=== PATIENT | male | born 1985 | race Caucasian/White ===

== ENCOUNTER 2020-05-06 10:00 | Outpatient (REF) | payer OTHER, SELFPAY ==
[2020-05-06 10:42] LABS: MANUAL DIFF FLAG NO
[2020-05-06 10:55] LABS: Basophils Percent Auto 0.4 % (0-2); Eosinophils Percent Auto 0.4 % (0-4); Hematocrit 38.5 % (42-52); Hemoglobin 12.9 g/dl (14.0-18.0); Imm Gran Abs Auto 0.02 X10*3/uL (0.00-0.03); Imm Gran Pct Auto 0.3 % (0.0-0.4); Lymphocytes Absolute Auto 1.9 X10*3/uL (1.2-4.9); Lymphocytes Percent Auto 28.8 % (20-40); Mean Corpuscular HGB Conc 33.5 g/dl (31.0-36.0); Mean Corpuscular Hemoglobin 29.7 pg (27.0-33.0); Mean Corpuscular Volume 88.5 fL (80-98); Mean Platelet Volume 10.4 fL (9.4-12.4); Monocytes Absolute Auto 0.6 X10*3/uL (0.1-1.2); Monocytes Percent Auto 8.7 % (2-11); Neutrophils Absolute Auto 4.1 X10*3/uL (2.0-8.3); Neutrophils Percent Auto 61.4 % (45-73); Platelet Count 221 X10*3/uL (160-400); Red Blood Count 4.35 X10*6/uL (4.60-5.80); Red Cell Distribution Width 12.4 % (11.0-16.0); White Blood Count 6.7 X10*3/uL (4.8-10.8)
== END 2020-05-06 10:01 | disposition home or self-care (01) ==
LOC: HO.LABR 10:00
PROVIDERS: PCP Student in an Organized Health Care Education/Training Program; Visit Provider Psychiatry & Neurology Psychiatry
DX: Z79.899 Other long term (current) drug therapy (principal)
CPT/HCPCS: 36415; 85025

== ENCOUNTER 2020-06-05 14:35 | Outpatient (REF) | payer OTHER, SELFPAY ==
[2020-06-05 15:23] LABS: MANUAL DIFF FLAG NO
[2020-06-05 15:25] LABS: Basophils Percent Auto 0.3 % (0-2); Eosinophils Percent Auto 0.3 % (0-4); Hematocrit 38.3 % (42-52); Imm Gran Abs Auto 0.02 X10*3/uL (0.00-0.03); Imm Gran Pct Auto 0.3 % (0.0-0.4); Lymphocytes Absolute Auto 2.3 X10*3/uL (1.2-4.9); Lymphocytes Percent Auto 36.7 % (20-40); Mean Corpuscular HGB Conc 33.9 g/dl (31.0-36.0); Mean Corpuscular Hemoglobin 29.5 pg (27.0-33.0); Mean Corpuscular Volume 86.8 fL (80-98); Mean Platelet Volume 10.2 fL (9.4-12.4); Monocytes Absolute Auto 0.5 X10*3/uL (0.1-1.2); Monocytes Percent Auto 7.9 % (2-11); Neutrophils Absolute Auto 3.4 X10*3/uL (2.0-8.3); Neutrophils Percent Auto 54.5 % (45-73); Platelet Count 250 X10*3/uL (160-400); Red Blood Count 4.41 X10*6/uL (4.60-5.80); Red Cell Distribution Width 12.2 % (11.0-16.0); White Blood Count 6.2 X10*3/uL (4.8-10.8)
== END 2020-06-05 14:36 | disposition home or self-care (01) ==
LOC: HO.LABR 14:35
PROVIDERS: PCP Student in an Organized Health Care Education/Training Program; Visit Provider Psychiatry & Neurology Psychiatry
DX: Z79.899 Other long term (current) drug therapy (principal)
CPT/HCPCS: 36415; 85025

== ENCOUNTER 2020-07-02 09:51 | Outpatient (REF) | payer OTHER, SELFPAY ==
[2020-07-02 11:08] LABS: MANUAL DIFF FLAG NO
[2020-07-02 11:26] LABS: Basophils Percent Auto 0.4 % (0-2); Eosinophils Percent Auto 0.2 % (0-4); Hemoglobin 13.9 g/dl (14.0-18.0); Imm Gran Abs Auto 0.02 X10*3/uL (0.00-0.03); Imm Gran Pct Auto 0.4 % (0.0-0.4); Lymphocytes Absolute Auto 1.6 X10*3/uL (1.2-4.9); Lymphocytes Percent Auto 28.4 % (20-40); Mean Corpuscular HGB Conc 33.1 g/dl (31.0-36.0); Mean Corpuscular Hemoglobin 29.3 pg (27.0-33.0); Mean Corpuscular Volume 88.4 fL (80-98); Mean Platelet Volume 10.2 fL (9.4-12.4); Monocytes Absolute Auto 0.3 X10*3/uL (0.1-1.2); Monocytes Percent Auto 5.9 % (2-11); Neut%MD 64.7 %; Neutrophils Absolute Auto 3.7 X10*3/uL (2.0-8.3); Neutrophils Percent Auto 64.7 % (45-73); Platelet Count 257 X10*3/uL (160-400); Red Blood Count 4.75 X10*6/uL (4.60-5.80); Red Cell Distribution Width 12.3 % (11.0-16.0); WBCANC 5.6 X10*3/uL; White Blood Count 5.6 X10*3/uL (4.8-10.8)
== END 2020-07-02 09:52 | disposition home or self-care (01) ==
LOC: HO.LABR 09:51
PROVIDERS: PCP Student in an Organized Health Care Education/Training Program; Visit Provider Psychiatry & Neurology Psychiatry
DX: Z79.899 Other long term (current) drug therapy (principal)
CPT/HCPCS: 36415; 85025

== ENCOUNTER 2020-08-05 11:03 | Outpatient (REF) | payer OTHER, SELFPAY ==
[2020-08-05 12:06] LABS: MANUAL DIFF FLAG NO
[2020-08-05 12:18] LABS: Basophils Percent Auto 0.2 % (0-2); Eosinophils Percent Auto 0.2 % (0-4); Hematocrit 38.9 % (42-52); Hemoglobin 12.9 g/dl (14.0-18.0); Imm Gran Abs Auto 0.01 X10*3/uL (0.00-0.03); Imm Gran Pct Auto 0.2 % (0.0-0.4); Lymphocytes Absolute Auto 1.7 X10*3/uL (1.2-4.9); Lymphocytes Percent Auto 31.7 % (20-40); Mean Corpuscular HGB Conc 33.2 g/dl (31.0-36.0); Mean Corpuscular Hemoglobin 28.9 pg (27.0-33.0); Mean Platelet Volume 10.3 fL (9.4-12.4); Monocytes Absolute Auto 0.4 X10*3/uL (0.1-1.2); Neut%MD 59.7 %; Neutrophils Absolute Auto 3.2 X10*3/uL (2.0-8.3); Neutrophils Percent Auto 59.7 % (45-73); Platelet Count 272 X10*3/uL (160-400); Red Blood Count 4.47 X10*6/uL (4.60-5.80); Red Cell Distribution Width 12.2 % (11.0-16.0); WBCANC 5.4 X10*3/uL; White Blood Count 5.4 X10*3/uL (4.8-10.8)
== END 2020-08-05 11:04 | disposition home or self-care (01) ==
LOC: HO.LABR 11:03
PROVIDERS: PCP Student in an Organized Health Care Education/Training Program; Visit Provider Psychiatry & Neurology Psychiatry
DX: Z79.899 Other long term (current) drug therapy (principal)
CPT/HCPCS: 36415; 85025; 85048

== ENCOUNTER 2020-08-27 13:34 | Outpatient (REF) | payer OTHER, SELFPAY ==
[2020-08-27 14:00] LABS: MANUAL DIFF FLAG NO
[2020-08-27 14:14] LABS: Basophils Percent Auto 0.4 % (0-2); Eosinophils Percent Auto 0.4 % (0-4); Hematocrit 42.5 % (42-52); Hemoglobin 14.1 g/dl (14.0-18.0); Imm Gran Abs Auto 0.02 X10*3/uL (0.00-0.03); Imm Gran Pct Auto 0.3 % (0.0-0.4); Lymphocytes Absolute Auto 2.1 X10*3/uL (1.2-4.9); Lymphocytes Percent Auto 30.2 % (20-40); Mean Corpuscular HGB Conc 33.2 g/dl (31.0-36.0); Mean Corpuscular Hemoglobin 29.1 pg (27.0-33.0); Mean Corpuscular Volume 87.8 fL (80-98); Mean Platelet Volume 10.1 fL (9.4-12.4); Monocytes Absolute Auto 0.5 X10*3/uL (0.1-1.2); Monocytes Percent Auto 7.6 % (2-11); Neut%MD 61.1 %; Neutrophils Absolute Auto 4.3 X10*3/uL (2.0-8.3); Neutrophils Percent Auto 61.1 % (45-73); Platelet Count 253 X10*3/uL (160-400); Red Blood Count 4.84 X10*6/uL (4.60-5.80); Red Cell Distribution Width 12.4 % (11.0-16.0); WBCANC 7.1 X10*3/uL; White Blood Count 7.1 X10*3/uL (4.8-10.8)
== END 2020-08-27 13:35 | disposition home or self-care (01) ==
LOC: HO.LABR 13:34
PROVIDERS: PCP Student in an Organized Health Care Education/Training Program; Visit Provider Psychiatry & Neurology Psychiatry
DX: Z79.899 Other long term (current) drug therapy (principal)
CPT/HCPCS: 36415; 85025; 85048

== ENCOUNTER 2020-09-29 09:34 | Outpatient (REF) | payer OTHER, SELFPAY ==
[2020-09-29 10:03] LABS: MANUAL DIFF FLAG NO
[2020-09-29 10:10] LABS: Basophils Percent Auto 0.4 % (0-2); Eosinophils Percent Auto 0.7 % (0-4); Hematocrit 40.2 % (42-52); Hemoglobin 13.5 g/dl (14.0-18.0); Imm Gran Abs Auto 0.01 X10*3/uL (0.00-0.03); Imm Gran Pct Auto 0.2 % (0.0-0.4); Lymphocytes Absolute Auto 2.2 X10*3/uL (1.2-4.9); Lymphocytes Percent Auto 40.4 % (20-40); Mean Corpuscular HGB Conc 33.6 g/dl (31.0-36.0); Mean Corpuscular Hemoglobin 29.3 pg (27.0-33.0); Mean Corpuscular Volume 87.2 fL (80-98); Mean Platelet Volume 9.7 fL (9.4-12.4); Monocytes Absolute Auto 0.4 X10*3/uL (0.1-1.2); Monocytes Percent Auto 8.2 % (2-11); Neut%MD 50.1 %; Neutrophils Absolute Auto 2.7 X10*3/uL (2.0-8.3); Neutrophils Percent Auto 50.1 % (45-73); Platelet Count 255 X10*3/uL (160-400); Red Blood Count 4.61 X10*6/uL (4.60-5.80); Red Cell Distribution Width 12.7 % (11.0-16.0); WBCANC 5.4 X10*3/uL; White Blood Count 5.4 X10*3/uL (4.8-10.8)
== END 2020-09-29 09:35 | disposition home or self-care (01) ==
LOC: HO.LABR 09:34
PROVIDERS: PCP Student in an Organized Health Care Education/Training Program; Visit Provider Psychiatry & Neurology Psychiatry
DX: Z79.899 Other long term (current) drug therapy (principal)
CPT/HCPCS: 36415; 85025; 85048

== ENCOUNTER 2020-11-03 09:34 | Outpatient (REF) | payer OTHER, SELFPAY ==
[2020-11-03 10:27] LABS: MANUAL DIFF FLAG NO
[2020-11-03 10:34] LABS: Basophils Percent Auto 0.2 % (0-2); Eosinophils Percent Auto 0.8 % (0-4); Hematocrit 41.2 % (42-52); Hemoglobin 13.8 g/dl (14.0-18.0); Imm Gran Abs Auto 0.01 X10*3/uL (0.00-0.03); Imm Gran Pct Auto 0.2 % (0.0-0.4); Lymphocytes Absolute Auto 2.1 X10*3/uL (1.2-4.9); Lymphocytes Percent Auto 41.5 % (20-40); Mean Corpuscular HGB Conc 33.5 g/dl (31.0-36.0); Mean Corpuscular Hemoglobin 29.4 pg (27.0-33.0); Mean Corpuscular Volume 87.7 fL (80-98); Mean Platelet Volume 9.9 fL (9.4-12.4); Monocytes Absolute Auto 0.5 X10*3/uL (0.1-1.2); Monocytes Percent Auto 9.1 % (2-11); Neut%MD 48.2 %; Neutrophils Absolute Auto 2.5 X10*3/uL (2.0-8.3); Neutrophils Percent Auto 48.2 % (45-73); Platelet Count 241 X10*3/uL (160-400); Red Cell Distribution Width 12.5 % (11.0-16.0); WBCANC 5.2 X10*3/uL; White Blood Count 5.2 X10*3/uL (4.8-10.8)
== END 2020-11-03 09:35 | disposition home or self-care (01) ==
LOC: HO.LABR 09:34
PROVIDERS: PCP Student in an Organized Health Care Education/Training Program; Visit Provider Psychiatry & Neurology Psychiatry
DX: Z79.899 Other long term (current) drug therapy (principal)
CPT/HCPCS: 36415; 85025; 85048

== ENCOUNTER 2020-12-01 11:39 | Outpatient (REF) | payer OTHER, SELFPAY ==
[2020-12-01 12:06] LABS: MANUAL DIFF FLAG NO
[2020-12-01 12:11] LABS: Basophils Percent Auto 0.2 % (0-2); Eosinophils Percent Auto 0.2 % (0-4); Hematocrit 37.2 % (42-52); Hemoglobin 12.9 g/dl (14.0-18.0); Imm Gran Abs Auto 0.01 X10*3/uL (0.00-0.03); Imm Gran Pct Auto 0.2 % (0.0-0.4); Lymphocytes Absolute Auto 1.8 X10*3/uL (1.2-4.9); Lymphocytes Percent Auto 33.6 % (20-40); Mean Corpuscular HGB Conc 34.7 g/dl (31.0-36.0); Mean Corpuscular Hemoglobin 30.1 pg (27.0-33.0); Mean Corpuscular Volume 86.7 fL (80-98); Mean Platelet Volume 9.8 fL (9.4-12.4); Monocytes Absolute Auto 0.4 X10*3/uL (0.1-1.2); Monocytes Percent Auto 8.1 % (2-11); Neut%MD 57.7 %; Neutrophils Absolute Auto 3.1 X10*3/uL (2.0-8.3); Neutrophils Percent Auto 57.7 % (45-73); Platelet Count 213 X10*3/uL (160-400); Red Blood Count 4.29 X10*6/uL (4.60-5.80); Red Cell Distribution Width 12.3 % (11.0-16.0); WBCANC 5.3 X10*3/uL; White Blood Count 5.3 X10*3/uL (4.8-10.8)
== END 2020-12-01 11:40 | disposition home or self-care (01) ==
LOC: HO.LABR 11:39
PROVIDERS: PCP Student in an Organized Health Care Education/Training Program; Visit Provider Psychiatry & Neurology Psychiatry
DX: Z79.899 Other long term (current) drug therapy (principal)
CPT/HCPCS: 36415; 85025; 85048

== ENCOUNTER 2020-12-29 08:48 | Outpatient (REF) | payer OTHER, SELFPAY ==
[2020-12-29 09:19] LABS: MANUAL DIFF FLAG NO
[2020-12-29 09:22] LABS: Basophils Percent Auto 0.5 % (0-2); Eosinophils Percent Auto 0.6 % (0-4); Hematocrit 40.4 % (42-52); Hemoglobin 13.7 g/dl (14.0-18.0); Imm Gran Abs Auto 0.02 X10*3/uL (0.00-0.03); Imm Gran Pct Auto 0.3 % (0.0-0.4); Lymphocytes Absolute Auto 2.4 X10*3/uL (1.2-4.9); Lymphocytes Percent Auto 38.2 % (20-40); Mean Corpuscular HGB Conc 33.9 g/dl (31.0-36.0); Mean Corpuscular Hemoglobin 29.7 pg (27.0-33.0); Mean Corpuscular Volume 87.4 fL (80-98); Monocytes Absolute Auto 0.4 X10*3/uL (0.1-1.2); Monocytes Percent Auto 6.7 % (2-11); Neut%MD 53.7 %; Neutrophils Absolute Auto 3.4 X10*3/uL (2.0-8.3); Neutrophils Percent Auto 53.7 % (45-73); Platelet Count 220 X10*3/uL (160-400); Red Blood Count 4.62 X10*6/uL (4.60-5.80); Red Cell Distribution Width 12.2 % (11.0-16.0); WBCANC 6.4 X10*3/uL; White Blood Count 6.4 X10*3/uL (4.8-10.8)
== END 2020-12-29 08:49 | disposition home or self-care (01) ==
LOC: HO.LABR 08:48
PROVIDERS: PCP Student in an Organized Health Care Education/Training Program; Visit Provider Psychiatry & Neurology Psychiatry
DX: Z79.899 Other long term (current) drug therapy (principal)
CPT/HCPCS: 36415; 85025; 85048

== ENCOUNTER 2021-01-27 14:12 | Outpatient (REF) | payer OTHER, SELFPAY ==
[2021-01-27 14:52] LABS: Hematocrit 40.2 % (42-52); Hemoglobin 13.6 g/dl (14.0-18.0); Mean Corpuscular HGB Conc 33.8 g/dl (31.0-36.0); Mean Corpuscular Hemoglobin 29.3 pg (27.0-33.0); Mean Corpuscular Volume 86.6 fL (80-98); Mean Platelet Volume 10.1 fL (9.4-12.4); Platelet Count 243 X10*3/uL (160-400); Red Blood Count 4.64 X10*6/uL (4.60-5.80); Red Cell Distribution Width 12.4 % (11.0-16.0); White Blood Count 7.3 X10*3/uL (4.8-10.8)
[2021-01-27 15:09] LABS: Alanine Aminotransferase 13 U/L (0-40); Albumin Level 4.7 g/dL (3.5-5.0); Alkaline Phosphatase 86 U/L (39-117); Anion Gap 14 (12-20); Aspartate Amino Transferase 16 U/L (5-37); Bilirubin Direct 0.2 mg/dL (0.0-0.5); Bilirubin Total 0.7 mg/dL (0.0-1.0); Blood Urea Nitrogen 15 mg/dL (9-16); Carbon Dioxide 23 mmol/L (22-29); Chloride 108 mmol/L (96-108); Cholesterol 194 mg/dL; Estimated Glomerular Filt Rate > 60; Glucose Random 101 mg/dL (60-115); HDL Cholesterol 49 mg/dL; LDL Cholesterol Calculated 119 mg/dl; Potassium 4.5 mmol/L (3.3-5.1); Sodium 140 mmol/L (135-145); Total Protein 7.1 g/dL (6.5-8.0); Triglycerides 131 mg/dL
[2021-01-27 15:30] LABS: Thyroid Stimulating Hormone 0.46 uIU/mL (0.32-4.0); Vitamin D 25-OH Total 25.3 ng/mL (>30)
[2021-01-27 15:52] LABS: Vitamin B12 344 pg/mL (200-900)
== END 2021-01-27 14:13 | disposition home or self-care (01) ==
LOC: HO.LAB 14:12
PROVIDERS: Absent Provider Psychiatry & Neurology Psychiatry; PCP Student in an Organized Health Care Education/Training Program; Visit Provider Student in an Organized Health Care Education/Training Program
DX: Z79.899 Other long term (current) drug therapy (principal)
CPT/HCPCS: 36415; 80048; 80061; 80076; 82306; 82607; 84443; 85027

== ENCOUNTER 2021-03-05 08:57 | Outpatient (REF) | payer OTHER, SELFPAY ==
[2021-03-05 09:52] LABS: MANUAL DIFF FLAG NO
[2021-03-05 10:01] LABS: Basophils Percent Auto 0.4 % (0-2); Eosinophils Percent Auto 0.2 % (0-4); Hematocrit 39.6 % (42-52); Hemoglobin 13.7 g/dl (14.0-18.0); Imm Gran Abs Auto 0.02 X10*3/uL (0.00-0.03); Imm Gran Pct Auto 0.4 % (0.0-0.4); Lymphocytes Percent Auto 36.2 % (20-40); Mean Corpuscular HGB Conc 34.6 g/dl (31.0-36.0); Mean Corpuscular Hemoglobin 30.1 pg (27.0-33.0); Mean Platelet Volume 10.2 fL (9.4-12.4); Monocytes Absolute Auto 0.5 X10*3/uL (0.1-1.2); Monocytes Percent Auto 8.9 % (2-11); Neutrophils Percent Auto 53.9 % (45-73); Platelet Count 240 X10*3/uL (160-400); Red Blood Count 4.55 X10*6/uL (4.60-5.80); Red Cell Distribution Width 12.2 % (11.0-16.0); White Blood Count 5.5 X10*3/uL (4.8-10.8)
== END 2021-03-05 08:58 | disposition home or self-care (01) ==
LOC: HO.LABR 08:57
PROVIDERS: PCP Student in an Organized Health Care Education/Training Program; Visit Provider Psychiatry & Neurology Psychiatry
DX: Z79.899 Other long term (current) drug therapy (principal)
CPT/HCPCS: 36415; 85025

== ENCOUNTER 2021-03-27 11:14 | Outpatient (REF) | payer OTHER, SELFPAY ==
[2021-03-27 11:25] LABS: MANUAL DIFF FLAG NO
[2021-03-27 11:38] LABS: Basophils Percent Auto 0.3 % (0-2); Eosinophils Percent Auto 0.2 % (0-4); Hematocrit 39.1 % (42-52); Hemoglobin 13.6 g/dl (14.0-18.0); Imm Gran Abs Auto 0.01 X10*3/uL (0.00-0.03); Imm Gran Pct Auto 0.2 % (0.0-0.4); Lymphocytes Percent Auto 34.8 % (20-40); Mean Corpuscular HGB Conc 34.8 g/dl (31.0-36.0); Mean Corpuscular Hemoglobin 29.8 pg (27.0-33.0); Mean Corpuscular Volume 85.7 fL (80-98); Mean Platelet Volume 9.7 fL (9.4-12.4); Monocytes Absolute Auto 0.5 X10*3/uL (0.1-1.2); Monocytes Percent Auto 9.3 % (2-11); Neutrophils Absolute Auto 3.2 X10*3/uL (2.0-8.3); Neutrophils Percent Auto 55.2 % (45-73); Platelet Count 250 X10*3/uL (160-400); Red Blood Count 4.56 X10*6/uL (4.60-5.80); Red Cell Distribution Width 12.1 % (11.0-16.0); White Blood Count 5.7 X10*3/uL (4.8-10.8)
== END 2021-03-27 11:15 | disposition home or self-care (01) ==
LOC: HO.LABR 11:14
PROVIDERS: PCP Student in an Organized Health Care Education/Training Program; Visit Provider Psychiatry & Neurology Psychiatry
DX: Z79.899 Other long term (current) drug therapy (principal)
CPT/HCPCS: 36415; 85025

== ENCOUNTER 2021-04-30 14:08 | Outpatient (REF) | payer OTHER, SELFPAY ==
[2021-04-30 14:24] LABS: MANUAL DIFF FLAG NO
[2021-04-30 14:36] LABS: Basophils Percent Auto 0.6 % (0-2); Eosinophils Percent Auto 0.6 % (0-4); Hematocrit 37.3 % (42-52); Hemoglobin 13.1 g/dl (14.0-18.0); Imm Gran Abs Auto 0.01 X10*3/uL (0.00-0.03); Imm Gran Pct Auto 0.2 % (0.0-0.4); Lymphocytes Absolute Auto 2.3 X10*3/uL (1.2-4.9); Lymphocytes Percent Auto 34.7 % (20-40); Mean Corpuscular HGB Conc 35.1 g/dl (31.0-36.0); Mean Corpuscular Hemoglobin 30.3 pg (27.0-33.0); Mean Corpuscular Volume 86.1 fL (80-98); Mean Platelet Volume 9.8 fL (9.4-12.4); Monocytes Absolute Auto 0.5 X10*3/uL (0.1-1.2); Monocytes Percent Auto 7.2 % (2-11); Neutrophils Absolute Auto 3.7 X10*3/uL (2.0-8.3); Neutrophils Percent Auto 56.7 % (45-73); Platelet Count 217 X10*3/uL (160-400); Red Blood Count 4.33 X10*6/uL (4.60-5.80); White Blood Count 6.5 X10*3/uL (4.8-10.8)
== END 2021-04-30 14:09 | disposition home or self-care (01) ==
LOC: HO.LABR 14:08
PROVIDERS: PCP Student in an Organized Health Care Education/Training Program; Visit Provider Psychiatry & Neurology Psychiatry
DX: Z79.899 Other long term (current) drug therapy (principal)
CPT/HCPCS: 36415; 85025

== ENCOUNTER 2021-05-28 10:44 | Outpatient (REF) | payer OTHER, SELFPAY ==
[2021-05-28 10:57] LABS: MANUAL DIFF FLAG NO
[2021-05-28 11:12] LABS: Basophils Percent Auto 0.5 % (0-2); Eosinophils Percent Auto 0.3 % (0-4); Hematocrit 41.4 % (42.0-52.0); Imm Gran Abs Auto 0.01 X10*3/uL (0.00-0.03); Imm Gran Pct Auto 0.2 % (0.0-0.4); Lymphocytes Absolute Auto 2.3 X10*3/uL (1.2-4.9); Lymphocytes Percent Auto 37.8 % (20-40); Mean Corpuscular HGB Conc 33.8 g/dl (31.0-36.0); Mean Corpuscular Hemoglobin 29.4 pg (27.0-33.0); Mean Platelet Volume 9.8 fL (9.4-12.4); Monocytes Absolute Auto 0.6 X10*3/uL (0.1-1.2); Monocytes Percent Auto 9.2 % (2-11); Neutrophils Absolute Auto 3.21 x10*3/uL (2.0-8.3); Platelet Count 232 X10*3/uL (160-400); Red Blood Count 4.76 X10*6/uL (4.60-5.80); Red Cell Distribution Width 12.3 % (11.0-16.0); White Blood Count 6.2 X10*3/uL (4.8-10.8)
== END 2021-05-28 10:45 | disposition home or self-care (01) ==
LOC: HO.LABR 10:44
PROVIDERS: PCP Student in an Organized Health Care Education/Training Program; Visit Provider Psychiatry & Neurology Psychiatry
DX: Z79.899 Other long term (current) drug therapy (principal)
CPT/HCPCS: 36415; 85025

== ENCOUNTER 2021-06-22 12:15 | Outpatient (REF) | payer OTHER, SELFPAY ==
[2021-06-22 12:58] LABS: MANUAL DIFF FLAG NO
[2021-06-22 13:24] LABS: Basophils Percent Auto 0.6 % (0-2); Eosinophils Percent Auto 0.1 % (0-4); Hematocrit 40.5 % (42.0-52.0); Hemoglobin 13.8 g/dl (14.0-18.0); Imm Gran Abs Auto 0.02 X10*3/uL (0.00-0.03); Imm Gran Pct Auto 0.3 % (0.0-0.4); Lymphocytes Absolute Auto 1.8 X10*3/uL (1.2-4.9); Mean Corpuscular HGB Conc 34.1 g/dl (31.0-36.0); Mean Corpuscular Hemoglobin 29.6 pg (27.0-33.0); Mean Corpuscular Volume 86.7 fL (80.0-98.0); Mean Platelet Volume 9.9 fL (9.4-12.4); Monocytes Absolute Auto 0.7 X10*3/uL (0.1-1.2); Neutrophils Absolute Auto 4.7 x10*3/uL (2.0-8.3); Platelet Count 241 X10*3/uL (160-400); Red Blood Count 4.67 X10*6/uL (4.60-5.80); Red Cell Distribution Width 12.3 % (11.0-16.0); WBCANC 7.3 X10*3/uL; White Blood Count 7.3 X10*3/uL (4.8-10.8)
== END 2021-06-22 12:16 | disposition home or self-care (01) ==
LOC: HO.LABR 12:15
PROVIDERS: PCP Student in an Organized Health Care Education/Training Program; Visit Provider Psychiatry & Neurology Psychiatry
DX: Z79.899 Other long term (current) drug therapy (principal)
CPT/HCPCS: 36415; 85025

== ENCOUNTER 2021-07-21 14:15 | Outpatient (REF) | payer OTHER, SELFPAY ==
[2021-07-21 14:30] LABS: MANUAL DIFF FLAG NO
[2021-07-21 14:41] LABS: Basophils Percent Auto 0.3 % (0-2); Hematocrit 40.2 % (42.0-52.0); Hemoglobin 13.8 g/dl (14.0-18.0); Imm Gran Abs Auto 0.03 X10*3/uL (0.00-0.03); Imm Gran Pct Auto 0.3 % (0.0-0.4); Lymphocytes Absolute Auto 2.4 X10*3/uL (1.2-4.9); Lymphocytes Percent Auto 22.8 % (20-40); Mean Corpuscular HGB Conc 34.3 g/dl (31.0-36.0); Mean Corpuscular Hemoglobin 29.4 pg (27.0-33.0); Mean Corpuscular Volume 85.5 fL (80.0-98.0); Mean Platelet Volume 9.8 fL (9.4-12.4); Monocytes Absolute Auto 0.6 X10*3/uL (0.1-1.2); Monocytes Percent Auto 5.7 % (2-11); Neut%MD 70.9 %; Neutrophils Absolute Auto 7.6 x10*3/uL (2.0-8.3); Neutrophils Percent Auto 70.9 % (45-73); Platelet Count 269 X10*3/uL (160-400); Red Cell Distribution Width 12.3 % (11.0-16.0); WBCANC 10.7 X10*3/uL; White Blood Count 10.7 X10*3/uL (4.8-10.8)
== END 2021-07-21 14:16 | disposition home or self-care (01) ==
LOC: HO.LABR 14:15
PROVIDERS: PCP Student in an Organized Health Care Education/Training Program; Visit Provider Psychiatry & Neurology Psychiatry
DX: Z79.899 Other long term (current) drug therapy (principal)
CPT/HCPCS: 36415; 85025

== ENCOUNTER 2021-08-25 14:02 | Outpatient (REF) | payer OTHER, SELFPAY ==
[2021-08-25 15:12] LABS: Neutrophils Absolute Auto 4.6 x10*3/uL (2.0-8.3); White Blood Count 7.4 X10*3/uL (4.8-10.8)
== END 2021-08-25 14:03 | disposition home or self-care (01) ==
LOC: HO.LABR 14:02
PROVIDERS: PCP Student in an Organized Health Care Education/Training Program; Visit Provider Psychiatry & Neurology Psychiatry
DX: Z79.899 Other long term (current) drug therapy (principal)
CPT/HCPCS: 36415; 85048

== ENCOUNTER 2021-09-24 08:58 | Outpatient (REF) | payer OTHER, SELFPAY ==
[2021-09-24 09:28] LABS: MANUAL DIFF FLAG NO
[2021-09-24 10:02] LABS: Basophils Percent Auto 0.4 % (0-2); Hematocrit 40.8 % (42.0-52.0); Hemoglobin 13.8 g/dl (14.0-18.0); Imm Gran Abs Auto 0.02 X10*3/uL (0.00-0.03); Imm Gran Pct Auto 0.4 % (0.0-0.4); Lymphocytes Absolute Auto 2.1 X10*3/uL (1.2-4.9); Lymphocytes Percent Auto 37.7 % (20-40); Mean Corpuscular HGB Conc 33.8 g/dl (31.0-36.0); Mean Corpuscular Hemoglobin 29.4 pg (27.0-33.0); Mean Corpuscular Volume 86.8 fL (80.0-98.0); Mean Platelet Volume 9.9 fL (9.4-12.4); Monocytes Absolute Auto 0.5 X10*3/uL (0.1-1.2); Monocytes Percent Auto 8.6 % (2-11); Neutrophils Absolute Auto 2.9 x10*3/uL (2.0-8.3); Neutrophils Percent Auto 52.9 % (45-73); Platelet Count 232 X10*3/uL (160-400); Red Cell Distribution Width 12.5 % (11.0-16.0); White Blood Count 5.5 X10*3/uL (4.8-10.8)
== END 2021-09-24 08:59 | disposition home or self-care (01) ==
LOC: HO.LABR 08:58
PROVIDERS: PCP Student in an Organized Health Care Education/Training Program; Visit Provider Psychiatry & Neurology Psychiatry
DX: Z79.899 Other long term (current) drug therapy (principal)
CPT/HCPCS: 36415; 85025

== ENCOUNTER 2021-10-16 13:57 | Outpatient (REF) | payer OTHER, SELFPAY ==
[2021-10-16 14:09] LABS: MANUAL DIFF FLAG NO
[2021-10-16 14:14] LABS: Basophils Percent Auto 0.5 % (0-2); Eosinophils Percent Auto 0.2 % (0-4); Hematocrit 40.2 % (42.0-52.0); Hemoglobin 13.4 g/dl (14.0-18.0); Imm Gran Abs Auto 0.01 X10*3/uL (0.00-0.03); Imm Gran Pct Auto 0.2 % (0.0-0.4); Lymphocytes Absolute Auto 2.4 X10*3/uL (1.2-4.9); Lymphocytes Percent Auto 37.3 % (20-40); Mean Corpuscular HGB Conc 33.3 g/dl (31.0-36.0); Mean Corpuscular Hemoglobin 29.2 pg (27.0-33.0); Mean Corpuscular Volume 87.6 fL (80.0-98.0); Mean Platelet Volume 9.7 fL (9.4-12.4); Monocytes Absolute Auto 0.6 X10*3/uL (0.1-1.2); Monocytes Percent Auto 9.3 % (2-11); Neutrophils Absolute Auto 3.4 x10*3/uL (2.0-8.3); Neutrophils Percent Auto 52.5 % (45-73); Platelet Count 248 X10*3/uL (160-400); Red Blood Count 4.59 X10*6/uL (4.60-5.80); Red Cell Distribution Width 12.6 % (11.0-16.0); White Blood Count 6.4 X10*3/uL (4.8-10.8)
== END 2021-10-16 13:58 | disposition home or self-care (01) ==
LOC: HO.LABR 13:57
PROVIDERS: PCP Student in an Organized Health Care Education/Training Program; Visit Provider Psychiatry & Neurology Psychiatry
DX: Z79.899 Other long term (current) drug therapy (principal)
CPT/HCPCS: 36415; 85025

== ENCOUNTER 2021-11-23 16:15 | Outpatient (REF) | payer OTHER, SELFPAY ==
[2021-11-23 16:29] LABS: MANUAL DIFF FLAG NO
[2021-11-23 17:51] LABS: Basophils Percent Auto 0.3 % (0-2); Eosinophils Percent Auto 0.1 % (0-4); Hematocrit 40.6 % (42.0-52.0); Hemoglobin 13.7 g/dl (14.0-18.0); Imm Gran Abs Auto 0.02 X10*3/uL (0.00-0.03); Imm Gran Pct Auto 0.3 % (0.0-0.4); Lymphocytes Absolute Auto 2.5 X10*3/uL (1.2-4.9); Lymphocytes Percent Auto 33.4 % (20-40); Mean Corpuscular HGB Conc 33.7 g/dl (31.0-36.0); Mean Platelet Volume 10.2 fL (9.4-12.4); Monocytes Absolute Auto 0.7 X10*3/uL (0.1-1.2); Monocytes Percent Auto 9.2 % (2-11); Neutrophils Absolute Auto 4.2 x10*3/uL (2.0-8.3); Neutrophils Percent Auto 56.7 % (45-73); Platelet Count 253 X10*3/uL (160-400); Red Blood Count 4.72 X10*6/uL (4.60-5.80); Red Cell Distribution Width 12.5 % (11.0-16.0); White Blood Count 7.5 X10*3/uL (4.8-10.8)
== END 2021-11-23 16:16 | disposition home or self-care (01) ==
LOC: HO.LABR 16:15
PROVIDERS: PCP Student in an Organized Health Care Education/Training Program; Visit Provider Psychiatry & Neurology Psychiatry
DX: Z79.899 Other long term (current) drug therapy (principal)
CPT/HCPCS: 36415; 85025

== ENCOUNTER 2021-12-23 14:15 | Outpatient (REF) | payer OTHER, SELFPAY ==
[2021-12-23 14:25] LABS: MANUAL DIFF FLAG NO
[2021-12-23 14:43] LABS: Basophils Percent Auto 0.3 % (0-2); Hematocrit 40.1 % (42.0-52.0); Hemoglobin 13.9 g/dl (14.0-18.0); Imm Gran Abs Auto 0.02 X10*3/uL (0.00-0.03); Imm Gran Pct Auto 0.3 % (0.0-0.4); Lymphocytes Absolute Auto 2.4 X10*3/uL (1.2-4.9); Lymphocytes Percent Auto 37.2 % (20-40); Mean Corpuscular HGB Conc 34.7 g/dl (31.0-36.0); Mean Corpuscular Hemoglobin 29.6 pg (27.0-33.0); Mean Corpuscular Volume 85.5 fL (80.0-98.0); Mean Platelet Volume 9.6 fL (9.4-12.4); Monocytes Absolute Auto 0.5 X10*3/uL (0.1-1.2); Monocytes Percent Auto 8.5 % (2-11); Neutrophils Absolute Auto 3.4 x10*3/uL (2.0-8.3); Neutrophils Percent Auto 53.7 % (45-73); Platelet Count 252 X10*3/uL (160-400); Red Blood Count 4.69 X10*6/uL (4.60-5.80); Red Cell Distribution Width 12.5 % (11.0-16.0); White Blood Count 6.3 X10*3/uL (4.8-10.8)
== END 2021-12-23 14:16 | disposition home or self-care (01) ==
LOC: HO.LABR 14:15
PROVIDERS: Psychiatry & Neurology Psychiatry; PCP Student in an Organized Health Care Education/Training Program; Visit Provider Student in an Organized Health Care Education/Training Program
DX: Z79.899 Other long term (current) drug therapy (principal)
CPT/HCPCS: 36415; 85025

== ENCOUNTER 2022-01-26 12:57 | Outpatient (REF) | payer OTHER, SELFPAY ==
[2022-01-26 13:06] LABS: MANUAL DIFF FLAG NO
[2022-01-26 14:44] LABS: Basophils Percent Auto 0.4 % (0-2); Eosinophils Absolute Auto 0.1 X10*3/uL (0.0-0.4); Eosinophils Percent Auto 1.8 % (0-4); Hematocrit 38.8 % (42.0-52.0); Hemoglobin 12.9 g/dl (14.0-18.0); Imm Gran Abs Auto 0.02 X10*3/uL (0.00-0.03); Imm Gran Pct Auto 0.4 % (0.0-0.4); Mean Corpuscular HGB Conc 33.2 g/dl (31.0-36.0); Mean Corpuscular Hemoglobin 28.9 pg (27.0-33.0); Mean Corpuscular Volume 86.8 fL (80.0-98.0); Monocytes Absolute Auto 0.6 X10*3/uL (0.1-1.2); Monocytes Percent Auto 10.5 % (2-11); Neut%MD 50.9 %; Neutrophils Absolute Auto 2.9 x10*3/uL (2.0-8.3); Neutrophils Percent Auto 50.9 % (45-73); Platelet Count 288 X10*3/uL (160-400); Red Blood Count 4.47 X10*6/uL (4.60-5.80); Red Cell Distribution Width 12.9 % (11.0-16.0); WBCANC 5.6 X10*3/uL; White Blood Count 5.6 X10*3/uL (4.8-10.8)
== END 2022-01-26 12:58 | disposition home or self-care (01) ==
LOC: HO.LABR 12:57
PROVIDERS: PCP Student in an Organized Health Care Education/Training Program; Visit Provider Psychiatry & Neurology Psychiatry
DX: Z79.899 Other long term (current) drug therapy (principal)
CPT/HCPCS: 36415; 85025

== ENCOUNTER 2022-02-23 13:09 | Outpatient (REF) | payer OTHER, SELFPAY ==
[2022-02-23 13:26] LABS: MANUAL DIFF FLAG NO
[2022-02-23 13:48] LABS: Basophils Percent Auto 0.5 % (0-2); Hemoglobin 13.4 g/dl (14.0-18.0); Imm Gran Abs Auto 0.03 X10*3/uL (0.00-0.03); Imm Gran Pct Auto 0.5 % (0.0-0.4); Lymphocytes Absolute Auto 2.2 X10*3/uL (1.2-4.9); Lymphocytes Percent Auto 34.5 % (20-40); Mean Corpuscular HGB Conc 34.4 g/dl (31.0-36.0); Mean Corpuscular Hemoglobin 29.3 pg (27.0-33.0); Mean Corpuscular Volume 85.3 fL (80.0-98.0); Mean Platelet Volume 9.8 fL (9.4-12.4); Monocytes Absolute Auto 0.4 X10*3/uL (0.1-1.2); Monocytes Percent Auto 6.8 % (2-11); Neutrophils Absolute Auto 3.7 x10*3/uL (2.0-8.3); Neutrophils Percent Auto 57.7 % (45-73); Platelet Count 239 X10*3/uL (160-400); Red Blood Count 4.57 X10*6/uL (4.60-5.80); Red Cell Distribution Width 12.3 % (11.0-16.0); White Blood Count 6.4 X10*3/uL (4.8-10.8)
== END 2022-02-23 13:10 | disposition home or self-care (01) ==
LOC: HO.LABR 13:09
PROVIDERS: PCP Student in an Organized Health Care Education/Training Program; Visit Provider Psychiatry & Neurology Psychiatry
DX: Z79.899 Other long term (current) drug therapy (principal)
CPT/HCPCS: 36415; 85025

== ENCOUNTER 2022-03-25 14:56 | Outpatient (REF) | payer OTHER, SELFPAY ==
[2022-03-25 15:21] LABS: MANUAL DIFF FLAG NO
[2022-03-25 15:29] LABS: Basophils Percent Auto 0.5 % (0-2); Eosinophils Absolute Auto 0.1 X10*3/uL (0.0-0.4); Eosinophils Percent Auto 1.9 % (0-4); Hematocrit 38.5 % (42.0-52.0); Hemoglobin 13.5 g/dl (14.0-18.0); Imm Gran Abs Auto 0.02 X10*3/uL (0.00-0.03); Imm Gran Pct Auto 0.3 % (0.0-0.4); Lymphocytes Absolute Auto 2.5 X10*3/uL (1.2-4.9); Mean Corpuscular HGB Conc 35.1 g/dl (31.0-36.0); Mean Corpuscular Hemoglobin 29.6 pg (27.0-33.0); Mean Corpuscular Volume 84.4 fL (80.0-98.0); Mean Platelet Volume 9.5 fL (9.4-12.4); Monocytes Absolute Auto 0.6 X10*3/uL (0.1-1.2); Monocytes Percent Auto 8.5 % (2-11); Neut%MD 50.8 %; Neutrophils Absolute Auto 3.3 x10*3/uL (2.0-8.3); Neutrophils Percent Auto 50.8 % (45-73); Platelet Count 237 X10*3/uL (160-400); Red Blood Count 4.56 X10*6/uL (4.60-5.80); Red Cell Distribution Width 12.2 % (11.0-16.0); WBCANC 6.4 X10*3/uL; White Blood Count 6.4 X10*3/uL (4.8-10.8)
== END 2022-03-25 14:57 | disposition home or self-care (01) ==
LOC: HO.LABR 14:56
PROVIDERS: Visit Provider Psychiatry & Neurology Psychiatry
DX: Z79.899 Other long term (current) drug therapy (principal)
CPT/HCPCS: 36415; 85025

== ENCOUNTER 2022-04-27 11:47 | Outpatient (REF) | payer OTHER, SELFPAY ==
[2022-04-27 12:07] LABS: MANUAL DIFF FLAG NO
[2022-04-27 12:44] LABS: Basophils Percent Auto 0.3 % (0-2); Hematocrit 39.7 % (42.0-52.0); Hemoglobin 13.7 g/dl (14.0-18.0); Imm Gran Abs Auto 0.05 X10*3/uL (0.00-0.03); Imm Gran Pct Auto 0.8 % (0.0-0.4); Lymphocytes Absolute Auto 1.9 X10*3/uL (1.2-4.9); Lymphocytes Percent Auto 30.1 % (20-40); Mean Corpuscular HGB Conc 34.5 g/dl (31.0-36.0); Mean Corpuscular Hemoglobin 29.3 pg (27.0-33.0); Mean Corpuscular Volume 84.8 fL (80.0-98.0); Monocytes Absolute Auto 0.6 X10*3/uL (0.1-1.2); Monocytes Percent Auto 9.6 % (2-11); Neut%MD 59.2 %; Neutrophils Absolute Auto 3.8 x10*3/uL (2.0-8.3); Neutrophils Percent Auto 59.2 % (45-73); Platelet Count 247 X10*3/uL (160-400); Red Blood Count 4.68 X10*6/uL (4.60-5.80); Red Cell Distribution Width 12.5 % (11.0-16.0); WBCANC 6.3 X10*3/uL; White Blood Count 6.3 X10*3/uL (4.8-10.8)
== END 2022-04-27 11:48 | disposition home or self-care (01) ==
LOC: HO.LABR 11:47
PROVIDERS: PCP Student in an Organized Health Care Education/Training Program; Visit Provider Psychiatry & Neurology Psychiatry
DX: Z79.899 Other long term (current) drug therapy (principal)
CPT/HCPCS: 36415; 85025

== ENCOUNTER 2022-05-28 14:26 | Outpatient (REF) | payer OTHER, SELFPAY ==
[2022-05-28 14:35] LABS: MANUAL DIFF FLAG NO
[2022-05-28 15:09] LABS: Basophils Percent Auto 0.4 % (0-2); Hematocrit 38.6 % (42.0-52.0); Hemoglobin 13.6 g/dl (14.0-18.0); Imm Gran Abs Auto 0.02 X10*3/uL (0.00-0.03); Imm Gran Pct Auto 0.3 % (0.0-0.4); Lymphocytes Absolute Auto 2.4 X10*3/uL (1.2-4.9); Lymphocytes Percent Auto 32.4 % (20-40); Mean Corpuscular HGB Conc 35.2 g/dl (31.0-36.0); Mean Corpuscular Volume 85.2 fL (80.0-98.0); Mean Platelet Volume 10.3 fL (9.4-12.4); Monocytes Absolute Auto 0.7 X10*3/uL (0.1-1.2); Monocytes Percent Auto 8.9 % (2-11); Neutrophils Absolute Auto 4.4 x10*3/uL (2.0-8.3); Platelet Count 249 X10*3/uL (160-400); Red Blood Count 4.53 X10*6/uL (4.60-5.80); Red Cell Distribution Width 12.3 % (11.0-16.0); White Blood Count 7.5 X10*3/uL (4.8-10.8)
== END 2022-05-28 14:27 | disposition home or self-care (01) ==
LOC: HO.LABR 14:26
PROVIDERS: PCP Student in an Organized Health Care Education/Training Program; Visit Provider Psychiatry & Neurology Psychiatry
DX: Z79.899 Other long term (current) drug therapy (principal)
CPT/HCPCS: 36415; 85025

== ENCOUNTER 2022-06-30 16:31 | Outpatient (REF) | payer OTHER, SELFPAY ==
[2022-06-30 16:44] LABS: MANUAL DIFF FLAG NO
[2022-06-30 17:25] LABS: Basophils Percent Auto 0.4 % (0-2); Hematocrit 40.3 % (42.0-52.0); Hemoglobin 13.7 g/dl (14.0-18.0); Imm Gran Abs Auto 0.02 X10*3/uL (0.00-0.03); Imm Gran Pct Auto 0.2 % (0.0-0.4); Lymphocytes Absolute Auto 2.8 X10*3/uL (1.2-4.9); Lymphocytes Percent Auto 32.8 % (20-40); Mean Corpuscular Hemoglobin 28.8 pg (27.0-33.0); Mean Corpuscular Volume 84.8 fL (80.0-98.0); Mean Platelet Volume 10.2 fL (9.4-12.4); Monocytes Absolute Auto 0.7 X10*3/uL (0.1-1.2); Monocytes Percent Auto 8.5 % (2-11); Neutrophils Percent Auto 58.1 % (45-73); Platelet Count 264 X10*3/uL (160-400); Red Blood Count 4.75 X10*6/uL (4.60-5.80); Red Cell Distribution Width 12.2 % (11.0-16.0); White Blood Count 8.5 X10*3/uL (4.8-10.8)
== END 2022-06-30 16:32 | disposition home or self-care (01) ==
LOC: HO.LABR 16:31
PROVIDERS: Visit Provider Psychiatry & Neurology Psychiatry
DX: Z79.899 Other long term (current) drug therapy (principal)
CPT/HCPCS: 36415; 85025

== ENCOUNTER 2022-07-29 13:19 | Outpatient (REF) | payer OTHER, SELFPAY ==
[2022-07-29 13:35] LABS: MANUAL DIFF FLAG NO
[2022-07-29 14:30] LABS: Basophils Percent Auto 0.4 % (0-2); Eosinophils Percent Auto 0.2 % (0-4); Hematocrit 42.1 % (42.0-52.0); Hemoglobin 14.4 g/dl (14.0-18.0); Imm Gran Abs Auto 0.01 X10*3/uL (0.00-0.03); Imm Gran Pct Auto 0.2 % (0.0-0.4); Lymphocytes Absolute Auto 2.2 X10*3/uL (1.2-4.9); Lymphocytes Percent Auto 38.7 % (20-40); Mean Corpuscular HGB Conc 34.2 g/dl (31.0-36.0); Mean Corpuscular Volume 84.9 fL (80.0-98.0); Monocytes Absolute Auto 0.6 X10*3/uL (0.1-1.2); Monocytes Percent Auto 9.8 % (2-11); Neutrophils Absolute Auto 2.9 x10*3/uL (2.0-8.3); Neutrophils Percent Auto 50.7 % (45-73); Platelet Count 246 X10*3/uL (160-400); Red Blood Count 4.96 X10*6/uL (4.60-5.80); Red Cell Distribution Width 12.4 % (11.0-16.0); White Blood Count 5.6 X10*3/uL (4.8-10.8)
== END 2022-07-29 13:20 | disposition home or self-care (01) ==
LOC: HO.LABR 13:19
PROVIDERS: Visit Provider Psychiatry & Neurology Psychiatry
DX: Z79.899 Other long term (current) drug therapy (principal)
CPT/HCPCS: 36415; 85025

== ENCOUNTER 2022-08-25 10:02 | Outpatient (REF) | payer OTHER, SELFPAY ==
[2022-08-25 10:13] LABS: MANUAL DIFF FLAG NO
[2022-08-25 10:44] LABS: Basophils Percent Auto 0.3 % (0-2); Hematocrit 38.9 % (42.0-52.0); Hemoglobin 13.2 g/dl (14.0-18.0); Imm Gran Abs Auto 0.01 X10*3/uL (0.00-0.03); Imm Gran Pct Auto 0.2 % (0.0-0.4); Lymphocytes Absolute Auto 2.1 X10*3/uL (1.2-4.9); Lymphocytes Percent Auto 35.4 % (20-40); Mean Corpuscular HGB Conc 33.9 g/dl (31.0-36.0); Mean Corpuscular Hemoglobin 28.8 pg (27.0-33.0); Mean Corpuscular Volume 84.7 fL (80.0-98.0); Mean Platelet Volume 9.8 fL (9.4-12.4); Monocytes Absolute Auto 0.5 X10*3/uL (0.1-1.2); Monocytes Percent Auto 8.3 % (2-11); Neutrophils Absolute Auto 3.2 x10*3/uL (2.0-8.3); Neutrophils Percent Auto 55.8 % (45-73); Platelet Count 243 X10*3/uL (160-400); Red Blood Count 4.59 X10*6/uL (4.60-5.80); Red Cell Distribution Width 12.4 % (11.0-16.0); White Blood Count 5.8 X10*3/uL (4.8-10.8)
[2022-08-30 02:49] LABS: Clozapine (Clozaril) 174 mcg/L; Norclozapine 66 mcg/L (25-400)
== END 2022-08-25 10:03 | disposition home or self-care (01) ==
LOC: HO.LABR 10:02
PROVIDERS: PCP Student in an Organized Health Care Education/Training Program; Visit Provider Psychiatry & Neurology Psychiatry
DX: Z79.899 Other long term (current) drug therapy (principal)
CPT/HCPCS: 36415; 80159; 85025

== ENCOUNTER 2022-10-06 15:05 | Outpatient (REF) | payer OTHER, SELFPAY ==
[2022-10-06 15:20] LABS: MANUAL DIFF FLAG NO
[2022-10-06 15:58] LABS: Basophils Percent Auto 0.4 % (0-2); Hematocrit 40.1 % (42.0-52.0); Hemoglobin 13.5 g/dl (14.0-18.0); Imm Gran Abs Auto 0.02 X10*3/uL (0.00-0.03); Imm Gran Pct Auto 0.3 % (0.0-0.4); Lymphocytes Percent Auto 29.8 % (20-40); Mean Corpuscular HGB Conc 33.7 g/dl (31.0-36.0); Mean Corpuscular Hemoglobin 28.7 pg (27.0-33.0); Mean Corpuscular Volume 85.3 fL (80.0-98.0); Monocytes Absolute Auto 0.7 X10*3/uL (0.1-1.2); Monocytes Percent Auto 9.9 % (2-11); Neutrophils Absolute Auto 4.1 x10*3/uL (2.0-8.3); Neutrophils Percent Auto 59.6 % (45-73); Platelet Count 272 X10*3/uL (160-400); Red Cell Distribution Width 12.2 % (11.0-16.0); White Blood Count 6.9 X10*3/uL (4.8-10.8)
== END 2022-10-06 15:06 | disposition home or self-care (01) ==
LOC: HO.LABR 15:05
PROVIDERS: PCP Student in an Organized Health Care Education/Training Program; Visit Provider Psychiatry & Neurology Psychiatry
DX: Z79.899 Other long term (current) drug therapy (principal)
CPT/HCPCS: 36415; 85025

== ENCOUNTER 2022-10-29 10:22 | Outpatient (REF) | payer OTHER, SELFPAY ==
[2022-10-29 10:50] LABS: MANUAL DIFF FLAG NO
[2022-10-29 11:09] LABS: Basophils Percent Auto 0.3 % (0-2); Hematocrit 40.8 % (42.0-52.0); Imm Gran Abs Auto 0.03 X10*3/uL (0.00-0.03); Imm Gran Pct Auto 0.5 % (0.0-0.4); Lymphocytes Absolute Auto 2.5 X10*3/uL (1.2-4.9); Lymphocytes Percent Auto 36.9 % (20-40); Mean Corpuscular HGB Conc 34.3 g/dl (31.0-36.0); Mean Corpuscular Volume 84.6 fL (80.0-98.0); Mean Platelet Volume 9.8 fL (9.4-12.4); Monocytes Absolute Auto 0.5 X10*3/uL (0.1-1.2); Monocytes Percent Auto 8.1 % (2-11); Neutrophils Absolute Auto 3.6 x10*3/uL (2.0-8.3); Neutrophils Percent Auto 54.2 % (45-73); Platelet Count 268 X10*3/uL (160-400); Red Blood Count 4.82 X10*6/uL (4.60-5.80); Red Cell Distribution Width 12.3 % (11.0-16.0); White Blood Count 6.7 X10*3/uL (4.8-10.8)
[2022-11-03 10:08] LABS: Clozapine (Clozaril) 330 mcg/L; Norclozapine 115 mcg/L (25-400)
== END 2022-10-29 10:23 | disposition home or self-care (01) ==
LOC: HO.LABR 10:22
PROVIDERS: PCP Student in an Organized Health Care Education/Training Program; Visit Provider Psychiatry & Neurology Psychiatry
DX: Z79.899 Other long term (current) drug therapy (principal)
CPT/HCPCS: 36415; 80159; 85025

== ENCOUNTER 2022-11-23 12:35 | Outpatient (REF) | payer OTHER, SELFPAY ==
[2022-11-23 12:45] LABS: MANUAL DIFF FLAG NO
[2022-11-23 13:21] LABS: Basophils Percent Auto 0.2 % (0-2); Hematocrit 41.3 % (42.0-52.0); Imm Gran Abs Auto 0.03 X10*3/uL (0.00-0.03); Imm Gran Pct Auto 0.3 % (0.0-0.4); Lymphocytes Absolute Auto 2.1 X10*3/uL (1.2-4.9); Lymphocytes Percent Auto 23.5 % (20-40); Mean Corpuscular HGB Conc 33.9 g/dl (31.0-36.0); Mean Corpuscular Hemoglobin 29.5 pg (27.0-33.0); Mean Corpuscular Volume 86.9 fL (80.0-98.0); Mean Platelet Volume 10.1 fL (9.4-12.4); Monocytes Absolute Auto 0.5 X10*3/uL (0.1-1.2); Monocytes Percent Auto 5.7 % (2-11); Neutrophils Absolute Auto 6.3 x10*3/uL (2.0-8.3); Neutrophils Percent Auto 70.3 % (45-73); Platelet Count 323 X10*3/uL (160-400); Red Blood Count 4.75 X10*6/uL (4.60-5.80); Red Cell Distribution Width 12.4 % (11.0-16.0)
== END 2022-11-23 12:36 | disposition home or self-care (01) ==
LOC: HO.LABR 12:35
PROVIDERS: Visit Provider Psychiatry & Neurology Psychiatry
DX: Z79.899 Other long term (current) drug therapy (principal)
CPT/HCPCS: 36415; 85025

== ENCOUNTER 2022-12-29 12:06 | Outpatient (REF) | payer OTHER, SELFPAY ==
[2022-12-29 12:15] LABS: MANUAL DIFF FLAG NO
[2022-12-29 13:27] LABS: Basophils Percent Auto 0.3 % (0-2); Hematocrit 41.9 % (42.0-52.0); Hemoglobin 14.1 g/dl (14.0-18.0); Imm Gran Abs Auto 0.02 X10*3/uL (0.00-0.03); Imm Gran Pct Auto 0.3 % (0.0-0.4); Lymphocytes Absolute Auto 2.3 X10*3/uL (1.2-4.9); Lymphocytes Percent Auto 35.2 % (20-40); Mean Corpuscular HGB Conc 33.7 g/dl (31.0-36.0); Mean Corpuscular Hemoglobin 29.4 pg (27.0-33.0); Mean Corpuscular Volume 87.3 fL (80.0-98.0); Mean Platelet Volume 10.3 fL (9.4-12.4); Monocytes Absolute Auto 0.5 X10*3/uL (0.1-1.2); Monocytes Percent Auto 8.3 % (2-11); Neutrophils Absolute Auto 3.7 x10*3/uL (2.0-8.3); Neutrophils Percent Auto 55.9 % (45-73); Platelet Count 285 X10*3/uL (160-400); Red Cell Distribution Width 12.4 % (11.0-16.0); White Blood Count 6.5 X10*3/uL (4.8-10.8)
== END 2022-12-29 12:07 | disposition home or self-care (01) ==
LOC: HO.LABR 12:06
PROVIDERS: PCP Student in an Organized Health Care Education/Training Program; Visit Provider Psychiatry & Neurology Psychiatry
DX: Z79.899 Other long term (current) drug therapy (principal)
CPT/HCPCS: 36415; 85025

== ENCOUNTER 2023-01-26 16:21 | Outpatient (REF) | payer OTHER, SELFPAY | END 2023-01-26 16:22 | disposition home or self-care (01) | LOC: HO.LAB 16:21 | PROVIDERS: Visit Provider Psychiatry & Neurology Psychiatry | DX: Z79.899 Other long term (current) drug therapy (principal) | CPT/HCPCS: 36415; 85025 ==

== ENCOUNTER 2023-02-25 09:58 | Outpatient (REF) | payer OTHER, SELFPAY ==
[2023-02-25 10:26] LABS: MANUAL DIFF FLAG NO
[2023-02-25 10:40] LABS: Basophils Percent Auto 0.3 % (0-2); Eosinophils Absolute Auto 0.1 X10*3/uL (0.0-0.4); Eosinophils Percent Auto 2.1 % (0-4); Hematocrit 43.1 % (42.0-52.0); Hemoglobin 14.7 g/dl (14.0-18.0); Imm Gran Abs Auto 0.03 X10*3/uL (0.00-0.03); Imm Gran Pct Auto 0.5 % (0.0-0.4); Lymphocytes Absolute Auto 2.3 X10*3/uL (1.2-4.9); Lymphocytes Percent Auto 35.7 % (20-40); Mean Corpuscular HGB Conc 34.1 g/dl (31.0-36.0); Mean Corpuscular Hemoglobin 29.3 pg (27.0-33.0); Mean Platelet Volume 9.9 fL (9.4-12.4); Monocytes Absolute Auto 0.5 X10*3/uL (0.1-1.2); Monocytes Percent Auto 7.6 % (2-11); Neutrophils Absolute Auto 3.4 x10*3/uL (2.0-8.3); Neutrophils Percent Auto 53.8 % (45-73); Platelet Count 250 X10*3/uL (160-400); Red Blood Count 5.01 X10*6/uL (4.60-5.80); Red Cell Distribution Width 12.5 % (11.0-16.0); White Blood Count 6.3 X10*3/uL (4.8-10.8)
[2023-03-02 06:18] LABS: Clozapine (Clozaril) 272 mcg/L; Norclozapine 123 mcg/L (25-400)
== END 2023-02-25 09:59 | disposition home or self-care (01) ==
LOC: HO.LAB 09:58
PROVIDERS: PCP Student in an Organized Health Care Education/Training Program; Visit Provider Psychiatry & Neurology Psychiatry
DX: Z79.899 Other long term (current) drug therapy (principal)
CPT/HCPCS: 36415; 80159; 85025

== ENCOUNTER 2023-03-22 10:04 | Outpatient (REF) | payer OTHER, SELFPAY ==
[2023-03-22 10:13] LABS: MANUAL DIFF FLAG NO
[2023-03-22 10:35] LABS: Basophils Percent Auto 0.3 % (0-2); Hematocrit 41.7 % (42.0-52.0); Hemoglobin 14.3 g/dl (14.0-18.0); Imm Gran Abs Auto 0.02 X10*3/uL (0.00-0.03); Imm Gran Pct Auto 0.3 % (0.0-0.4); Lymphocytes Percent Auto 30.8 % (20-40); Mean Corpuscular HGB Conc 34.3 g/dl (31.0-36.0); Mean Corpuscular Hemoglobin 29.1 pg (27.0-33.0); Mean Corpuscular Volume 84.8 fL (80.0-98.0); Mean Platelet Volume 10.3 fL (9.4-12.4); Monocytes Absolute Auto 0.6 X10*3/uL (0.1-1.2); Monocytes Percent Auto 9.9 % (2-11); Neutrophils Absolute Auto 3.7 x10*3/uL (2.0-8.3); Neutrophils Percent Auto 58.7 % (45-73); Platelet Count 270 X10*3/uL (160-400); Red Blood Count 4.92 X10*6/uL (4.60-5.80); Red Cell Distribution Width 12.2 % (11.0-16.0); White Blood Count 6.4 X10*3/uL (4.8-10.8)
== END 2023-03-22 10:05 | disposition home or self-care (01) ==
LOC: HO.LABR 10:04
PROVIDERS: PCP Student in an Organized Health Care Education/Training Program; Visit Provider Psychiatry & Neurology Psychiatry
DX: Z79.899 Other long term (current) drug therapy (principal)
CPT/HCPCS: 36415; 85025

== ENCOUNTER 2023-04-06 10:16 | Outpatient (REF) | payer OTHER, SELFPAY ==
[2023-04-06 14:24] LABS: Alanine Aminotransferase 14 U/L (0-40); Albumin Level 4.7 g/dL (3.5-5.0); Alkaline Phosphatase 80 U/L (39-117); Anion Gap 11 (12-20); Aspartate Amino Transferase 19 U/L (5-37); Bilirubin Direct 0.2 mg/dL (0.0-0.5); Bilirubin Total 0.7 mg/dL (0.0-1.0); Blood Urea Nitrogen 10 mg/dL (9-16); Calcium 9.7 mg/dL (8.4-10.2); Carbon Dioxide 25 mmol/L (22-29); Chloride 106 mmol/L (96-108); Cholesterol 171 mg/dL (<200); Estimated Glomerular Filt Rate > 60; Glucose Fasting 89 mg/dL (60-99); HDL Cholesterol 45 mg/dL (>40); LDL Cholesterol Calculated 107 mg/dL (<100); Sodium 138 mmol/L (135-145); Total Protein 7.2 g/dL (6.5-8.0); Triglycerides 99 mg/dL (<150)
[2023-04-07 05:36] LABS: ~HepC Num1 0.22 S/CO (0.00-0.79); ~Hepatitis C Antibody Nonreactive (Nonreactive)
[2023-04-09 16:32] LABS: HIV RNA PCR Qn Copies Not Detected Copies/mL; HIV RNA PCR Qn Log Copies Not Detected Log cps/mL
== END 2023-04-06 10:17 | disposition home or self-care (01) ==
LOC: HO.CHCLDS 10:16
PROVIDERS: Visit Provider Student in an Organized Health Care Education/Training Program
DX: Z00.00 Encounter for general adult medical examination without abnormal findings (principal); F31.9 Bipolar disorder, unspecified; F20.9 Schizophrenia, unspecified; E78.5 Hyperlipidemia, unspecified
CPT/HCPCS: 36415; 80048; 80061; 80076; 86803; 87536; 87900

== ENCOUNTER 2023-04-27 14:13 | Outpatient (REF) | payer OTHER, SELFPAY ==
[2023-04-27 14:23] LABS: MANUAL DIFF FLAG NO
[2023-04-27 15:16] LABS: Basophils Percent Auto 0.6 % (0-2); Eosinophils Absolute Auto 0.1 X10*3/uL (0.0-0.4); Eosinophils Percent Auto 2.1 % (0-4); Hematocrit 39.4 % (42.0-52.0); Hemoglobin 13.4 g/dl (14.0-18.0); Imm Gran Abs Auto 0.01 X10*3/uL (0.00-0.03); Imm Gran Pct Auto 0.2 % (0.0-0.4); Lymphocytes Absolute Auto 1.6 X10*3/uL (1.2-4.9); Lymphocytes Percent Auto 30.2 % (20-40); Mean Corpuscular Hemoglobin 29.3 pg (27.0-33.0); Mean Corpuscular Volume 86.2 fL (80.0-98.0); Mean Platelet Volume 10.1 fL (9.4-12.4); Monocytes Absolute Auto 0.7 X10*3/uL (0.1-1.2); Monocytes Percent Auto 13.4 % (2-11); Neutrophils Absolute Auto 2.8 x10*3/uL (2.0-8.3); Neutrophils Percent Auto 53.5 % (45-73); Platelet Count 229 X10*3/uL (160-400); Red Blood Count 4.57 X10*6/uL (4.60-5.80); Red Cell Distribution Width 12.8 % (11.0-16.0); White Blood Count 5.2 X10*3/uL (4.8-10.8)
== END 2023-04-27 14:14 | disposition home or self-care (01) ==
LOC: HO.LABR 14:13
PROVIDERS: PCP Student in an Organized Health Care Education/Training Program; Visit Provider Psychiatry & Neurology Psychiatry
DX: Z51.81 Encounter for therapeutic drug level monitoring (principal); Z79.899 Other long term (current) drug therapy
CPT/HCPCS: 36415; 85025

== ENCOUNTER 2023-05-24 12:19 | Outpatient (REF) | payer OTHER, SELFPAY ==
[2023-05-24 12:39] LABS: MANUAL DIFF FLAG NO
[2023-05-24 13:01] LABS: Basophils Percent Auto 0.4 % (0-2); Hematocrit 42.2 % (42.0-52.0); Hemoglobin 14.4 g/dl (14.0-18.0); Imm Gran Abs Auto 0.02 X10*3/uL (0.00-0.03); Imm Gran Pct Auto 0.3 % (0.0-0.4); Lymphocytes Absolute Auto 2.4 X10*3/uL (1.2-4.9); Lymphocytes Percent Auto 33.1 % (20-40); Mean Corpuscular HGB Conc 34.1 g/dl (31.0-36.0); Mean Corpuscular Hemoglobin 29.2 pg (27.0-33.0); Mean Corpuscular Volume 85.6 fL (80.0-98.0); Mean Platelet Volume 10.2 fL (9.4-12.4); Monocytes Absolute Auto 0.5 X10*3/uL (0.1-1.2); Monocytes Percent Auto 7.4 % (2-11); Neutrophils Absolute Auto 4.2 x10*3/uL (2.0-8.3); Neutrophils Percent Auto 58.8 % (45-73); Platelet Count 287 X10*3/uL (160-400); Red Blood Count 4.93 X10*6/uL (4.60-5.80); Red Cell Distribution Width 12.7 % (11.0-16.0); White Blood Count 7.1 X10*3/uL (4.8-10.8)
== END 2023-05-24 12:20 | disposition home or self-care (01) ==
LOC: HO.LABR 12:19
PROVIDERS: Psychiatry & Neurology Psychiatry; Visit Provider Psychiatry & Neurology Psychiatry
DX: Z79.899 Other long term (current) drug therapy (principal)
CPT/HCPCS: 36415; 85025

== ENCOUNTER 2023-07-06 15:46 | Outpatient (REF) | payer OTHER, SELFPAY ==
[2023-07-06 15:58] LABS: MANUAL DIFF FLAG NO
[2023-07-06 16:05] LABS: Basophils Percent Auto 0.3 % (0-2); Eosinophils Percent Auto 0.1 % (0-4); Hematocrit 38.7 % (42.0-52.0); Hemoglobin 13.1 g/dl (14.0-18.0); Imm Gran Abs Auto 0.03 X10*3/uL (0.00-0.03); Imm Gran Pct Auto 0.3 % (0.0-0.4); Lymphocytes Absolute Auto 2.8 X10*3/uL (1.2-4.9); Lymphocytes Percent Auto 31.5 % (20-40); Mean Corpuscular HGB Conc 33.9 g/dl (31.0-36.0); Mean Corpuscular Hemoglobin 29.8 pg (27.0-33.0); Mean Platelet Volume 9.4 fL (9.4-12.4); Monocytes Absolute Auto 0.6 X10*3/uL (0.1-1.2); Neutrophils Absolute Auto 5.4 x10*3/uL (2.0-8.3); Neutrophils Percent Auto 60.8 % (45-73); Platelet Count 245 X10*3/uL (160-400); Red Cell Distribution Width 12.4 % (11.0-16.0)
== END 2023-07-06 15:47 | disposition home or self-care (01) ==
LOC: HO.LAB 15:46
PROVIDERS: PCP Student in an Organized Health Care Education/Training Program; Visit Provider Psychiatry & Neurology Psychiatry
DX: Z79.899 Other long term (current) drug therapy (principal)
CPT/HCPCS: 36415; 85025

== ENCOUNTER 2023-07-12 09:17 | Inpatient (IN) | payer OTHER, SELFPAY ==
[2023-07-12] VITALS (20 sets, daily range): BP systolic 108–192; BP diastolic 67–134; PULSE 66–144; RESP 7–31; TEMP 36.9; O2SAT 93–100; BMI 26.9
--- NOTE | ~2023-07-12 | CT_ITS ---
EXAMINATION: CT HEAD WITHOUT CONTRAST CLINICAL INFORMATION: Altered mental status follow-up. COMPARISON: Head CT July 12, 2023.. TECHNIQUE: Contiguous axial imaging was performed from the skull base to vertex without intravenous administration of contrast. This CT examination was performed using dose optimization techniques as appropriate, variously including the following: *Automated exposure control *Adjustment of mA and/or kV according to patient size (this includes techniques or standardized protocols for targeted exams where dose is matched to indication/reason for exam; i.e. extremities or head) *Use of iterative reconstruction technique DLP: 887 mGy-cm. FINDINGS: There is no intracranial hemorrhage, large infarction, or mass lesion. There is no extra-axial collection. The ventricles are normal in size and configuration without evidence of hydrocephalus. The visualized paranasal sinuses and mastoid air cells are clear. CT/CT head/brain wo IV con IMPRESSION: No acute intracranial abnormality.
--- NOTE | ~2023-07-12 | XR_ITS ---
EXAMINATION: XR CHEST CLINICAL INFORMATION: Fever COMPARISON: None available. TECHNIQUE: Frontal view of the chest was obtained. FINDINGS: Normal symmetric lung volumes. No parenchymal consolidation. No pleural effusion. No pneumothorax. Cardiomediastinal silhouette and pulmonary vascularity are within normal limits. No acute osseous abnormalities. Gas-filled loops of bowel in the abdomen may reflect an ileus. XR/XR chest 1V IMPRESSION: No acute pneumonic process.
--- NOTE | ~2023-07-12 | CT_ITS ---
EXAMINATION: CT HEAD WITHOUT CONTRAST CLINICAL INFORMATION: Altered mental status. COMPARISON: None. TECHNIQUE: Contiguous axial imaging was performed from the skullbase to vertex without intravenous administration of contrast. This CT examination was performed using dose optimization techniques as appropriate, variously including the following: *Automated exposure control *Adjustment of mA and/or kV according to patient size (this includes techniques or standardized protocols for targeted exams where dose is matched to indication/reason for exam; i.e. extremities or head) *Use of iterative reconstruction technique DLP: 793 mGy-cm. FINDINGS: There is no evidence of acute intracranial hemorrhage or territorial infarction. No abnormal mass effect or midline shift is seen. Pool to white matter differentiation is well preserved. No extra-axial fluid collections are identified. The ventricles are normal in size. There is no abnormal attenuation within the brain parenchyma. The osseous structures and soft tissues are normal. The mastoid air cells are well aerated. Small retention cysts and mild mucosal thickening noted in the dependent maxillary sinuses. CT/CT head/brain wo IV con IMPRESSION: No acute intracranial pathology.
--- NOTE | ~2023-07-12 | US_ITS ---
EXAMINATION: US ABDOMEN LIMITED CLINICAL INFORMATION: Right upper quadrant pain. COMPARISON: None available. TECHNIQUE: Real-time imaging of the right upper quadrant abdominal viscera. FINDINGS: GALLBLADDER: Normal. The gallbladder is physiologically distended without evidence of stones, sludge, polyps, wall thickening or pericholecystic fluid. COMMON BILE DUCT: Normal in caliber measuring 0.3 cm in diameter. US/US abdomen limited IMPRESSION: Normal gallbladder ultrasound.
--- NOTE | ~2023-07-12 | XR_ITS ---
EXAMINATION: XR ABDOMEN KUB CLINICAL INDICATION: Ileus COMPARISON: Prior x-ray of the abdomen 07/15/2023 TECHNIQUE: AP view of the abdomen. FINDINGS: The bowel gas pattern is normal with no evidence of ileus or obstruction. No unusual soft tissue calcifications are noted. The bones are unremarkable. XR/XR KUB IMPRESSION: Unremarkable examination.
--- NOTE | ~2023-07-12 | XR_ITS ---
EXAMINATION: XR ABDOMEN KUB CLINICAL INDICATION: Constipation. COMPARISON: None available. TECHNIQUE: AP view of the abdomen. FINDINGS: The bowel gas pattern is normal with no evidence of ileus or obstruction. There is retained stool predominantly within the right and descending colon. No unusual soft tissue calcifications are noted. The bones are unremarkable. XR/XR KUB IMPRESSION: Nonspecific bowel gas pattern. Retained stool.
[2023-07-12] MEDS: diphenhydrAMINE HCL 50 MG/ML VIAL IM (09:25)
[2023-07-12] MEDS: Haloperidol Lactate 5 MG/ML VIAL IM ×2 (09:30→10:07)
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
[2023-07-12] MEDS: Midazolam HCl/PF 2 MG/2 ML VIAL IM (09:54)
--- NOTE | 2023-07-12 10:10 | PC.NURSE ---
patient presented to ED with PD and EMS under sect 12. patient combative, sexually abusive, unable to follow simple commands. patient placed into velcro restraints under provider order at 924. patient medicated per SEP. at 954 patient began spitting at staff along with attempting to grab, spit mask placed on patient. patient is on tele monitor, with sitter 1:1
[2023-07-12] MEDS: Ketamine HCl/NS 50 MG/5 ML SYRINGE 180 MG IVPUSH (11:07)
[2023-07-12 11:10] LABS: MANUAL DIFF FLAG NO
[2023-07-12 11:11] LABS: Basophils Percent Auto 0.1 % (0-2); Hematocrit 29.5 % (42.0-52.0); Imm Gran Abs Auto 0.05 X10*3/uL (0.00-0.03); Imm Gran Pct Auto 0.4 % (0.0-0.4); Lymphocytes Absolute Auto 1.1 X10*3/uL (1.2-4.9); Lymphocytes Percent Auto 8.4 % (20-40); Mean Corpuscular HGB Conc 33.9 g/dl (31.0-36.0); Mean Corpuscular Hemoglobin 29.9 pg (27.0-33.0); Mean Corpuscular Volume 88.1 fL (80.0-98.0); Mean Platelet Volume 9.6 fL (9.4-12.4); Monocytes Absolute Auto 0.9 X10*3/uL (0.1-1.2); Monocytes Percent Auto 7.2 % (2-11); Neutrophils Absolute Auto 10.5 x10*3/uL (2.0-8.3); Neutrophils Percent Auto 83.9 % (45-73); Platelet Count 187 X10*3/uL (160-400); Red Blood Count 3.35 X10*6/uL (4.60-5.80); Red Cell Distribution Width 12.5 % (11.0-16.0); White Blood Count 12.5 X10*3/uL (4.8-10.8)
[2023-07-12 11:25] LABS: Acetaminophen LAB < 3 mcg/mL (<30); Alanine Aminotransferase 19 U/L (0-40); Albumin Level 4.4 g/dL (3.5-5.0); Alkaline Phosphatase 91 U/L (39-117); Anion Gap 14 (12-20); Aspartate Amino Transferase 35 U/L (5-37); Bilirubin Total 0.6 mg/dL (0.0-1.0); Blood Urea Nitrogen 13 mg/dL (9-16); Calcium 9.3 mg/dL (8.4-10.2); Carbon Dioxide 23 mmol/L (22-29); Chloride 109 mmol/L (96-108); Creatinine Clr Calc Pharmacy 124.5; Estimated Glomerular Filt Rate > 60; Ethanol < 10 mg/dL; Glucose Random 100 mg/dL (60-115); Magnesium 1.8 mg/dL (1.6-2.6); Potassium 3.8 mmol/L (3.3-5.1); Salicylate < 5.0 mg/dL (15-30); Sodium 142 mmol/L (135-145); Total Protein 7.1 g/dL (6.5-8.0)
[2023-07-12] MEDS: LORazepam 2 MG/ML VIAL IM (14:25)
[2023-07-12] MEDS: Ziprasidone Mesylate 20 MG VIAL IM (14:25)
--- NOTE | 2023-07-12 14:51 | PC.NURSE ---
Addendum entered by Yaneli Mesa RN 07/12/23 14:54: patient respirations equal and unlabored, skin intact, cms intact. Original Note: patient has remained in 4 point restraints, medicated per MAR for agitation and agressive behavior. patient is on tele monitor. continues to grab and kick at staff. patient removed his IV. patient remains n tele monitor, has 1:1 patient is hyper verbal, fixates on his gender and staffs gender.
--- NOTE | 2023-07-12 15:22 | PM.PSYCN ---
History of Present Illness Date of Service: 07/12/2023 Chief Complaint: COMBATIVE W/FAMILY,REST BY PD PER EMS Reason for Consult: agitation Requesting physician: Jt Crow Discussed with referring provider: Yes Sources of Information: patient interviewed, chart reviewed and crisis/core team assessment reviewed Additional Sources of Information: Psychiatrist Dr. Jeremias Post- [facility] Narrative: Mr. Sweeney is a 37 year-old male with hx of schizophrenia who was fairly stable on clozaril and last admission back in 2018 on M5. Pt was brought via EMS due to increase combative agitation in setting of increase sexualized behaviors and paranoid delusions in context of not taking clozaril for the past 3 years. Collateral information was gathered from his outpatient psychiatrist, Dr. Post who reports he has been stable for 5 years but that there's been some resistance from pt and family in terms of continuing psychotropic medications. Dr. Post reports clozaril has been decreased but used to be around 300mg po daily. He also is on low dose of haldol. In the ED, pt presents as very agitated, trying to elope. He talks about Trump and that Trump wants to have sexual intercourse with him. He is also asking staff to touch his testicles. He received total of haldol 10mg IM, versed 2mg IM, Ketamine 180mg IV, geodone 20mg IM and ativan 2mg IM. He continues to present agitated trying to elope. When seen, pt presents as restless, he is in 4 point restraint. He reports I like Trump. When asked if he is hearing voice of Trump, he denies. He also denies hearing other voices but appears internally preoccupied. He has delayed response rate, thought blocking. He then asks this financial writer: Am I still alive? He then appear increasingly more agitated, trying to get out of restraints and asking to leave. Diagnostics Vital Signs (24Hr): Vital Signs - 24 hr 07/12/23 09:32 07/12/23 10:15 07/12/23 11:23 Temperature 98.4 F Pulse Rate 131 H 113 H 122 H Respiratory Rate 31 H 18 12 Blood Pressure 148/86 H 192/108 H Pulse Oximetry 99 100 Oxygen Delivery Method Room Air Nasal Cannula Oxygen Flow Rate 2 07/12/23 11:28 07/12/23 11:47 07/12/23 12:02 Temperature Pulse Rate 109 H 106 H 105 H Respiratory Rate 22 H 7 L 19 Blood Pressure 169/101 H 152/94 H 154/94 H Pulse Oximetry 100 99 97 Oxygen Delivery Method Nasal Cannula Room Air Room Air Oxygen Flow Rate 2 07/12/23 12:17 Temperature Pulse Rate 105 H Respiratory Rate Blood Pressure 164/101 H Pulse Oximetry 93 Oxygen Delivery Method Room Air Oxygen Flow Rate BMI result Body Mass Index 26.9 Labs 07/12/23 11:05 07/12/23 11:05 Labs: Laboratory Results - last 48 hr 07/12/23 11:05 WBC 12.5 H RBC 3.35 L D Hgb 10.0 L D Hct 29.5 L D MCV 88.1 MCH 29.9 MCHC 33.9 RDW 12.5 Plt Count 187 MPV 9.6 Immature Gran % (Auto) 0.4 Neut % (Auto) 83.9 H Lymph % (Auto) 8.4 L [place] % (Auto) 7.2 Eos % (Auto) 0.0 Baso % (Auto) 0.1 Lymph # (Auto) 1.1 L [place] # (Auto) 0.9 Eos # (Auto) 0.0 Baso # (Auto) 0.0 Abs Immat Gran (auto) 0.05 H Absolute Neuts (auto) 10.5 H Absolute Nucleated RBC 0.000 Nucleated RBC % (auto) 0.0 Sodium 142 Potassium 3.8 Chloride 109 H Carbon Dioxide 23 Anion Gap 14 BUN 13 Creatinine 0.90 Estim Creat Clear Calc 124.5 Estimated GFR > 60 Random Glucose 100 Calcium 9.3 Magnesium 1.8 Total Bilirubin 0.6 AST 35 ALT 19 Alkaline Phosphatase 91 Total Protein 7.1 Albumin 4.4 Salicylates < 5.0 L Acetaminophen < 3 Ethyl Alcohol < 10 Mental Status Exam Mental Status Exam Narrative: Appearance: wearing hospital gown, fair hygiene, agitated, trying to move out of his bed. Behavior: guarded, at times looking pass through this financial writer, internally preoccupied, thought blocking. He reports delusions related to Trump, sexual preoccupations, and asking staff to touch genitals. At times he is staring and visible more agitated but would not disclose extent of delusional content. Medications Medications Current Medications Dexmedetomidine HCl (Precedex) 400 mcg in 100 mls @ 0 mls/hr IVCONT .Q0M OPAL; Protocol Allergies Allergies Allergy/AdvReac Type Severity Reaction Status Date / Time No Known Allergies Allergy Mild NOT Unverified 04/10/20 16:57 APPLICABLE Assessment & Plan Assessment & Plan (1) Schizophrenia: Status: Acute Code(s): F20.9 - Schizophrenia, unspecified Plan Mr. Sweeney is a 37 year-year old male with hx of schizophrenia. He came via EMS after family called due to pt presenting as more agitated, paranoid and combative. In the ED, pt continued to present as combative, trying to elope. Minimal effect on agitation after haldol 10mg IM, versed 2mg IM, Ketamine 180mg IV, Geodone 20mg IM and ativan 2mg IV. He is currently on 4 point restraint, still trying to get off bed. Concern for prolonged restraint, rhabdomyolosis and HAILEY. Discussed with ED attending to transfer to ICU for agitation management, and gradually restarting psychiatric treatment. PLAN 1. Transfer to ICU for agitation management secondary to acute psychosis and delusions. Recommend scheduling haldol 5mg IV BID starting tomorrow 07/13- as pt has already received several antipsychotics today. Can add cogentin 1mg BID to prevent dystonia or EPS or low dose benadryl 25mg BID. 2. If pt is able to transition to oral and in much behavioral control- restart clozaril 25mg po qhs, increase by 25mg daily. 3. Psychiatry to follow up-and eventually to transfer to psychiatric unit. Total time managing care of this patient today ____ minutes.
--- NOTE | 2023-07-12 15:44 | PC.NURSE ---
IV line placed in the right bicep #20
[2023-07-12] MEDS: dexmedeTOMIDidine HCL/NS 400 MCG/100 ML INFUS..BTL 22.5 MCG IVCONT (15:59)
[2023-07-12] MEDS: 0.9 % Sodium Chloride 1,000 ML 999 ML IV ×2 (17:01→18:38)
--- NOTE | 2023-07-12 17:08 | PC.NURSE ---
patient medicated per MAR, RASS +1. patient remains in 4 point restraints for safety, sitetr at bedside 1:1. patient consistently reaches for wires and tubing to pull them off / out. patient responds to verbal stimuli and when approached.
[2023-07-12 18:16] LABS: Appearance Urine Clear; Color Urine Yellow; Glucose Urine UA Negative (Negative); Leukocyte Esterase Urine Negative (Negative); Nitrite Urine Negative (Negative); PH 6.5 (5.0-9.0); Specific Gravity - Urine 1.015 (1.005-1.025); Urine Blood Negative (Negative); Urine Ketones 15 mg/dL (Negative); Urine Protein Negative (Neg-Trace)
[2023-07-12 18:22] LABS: Amphetamine Screen Urine Not Detected (Not Detect); Barbiturates, Urine Not Detected (Not Detect); Benzodiazepines Screen Urine POSITIVE (Not Detect); Cannabinoid Screen Urine Not Detected (Not Detect); Cocaine Screen Urine Not Detected (Not Detect); Fentanyl, urine Not Detected (Not Detect); Opiate Screen Urine Not Detected (Not Detect); Phencyclidine Screen Urine Not Detected (Not Detect)
--- NOTE | 2023-07-12 18:28 | PHA.MEDREC ---
Pharmacy Consult ? Medication Reconciliation Pharmacy has completed the medication reconciliation. Spoke to mother Mariah at patient's bedside. She said she found out on Tuesday that patient missed a few doses of his medications and she gave him medications to take on tuesday and tuesday. Clozapine was prescribed as 75 mg in the evening but he was doing well on 50 mg so he has been taking only 50 mg.
--- NOTE | 2023-07-12 18:51 | PC.NURSE ---
patient restraints removed on bottom legs 1816. patient has remained calm and cooperative, medicated per MAR
--- NOTE | 2023-07-12 19:35 | PC.NURSE ---
Addendum entered by Meche Cooper 07/12/23 19:37: physical restraints d/c by Dr. Yoo. +csm Original Note: assumed care of pt at this time. Dr. Yoo called to bedside by this RN to reevaluate pt and discuss plan of care. pt arrousable responding appropriately to questions/commands. calm/cooperative at this time. precedex drip infused vss. resp even and unlabored. pt able to tolerate po intake. mom and sitter at bedside. awaiting care team consult.
--- NOTE | 2023-07-12 22:08 | PC.NURSE ---
pt sleeping in stretcher resp even and unlabored. able to reposition self as needed. 1:1 sitter at bedside.
--- NOTE | 2023-07-12 23:30 | PC.NURSE ---
pt medically cleared per dr. willingham. changed into gown. belongings secured in locker 6. iv removed. security to bedside to escort pt to pod awaiting care team tessa. pt axox3 ambulatory with steady gait. pt transported to pod via wheelchair with security, Vishnu SHANNON and this RN. report to Lorena MEMBRENO.
[2023-07-13] VITALS (29 sets, daily range): BP systolic 92–153; BP diastolic 45–89; PULSE 58–120; RESP 13–22; TEMP 36.1–37.1; O2SAT 96–100
[2023-07-13] MEDS: diphenhydrAMINE HCL 25 MG CAPSULE PO (00:43)
--- NOTE | 2023-07-13 00:43 | PC.NURSE ---
pt medicated per Mar.
--- NOTE | 2023-07-13 01:04 | PC.NURSE ---
Pt so resting at this time and clam, cooperative.
--- NOTE | 2023-07-13 02:16 | PC.NURSE ---
pt restless, but cooperative and redirectable.
[2023-07-13] MEDS: OLANZapine 10 MG VIAL IM (03:32)
[2023-07-13] MEDS: diphenhydrAMINE HCL 50 MG/ML VIAL IM ×2 (03:32→07:10)
[2023-07-13] MEDS: LORazepam 2 MG/ML VIAL IM ×2 (03:33→07:10)
--- NOTE | 2023-07-13 03:46 | PC.NURSE ---
pt requesting to get , attempting to enter nurses station and open door, security called, pt re-directed to room multiples, refusing to go into room, taking pants off, inappropriate sexual behavior, Dr. Soriano aware medicated per order and physical restrained. Pt on 1:1 at this time.
--- NOTE | 2023-07-13 05:01 | PC.NURSE ---
pt still attempting to get out of restrains and restless. Will medicated per mar, Dr. Lundy aware.
[2023-07-13] MEDS: cloZAPine 25 MG TABLET PO (05:11)
--- NOTE | 2023-07-13 05:13 | PC.NURSE ---
Restraint checks on all limbs, cms and skin intacted
[2023-07-13] MEDS: chlorproMAZINE HCl 25 MG/ML AMPUL 50 MG IM (07:10)
--- NOTE | 2023-07-13 07:25 | PC.NURSE ---
Kain FELIZ, removed all clothes and began to push his 1:[address] staff [address] of the way to get to the rest of the unit. Unable to follow redirection. IM Medication given. 50mg Thorazine, 2mg Lorazepam, 50mg Benadryl. Kain agreeable to the medication administration. Labs drawn after IM medication given. Kain compliant with lab draw.
[2023-07-13 07:34] LABS: MANUAL DIFF FLAG NO
[2023-07-13 07:38] LABS: Basophils Percent Auto 0.2 % (0-2); Hematocrit 43.3 % (42.0-52.0); Hemoglobin 14.7 g/dl (14.0-18.0); Imm Gran Abs Auto 0.02 X10*3/uL (0.00-0.03); Imm Gran Pct Auto 0.2 % (0.0-0.4); Mean Corpuscular HGB Conc 33.9 g/dl (31.0-36.0); Mean Corpuscular Hemoglobin 29.6 pg (27.0-33.0); Mean Corpuscular Volume 87.1 fL (80.0-98.0); Mean Platelet Volume 9.5 fL (9.4-12.4); Monocytes Absolute Auto 0.7 X10*3/uL (0.1-1.2); Monocytes Percent Auto 6.2 % (2-11); Neutrophils Absolute Auto 8.3 x10*3/uL (2.0-8.3); Neutrophils Percent Auto 75.4 % (45-73); Platelet Count 270 X10*3/uL (160-400); Red Blood Count 4.97 X10*6/uL (4.60-5.80); Red Cell Distribution Width 12.3 % (11.0-16.0)
[2023-07-13 07:45] LABS: Lactic Acid 1.2 mmol/L (0.5-2.0)
[2023-07-13 07:47] LABS: Partial Thromboplastin Time 32.7 SEC (26.0-36.4)
[2023-07-13 07:54] LABS: Alanine Aminotransferase 46 U/L (0-40); Alkaline Phosphatase 106 U/L (39-117); Anion Gap 19 (12-20); Aspartate Amino Transferase 127 U/L (5-37); Bilirubin Total 1.1 mg/dL (0.0-1.0); Blood Urea Nitrogen 7 mg/dL (9-16); Calcium 9.9 mg/dL (8.4-10.2); Carbon Dioxide 22 mmol/L (22-29); Chloride 106 mmol/L (96-108); Creatinine Clr Calc Pharmacy 121.8; Estimated Glomerular Filt Rate > 60; Glucose Random 118 mg/dL (60-115); Lipase 21 U/L (8-78); Potassium 3.5 mmol/L (3.3-5.1); Sodium 143 mmol/L (135-145); Total Protein 7.9 g/dL (6.5-8.0)
--- NOTE | 2023-07-13 08:41 | P.HPCC_ITS ---
History of Present Illness Date of Service: 07/13/23 Attending physician on admission: Matilda Muller Chief Complaint: Acute Psychosis, Rhabdomyolysis Patient is a 37 Y M, with schizophrenia, bipolar disease, p/w few-day history of psychosis, combative; in ED received midazolam, haloperidol, diphenhydramine, ketamine, and ziprasidone, without improvement of agitation, started on dexmedetomidine gtt; work-up revealing of rhabdomyolysis w/o evidence of renal insufficiency Review of Systems 2 Review of Systems: Yes Unobtainable due to mental condition [facility] Social History Social History Unable to assess alcohol history related to: Unknown Smoked in Last 30 Days: No Use of substances other than those prescribed or required for medical reasons: Unknown Advance Directives: No Healthcare Proxy: No Guardian: No Meds Allergies Allergy/AdvReac Type Severity Reaction Status Date / Time No Known Allergies Allergy Mild NOT Unverified 04/10/20 16:57 APPLICABLE Active Medications: Current Medications Benztropine Mesylate (Benztropine Mesylate 2 Mg/2 Ml Vial) 1 mg IVPUSH BID OPAL Clozapine (Clozapine 25 Mg Tablet) 25 mg PO BEDTIME OPAL Clozapine (Clozapine 25 Mg Tablet) 25 mg PO BEDTIME OPAL Diphenhydramine HCl (Diphenhydramine Hcl 25 Mg Capsule) 25 mg PO RQ6H WHILE AWAKE PRN PRN Reason: anxiety/restlessness Last Admin: 07/13/23 00:43 Dose: 25 mg Haloperidol Lactate (Haloperidol Lactate 5 Mg/Ml Vial) 5 mg IVPUSH BID OPAL Dexmedetomidine HCl (Precedex) 400 mcg in 100 mls @ 0 mls/hr IVCONT .Q0M OPAL; Protocol Last Titration: 07/12/23 19:34 Dose: Infused Lactated Ringer's (Lr) 1,000 mls @ 999 mls/hr IV .Q1H1M OPAL Stop: 07/13/23 09:45 Lactated Ringer's (Lr) 1,000 mls @ 999 mls/hr IV .Q1H1M OPAL Stop: 07/13/23 09:45 Lactated Ringer's (Lr) 1,000 mls @ 150 mls/hr IVCONT .Q6H40M OPAL Dexmedetomidine HCl (Precedex) 400 mcg in 100 mls @ 0 mls/hr IVCONT .Q0M OPAL; Protocol Home Medications Medication Instructions Recorded Confirmed Last Taken Type clozapine 25 mg tablet 50 mg PO QPM 07/12/23 07/12/23 07/11/23 History haloperidol 5 mg tablet 5 mg PO BEDTIME 07/12/23 07/12/23 07/11/23 History Physical Exam 2 Vital Signs: Vital Signs: Last Vital Signs Temp 98.7 F 07/13/23 03:30 Pulse 90 07/13/23 04:45 Resp 18 07/13/23 05:35 BP 142/88 H 07/13/23 04:45 Pulse Ox 98 07/13/23 04:45 O2 Del Method Room Air 07/13/23 05:20 O2 Flow Rate 2 07/12/23 11:28 BMI result Body Mass Index 26.9 Const: Other: intermittently agitated, though re-directable General: healthy appearing, comfortable, no acute distress and well developed Orientation/consciousness: oriented to person and oriented to place HEENT: Head: Yes normal to inspection, Yes normocephalic and Yes atraumatic Eyes: General: appearance normal, both eyes and all related structures Neck: Neck: Yes normal visual inspection, Yes full ROM, Yes no meningeal signs and Yes supple Chest: Chest palpation & inspection: normal inspection of the chest Resp: Other: no appreciable rales, rhonchi, wheezing Effort & Inspection: normal respiratory effort Cardio: Rate: regular rate Rhythm: regular rhythm GI: Inspection: Yes normal to inspection, No Abdominal wall edema and No distended Palpation (GI): Soft to palpation, not firm, nontender, no guarding and not rigid : Male General Exam: Yes normal external exam Skin: General skin exam: no rashes or lesions noted Neuro: General: oriented to person, oriented to place, tone normal, moves all extremities, no meningeal signs and no focal motor deficits Extrem: General: Yes normal to inspection, Yes capillary refill normal and Yes no clubbing, cyanosis or edema Psych: Other: intermittently agitated, though re-directable Results Labs 07/13/23 07:30 07/13/23 07:30 Labs: Laboratory Results - last 24 hr 07/12/23 07/12/23 07/12/23 11:05 15:30 18:03 MCV 88.1 MCH 29.9 MCHC 33.9 RDW 12.5 Plt Count 187 MPV 9.6 Immature Gran % (Auto) 0.4 Neut % (Auto) 83.9 H Lymph % (Auto) 8.4 L [place] % (Auto) 7.2 Eos % (Auto) 0.0 Baso % (Auto) 0.1 Lymph # (Auto) 1.1 L [place] # (Auto) 0.9 Eos # (Auto) 0.0 Baso # (Auto) 0.0 Abs Immat Gran (auto) 0.05 H Absolute Neuts (auto) 10.5 H Absolute Nucleated RBC 0.000 Nucleated RBC % (auto) 0.0 PT INR APTT Anion Gap 14 Estim Creat Clear Calc 124.5 Estimated GFR > 60 Random Glucose 100 Lactic Acid Calcium 9.3 Magnesium 1.8 Total Bilirubin 0.6 AST 35 ALT 19 Alkaline Phosphatase 91 Total Creatine Kinase 5551 H Total Protein 7.1 Albumin 4.4 Lipase Urine Color Yellow Urine Appearance Clear Urine pH 6.[address] [place] 1.015 Urine Protein Negative Urine Glucose (UA) Negative Urine Ketones 15 Urine Blood Negative Urine Nitrite Negative Ur Leukocyte Esterase Negative Salicylates < 5.0 L Urine Opiates Screen Not Detected Urine Fentanyl Screen Not Detected Acetaminophen < 3 Ur Barbiturates Screen Not Detected Ur Phencyclidine Scrn Not Detected Ur Amphetamines Screen Not Detected U Benzodiazepines Scrn POSITIVE H Urine Cocaine Screen Not Detected U Marijuana (THC) Screen Not Detected Ethyl Alcohol < 10 07/13/23 07:30 MCV 87.1 MCH 29.6 MCHC 33.9 RDW 12.3 Plt Count 270 D MPV 9.5 Immature Gran % (Auto) 0.2 Neut % (Auto) 75.4 H Lymph % (Auto) 18.0 L [place] % (Auto) 6.2 Eos % (Auto) 0.0 Baso % (Auto) 0.2 Lymph # (Auto) 2.0 [place] # (Auto) 0.7 Eos # (Auto) 0.0 Baso # (Auto) 0.0 Abs Immat Gran (auto) 0.02 Absolute Neuts (auto) 8.3 Absolute Nucleated RBC 0.000 Nucleated RBC % (auto) 0.0 PT 12.0 INR 1.0 APTT 32.7 Anion Gap 19 Estim Creat Clear Calc 121.8 Estimated GFR > 60 Random Glucose 118 H Lactic Acid 1.2 Calcium 9.9 D Magnesium Total Bilirubin 1.1 H AST 127 H ALT 46 H Alkaline Phosphatase 106 Total Creatine Kinase 8890 H Total Protein 7.9 Albumin 5.0 Lipase 21 Urine Color Urine Appearance Urine pH Ur Specific [place] Urine Protein Urine Glucose (UA) Urine Ketones Urine Blood Urine Nitrite Ur Leukocyte Esterase Salicylates Urine Opiates Screen Urine Fentanyl Screen Acetaminophen Ur Barbiturates Screen Ur Phencyclidine Scrn Ur Amphetamines Screen U Benzodiazepines Scrn Urine Cocaine Screen U Marijuana (THC) Screen Ethyl Alcohol Imaging Radiologist's Impressions: Impressions Head CT 07/12/23 18:25 IMPRESSION: No acute intracranial pathology. Assessment and Plan (1) Rhabdomyolysis: Qualifiers: Rhabdomyolysis type: non-traumatic Qualified Code(s): M62.82 - Rhabdomyolysis Status: Acute (2) Schizophrenia: Qualifiers: Schizophrenia type: disorganized schizophrenia Qualified Code(s): F20.1 - Disorganized schizophrenia Status: Acute (3) Acute psychosis: Status: Acute Plan Patient is a 37 Y M with schizophrenia, non-compliant w/ medications, p/w few- day history of psychosis, agitation, found to have rhabdomyolysis, admitted ICU for dexmedetomidine gtt and IVF N/P: acute psychosis, agitation, on haloperidol, clozapine, dexmedetomidine gtt; to wean as tolerated; appreciate psychiatry recommendations CV: no acute issues R: no acute issues GI: no acute issues : rhabdomyolysis w/o evidence of acute renal insufficiency; IVF resuscitation; to continue to monitor H: no acute issues; to monitor for neutropenia in the setting of clozapine re- initiation ID: no acute issues
[2023-07-13] MEDS: Lactated Ringers 1,000 ML 999 ML IV (09:05)
--- NOTE | 2023-07-13 09:20 | ECG_ITS ---
Test Reason : EVALUATE QTC INTERVAL Blood Pressure : / mmHG Vent. Rate : 112 BPM Atrial Rate : 112 BPM P-R Int : 140 ms QRS Dur : 076 ms QT Int : 346 ms P-R-T Axes : 054 048 024 degrees QTc Int : 472 ms Sinus tachycardia Otherwise normal ECG When compared with ECG of 04-DEC-2017 23:25, Nonspecific T wave abnormality now evident in Inferior leads Referred By: Jeremy Callahan Electronically Signed By:LAUREN MARKHAM MD
[2023-07-13] MEDS: dexmedeTOMIDidine HCL/NS 400 MCG/100 ML INFUS..BTL 22.5 MCG IVCONT (09:21)
[2023-07-13] MEDS: Lactated Ringers 1,000 ML 150 ML IVCONT ×3 (09:22→20:47)
--- NOTE | 2023-07-13 10:10 | MHC.CARE ---
Pt was initially seen by the CARE Team and found IPLOC. Please re-consult CARE Team if clinically indicated when medically cleared.
[2023-07-13] MEDS: Pantoprazole Sodium 40 MG/10 ML VIAL IVPUSH (11:34)
--- NOTE | 2023-07-13 12:40 | MHC.CM.PN ---
PT ADMITTED WITH ACUTE PSYCHOSIS CM CALLED PTS PRIMARY CONTACT/MOTHER, ANANTH [phone] ANANTH REPORTS THE PT LIVES AT HOME WITH FAMILY AND AT BASELINE IS INDEPENDENT WITH SELF CARE SHE SAYS HE HAS NO IN HOME SERVICES AND USES NO DME PT DOES HAVE OP MH PROVIDERS HE DOES NOT HAVE A HCP OR GUARDIAN PER HIS MOTHERS REPORT, HE WOULD BE UNABLE TO COMPLETE HCP IN HIS CURRENT STATE PCP: ARA ANDRE AT [facility] IMM DELIVERED VIA T/C, COPY WILL BE MAILED TO ANANTH AND ANOTHER COPY WAS SENT TO [facility] DCP TBD PENDING CRISIS EVAL ONCE PT IS MEDICALLY CLEARED HOME VS IPLOC FAMILY WILL TRANSPORT WHEN PT IS CLEARED TO RETURN HOME
[2023-07-13] MEDS: dexmedeTOMIDidine HCL/NS 400 MCG/100 ML INFUS..BTL 18 MCG IVCONT (13:01)
[2023-07-13] MEDS: cloZAPine 25 MG TABLET 50 MG PO (18:40)
--- NOTE | 2023-07-13 18:42 | PC.NURSE ---
Precedex gtt titrated off. Per DULCE MARIA Thomas, administer clozaril 50 PO bedtime NOW 18:40. Pt able to swallow pills whole with cranberry juice.
[2023-07-13] MEDS: Haloperidol Lactate 5 MG/ML VIAL IVPUSH (20:47)
[2023-07-13] MEDS: Benztropine Mesylate 2 MG/2 ML VIAL 1 MG IVPUSH (20:47)
[2023-07-14] VITALS (23 sets, daily range): BP systolic 111–163; BP diastolic 69–97; PULSE 60–171; RESP 11–38; TEMP 36.2–36.9; O2SAT 94–100; BMI 26.9
[2023-07-14] MEDS: Lactated Ringers 1,000 ML 150 ML IVCONT (02:32)
[2023-07-14] MEDS: dexmedeTOMIDidine HCL/NS 400 MCG/100 ML INFUS..BTL 22.5 MCG IVCONT ×2 (02:33→05:33)
[2023-07-14] MEDS: Haloperidol Lactate 5 MG/ML VIAL 10 MG IM (02:51)
[2023-07-14] MEDS: diphenhydrAMINE HCL 50 MG/ML VIAL IVPUSH (03:01)
[2023-07-14 05:23] LABS: MANUAL DIFF FLAG NO
[2023-07-14 05:26] LABS: Basophils Percent Auto 0.2 % (0-2); Hematocrit 34.5 % (42.0-52.0); Hemoglobin 11.8 g/dl (14.0-18.0); Imm Gran Abs Auto 0.03 X10*3/uL (0.00-0.03); Imm Gran Pct Auto 0.3 % (0.0-0.4); Lymphocytes Absolute Auto 1.4 X10*3/uL (1.2-4.9); Lymphocytes Percent Auto 13.4 % (20-40); Mean Corpuscular HGB Conc 34.2 g/dl (31.0-36.0); Mean Corpuscular Hemoglobin 29.4 pg (27.0-33.0); Mean Corpuscular Volume 85.8 fL (80.0-98.0); Mean Platelet Volume 9.9 fL (9.4-12.4); Monocytes Absolute Auto 0.8 X10*3/uL (0.1-1.2); Monocytes Percent Auto 7.4 % (2-11); Neutrophils Absolute Auto 8.1 x10*3/uL (2.0-8.3); Neutrophils Percent Auto 78.7 % (45-73); Platelet Count 222 X10*3/uL (160-400); Red Blood Count 4.02 X10*6/uL (4.60-5.80); White Blood Count 10.3 X10*3/uL (4.8-10.8)
[2023-07-14] MEDS: Pantoprazole Sodium 40 MG/10 ML VIAL IVPUSH (05:33)
[2023-07-14 05:46] LABS: Anion Gap 15 (12-20); Blood Urea Nitrogen 6 mg/dL (9-16); Calcium 8.8 mg/dL (8.4-10.2); Carbon Dioxide 22 mmol/L (22-29); Chloride 109 mmol/L (96-108); Creatinine Clr Calc Pharmacy 143.7; Estimated Glomerular Filt Rate > 60; Glucose Random 95 mg/dL (60-115); Potassium 3.9 mmol/L (3.3-5.1); Sodium 142 mmol/L (135-145)
--- NOTE | 2023-07-14 07:44 | PM.CCPN ---
Subjective Subjective Date of Service: 07/14/23 Interval History: some agitation, re-started on dexmedetomidine gtt Critical Care Time (minutes): 60 Physical Exam Vital Signs: Vital Signs: Last Vital Signs Temp 97.8 F 07/14/23 00:00 Pulse 60 07/14/23 06:00 Resp 18 07/14/23 06:00 BP 111/69 07/14/23 06:00 Pulse Ox 97 07/14/23 06:00 O2 Del Method Room Air 07/14/23 06:00 O2 Flow Rate 2 07/12/23 11:28 BMI result Body Mass Index 26.9 Const: General: cooperative, healthy appearing, comfortable, no acute distress, well developed, alert, awake and Physically active Orientation/consciousness: patient oriented x3 HEENT: Head: Yes normal to inspection, Yes normocephalic and Yes atraumatic Eyes: General: appearance normal, both eyes and all related structures Neck: Neck: Yes normal visual inspection, Yes full ROM, Yes no meningeal signs and Yes supple Chest: Chest palpation & inspection: normal inspection of the chest Resp: Other: no appreciable rales, rhonchi, wheezing Effort & Inspection: normal respiratory effort Cardio: Rate: regular rate Rhythm: regular rhythm GI: Inspection: Yes normal to inspection, No Abdominal wall edema and No distended Palpation (GI): Soft to palpation, not firm, nontender, no guarding and not rigid Skin: General skin exam: no rashes or lesions noted Neuro: General: patient oriented x3, tone normal, moves all extremities, no meningeal signs and no focal motor deficits Extrem: General: Yes normal to inspection, Yes capillary refill normal and Yes no clubbing, cyanosis or edema Psych: Other: calm, cooperative on low-dose dexmedetomidine gtt Objective Data Labs 07/14/23 04:54 07/14/23 04:54 Labs: Laboratory Results - last 24 hr 07/13/23 07/13/23 07/14/23 07:30 18:00 04:54 WBC 11.0 H 10.3 RBC 4.97 D 4.02 L Hgb 14.7 D 11.8 L Hct 43.3 D 34.5 L D MCV 87.1 85.8 MCH 29.6 29.4 MCHC 33.9 34.2 RDW 12.3 12.0 Plt Count 270 D 222 MPV 9.5 9.9 Immature Gran % (Auto) 0.2 0.3 Neut % (Auto) 75.4 H 78.7 H Lymph % (Auto) 18.0 L 13.4 L [place] % (Auto) 6.2 7.4 Eos % (Auto) 0.0 0.0 Baso % (Auto) 0.2 0.2 Lymph # (Auto) 2.0 1.4 [place] # (Auto) 0.7 0.8 Eos # (Auto) 0.0 0.0 Baso # (Auto) 0.0 0.0 Abs Immat Gran (auto) 0.02 0.03 Absolute Neuts (auto) 8.3 8.1 Absolute Nucleated RBC 0.000 0.000 Nucleated RBC % (auto) 0.0 0.0 PT 12.0 INR 1.0 APTT 32.7 Sodium 143 142 Potassium 3.5 3.9 Chloride 106 109 H Carbon Dioxide 22 22 Anion Gap 19 15 BUN 7 L 6 L Creatinine 0.92 0.78 Estim Creat Clear Calc 121.8 143.7 Estimated GFR > 60 > 60 Random Glucose 118 H 95 Lactic Acid 1.2 Calcium 9.9 D 8.8 D Total Bilirubin 1.1 H AST 127 H ALT 46 H Alkaline Phosphatase 106 Total Creatine Kinase 8890 H 5854 H Total Protein 7.9 Albumin 5.0 Lipase 21 Progress Note: A&P Assessment and plan (1) Schizophrenia: Status: Acute (2) Acute psychosis: Status: Acute (3) Rhabdomyolysis: Status: Acute Plan Patient is a 37 Y M with schizophrenia, non-compliant w/ medications, p/w few-day history of psychosis, agitation, found to have rhabdomyolysis, admitted ICU for dexmedetomidine gtt and IVF N/P: acute psychosis, agitation, on haloperidol, clozapine, dexmedetomidine gtt; to wean as tolerated; appreciate psychiatry recommendations CV: no acute issues R: no acute issues GI: no acute issues : rhabdomyolysis w/o evidence of acute renal insufficiency, improving H: no acute issues; to monitor for neutropenia in the setting of clozapine re-initiation ID: no acute issues Quality Stroke Does the patient have a stroke diagnosis?: No VTE Prior VTE?: No VTE Risk Level:: Medical - moderate - high VTE Device Contraindication: N/A - Device Ordered VTE Drug Contraindication: N/A - Med Ordered
--- NOTE | 2023-07-14 08:00 | ECG_ITS ---
Test Reason : QTc Monitoring Blood Pressure : / mmHG Vent. Rate : 086 BPM Atrial Rate : 086 BPM P-R Int : 130 ms QRS Dur : 074 ms QT Int : 392 ms P-R-T Axes : 007 034 017 degrees QTc Int : 469 ms Sinus rhythm with Premature atrial complexes Otherwise normal ECG When compared with ECG of 13-JUL-2023 09:26, Premature atrial complexes are now Present Referred By: Matilda Muller Electronically Signed By:LAUREN MARKHAM MD
[2023-07-14] MEDS: Haloperidol Lactate 5 MG/ML VIAL IVPUSH ×2 (08:03→21:54)
[2023-07-14] MEDS: Benztropine Mesylate 2 MG/2 ML VIAL 1 MG IVPUSH ×2 (08:03→20:33)
--- NOTE | 2023-07-14 08:36 | PC.NURSE ---
0705: Initial pt contact. pt is awake laying semi fowlers, moving arms and legs against restraints.He is unclear about situation or place. denies discomfort or pain. sitter at bedside. vss. a febrile.
[2023-07-14] MEDS: Valproic Acid (as Sodium Salt) 250 MG in Dextrose 5 % 50 ML 52.5 MG IV ×2 (11:43→20:14)
[2023-07-14] MEDS: cloZAPine 25 MG TABLET 50 MG PO ×2 (11:44→20:30)
--- NOTE | 2023-07-14 12:13 | PC.NURSE ---
Addendum entered by Iona Talley RN 07/14/23 12:32: Increased agitation providers orders ativan. mother at bedside. Original Note: increased agitation and yelling. unable to speak with pt, he is disorganized and yells over speaker. pt remains in restraints.
[2023-07-14] MEDS: LORazepam 2 MG/ML VIAL 1 MG IVPUSH ×3 (12:31→18:16)
[2023-07-14] MEDS: polyethylene glycoL 3350 17 GM POWD.PACK PO (12:49)
[2023-07-14] MEDS: Acetaminophen 325 MG TABLET 650 MG PO (12:50)
[2023-07-14 15:16] LABS: Appearance Urine Clear; Color Urine Yellow; Glucose Urine UA Negative (Negative); Leukocyte Esterase Urine Negative (Negative); Nitrite Urine Negative (Negative); Specific Gravity - Urine <= 1.005 (1.005-1.025); Urine Blood Negative (Negative); Urine Ketones 40 mg/dL (Negative); Urine Protein Negative (Neg-Trace)
--- NOTE | 2023-07-14 15:56 | PC.NURSE ---
bilat foot release from restraint trial.
--- NOTE | 2023-07-14 16:44 | P.CNPS_ITS ---
History of Present Illness Date of Service: 07/14/2023 Chief Complaint: Rhabdomyolysis Reason for Consult: F/U Requesting physician: Matilda Muller Discussed with referring provider: Yes Sources of Information: patient interviewed, chart reviewed and crisis/core team assessment reviewed HPI Narrative: Interim Hx: pt awake, trial to come off precedex drip this morning not successful as pt again somewhat combative. Pt reports he is fine. Not fully forthcoming about extend of delusional content, guarded and thought blocking. Past Psychiatric History: OP: Dr. Jeremias Post Medical Evaluation Reviewed: Yes Diagnostics Vital Signs (24Hr): Vital Signs - 24 hr 07/13/23 17:00 07/13/23 17:29 07/13/23 18:00 Temperature Pulse Rate 60 60 64 Respiratory Rate 18 13 Blood Pressure 100/67 112/83 Pulse Oximetry 99 98 Oxygen Delivery Method Room Air Room Air 07/13/23 18:08 07/13/23 19:00 07/13/23 20:00 Temperature 97.7 F Pulse Rate 58 72 74 Respiratory Rate 18 18 Blood Pressure 121/82 94/45 L Pulse Oximetry 98 97 Oxygen Delivery Method Room Air Room Air 07/13/23 21:00 07/13/23 22:00 07/13/23 23:00 Temperature Pulse Rate 70 78 97 Respiratory Rate 19 20 15 Blood Pressure 107/64 92/58 L 115/68 Pulse Oximetry 98 96 98 Oxygen Delivery Method Room Air Room Air Room Air 07/14/23 00:00 07/14/23 01:00 07/14/23 02:00 Temperature 97.8 F Pulse Rate 98 104 H 171 H Respiratory Rate 16 22 H 30 H Blood Pressure 119/75 119/77 163/83 H Pulse Oximetry 98 99 97 Oxygen Delivery Method Room Air Room Air Room Air 07/14/23 03:00 07/14/23 03:05 07/14/23 05:00 Temperature Pulse Rate 161 H 162 H 71 Respiratory Rate 33 H 21 H 21 H Blood Pressure 134/72 134/72 112/69 Pulse Oximetry 98 98 97 Oxygen Delivery Method Room Air Room Air Room Air 07/14/23 06:00 07/14/23 07:57 07/14/23 09:00 Temperature 97.1 F Pulse Rate 60 78 93 Respiratory Rate 18 11 L 17 Blood Pressure 111/69 134/84 132/82 Pulse Oximetry 97 98 100 Oxygen Delivery Method Room Air Room Air Room Air 07/14/23 10:00 07/14/23 11:00 07/14/23 12:00 Temperature Pulse Rate 91 109 H 123 H Respiratory Rate 16 25 H 29 H Blood Pressure 130/93 H 139/86 146/92 H Pulse Oximetry 100 99 97 Oxygen Delivery Method Room Air Room Air Room Air 07/14/23 13:00 07/14/23 14:00 07/14/23 15:00 Temperature Pulse Rate 108 H 139 H 140 H Respiratory Rate 27 H 38 H 34 H Blood Pressure 130/86 147/87 H 150/93 H Pulse Oximetry 97 95 95 Oxygen Delivery Method Room Air Room Air Room Air 07/14/23 16:00 Temperature Pulse Rate 132 H Respiratory Rate 29 H Blood Pressure 146/89 H Pulse Oximetry 97 Oxygen Delivery Method Room Air BMI result Body Mass Index 26.9 Labs 07/14/23 04:54 07/14/23 04:54 Labs: Laboratory Results - last 48 hr 07/12/23 07/13/23 07/13/23 18:03 07:30 18:00 WBC 11.0 H RBC 4.97 D Hgb 14.7 D Hct 43.3 D MCV 87.1 MCH 29.6 MCHC 33.9 RDW 12.3 Plt Count 270 D MPV 9.5 Immature Gran % (Auto) 0.2 Neut % (Auto) 75.4 H Lymph % (Auto) 18.0 L [place] % (Auto) 6.2 Eos % (Auto) 0.0 Baso % (Auto) 0.2 Lymph # (Auto) 2.0 [place] # (Auto) 0.7 Eos # (Auto) 0.0 Baso # (Auto) 0.0 Abs Immat Gran (auto) 0.02 Absolute Neuts (auto) 8.3 Absolute Nucleated RBC 0.000 Nucleated RBC % (auto) 0.0 PT 12.0 INR 1.0 APTT 32.7 Sodium 143 Potassium 3.5 Chloride 106 Carbon Dioxide 22 Anion Gap 19 BUN 7 L Creatinine 0.92 Estim Creat Clear Calc 121.8 Estimated GFR > 60 Random Glucose 118 H Lactic Acid 1.2 Calcium 9.9 D Total Bilirubin 1.1 H AST 127 H ALT 46 H Alkaline Phosphatase 106 Total Creatine Kinase 8890 H 5854 H Total Protein 7.9 Albumin 5.0 Lipase 21 Urine Color Yellow Urine Appearance Clear Urine pH 6.5 Ur Specific [place] 1.015 Urine Protein Negative Urine Glucose (UA) Negative Urine Ketones 15 Urine Blood Negative Urine Nitrite Negative Ur Leukocyte Esterase Negative Urine Opiates Screen Not Detected Urine Fentanyl Screen Not Detected Ur Barbiturates Screen Not Detected Ur Phencyclidine Scrn Not Detected Ur Amphetamines Screen Not Detected U Benzodiazepines Scrn POSITIVE H Urine Cocaine Screen Not Detected U Marijuana (THC) Screen Not Detected 07/14/23 07/14/23 04:54 13:24 WBC 10.3 RBC 4.02 L Hgb 11.8 L Hct 34.5 L D MCV 85.8 MCH 29.4 MCHC 34.2 RDW 12.0 Plt Count 222 MPV 9.9 Immature Gran % (Auto) 0.3 Neut % (Auto) 78.7 H Lymph % (Auto) 13.4 L [place] % (Auto) 7.4 Eos % (Auto) 0.0 Baso % (Auto) 0.2 Lymph # (Auto) 1.4 [place] # (Auto) 0.8 Eos # (Auto) 0.0 Baso # (Auto) 0.0 Abs Immat Gran (auto) 0.03 Absolute Neuts (auto) 8.1 Absolute Nucleated RBC 0.000 Nucleated RBC % (auto) 0.0 PT INR APTT Sodium 142 Potassium 3.9 Chloride 109 H Carbon Dioxide 22 Anion Gap 15 BUN 6 L Creatinine 0.78 Estim Creat Clear Calc 143.7 Estimated GFR > 60 Random Glucose 95 Lactic Acid Calcium 8.8 D Total Bilirubin AST ALT Alkaline Phosphatase Total Creatine Kinase Total Protein Albumin Lipase Urine Color Yellow Urine Appearance Clear Urine pH 6.0 Ur Specific [place] <= 1.005 Urine Protein Negative Urine Glucose (UA) Negative Urine Ketones 40 Urine Blood Negative Urine Nitrite Negative Ur Leukocyte Esterase Negative Urine Opiates Screen Urine Fentanyl Screen Ur Barbiturates Screen Ur Phencyclidine Scrn Ur Amphetamines Screen U Benzodiazepines Scrn Urine Cocaine Screen U Marijuana (THC) Screen Imaging Radiology Impressions: ITS Impressions Head CT 07/12/23 18:25 IMPRESSION: No acute intracranial pathology. Abdomen Ultrasound 07/13/23 11:58 IMPRESSION: Normal gallbladder ultrasound. Mental Status Exam Mental Status Exam Narrative: Appearance: wearing hospital gown, fair hygiene, agitated, trying to move out of his bed. Behavior: guarded, at times looking pass through this singer songwriter, internally preoccupied, thought blocking. Speech: single words, minimally spontaneous TP:thought blocking. TC: wanting to go home VH/AH: internally preoccupied Delusions: paranoid delusions, not fully forthcoming with extend of delusional content. Insight/judgment: impaired x 2. Medications Medications Current Medications Acetaminophen (Acetaminophen 325 Mg Tablet) 650 mg PO Q4H PRN PRN Reason: Pain, Moderate(Pain Scale 4-6) Last Admin: 07/14/23 12:50 Dose: 650 mg Benztropine Mesylate (Benztropine Mesylate 2 Mg/2 Ml Vial) 1 mg IVPUSH BID [facility] Last Admin: 07/14/23 08:03 Dose: 1 mg Clozapine (Clozapine 25 Mg Tablet) 50 mg PO BEDTIME OPAL Last Admin: 07/13/23 18:40 Dose: 50 mg Clozapine (Clozapine 25 Mg Tablet) 50 mg PO DAILY [facility] Last Admin: 07/14/23 11:44 Dose: 50 mg Enoxaparin Sodium (Enoxaparin Sodium 40 Mg/0.4 Ml Syringe) 40 mg SUBCUT Q24H [facility] Haloperidol Lactate (Haloperidol Lactate 5 Mg/Ml Vial) 5 mg IVPUSH BID [facility] Last Admin: 07/14/23 08:03 Dose: 5 mg Dexmedetomidine HCl (Precedex) 400 mcg in 100 mls @ 0 mls/hr IVCONT .Q0M OPAL; Protocol Last Titration: 07/14/23 13:10 Dose: 0 mcg/kg/hr, 0 mls/hr Valproic Acid 250 mg/ Dextrose 52.5 mls @ 52.5 mls/hr IV Q8H [facility] Last Infusion: 07/14/23 12:48 Dose: Infused Lorazepam (Lorazepam 2 Mg/Ml Vial) 1 mg IVPUSH Q4H PRN PRN Reason: Agitation Last Admin: 07/14/23 14:25 Dose: 1 mg Pantoprazole Sodium (Pantoprazole Sodium 40 Mg/10 Ml Vial) 40 mg IVPUSH DAILY@0630 OPAL Last Admin: 07/14/23 05:33 Dose: 40 mg Polyethylene Glycol (Polyethylene Glycol 3350 17 Gm Powd.Pack) 17 gm PO DAILY [facility] Last Admin: 07/14/23 12:49 Dose: 17 gm Allergies Allergies Allergy/AdvReac Type Severity Reaction Status Date / Time No Known Allergies Allergy Mild NOT Unverified 04/10/20 16:57 APPLICABLE Assessment & Plan Assessment & Plan (1) Schizophrenia: Qualifiers: Schizophrenia type: disorganized schizophrenia Qualified Code(s): F20.1 - Disorganized schizophrenia Status: Acute Code(s): F20.9 - Schizophrenia, unspecified Plan Mr. Sweeney is a 37 year-year old male with hx of schizophrenia. He came via EMS after family called due to pt presenting as more agitated, paranoid and combative. In the ED, pt continued to present as combative, trying to elope. In the ED, pt received haldol 10mg IM, versed 2mg IM, Ketamine 180mg IV, Geodone 20mg IM and ativan 2mg IV with minimal effect. This morning, pt PLAN 07/14- continue haldol 5mg IV BID with cogentin 1mg po BID. Increase clozaril by 50mg- given that pt has been on this medication for long time without agranulocytosis. Monitor ANC weekly while in the hospital. 07/14- clozaril 50mg po BID, 07/15 clozaril 50mg po daily and 100mg po qhs, 07/16 100mg po BID-> hold titration unless indicated by psychiatry. Continue haldol 5mg IV BID. can start depakote 250mg IV TID--> monitor ammonia, LFTs. Plan to transfer to psychiatric unit once combative behaviors and rhabdomyolosis under control. Total time managing care of this patient today ____ minutes.
[2023-07-14] MEDS: Melatonin 3 MG TABLET 6 MG PO (20:28)
[2023-07-14] MEDS: dexmedeTOMIDidine HCL/NS 400 MCG/100 ML INFUS..BTL 31.5 MCG IVCONT (22:58)
[2023-07-15] VITALS (19 sets, daily range): BP systolic 110–159; BP diastolic 65–108; PULSE 60–138; RESP 18–30; TEMP 36.3–37.3; O2SAT 93–99; BMI 26.6
[2023-07-15] MEDS: LORazepam 2 MG/ML VIAL 1 MG IVPUSH ×4 (03:40→19:34)
[2023-07-15] MEDS: dexmedeTOMIDidine HCL/NS 400 MCG/100 ML INFUS..BTL IVCONT (03:45)
[2023-07-15] MEDS: Valproic Acid (as Sodium Salt) 250 MG in Dextrose 5 % 50 ML 52.5 MG IV ×3 (03:46→19:39)
--- NOTE | 2023-07-15 05:30 | PC.NURSE ---
PT IS AWAKE AND ALERT. ANSWERS SIMPLE QUESTIONS WITH YES OR NO. MAKES EYE CONTACT. KNOWS HIS NAME. STATES HE'S FROM [place] BUT KEEPS REPEATING [place]. DOES NOT ANSWER ALL QUESTIONS ASKED. TRIES TO GET OOB AT TIMES. KICKS SIDERAILS OCCASSIONALLY. YELLS OUT AT TIMES.. RESTLESSNESS ON AND OFF. PRECEDEX DRIP INFUSING. ATIVAN GIVEN X1 FOR PERSISTENT YELLING AND RESTLESSNESS. PT SLEPT IN SHORT NAPS ONLY. SOFT LIMB RESTRAINTS ON TO PREVENT PT FROM PULLING OUT IV OR CLIMBING OOB. [place] CATH IN PLACE. PT WAS ABLE TO USE HIS FOOT TO PULL IT OFF AND WAS INCONTINENT OF LARGE AMOUNT OF URINE. PT CHANGED AND BATHED. SECURITY ON STANDBY RESTRAINTS WERE RELEASED. RESTRAINTS REAPPLIED. PT RESISTIVE TO CARE. [place] CATH APPLIED. BP STABLE. MONITOR SHOWS SR-ST. HEART RATE 60'S - 80 AT REST AND CAN GO HIGH 140'S WITH RESTLESSNESS. PT TAKING PO FLUIDS WELL. MOUTH IS DRY AND WAS SWABBED AND MOUTH MOISTURIZER APPLIED TO TONGUE AND DRY LIPS.
[2023-07-15 05:56] LABS: MANUAL DIFF FLAG NO
[2023-07-15 05:58] LABS: Basophils Percent Auto 0.3 % (0-2); Hematocrit 35.6 % (42.0-52.0); Hemoglobin 12.1 g/dl (14.0-18.0); Imm Gran Abs Auto 0.01 X10*3/uL (0.00-0.03); Imm Gran Pct Auto 0.1 % (0.0-0.4); Lymphocytes Absolute Auto 1.6 X10*3/uL (1.2-4.9); Lymphocytes Percent Auto 20.6 % (20-40); Mean Corpuscular Hemoglobin 29.2 pg (27.0-33.0); Mean Platelet Volume 9.6 fL (9.4-12.4); Monocytes Absolute Auto 0.6 X10*3/uL (0.1-1.2); Monocytes Percent Auto 8.1 % (2-11); Neutrophils Absolute Auto 5.5 x10*3/uL (2.0-8.3); Neutrophils Percent Auto 70.9 % (45-73); Platelet Count 242 X10*3/uL (160-400); Red Blood Count 4.14 X10*6/uL (4.60-5.80); Red Cell Distribution Width 12.2 % (11.0-16.0); White Blood Count 7.8 X10*3/uL (4.8-10.8)
[2023-07-15 06:12] LABS: Anion Gap 12 (12-20); Blood Urea Nitrogen 4 mg/dL (9-16); Calcium 9.2 mg/dL (8.4-10.2); Carbon Dioxide 24 mmol/L (22-29); Chloride 109 mmol/L (96-108); Creatinine Clr Calc Pharmacy 160.1; Estimated Glomerular Filt Rate > 60; Glucose Random 131 mg/dL (60-115); Potassium 3.5 mmol/L (3.3-5.1); Sodium 141 mmol/L (135-145)
[2023-07-15] MEDS: Pantoprazole Sodium 40 MG/10 ML VIAL IVPUSH (06:28)
--- NOTE | 2023-07-15 07:15 | PM.CCPN ---
Subjective Subjective Date of Service: 07/15/23 Interval History: patient intermittently sleeping, agitated overnight Critical Care Time (minutes): 60 Physical Exam Vital Signs: Vital Signs: Last Vital Signs Temp 97.9 F 07/15/23 04:00 Pulse 67 07/15/23 06:00 Resp 18 07/15/23 06:00 BP 110/65 07/15/23 06:00 Pulse Ox 98 07/15/23 06:00 O2 Del Method Room Air 07/15/23 06:00 O2 Flow Rate 2 07/12/23 11:28 BMI result Body Mass Index 26.6 Const: Other: currently cooperative, though intermittently agitated General: healthy appearing, comfortable, no acute distress, well developed, alert and awake HEENT: Head: Yes normal to inspection, Yes normocephalic and Yes atraumatic Eyes: General: appearance normal, both eyes and all related structures Neck: Neck: Yes normal visual inspection, Yes full ROM, Yes no meningeal signs and Yes supple Chest: Chest palpation & inspection: normal inspection of the chest Resp: Other: no appreciable rales, rhonchi, wheezing Effort & Inspection: normal respiratory effort Cardio: Rate: regular rate Rhythm: regular rhythm GI: Inspection: Yes normal to inspection, No Abdominal wall edema and No distended Palpation (GI): Soft to palpation, not firm, nontender, no guarding and not rigid : Male General Exam: Yes normal external exam Skin: General skin exam: no rashes or lesions noted Neuro: General: tone normal, moves all extremities, no meningeal signs and no focal motor deficits Extrem: General: Yes normal to inspection, Yes capillary refill normal and Yes no clubbing, cyanosis or edema Psych: Other: as described above, intermittently agitated, perseveration on phrases at times, answers most questions appropriately Objective Data Labs 07/15/23 05:52 07/15/23 05:52 Labs: Laboratory Results - last 24 hr 07/14/23 07/15/23 13:24 05:52 WBC 7.8 RBC 4.14 L Hgb 12.1 L Hct 35.6 L MCV 86.0 MCH 29.2 MCHC 34.0 RDW 12.2 Plt Count 242 MPV 9.6 Immature Gran % (Auto) 0.1 Neut % (Auto) 70.9 Lymph % (Auto) 20.6 [place] % (Auto) 8.1 Eos % (Auto) 0.0 Baso % (Auto) 0.3 Lymph # (Auto) 1.6 [place] # (Auto) 0.6 Eos # (Auto) 0.0 Baso # (Auto) 0.0 Abs Immat Gran (auto) 0.01 Absolute Neuts (auto) 5.5 Absolute Nucleated RBC 0.000 Nucleated RBC % (auto) 0.0 Sodium 141 Potassium 3.5 Chloride 109 H Carbon Dioxide 24 Anion Gap 12 BUN 4 L Creatinine 0.70 Estim Creat Clear Calc 160.1 Estimated GFR > 60 Random Glucose 131 H Calcium 9.2 Urine Color Yellow Urine Appearance Clear Urine pH 6.0 Ur Specific [place] <= 1.005 Urine Protein Negative Urine Glucose (UA) Negative Urine Ketones 40 Urine Blood Negative Urine Nitrite Negative Ur Leukocyte Esterase Negative Progress Note: A&P Assessment and plan (1) Schizophrenia: Status: Acute (2) Acute psychosis: Status: Acute (3) Rhabdomyolysis: Status: Acute Plan Patient is a 37 Y M with schizophrenia, non-compliant w/ medications, p/w few-day history of psychosis, agitation, found to have rhabdomyolysis, admitted ICU for dexmedetomidine gtt and IVF N/P: acute psychosis, intermittent agitation, insomnia, on haloperidol, clozapine, valproic acid, dexmedetomidine gtt; to wean as tolerated; appreciate psychiatry recommendations CV: intermittent bradycardia on dexmedetomidine gtt; to monitor QTc very closely R: no acute issues GI: no acute issues : rhabdomyolysis w/o evidence of acute renal insufficiency, resolved H: no acute issues; to monitor for neutropenia in the setting of clozapine re-initiation ID: no acute issues Quality Stroke Does the patient have a stroke diagnosis?: No VTE Prior VTE?: No VTE Risk Level:: Medical - moderate - high VTE Device Contraindication: N/A - Device Ordered VTE Drug Contraindication: N/A - Med Ordered
--- NOTE | 2023-07-15 08:00 | ECG_ITS ---
Test Reason : qtc check Blood Pressure : / mmHG Vent. Rate : 109 BPM Atrial Rate : 000 BPM P-R Int : 000 ms QRS Dur : 068 ms QT Int : 340 ms P-R-T Axes : 000 012 -07 degrees QTc Int : 457 ms Poor data quality, interpretation may be adversely affected Accelerated Junctional rhythm with occasional Premature ventricular complexes Nonspecific T wave abnormality Abnormal ECG When compared with ECG of 14-JUL-2023 07:59, Junctional rhythm has replaced Sinus rhythm Nonspecific T wave abnormality now evident in Anterior leads Referred By: Matilda Muller Electronically Signed By:
[2023-07-15] MEDS: cloZAPine 25 MG TABLET 50 MG PO ×2 (08:04→20:06)
[2023-07-15] MEDS: Benztropine Mesylate 2 MG/2 ML VIAL 1 MG IVPUSH (08:04)
[2023-07-15] MEDS: Haloperidol Lactate 5 MG/ML VIAL IVPUSH ×2 (08:05→20:05)
[2023-07-15] MEDS: polyethylene glycoL 3350 17 GM POWD.PACK PO (08:05)
--- NOTE | 2023-07-15 10:35 | PM.PSYCN ---
History of Present Illness Date of Service: 07/15/2023 Chief Complaint: Rhabdomyolysis Reason for Consult: F/U Discussed with referring provider: Yes Sources of Information: patient interviewed, chart reviewed and crisis/core team assessment reviewed HPI Narrative: Interim Hx: pt awake, mother by himself. Pt minimally verbal, responds with few words. He reports he does not feel well. When asked to elaborate he states I don't know, I don't know! He reports some physical discomfort, but again unable to elaborate. He did not sleep very well last night. He has had some episodes of yelling but mostly calm. Continues to appear internally preoccupied and thought blocking. This health technical writer spoke with mother and gave update on medication management for agitation at this point and goal to eventually just keep him on clozaril. Mother reports he has been constipated for about 5 days--> monitor constipation, which can be severe specially with clozaril. Past Psychiatric History: OP: Dr. Jeremias Post Diagnostics Vital Signs (24Hr): Vital Signs - 24 hr 07/14/23 11:00 07/14/23 12:00 07/14/23 13:00 Temperature Pulse Rate 109 H 123 H 108 H Respiratory Rate 25 H 29 H 27 H Blood Pressure 139/86 146/92 H 130/86 Pulse Oximetry 99 97 97 Oxygen Delivery Method Room Air Room Air Room Air 07/14/23 14:00 07/14/23 15:00 07/14/23 16:00 Temperature Pulse Rate 139 H 140 H 132 H Respiratory Rate 38 H 34 H 29 H Blood Pressure 147/87 H 150/93 H 146/89 H Pulse Oximetry 95 95 97 Oxygen Delivery Method Room Air Room Air Room Air 07/14/23 16:58 07/14/23 18:00 07/14/23 19:00 Temperature 98.4 F Pulse Rate 138 H 144 H 128 H Respiratory Rate 35 H 26 H 31 H Blood Pressure 132/96 H 139/82 146/83 H Pulse Oximetry 95 Oxygen Delivery Method Room Air Room Air Room Air 07/14/23 20:00 07/14/23 21:00 07/14/23 22:00 Temperature 98.4 F Pulse Rate 130 H 121 H 107 H Respiratory Rate 28 H 31 H 33 H Blood Pressure 134/83 157/97 H 160/84 H Pulse Oximetry 94 Oxygen Delivery Method Room Air Room Air Room Air 07/14/23 23:00 07/15/23 00:00 07/15/23 01:00 Temperature 98.1 F Pulse Rate 108 H 86 80 Respiratory Rate 24 H 24 H 20 Blood Pressure 144/89 H 125/81 110/69 Pulse Oximetry 96 98 Oxygen Delivery Method Room Air Room Air Room Air 07/15/23 02:00 07/15/23 02:01 07/15/23 03:00 Temperature Pulse Rate 65 60 89 Respiratory Rate 18 20 24 H Blood Pressure 125/84 125/84 144/99 H Pulse Oximetry 98 98 98 Oxygen Delivery Method Room Air Room Air 07/15/23 04:00 07/15/23 05:00 07/15/23 06:00 Temperature 97.9 F Pulse Rate 74 104 H 67 Respiratory Rate 21 H 20 18 Blood Pressure 139/93 H 143/100 H 110/65 Pulse Oximetry 95 98 98 Oxygen Delivery Method Room Air Room Air Room Air 07/15/23 07:00 07/15/23 08:00 07/15/23 09:00 Temperature 97.3 F Pulse Rate 83 93 105 H Respiratory Rate 21 H 22 H 22 H Blood Pressure 136/97 H 150/96 H 135/89 Pulse Oximetry 98 99 96 Oxygen Delivery Method Room Air Room Air Room Air 07/15/23 10:00 Temperature 98.3 F Pulse Rate 128 H Respiratory Rate 28 H Blood Pressure 132/91 H Pulse Oximetry 96 Oxygen Delivery Method Room Air BMI result Body Mass Index 26.6 Labs 07/15/23 05:52 07/15/23 05:52 Labs: Laboratory Results - last 48 hr 07/13/23 07/14/23 07/14/23 18:00 04:54 13:24 WBC 10.3 RBC 4.02 L Hgb 11.8 L Hct 34.5 L D MCV 85.8 MCH 29.4 MCHC 34.2 RDW 12.0 Plt Count 222 MPV 9.9 Immature Gran % (Auto) 0.3 Neut % (Auto) 78.7 H Lymph % (Auto) 13.4 L [place] % (Auto) 7.4 Eos % (Auto) 0.0 Baso % (Auto) 0.2 Lymph # (Auto) 1.4 [place] # (Auto) 0.8 Eos # (Auto) 0.0 Baso # (Auto) 0.0 Abs Immat Gran (auto) 0.03 Absolute Neuts (auto) 8.1 Absolute Nucleated RBC 0.000 Nucleated RBC % (auto) 0.0 Sodium 142 Potassium 3.9 Chloride 109 H Carbon Dioxide 22 Anion Gap 15 BUN 6 L Creatinine 0.78 Estim Creat Clear Calc 143.7 Estimated GFR > 60 Random Glucose 95 Calcium 8.8 D Total Creatine Kinase 5854 H Urine Color Yellow Urine Appearance Clear Urine pH 6.0 Ur Specific [place] <= 1.005 Urine Protein Negative Urine Glucose (UA) Negative Urine Ketones 40 Urine Blood Negative Urine Nitrite Negative Ur Leukocyte Esterase Negative 07/15/23 05:52 WBC 7.8 RBC 4.14 L Hgb 12.1 L Hct 35.6 L MCV 86.0 MCH 29.2 MCHC 34.0 RDW 12.2 Plt Count 242 MPV 9.6 Immature Gran % (Auto) 0.1 Neut % (Auto) 70.9 Lymph % (Auto) 20.6 [place] % (Auto) 8.1 Eos % (Auto) 0.0 Baso % (Auto) 0.3 Lymph # (Auto) 1.6 [place] # (Auto) 0.6 Eos # (Auto) 0.0 Baso # (Auto) 0.0 Abs Immat Gran (auto) 0.01 Absolute Neuts (auto) 5.5 Absolute Nucleated RBC 0.000 Nucleated RBC % (auto) 0.0 Sodium 141 Potassium 3.5 Chloride 109 H Carbon Dioxide 24 Anion Gap 12 BUN 4 L Creatinine 0.70 Estim Creat Clear Calc 160.1 Estimated GFR > 60 Random Glucose 131 H Calcium 9.2 Total Creatine Kinase Urine Color Urine Appearance Urine pH Ur Specific [place] Urine Protein Urine Glucose (UA) Urine Ketones Urine Blood Urine Nitrite Ur Leukocyte Esterase Imaging Radiology Impressions: ITS Impressions Head CT 07/12/23 18:25 IMPRESSION: No acute intracranial pathology. Abdomen Ultrasound 07/13/23 11:58 IMPRESSION: Normal gallbladder ultrasound. Mental Status Exam Mental Status Exam Narrative: Appearance: wearing hospital gown, fair hygiene, agitated, trying to move out of his bed. Behavior: guarded, at times looking pass through this health technical writer, internally preoccupied, thought blocking. Speech: single words, minimally spontaneous TP:thought blocking. TC: wanting to go home VH/AH: internally preoccupied Delusions: paranoid delusions, not fully forthcoming with extend of delusion Insight/judgment: impaired x 2. Medications Medications Current Medications Acetaminophen (Acetaminophen 325 Mg Tablet) 650 mg PO Q4H PRN PRN Reason: Pain, Moderate(Pain Scale 4-6) Last Admin: 07/14/23 12:50 Dose: 650 mg Benztropine Mesylate (Benztropine Mesylate 2 Mg/2 Ml Vial) 1 mg IVPUSH BID [facility] Last Admin: 07/15/23 08:04 Dose: 1 mg Bisacodyl (Bisacodyl 5 Mg Tablet.) 5 mg PO DAILY [facility] Clozapine (Clozapine 25 Mg Tablet) 50 mg PO BEDTIME [facility] Last Admin: 07/14/23 20:30 Dose: 50 mg Clozapine (Clozapine 25 Mg Tablet) 50 mg PO DAILY [facility] Last Admin: 07/15/23 08:04 Dose: 50 mg Enoxaparin Sodium (Enoxaparin Sodium 40 Mg/0.4 Ml Syringe) 40 mg SUBCUT Q24H [facility] Last Admin: 07/14/23 18:49 Dose: Not Given Haloperidol Lactate (Haloperidol Lactate 5 Mg/Ml Vial) 5 mg IVPUSH BID [facility] Last Admin: 07/15/23 08:05 Dose: 5 mg Hydroxyzine HCl (Hydroxyzine Hcl 25 Mg Tablet) 25 mg PO Q6H PRN PRN Reason: Anxiety Dexmedetomidine HCl (Precedex) 400 mcg in 100 mls @ 0 mls/hr IVCONT .Q0M [facility]; Protocol Last Titration: 07/15/23 10:05 Dose: 0 mcg/kg/hr, 0 mls/hr Valproic Acid 250 mg/ Dextrose 52.5 mls @ 52.5 mls/hr IV Q8H [facility] Last Infusion: 07/15/23 05:22 Dose: Infused Lidocaine (Lidocaine 4 % Patch Adh..Patch) 1 patch TRANSDERMA DAILY [facility]; Protocol Last Admin: 07/15/23 08:06 Dose: Not Given Lorazepam (Lorazepam 2 Mg/Ml Vial) 1 mg IVPUSH Q4H PRN PRN Reason: Agitation Last Admin: 07/15/23 03:40 Dose: 1 mg Pantoprazole Sodium (Pantoprazole Sodium 40 Mg/10 Ml Vial) 40 mg IVPUSH DAILY@0630 [facility] Last Admin: 07/15/23 06:28 Dose: 40 mg Polyethylene Glycol (Polyethylene Glycol 3350 17 Gm Powd.Pack) 17 gm PO DAILY [facility] Last Admin: 07/15/23 08:05 Dose: 17 gm Allergies Allergies Allergy/AdvReac Type Severity Reaction Status Date / Time No Known Allergies Allergy Mild NOT Unverified 04/10/20 16:57 APPLICABLE Assessment & Plan Assessment & Plan (1) Schizophrenia: Qualifiers: Schizophrenia type: disorganized schizophrenia Qualified Code(s): F20.1 - Disorganized schizophrenia Status: Acute Code(s): F20.9 - Schizophrenia, unspecified Plan Mr. Sweeney is a 37 year-year old male with hx of schizophrenia. He came via EMS after family called due to pt presenting as more agitated, paranoid and combative. In the ED, pt continued to present as combative, trying to elope. In the ED, pt received haldol 10mg IM, versed 2mg IM, Ketamine 180mg IV, Geodone 20mg IM and ativan 2mg IV with minimal effect. PLAN 07/14- continue haldol 5mg IV BID with cogentin 1mg po BID. Increase clozaril by 50mg- given that pt has been on this medication for long time without agranulocytosis. Monitor ANC weekly while in the hospital. 07/14- clozaril 50mg po BID, 07/15 clozaril 50mg po daily and 100mg po qhs, 07/16 100mg po BID-> hold titration unless indicated by psychiatry. Continue haldol 5mg IV BID. can start depakote 250mg IV TID--> monitor ammonia, LFTs. Plan to transfer to psychiatric unit once combative behaviors and rhabdomyolosis under control. 07/15--> will dc cogentin, avoid excessive meds with anticholinergic effects and given that no s/s dystonia or EPS. 1. Monitor constipation-->may want to consider KUB. Continue haldol 5mg IV or PO BID. 2. I notice tachycardia which after discussing with ICU attending, Dr. Sanchez seems combination of alpha 2-adrenergic meds including precedex, but also suspect alpha 2-adrenergic effects of clozaril. If pt medically stable, no uncontrollable agitation, he may be able to transfer in next few days to inpatient psych unit. 3. This health technical writer also spoke with his mother and provided update as well as she provided collateral information regarding his level of functioning when at baseline. Mother reports he had not needed inpatient admission for almost 10 years. He is not working but would go to [employer]arsani and to the Gym. He lives with both parents. This health technical writer had also talked with his OP psychiatrist, when pt arrive to ED--> Dr. Post reports that pt stable for several eyars and dose of clozaril has been gradually decrease at request of pt and family. He was on clozaril 25-50mg po qhs and haldol 5mg po qhs, but used to be on 300mg po qhs. Total time managing care of this patient today ____ minutes.
[2023-07-15 10:39] LABS: Magnesium 1.7 mg/dL (1.6-2.6)
[2023-07-15] MEDS: hydrOXYzine HCL 25 MG TABLET PO ×2 (11:12→19:33)
[2023-07-15] MEDS: bisacodyL 5 MG TABLET.DR PO (11:12)
[2023-07-15] MEDS: Ondansetron ODT 4 MG TAB.RAPDIS TRANSLINGU (11:15)
--- NOTE | 2023-07-15 14:07 | MHC.CM.PN ---
EMR REVIEWED. PT REMAINS IN ICU. INTERMITTENT AGITATION CONTINUES. CM WILL CONTINUE TO FOLLOW FOR DC PLAN/NEEDS.
[2023-07-15] MEDS: Enoxaparin Sodium 40 MG/0.4 ML SYRINGE SUBCUT (18:21)
[2023-07-15] MEDS: OLANZapine 10 MG VIAL IM (21:39)
--- NOTE | 2023-07-15 21:53 | PC.NURSE ---
PT CONFUSED, RESTLESS AND INTERMITTENTLY TRYING TO CLIMB OOB. HE IS REDIRECTABLE BUT CONTINUES RESTLESNESS. SOFT LIMB RESTRAINTS ON TO PREVENT PT FROM PULLING OUT IV NEEDED FOR VAPROIC ACID, HALDOL AND ATIVAN. ALSO PREVENTS PT FROM TAKING OFF TXAS CATHETER AND BAG VALVER LEADS. HE IS INCONTINENT OF URINE BUT EXTERNAL CATH IS WORKING WELL. TAKING PO MEDS WELL AND DRINKING FLUIDS WITHOUT COMPLICATION. NO RESP DIFFICULTIES. O2 SAT 96-98% ON ROOM AIR. MONITOR SHOWS SR-ST, 80'S-120'S, NO ECTOPY. BP STABLE. AFEBRILE. DR BARTHOLOMEW INFORMED OF CONTINUED RESTLESSNESS AND TRYING TO CLIMB OOB. ZYPREXA 10 MG IM ORDERED AND GIVEN. PT TO TRANSFER TO [facility]. REPORT GIVEN TO ELISE MEMBRENO.
[2023-07-16] VITALS (7 sets, daily range): BP systolic 130–186; BP diastolic 90–111; PULSE 110–144; RESP 16–28; TEMP 36.5–38.4; O2SAT 95–100
[2023-07-16] MEDS: LORazepam 2 MG/ML VIAL 1 MG IVPUSH ×2 (00:52→06:38)
[2023-07-16] MEDS: Valproic Acid (as Sodium Salt) 250 MG in Dextrose 5 % 50 ML 52.5 MG IV ×3 (03:40→18:53)
--- NOTE | 2023-07-16 04:23 | PC.NURSE ---
0000 pt transferred to unit from ICU via bed accompanied by security and staff. pt restless, agitated at times. order for restraints renewed for safety measures to prevent harm to self and others. [place] catheter in place draining clear yellow urine, frequent hydration offered throughout shift.
[2023-07-16 06:05] LABS: Glucose, Whole Blood 95 mg/dL (60-115)
[2023-07-16 06:08] LABS: MANUAL DIFF FLAG NO
[2023-07-16 06:16] LABS: Basophils Percent Auto 0.4 % (0-2); Eosinophils Percent Auto 0.1 % (0-4); Hematocrit 40.3 % (42.0-52.0); Hemoglobin 13.7 g/dl (14.0-18.0); Imm Gran Abs Auto 0.02 X10*3/uL (0.00-0.03); Imm Gran Pct Auto 0.2 % (0.0-0.4); Lymphocytes Absolute Auto 1.9 X10*3/uL (1.2-4.9); Lymphocytes Percent Auto 22.1 % (20-40); Mean Corpuscular Hemoglobin 29.4 pg (27.0-33.0); Mean Corpuscular Volume 86.5 fL (80.0-98.0); Mean Platelet Volume 9.7 fL (9.4-12.4); Monocytes Absolute Auto 0.7 X10*3/uL (0.1-1.2); Monocytes Percent Auto 8.6 % (2-11); Neutrophils Absolute Auto 5.8 x10*3/uL (2.0-8.3); Neutrophils Percent Auto 68.6 % (45-73); Platelet Count 297 X10*3/uL (160-400); Red Blood Count 4.66 X10*6/uL (4.60-5.80); Red Cell Distribution Width 12.4 % (11.0-16.0); White Blood Count 8.5 X10*3/uL (4.8-10.8)
[2023-07-16 06:27] LABS: Anion Gap 16 (12-20); Blood Urea Nitrogen 3 mg/dL (9-16); Calcium 9.8 mg/dL (8.4-10.2); Carbon Dioxide 24 mmol/L (22-29); Chloride 106 mmol/L (96-108); Creatinine Clr Calc Pharmacy 145.5; Estimated Glomerular Filt Rate > 60; Glucose Random 105 mg/dL (60-115); Potassium 3.8 mmol/L (3.3-5.1); Sodium 142 mmol/L (135-145)
[2023-07-16] MEDS: Pantoprazole Sodium 40 MG/10 ML VIAL IVPUSH (06:38)
--- NOTE | 2023-07-16 07:15 | PC.NURSE ---
Assumed care of patient at this time. Patient in bilateral soft wrist restraints at this time- continues agitated, restless, and pulling at restraints. However, overall cooperative and took morning meds at this time.
[2023-07-16 07:43] LABS: Alanine Aminotransferase 44 U/L (0-40); Albumin Level 4.4 g/dL (3.5-5.0); Alkaline Phosphatase 99 U/L (39-117); Aspartate Amino Transferase 59 U/L (5-37); Bilirubin Direct 0.3 mg/dL (0.0-0.5); Bilirubin Total 0.7 mg/dL (0.0-1.0); Total Protein 7.3 g/dL (6.5-8.0)
[2023-07-16] MEDS: Haloperidol Lactate 5 MG/ML VIAL IVPUSH ×2 (07:43→20:38)
[2023-07-16] MEDS: Acetaminophen 325 MG TABLET 650 MG PO ×2 (07:43→20:37)
[2023-07-16] MEDS: Lidocaine 4 % Patch ADH..PATCH 1 PATCH TRANSDERMA (07:44)
[2023-07-16] MEDS: cloZAPine 25 MG TABLET 50 MG PO ×2 (07:44→20:38)
[2023-07-16] MEDS: bisacodyL 5 MG TABLET.DR PO (07:44)
[2023-07-16] MEDS: polyethylene glycoL 3350 17 GM POWD.PACK PO (07:44)
[2023-07-16] MEDS: hydrOXYzine HCL 25 MG TABLET PO (07:44)
--- NOTE | 2023-07-16 08:00 | ECG_ITS ---
Test Reason : QTc Monitoring Blood Pressure : / mmHG Vent. Rate : 146 BPM Atrial Rate : 147 BPM P-R Int : 126 ms QRS Dur : 062 ms QT Int : 270 ms P-R-T Axes : 042 048 031 degrees QTc Int : 420 ms Sinus tachycardia Otherwise normal ECG When compared with ECG of 15-JUL-2023 09:14, No significant change was found Referred By: Rory Patterson Electronically Signed By:LAUREN MARKHAM MD
--- NOTE | 2023-07-16 09:09 | HO.PM.IMPN ---
Subjective Subjective Date of Service: 07/16/23 Interval History: paranoid, agitated Physical Exam Vital Signs: Vital Signs: Last Vital Signs Temp 97.7 F 07/16/23 07:34 Pulse 144 H 07/16/23 07:34 Resp 20 07/16/23 07:34 BP 186/109 H 07/16/23 07:34 Pulse Ox 98 07/16/23 07:34 O2 Del Method Room Air 07/16/23 07:34 O2 Flow Rate 2 07/12/23 11:28 BMI result Body Mass Index 26.6 paranoid, agitated, alert, confused Objective Data Active Medications Acetaminophen (Acetaminophen 325 Mg Tablet) 650 mg PO Q4H PRN PRN Reason: Pain, Moderate(Pain Scale 4-6) Last Admin: 07/16/23 07:43 Dose: 650 mg Documented By: ZAKIA Bisacodyl (Bisacodyl 5 Mg Tablet.) 5 mg PO DAILY [facility] Last Admin: 07/16/23 07:44 Dose: 5 mg Documented By: ZAKIA Clozapine (Clozapine 25 Mg Tablet) 50 mg PO BEDTIME [facility] Last Admin: 07/15/23 20:06 Dose: 50 mg Documented By: ELLA Clozapine (Clozapine 25 Mg Tablet) 50 mg PO DAILY [facility] Last Admin: 07/16/23 07:44 Dose: 50 mg Documented By: ZAKIA Enoxaparin Sodium (Enoxaparin Sodium 40 Mg/0.4 Ml Syringe) 40 mg SUBCUT Q24H [facility] Last Admin: 07/15/23 18:21 Dose: 40 mg Documented By: ANGY Haloperidol Lactate (Haloperidol Lactate 5 Mg/Ml Vial) 5 mg IVPUSH BID [facility] Last Admin: 07/16/23 07:43 Dose: 5 mg Documented By: ZAKIA Hydroxyzine HCl (Hydroxyzine Hcl 25 Mg Tablet) 25 mg PO Q6H PRN PRN Reason: Anxiety Last Admin: 07/16/23 07:44 Dose: 25 mg Documented By: ZAKIA Valproic Acid 250 mg/ Dextrose 52.5 mls @ 52.5 mls/hr IV Q8H [facility] Last Infusion: 07/16/23 04:40 Dose: Infused Documented By: HAIDER Lidocaine (Lidocaine 4 % Patch Adh..Patch) 1 patch TRANSDERMA DAILY [facility]; Protocol Last Admin: 07/16/23 07:44 Dose: 1 patch Documented By: ZAKIA Lorazepam (Lorazepam 2 Mg/Ml Vial) 1 mg IVPUSH Q4H PRN PRN Reason: Agitation Last Admin: 07/16/23 06:38 Dose: 1 mg Documented By: HAIDER Pantoprazole Sodium (Pantoprazole Sodium 40 Mg/10 Ml Vial) 40 mg IVPUSH DAILY@0630 [facility] Last Admin: 07/16/23 06:38 Dose: 40 mg Documented By: HAIDER Polyethylene Glycol (Polyethylene Glycol 3350 17 Gm Powd.Pack) 17 gm PO DAILY [facility] Last Admin: 07/16/23 07:44 Dose: 17 gm Documented By: ZAKIA Labs 07/16/23 05:54 07/16/23 05:54 Labs: Laboratory Results - last 24 hr 07/15/23 07/16/23 07/16/23 09:58 05:54 06:01 MCV 86.5 MCH 29.4 MCHC 34.0 RDW 12.4 Plt Count 297 MPV 9.7 Immature Gran % (Auto) 0.2 Neut % (Auto) 68.6 Lymph % (Auto) 22.1 [place] % (Auto) 8.6 Eos % (Auto) 0.1 Baso % (Auto) 0.4 Lymph # (Auto) 1.9 [place] # (Auto) 0.7 Eos # (Auto) 0.0 Baso # (Auto) 0.0 Abs Immat Gran (auto) 0.02 Absolute Neuts (auto) 5.8 Absolute Nucleated RBC 0.000 Nucleated RBC % (auto) 0.0 Anion Gap 16 Estim Creat Clear Calc 145.5 Estimated GFR > 60 POC Glucose 95 Random Glucose 105 Calcium 9.8 D Magnesium 1.7 Total Bilirubin 0.7 Direct Bilirubin 0.3 AST 59 H ALT 44 H Alkaline Phosphatase 99 Total Creatine Kinase 2329 H Total Protein 7.3 Albumin 4.4 Assessment and Plan (1) Rhabdomyolysis: Status: Acute Plan 37M PMH schizoaffective presented with acute psychosis and combative behaviour, admitted to ICU for precedex, complicated by ofe and rhabdo schizoaffective with acute psychosis complicated by ofe due to rhabdomyolosis ofe/rhabdo resolved psychosis still present, but improved off precedex, still needing restraints psych following on clozapine, haldol, depakote consitpation dulcolax dvt prophylaxis - lovenox full code reason for continued hospitalization:agitatoion Quality Stroke Does the patient have a stroke diagnosis?: No VTE Prior VTE?: No VTE Risk Level:: Medical - moderate - high VTE Device Contraindication: N/A - Device Ordered VTE Drug Contraindication: N/A - Med Ordered
[2023-07-16] MEDS: bisacodyL 10 MG SUPP.RECT PR (11:45)
[2023-07-16] MEDS: Enoxaparin Sodium 40 MG/0.4 ML SYRINGE SUBCUT (15:54)
--- NOTE | 2023-07-16 16:00 | PC.NURSE ---
Able to release from all restraints at this time.
[2023-07-16] MEDS: Acetaminophen 1,000 MG/100 ML PIGGYBACK 400 MG IV (23:08)
[2023-07-17] VITALS (16 sets, daily range): BP systolic 128–200; BP diastolic 92–103; PULSE 95–147; RESP 20–32; TEMP 36.9–38.4; O2SAT 95–98
[2023-07-17] MEDS: LORazepam 2 MG/ML VIAL 1 MG IVPUSH ×2 (00:25→04:25)
--- NOTE | 2023-07-17 00:33 | PC.NURSE ---
Addendum entered by Jean Byers RN 07/17/23 05:40: as of around 0300, patient afebrile. Cooling blanket turned off. Mouth care performed. Patient able to tolerate small sips of water. Plan of care ongoing. Addendum entered by Jean Byers RN 07/17/23 05:32: around 0200, patient not responding to sternal rub. Unlabored, normal breathing. Vital signs with no acute change. Most recent temp 100.1 axillary. Charge nurse and sorting and folding supervisor notified. MD called to bedside. Labs, ABG, CXR completed. ICU provider called to bedside. Not concerned. While being suctioned and repositioned, patient spontaneously comes to with eyes open and saying a few words. Fluids running. Scheduled valproic acid running. Pt alert to self. Sitter in room. Plan of care ongoing Original Note: pt febrile 101.1 oral. tylenol given prn. temp retaken 100.9. ice packs placed and replaced. MD notified. around 2300, iv tylenol ordered. febrile to 100.8. patient rigid. 96% RA shallow respirations. diaphoretic. alert to self. eyes closed with furrowed brow. 0030 MD at bedside. 1 mg ativan given per MD order. cooling blanket ordered. Plan per MD - fluids, q4h lorazepam. Placed on continous O2 monitoring. Linens and gown changed prn. Plan of care ongoing.
--- NOTE | 2023-07-17 00:36 | PM.EVENT ---
Event Note Date of Service: 07/17/23 Event Note: Nurse reported that patient is febrile. Upon examination, rigidity noted in bilateral upper and lower extremities. Noted patient is on Clozapine and Haldol. Previously also received olanzapine. Obtained blood cultures. Along with hyperthermia, rigidity, also noted that patient is hypertensive and tachycardic. Concern for NMS. Rule out sepsis with cxr and UA. Initiating supportive care with IV crystalloid resuscitation to maintain euvolemic state. Also scheduled IV lorazepam. Close monitoring of hemodynamics and maintain cardio respiratory stability. May need to discontinue offending agents. Consulting Neurology and psych. Low threshold to escalate care. Time Spent With Patient Time: Total time managing care of this patient today ____ minutes.
[2023-07-17] MEDS: 0.9 % Sodium Chloride 1,000 ML 200 ML IVCONT (01:24)
[2023-07-17 02:03] LABS: Appearance Urine Clear; Color Urine Yellow; Glucose Urine UA Negative (Negative); Leukocyte Esterase Urine Negative (Negative); Nitrite Urine Negative (Negative); PH 6.5 (5.0-9.0); Urine Blood Negative (Negative); Urine Ketones 15 mg/dL (Negative); Urine Protein Negative (Neg-Trace)
[2023-07-17 02:06] LABS: Bacteria Urine None Seen (None Seen); Hyaline Casts Urine 0-2 /LPF (0-2); RBC Urine 0-2 /HPF (0-2); Squamous Epithelial Cell Urine 0-2 /HPF (0-2); WBC Urine 0-5 /HPF (0-5)
[2023-07-17] MEDS: Valproic Acid (as Sodium Salt) 250 MG in Dextrose 5 % 50 ML 52.5 MG IV ×3 (02:35→19:54)
[2023-07-17 02:38] LABS: MANUAL DIFF FLAG NO
[2023-07-17 02:39] LABS: Basophils Percent Auto 0.2 % (0-2); Hematocrit 43.3 % (42.0-52.0); Hemoglobin 14.8 g/dl (14.0-18.0); Imm Gran Abs Auto 0.03 X10*3/uL (0.00-0.03); Imm Gran Pct Auto 0.2 % (0.0-0.4); Lymphocytes Percent Auto 14.6 % (20-40); Mean Corpuscular HGB Conc 34.2 g/dl (31.0-36.0); Mean Corpuscular Hemoglobin 29.6 pg (27.0-33.0); Mean Corpuscular Volume 86.6 fL (80.0-98.0); Mean Platelet Volume 9.4 fL (9.4-12.4); Monocytes Absolute Auto 1.1 X10*3/uL (0.1-1.2); Monocytes Percent Auto 7.8 % (2-11); Neutrophils Absolute Auto 10.4 x10*3/uL (2.0-8.3); Neutrophils Percent Auto 77.2 % (45-73); Platelet Count 338 X10*3/uL (160-400); Red Cell Distribution Width 12.5 % (11.0-16.0); White Blood Count 13.4 X10*3/uL (4.8-10.8)
[2023-07-17 02:39] LABS: ABG Refer to POC result
[2023-07-17 02:40] LABS: ABG Base Excess 1.5 mmol/L; ABG HCO3 24 mmol/L (22-26); ABG pCO2 32 mmHg (32-45); ABG pH 7.48 (7.35-7.45); ABG pO2 91 mmHg (83-108)
--- NOTE | 2023-07-17 02:45 | PM.EVENT ---
Event Note Date of Service: 07/17/23 Event Note: Nurse called that patient was not responding to painful stimulus. Upon arrival, pupils reactive and equal. Patient was subsequently repositioned and suctioned with sudden improvement in mentation. Will obtain ABG, BMP, CBC and lactic acid. He is awake and oriented to self at the time of my evaluation. Spoke to ICU provider, who assessed the patient at bedside and said that this was his baseline. Although fever is not v high grade (for NMS), may benefit from cutting back on dopamine antagonists. Appreciate psych help. Cultures pending Time Spent With Patient Time: Total time managing care of this patient today ____ minutes.
[2023-07-17 02:48] LABS: Lactic Acid 0.9 mmol/L (0.5-2.0)
[2023-07-17 02:51] LABS: Anion Gap 16 (12-20); Blood Urea Nitrogen 6 mg/dL (9-16); Calcium 9.7 mg/dL (8.4-10.2); Carbon Dioxide 22 mmol/L (22-29); Chloride 109 mmol/L (96-108); Creatinine Clr Calc Pharmacy 130.3; Estimated Glomerular Filt Rate > 60; Glucose Random 139 mg/dL (60-115); Sodium 143 mmol/L (135-145)
[2023-07-17 06:17] LABS: MANUAL DIFF FLAG NO
[2023-07-17 06:23] LABS: Basophils Percent Auto 0.3 % (0-2); Hematocrit 41.3 % (42.0-52.0); Imm Gran Abs Auto 0.04 X10*3/uL (0.00-0.03); Imm Gran Pct Auto 0.4 % (0.0-0.4); Lymphocytes Absolute Auto 2.1 X10*3/uL (1.2-4.9); Lymphocytes Percent Auto 18.4 % (20-40); Mean Corpuscular HGB Conc 33.9 g/dl (31.0-36.0); Mean Corpuscular Hemoglobin 30.3 pg (27.0-33.0); Mean Corpuscular Volume 89.4 fL (80.0-98.0); Mean Platelet Volume 9.7 fL (9.4-12.4); Monocytes Absolute Auto 0.9 X10*3/uL (0.1-1.2); Monocytes Percent Auto 7.7 % (2-11); Neutrophils Absolute Auto 8.3 x10*3/uL (2.0-8.3); Neutrophils Percent Auto 73.2 % (45-73); Platelet Count 309 X10*3/uL (160-400); Red Blood Count 4.62 X10*6/uL (4.60-5.80); Red Cell Distribution Width 12.7 % (11.0-16.0); White Blood Count 11.4 X10*3/uL (4.8-10.8)
[2023-07-17] MEDS: Pantoprazole Sodium 40 MG/10 ML VIAL IVPUSH (06:33)
[2023-07-17 06:41] LABS: Anion Gap 13 (12-20); Blood Urea Nitrogen 7 mg/dL (9-16); Calcium 9.2 mg/dL (8.4-10.2); Carbon Dioxide 21 mmol/L (22-29); Chloride 111 mmol/L (96-108); Creatinine Clr Calc Pharmacy 147.4; Estimated Glomerular Filt Rate > 60; Glucose Fasting 122 mg/dL (60-99); Potassium 4.1 mmol/L (3.3-5.1); Sodium 141 mmol/L (135-145)
[2023-07-17 08:54] LABS: Glucose, Whole Blood 139 mg/dL (60-115)
[2023-07-17] MEDS: Lidocaine 4 % Patch ADH..PATCH 1 PATCH TRANSDERMA (08:56)
--- NOTE | 2023-07-17 10:13 | P.PNIM_ITS ---
Subjective Subjective Date of Service: 07/17/23 Interval History: fluctuating mentation, now lethargic calm, not tlaking Physical Exam 2 Vital Signs: Vital Signs: Last Vital Signs Temp 100.4 F 07/17/23 08:00 Pulse 95 07/17/23 08:00 Resp 20 07/17/23 08:00 BP 144/92 H 07/17/23 08:00 Pulse Ox 95 07/17/23 08:00 O2 Del Method Room Air 07/17/23 08:00 O2 Flow Rate 2 07/12/23 11:28 BMI result Body Mass Index 26.6 lethargic to obtunded, not talking, diaphoretic, shaky, lungs clear Objective Data Active Medications Acetaminophen (Acetaminophen 325 Mg Tablet) 650 mg PO Q4H PRN PRN Reason: Pain, Moderate(Pain Scale 4-6) Last Admin: 07/16/23 20:37 Dose: 650 mg Documented By: EMERALD Bisacodyl (Bisacodyl 5 Mg Tablet.) 5 mg PO DAILY [facility] Last Admin: 07/16/23 07:44 Dose: 5 mg Documented By: ZAKIA Clozapine (Clozapine 25 Mg Tablet) 50 mg PO BEDTIME [facility] Last Admin: 07/16/23 20:38 Dose: 50 mg Documented By: EMERALD Clozapine (Clozapine 25 Mg Tablet) 50 mg PO DAILY [facility] Last Admin: 07/17/23 08:38 Dose: Not Given Documented By: SULEMA Non-Admin Reason: Physician Held Med Enoxaparin Sodium (Enoxaparin Sodium 40 Mg/0.4 Ml Syringe) 40 mg SUBCUT Q24H [facility] Last Admin: 07/16/23 15:54 Dose: 40 mg Documented By: ZAKIA Hydroxyzine HCl (Hydroxyzine Hcl 25 Mg Tablet) 25 mg PO Q6H PRN PRN Reason: Anxiety Last Admin: 07/16/23 07:44 Dose: 25 mg Documented By: ZAKIA Valproic Acid 250 mg/ Dextrose 52.5 mls @ 52.5 mls/hr IV Q8H [facility] Last Infusion: 07/17/23 04:11 Dose: Infused Documented By: EMERALD Lidocaine (Lidocaine 4 % Patch Adh..Patch) 1 patch TRANSDERMA DAILY [facility]; Protocol Last Admin: 07/17/23 08:56 Dose: 1 patch Documented By: SULEMA Lorazepam (Lorazepam 2 Mg/Ml Vial) 1 mg IVPUSH Q4H PRN PRN Reason: Agitation Last Admin: 07/17/23 00:25 Dose: 1 mg Documented By: EMERALD Lorazepam (Lorazepam 2 Mg/Ml Vial) 1 mg IVPUSH Q4H [facility] Last Admin: 07/17/23 04:25 Dose: 1 mg Pantoprazole Sodium (Pantoprazole Sodium 40 Mg/10 Ml Vial) 40 mg IVPUSH DAILY@0630 [facility] Last Admin: 07/17/23 06:33 Dose: 40 mg Documented By: EMERALD Polyethylene Glycol (Polyethylene Glycol 3350 17 Gm Powd.Pack) 17 gm PO DAILY [facility] Last Admin: 07/16/23 07:44 Dose: 17 gm Documented By: CE-RIVLA Labs 07/17/23 06:13 07/17/23 06:13 Labs: Laboratory Results - last 24 hr 07/17/23 07/17/23 07/17/23 01:52 02:31 02:33 MCV 86.6 MCH 29.6 MCHC 34.2 RDW 12.5 Plt Count 338 MPV 9.4 Immature Gran % (Auto) 0.2 Neut % (Auto) 77.2 H Lymph % (Auto) 14.6 L [place] % (Auto) 7.8 Eos % (Auto) 0.0 Baso % (Auto) 0.2 Lymph # (Auto) 2.0 [place] # (Auto) 1.1 Eos # (Auto) 0.0 Baso # (Auto) 0.0 Abs Immat Gran (auto) 0.03 Absolute Neuts (auto) 10.4 H Absolute Nucleated RBC 0.000 Nucleated RBC % (auto) 0.0 O2 Saturation 99.0 ABG pH at Pt Temp 7.48 H ABG pCO2 at Pt Temp 32 ABG pO2 at Pt Temp 91 ABG HCO3 24 ABG Base Excess (Actual) 1.5 Anion Gap 16 Estim Creat Clear Calc 130.3 Estimated GFR > 60 POC Glucose Random Glucose 139 H Fasting Glucose Lactic Acid 0.9 Calcium 9.7 Total Creatine Kinase Urine Color Yellow Urine Appearance Clear Urine pH 6.5 Ur Specific [place] 1.010 Urine Protein Negative Urine Glucose (UA) Negative Urine Ketones 15 Urine Blood Negative Urine Nitrite Negative Ur Leukocyte Esterase Negative Urine RBC 0-2 Urine WBC 0-5 Ur Squamous Epith Cells 0-2 Urine Bacteria None Seen Hyaline Casts 0-2 07/17/23 07/17/23 07/17/23 06:13 06:13 06:13 MCV 89.4 Cancelled MCH 30.3 Cancelled MCHC 33.9 RDW Plt Count MPV Immature Gran % (Auto) Neut % (Auto) Lymph % (Auto) [place] % (Auto) Eos % (Auto) Baso % (Auto) Lymph # (Auto) [place] # (Auto) Eos # (Auto) Baso # (Auto) Abs Immat Gran (auto) Absolute Neuts (auto) Absolute Nucleated RBC Nucleated RBC % (auto) O2 Saturation ABG pH at Pt Temp ABG pCO2 at Pt Temp ABG pO2 at Pt Temp ABG HCO3 ABG Base Excess (Actual) Anion Gap Estim Creat Clear Calc Estimated GFR POC Glucose Random Glucose Fasting Glucose Lactic Acid Calcium Total Creatine Kinase Urine Color Urine Appearance Urine pH Ur Specific [place] Urine Protein Urine Glucose (UA) Urine Ketones Urine Blood Urine Nitrite Ur Leukocyte Esterase Urine RBC Urine WBC Ur Squamous Epith Cells Urine Bacteria Hyaline Casts 07/17/23 07/17/23 07/17/23 06:13 06:13 06:13 MCV MCH MCHC Cancelled RDW 12.7 Cancelled Plt Count 309 Cancelled MPV 9.7 Immature Gran % (Auto) Neut % (Auto) Lymph % (Auto) [place] % (Auto) Eos % (Auto) Baso % (Auto) Lymph # (Auto) [place] # (Auto) Eos # (Auto) Baso # (Auto) Abs Immat Gran (auto) Absolute Neuts (auto) Absolute Nucleated RBC Nucleated RBC % (auto) O2 Saturation ABG pH at Pt Temp ABG pCO2 at Pt Temp ABG pO2 at Pt Temp ABG HCO3 ABG Base Excess (Actual) Anion Gap Estim Creat Clear Calc Estimated GFR POC Glucose Random Glucose Fasting Glucose Lactic Acid Calcium Total Creatine Kinase Urine Color Urine Appearance Urine pH Ur Specific [place] Urine Protein Urine Glucose (UA) Urine Ketones Urine Blood Urine Nitrite Ur Leukocyte Esterase Urine RBC Urine WBC Ur Squamous Epith Cells Urine Bacteria Hyaline Casts 07/17/23 07/17/23 07/17/23 06:13 06:13 06:13 MCV MCH MCHC RDW Plt Count MPV Cancelled Immature Gran % (Auto) 0.4 Neut % (Auto) 73.2 H Lymph % (Auto) 18.4 L [place] % (Auto) 7.7 Eos % (Auto) 0.0 Baso % (Auto) 0.3 Lymph # (Auto) 2.1 [place] # (Auto) 0.9 Eos # (Auto) 0.0 Baso # (Auto) 0.0 Abs Immat Gran (auto) 0.04 H Absolute Neuts (auto) 8.3 Absolute Nucleated RBC 0.000 Cancelled Nucleated RBC % (auto) 0.0 Cancelled O2 Saturation ABG pH at Pt Temp ABG pCO2 at Pt Temp ABG pO2 at Pt Temp ABG HCO3 ABG Base Excess (Actual) Anion Gap 13 Estim Creat Clear Calc 147.4 Estimated GFR > 60 POC Glucose Random Glucose Fasting Glucose 122 H Lactic Acid Calcium 9.2 Total Creatine Kinase 971 H Urine Color Urine Appearance Urine pH Ur Specific [place] Urine Protein Urine Glucose (UA) Urine Ketones Urine Blood Urine Nitrite Ur Leukocyte Esterase Urine RBC Urine WBC Ur Squamous Epith Cells Urine Bacteria Hyaline Casts 07/17/23 08:49 MCV MCH MCHC RDW Plt Count MPV Immature Gran % (Auto) Neut % (Auto) Lymph % (Auto) [place] % (Auto) Eos % (Auto) Baso % (Auto) Lymph # (Auto) [place] # (Auto) Eos # (Auto) Baso # (Auto) Abs Immat Gran (auto) Absolute Neuts (auto) Absolute Nucleated RBC Nucleated RBC % (auto) O2 Saturation ABG pH at Pt Temp ABG pCO2 at Pt Temp ABG pO2 at Pt Temp ABG HCO3 ABG Base Excess (Actual) Anion Gap Estim Creat Clear Calc Estimated GFR POC Glucose 139 H Random Glucose Fasting Glucose Lactic Acid Calcium Total Creatine Kinase Urine Color Urine Appearance Urine pH Ur Specific [place] Urine Protein Urine Glucose (UA) Urine Ketones Urine Blood Urine Nitrite Ur Leukocyte Esterase Urine RBC Urine WBC Ur Squamous Epith Cells Urine Bacteria Hyaline Casts Assessment and Plan (1) Rhabdomyolysis: Status: Acute Plan 37M PMH schizoaffective presented with acute psychosis and combative behaviour, admitted to ICU for precedex, complicated by ofe and rhabdo schizoaffective with acute psychosis complicated by ofe due to rhabdomyolosis ofe/rhabdo resolved now with fevers, tachycardia (not due to sepsis), acute toxic metabolic encephalopathy ?drug effect icu appreciated: will hold haldol, psych to see continue ativan prn consitpation had successful bm dvt prophylaxis - lovenox full code reason for continued hospitalization:ams, fevers Quality Stroke Does the patient have a stroke diagnosis?: No VTE Prior VTE?: No VTE Risk Level:: Medical - moderate - high VTE Device Contraindication: N/A - Device Ordered VTE Drug Contraindication: N/A - Med Ordered
--- NOTE | 2023-07-17 12:29 | HE.PHANOTE ---
re: clozapine. 0900 dose on 07/17/23 was held, stating MD held. This is the information provided by the rn. Night Dr (Dr Patterson) was thinking he is on many psy meds and told the night nurse to pass the message on to the next shift to hold. i did check with day time provider. he said to hold . I infomed rn that ths med cannot be held for more then 48 hrs without having to re-titrate his dose.
--- NOTE | 2023-07-17 13:29 | P.CNPS_ITS ---
History of Present Illness Date of Service: 07/17/23 Chief Complaint: Rhabdomyolysis Reason for Consult: confusion psychosis Requesting physician: Ralf Figueroa Discussed with referring provider: Yes Sources of Information: patient interviewed and chart reviewed HPI Narrative: With a history of schizophrenia who came to the emergency room with severe paranoia bizarre behavior and agitation. The patient is a 37-year-old male Does an outpatient reportedly has been on clozapine and Haldol in the past. He was unable to be stabilized in the emergency room despite multiple medications including Versed ketamine Geodon and Haldol and was transferred to the ICU. He was treated with Haldol intravenous b.i.d. and restarting on low-dose clozapine. Patient was then transferred back to the medical floor. When seen the patient was unresponsive he was lying in bed staring he was noted to have a low-grade fever he was not rigid on exam he was not tremulous he did not follow commands and although he was awake did not respond there was no waxy flexibility Past Psychiatric History: OP: Dr. Jeremias Post Medical Evaluation Reviewed: Yes Personal & Social History: Patient lives with his parents Diagnostics Vital Signs (24Hr): Vital Signs - 24 hr 07/16/23 15:38 07/16/23 16:03 07/16/23 19:45 Temperature 100.4 F 100.1 F Pulse Rate 142 H 144 H Respiratory Rate 28 H 20 24 H Blood Pressure 168/104 H 130/98 H 168/90 H Pulse Oximetry 96 96 95 Oxygen Delivery Method Room Air Room Air Room Air 07/16/23 21:36 07/16/23 22:30 07/17/23 00:00 Temperature 100.9 F H 101.1 F H 100.8 F H Pulse Rate 147 H Respiratory Rate 20 Blood Pressure 173/103 H Pulse Oximetry 96 Oxygen Delivery Method Room Air 07/17/23 02:00 07/17/23 03:24 07/17/23 04:13 Temperature 100.1 F 98.5 F 99.3 F Pulse Rate 135 H Respiratory Rate 24 H Blood Pressure 139/103 H Pulse Oximetry 97 Oxygen Delivery Method Room Air 07/17/23 04:51 07/17/23 06:43 07/17/23 08:00 Temperature 99.1 F 99.8 F 100.4 F Pulse Rate 95 Respiratory Rate 20 Blood Pressure 144/92 H Pulse Oximetry 95 Oxygen Delivery Method Room Air 07/17/23 12:01 Temperature 99.0 F Pulse Rate Respiratory Rate Blood Pressure Pulse Oximetry Oxygen Delivery Method BMI result Body Mass Index 26.6 Labs 07/18/23 05:58 07/18/23 05:58 Labs: Laboratory Results - last 48 hr 07/16/23 07/16/23 07/17/23 05:54 06:01 01:52 WBC 8.5 RBC 4.66 Hgb 13.7 L Hct 40.3 L MCV 86.5 MCH 29.4 MCHC 34.0 RDW 12.4 Plt Count 297 MPV 9.7 Immature Gran % (Auto) 0.2 Neut % (Auto) 68.6 Lymph % (Auto) 22.1 [place] % (Auto) 8.6 Eos % (Auto) 0.1 Baso % (Auto) 0.4 Lymph # (Auto) 1.9 [place] # (Auto) 0.7 Eos # (Auto) 0.0 Baso # (Auto) 0.0 Abs Immat Gran (auto) 0.02 Absolute Neuts (auto) 5.8 Absolute Nucleated RBC 0.000 Nucleated RBC % (auto) 0.0 O2 Saturation ABG pH at Pt Temp ABG pCO2 at Pt Temp ABG pO2 at Pt Temp ABG HCO3 ABG Base Excess (Actual) Sodium 142 Potassium 3.8 Chloride 106 Carbon Dioxide 24 Anion Gap 16 BUN 3 L Creatinine 0.77 Estim Creat Clear Calc 145.5 Estimated GFR > 60 POC Glucose 95 Random Glucose 105 Fasting Glucose Lactic Acid Calcium 9.8 D Total Bilirubin 0.7 Direct Bilirubin 0.3 AST 59 H ALT 44 H Alkaline Phosphatase 99 Total Creatine Kinase 2329 H Total Protein 7.3 Albumin 4.4 Urine Color Yellow Urine Appearance Clear Urine pH 6.5 Ur Specific [place] 1.010 Urine Protein Negative Urine Glucose (UA) Negative Urine Ketones 15 Urine Blood Negative Urine Nitrite Negative Ur Leukocyte Esterase Negative Urine RBC 0-2 Urine WBC 0-5 Ur Squamous Epith Cells 0-2 Urine Bacteria None Seen Hyaline Casts 0-2 07/17/23 07/17/23 07/17/23 02:31 02:33 06:13 WBC 13.4 H 11.4 H RBC 5.00 Hgb 14.8 Hct 43.3 MCV 86.6 MCH 29.6 MCHC 34.2 RDW 12.5 Plt Count 338 MPV 9.4 Immature Gran % (Auto) 0.2 Neut % (Auto) 77.2 H Lymph % (Auto) 14.6 L [place] % (Auto) 7.8 Eos % (Auto) 0.0 Baso % (Auto) 0.2 Lymph # (Auto) 2.0 [place] # (Auto) 1.1 Eos # (Auto) 0.0 Baso # (Auto) 0.0 Abs Immat Gran (auto) 0.03 Absolute Neuts (auto) 10.4 H Absolute Nucleated RBC 0.000 Nucleated RBC % (auto) 0.0 O2 Saturation 99.0 ABG pH at Pt Temp 7.48 H ABG pCO2 at Pt Temp 32 ABG pO2 at Pt Temp 91 ABG HCO3 24 ABG Base Excess (Actual) 1.5 Sodium 143 Potassium 4.0 Chloride 109 H Carbon Dioxide 22 Anion Gap 16 BUN 6 L Creatinine 0.86 Estim Creat Clear Calc 130.3 Estimated GFR > 60 POC Glucose Random Glucose 139 H Fasting Glucose Lactic Acid 0.9 Calcium 9.7 Total Bilirubin Direct Bilirubin AST ALT Alkaline Phosphatase Total Creatine Kinase Total Protein Albumin Urine Color Urine Appearance Urine pH Ur Specific [place] Urine Protein Urine Glucose (UA) Urine Ketones Urine Blood Urine Nitrite Ur Leukocyte Esterase Urine RBC Urine WBC Ur Squamous Epith Cells Urine Bacteria Hyaline Casts 07/17/23 07/17/23 07/17/23 06:13 06:13 06:13 WBC Cancelled RBC 4.62 Cancelled Hgb 14.0 Cancelled Hct 41.3 L MCV MCH MCHC RDW Plt Count MPV Immature Gran % (Auto) Neut % (Auto) Lymph % (Auto) [place] % (Auto) Eos % (Auto) Baso % (Auto) Lymph # (Auto) [place] # (Auto) Eos # (Auto) Baso # (Auto) Abs Immat Gran (auto) Absolute Neuts (auto) Absolute Nucleated RBC Nucleated RBC % (auto) O2 Saturation ABG pH at Pt Temp ABG pCO2 at Pt Temp ABG pO2 at Pt Temp ABG HCO3 ABG Base Excess (Actual) Sodium Potassium Chloride Carbon Dioxide Anion Gap BUN Creatinine Estim Creat Clear Calc Estimated GFR POC Glucose Random Glucose Fasting Glucose Lactic Acid Calcium Total Bilirubin Direct Bilirubin AST ALT Alkaline Phosphatase Total Creatine Kinase Total Protein Albumin Urine Color Urine Appearance Urine pH Ur Specific [place] Urine Protein Urine Glucose (UA) Urine Ketones Urine Blood Urine Nitrite Ur Leukocyte Esterase Urine RBC Urine WBC Ur Squamous Epith Cells Urine Bacteria Hyaline Casts 07/17/23 07/17/23 07/17/23 06:13 06:13 06:13 WBC RBC Hgb Hct Cancelled MCV 89.4 Cancelled MCH 30.3 Cancelled MCHC 33.9 RDW Plt Count MPV Immature Gran % (Auto) Neut % (Auto) Lymph % (Auto) [place] % (Auto) Eos % (Auto) Baso % (Auto) Lymph # (Auto) [place] # (Auto) Eos # (Auto) Baso # (Auto) Abs Immat Gran (auto) Absolute Neuts (auto) Absolute Nucleated RBC Nucleated RBC % (auto) O2 Saturation ABG pH at Pt Temp ABG pCO2 at Pt Temp ABG pO2 at Pt Temp ABG HCO3 ABG Base Excess (Actual) Sodium Potassium Chloride Carbon Dioxide Anion Gap BUN Creatinine Estim Creat Clear Calc Estimated GFR POC Glucose Random Glucose Fasting Glucose Lactic Acid Calcium Total Bilirubin Direct Bilirubin AST ALT Alkaline Phosphatase Total Creatine Kinase Total Protein Albumin Urine Color Urine Appearance Urine pH Ur Specific [place] Urine Protein Urine Glucose (UA) Urine Ketones Urine Blood Urine Nitrite Ur Leukocyte Esterase Urine RBC Urine WBC Ur Squamous Epith Cells Urine Bacteria Hyaline Casts 07/17/23 07/17/23 07/17/23 06:13 06:13 06:13 WBC RBC Hgb Hct MCV MCH MCHC Cancelled RDW 12.7 Cancelled Plt Count 309 Cancelled MPV 9.7 Immature Gran % (Auto) Neut % (Auto) Lymph % (Auto) [place] % (Auto) Eos % (Auto) Baso % (Auto) Lymph # (Auto) [place] # (Auto) Eos # (Auto) Baso # (Auto) Abs Immat Gran (auto) Absolute Neuts (auto) Absolute Nucleated RBC Nucleated RBC % (auto) O2 Saturation ABG pH at Pt Temp ABG pCO2 at Pt Temp ABG pO2 at Pt Temp ABG HCO3 ABG Base Excess (Actual) Sodium Potassium Chloride Carbon Dioxide Anion Gap BUN Creatinine Estim Creat Clear Calc Estimated GFR POC Glucose Random Glucose Fasting Glucose Lactic Acid Calcium Total Bilirubin Direct Bilirubin AST ALT Alkaline Phosphatase Total Creatine Kinase Total Protein Albumin Urine Color Urine Appearance Urine pH Ur Specific [place] Urine Protein Urine Glucose (UA) Urine Ketones Urine Blood Urine Nitrite Ur Leukocyte Esterase Urine RBC Urine WBC Ur Squamous Epith Cells Urine Bacteria Hyaline Casts 07/17/23 07/17/23 07/17/23 06:13 06:13 06:13 WBC RBC Hgb Hct MCV MCH MCHC RDW Plt Count MPV Cancelled Immature Gran % (Auto) 0.4 Neut % (Auto) 73.2 H Lymph % (Auto) 18.4 L [place] % (Auto) 7.7 Eos % (Auto) 0.0 Baso % (Auto) 0.3 Lymph # (Auto) 2.1 [place] # (Auto) 0.9 Eos # (Auto) 0.0 Baso # (Auto) 0.0 Abs Immat Gran (auto) 0.04 H Absolute Neuts (auto) 8.3 Absolute Nucleated RBC 0.000 Cancelled Nucleated RBC % (auto) 0.0 Cancelled O2 Saturation ABG pH at Pt Temp ABG pCO2 at Pt Temp ABG pO2 at Pt Temp ABG HCO3 ABG Base Excess (Actual) Sodium 141 Potassium 4.1 Chloride 111 H Carbon Dioxide 21 L Anion Gap 13 BUN 7 L Creatinine 0.76 Estim Creat Clear Calc 147.4 Estimated GFR > 60 POC Glucose Random Glucose Fasting Glucose 122 H Lactic Acid Calcium 9.2 Total Bilirubin Direct Bilirubin AST ALT Alkaline Phosphatase Total Creatine Kinase 971 H Total Protein Albumin Urine Color Urine Appearance Urine pH Ur Specific [place] Urine Protein Urine Glucose (UA) Urine Ketones Urine Blood Urine Nitrite Ur Leukocyte Esterase Urine RBC Urine WBC Ur Squamous Epith Cells Urine Bacteria Hyaline Casts 07/17/23 08:49 WBC RBC Hgb Hct MCV MCH MCHC RDW Plt Count MPV Immature Gran % (Auto) Neut % (Auto) Lymph % (Auto) [place] % (Auto) Eos % (Auto) Baso % (Auto) Lymph # (Auto) [place] # (Auto) Eos # (Auto) Baso # (Auto) Abs Immat Gran (auto) Absolute Neuts (auto) Absolute Nucleated RBC Nucleated RBC % (auto) O2 Saturation ABG pH at Pt Temp ABG pCO2 at Pt Temp ABG pO2 at Pt Temp ABG HCO3 ABG Base Excess (Actual) Sodium Potassium Chloride Carbon Dioxide Anion Gap BUN Creatinine Estim Creat Clear Calc Estimated GFR POC Glucose 139 H Random Glucose Fasting Glucose Lactic Acid Calcium Total Bilirubin Direct Bilirubin AST ALT Alkaline Phosphatase Total Creatine Kinase Total Protein Albumin Urine Color Urine Appearance Urine pH Ur Specific [place] Urine Protein Urine Glucose (UA) Urine Ketones Urine Blood Urine Nitrite Ur Leukocyte Esterase Urine RBC Urine WBC Ur Squamous Epith Cells Urine Bacteria Hyaline Casts Imaging Radiology Impressions: ITS Impressions Head CT 07/12/23 18:25 IMPRESSION: No acute intracranial pathology. Abdomen Ultrasound 07/13/23 11:58 IMPRESSION: Normal gallbladder ultrasound. KUB X-Ray 07/15/23 11:25 IMPRESSION: Nonspecific bowel gas pattern. Retained stool. Chest X-Ray 07/17/23 02:10 IMPRESSION: No acute pneumonic process. KUB X-Ray 07/17/23 09:50 IMPRESSION: Unremarkable examination. Mental Status Exam Mental Status Exam Narrative: Patient is casually dressed has somewhat diaphoretic he is generally not moving not responding to verbal engagement when seen no rigidity or tremor noted he was not combative or agitated Medications Medications Current Medications Acetaminophen (Acetaminophen 325 Mg Tablet) 650 mg PO Q4H PRN PRN Reason: Pain, Moderate(Pain Scale 4-6) Last Admin: 07/16/23 20:37 Dose: 650 mg Bisacodyl (Bisacodyl 5 Mg Tablet.) 5 mg PO DAILY [facility] Last Admin: 07/17/23 10:22 Dose: Not Given Clozapine (Clozapine 25 Mg Tablet) 50 mg PO BEDTIME [facility] Last Admin: 07/16/23 20:38 Dose: 50 mg Clozapine (Clozapine 25 Mg Tablet) 50 mg PO DAILY [facility] Last Admin: 07/17/23 08:38 Dose: Not Given Enoxaparin Sodium (Enoxaparin Sodium 40 Mg/0.4 Ml Syringe) 40 mg SUBCUT Q24H [facility] Last Admin: 07/16/23 15:54 Dose: 40 mg Hydroxyzine HCl (Hydroxyzine Hcl 25 Mg Tablet) 25 mg PO Q6H PRN PRN Reason: Anxiety Last Admin: 07/16/23 07:44 Dose: 25 mg Valproic Acid 250 mg/ Dextrose 52.5 mls @ 52.5 mls/hr IV Q8H [facility] Last Infusion: 07/17/23 12:15 Dose: Infused Lidocaine (Lidocaine 4 % Patch Adh..Patch) 1 patch TRANSDERMA DAILY [facility]; Protocol Last Admin: 07/17/23 08:56 Dose: 1 patch Lorazepam (Lorazepam 2 Mg/Ml Vial) 1 mg IVPUSH Q4H PRN PRN Reason: Agitation Last Admin: 07/17/23 00:25 Dose: 1 mg Lorazepam (Lorazepam 2 Mg/Ml Vial) 1 mg IVPUSH Q4H [facility] Last Admin: 07/17/23 10:21 Dose: Not Given Pantoprazole Sodium (Pantoprazole Sodium 40 Mg/10 Ml Vial) 40 mg IVPUSH DAILY@0630 [facility] Last Admin: 07/17/23 06:33 Dose: 40 mg Polyethylene Glycol (Polyethylene Glycol 3350 17 Gm Powd.Pack) 17 gm PO DAILY [facility] Last Admin: 07/17/23 10:22 Dose: Not Given Allergies Allergies Allergy/AdvReac Type Severity Reaction Status Date / Time No Known Allergies Allergy Mild NOT Unverified 04/10/20 16:57 APPLICABLE Assessment & Plan Assessment & Plan (1) Chronic schizophrenia with acute exacerbation: Status: Acute Code(s): F20.9 - Schizophrenia, unspecified (2) Rhabdomyolysis: Qualifiers: Rhabdomyolysis type: non-traumatic Qualified Code(s): M62.82 - Rhabdomyolysis Status: Acute Code(s): M62.82 - Rhabdomyolysis (3) Encephalopathy: Status: Acute Code(s): G93.40 - Encephalopathy, unspecified Plan Case reviewed with dr figueroa but he did not feel patient had NMS unclear reason for ongoing low-grade fever he would be unusual to get any masses or fever with clozapine but not impossible hold Haldol continue lorazepam unclear etiology to question encephalopathy question need for LP Case discussed with Dr. Figueroa question form of catatonia patient had been treated with Precedex in the ICU also had been on valproic acid Total time managing care of this patient today _60___ minutes. Informed Consent: does not understand
[2023-07-17] MEDS: Enoxaparin Sodium 40 MG/0.4 ML SYRINGE SUBCUT (15:22)
[2023-07-17] MEDS: Acetaminophen Supp 325 MG SUPP.RECT PR (15:46)
[2023-07-17] MEDS: cefEPime HCl 1 GM in 0.9 % Sodium Chloride 50 ML IV (15:58)
[2023-07-17] MEDS: 0.9 % Sodium Chloride 1,000 ML 80 ML IVCONT (16:00)
[2023-07-17] MEDS: vancomycin/NS 2,000 MG/500 ML PLAST..BAG 250 MG IV (16:31)
--- NOTE | 2023-07-17 16:57 | PHA.PROG ---
Admission Date/Time: July 13, 2023 08:32 Indication: OTHER Weight in k.1 kg Adjusted body weight in K.2 [place] body weight in K.6 Obesity Dosing Indication % IBW: 26.6 Serum Creatinine - Last 168 Hours 07/12/23 07/13/23 07/14/23 11:05 07:30 04:54 Creatinine 0.90 0.92 0.78 07/15/23 07/16/23 07/17/23 05:52 05:54 02:33 Creatinine 0.70 0.77 0.86 07/17/23 06:13 Creatinine 0.76 Estimated CrCl and GFR - Last 168 Hours 07/12/23 07/13/23 07/14/23 11:05 07:30 04:54 Estim Creat Clear Calc 124.5 121.8 143.7 Estimated GFR > 60 > 60 > 60 07/15/23 07/16/23 07/17/23 05:52 05:54 02:33 Estim Creat Clear Calc 160.1 145.5 130.3 Estimated GFR > 60 > 60 > 60 07/17/23 06:13 Estim Creat Clear Calc 147.4 Estimated GFR > 60 Vancomycin Loading Dose: 2000 MG Current Vancomycin Dosing Regimen: 1500 MG Q12 Vancomycin Monitoring using AUC goal of 400 - 600 range with trough as surrogate marker: 554 Date and Time for next Vancomycin Level to be drawn: 07/18 @1400 Pharmacist Comments on Vancomycin Plan: DUE TO TIMING OF DOSING TROUGH TO BE DRAWN BEFORE 3RD DOSE. LEVEL EXPECTED TO BE ABOUT 12 AT THIS TIME. Vancomycin dosing will take advantage of [employer] as a clinical decision support tool that uses Bayesian modeling to calculate individual patient's pharmacokinetic parameters and forecast the patient's drug concentration time course with the target goal AUC 24 range of 400 - 600 mg/L/hr.
--- NOTE | 2023-07-17 23:37 | PC.NURSE ---
Pt continues to be febrile, rigid, diaphoretic, with copious oral secretions, and unresponsive to painful stimuli at this time. MD aware. This nurse told to monitor temperature and maintain airway per MD.
[2023-07-18] VITALS (8 sets, daily range): BP systolic 129–140; BP diastolic 86–92; PULSE 110–120; RESP 15–32; TEMP 36.1–38.5; O2SAT 96–98
[2023-07-18] MEDS: cefEPime HCl 1 GM in 0.9 % Sodium Chloride 50 ML IV ×3 (00:32→15:58)
[2023-07-18] MEDS: Valproic Acid (as Sodium Salt) 250 MG in Dextrose 5 % 50 ML 52.5 MG IV (03:39)
[2023-07-18] MEDS: LORazepam 2 MG/ML VIAL 1 MG IVPUSH ×3 (03:39→13:34)
[2023-07-18] MEDS: vancomycin HCL 1,500 MG in 0.9 % Sodium Chloride 500 ML 333.33 MG IV ×2 (04:08→16:56)
[2023-07-18] MEDS: 0.9 % Sodium Chloride 1,000 ML 80 ML IVCONT ×2 (04:23→16:58)
[2023-07-18 06:28] LABS: MANUAL DIFF FLAG NO
[2023-07-18] MEDS: Pantoprazole Sodium 40 MG/10 ML VIAL IVPUSH (06:33)
[2023-07-18 06:34] LABS: Basophils Percent Auto 0.3 % (0-2); Hematocrit 42.4 % (42.0-52.0); Hemoglobin 14.2 g/dl (14.0-18.0); Imm Gran Abs Auto 0.05 X10*3/uL (0.00-0.03); Imm Gran Pct Auto 0.4 % (0.0-0.4); Lymphocytes Absolute Auto 1.5 X10*3/uL (1.2-4.9); Lymphocytes Percent Auto 13.1 % (20-40); Mean Corpuscular HGB Conc 33.5 g/dl (31.0-36.0); Mean Corpuscular Hemoglobin 30.1 pg (27.0-33.0); Mean Corpuscular Volume 89.8 fL (80.0-98.0); Mean Platelet Volume 9.9 fL (9.4-12.4); Monocytes Absolute Auto 0.6 X10*3/uL (0.1-1.2); Monocytes Percent Auto 5.4 % (2-11); Neutrophils Absolute Auto 9.4 x10*3/uL (2.0-8.3); Neutrophils Percent Auto 80.8 % (45-73); Platelet Count 346 X10*3/uL (160-400); Red Blood Count 4.72 X10*6/uL (4.60-5.80); Red Cell Distribution Width 12.4 % (11.0-16.0); White Blood Count 11.6 X10*3/uL (4.8-10.8)
[2023-07-18 07:04] LABS: Alanine Aminotransferase 28 U/L (0-40); Albumin Level 4.2 g/dL (3.5-5.0); Alkaline Phosphatase 87 U/L (39-117); Anion Gap 16 (12-20); Aspartate Amino Transferase 22 U/L (5-37); Bilirubin Direct 0.3 mg/dL (0.0-0.5); Bilirubin Total 0.7 mg/dL (0.0-1.0); Blood Urea Nitrogen 12 mg/dL (9-16); Calcium 9.6 mg/dL (8.4-10.2); Carbon Dioxide 22 mmol/L (22-29); Chloride 109 mmol/L (96-108); Creatinine Clr Calc Pharmacy 138.3; Estimated Glomerular Filt Rate > 60; Glucose Fasting 108 mg/dL (60-99); Glucose Random 108 mg/dL (60-115); Potassium 4.2 mmol/L (3.3-5.1); Sodium 143 mmol/L (135-145); Total Protein 7.1 g/dL (6.5-8.0)
--- NOTE | 2023-07-18 08:14 | P.PNIM_ITS ---
Subjective Subjective Date of Service: 07/18/23 Review of Systems Review of Systems: Yes Unobtainable due to mental condition Physical Exam 2 Vital Signs: Vital Signs: Last Vital Signs Temp 99.5 F 07/18/23 07:53 Pulse 120 H 07/18/23 07:53 Resp 15 07/18/23 07:53 BP 140/92 H 07/18/23 07:53 Pulse Ox 97 07/18/23 07:53 O2 Del Method Room Air 07/18/23 07:53 O2 Flow Rate 2 07/12/23 11:28 BMI result Body Mass Index 26.6 obtunded, tahcypneic, tachycardia, less diaphoretic Objective Data Active Medications Acetaminophen (Acetaminophen 325 Mg Tablet) 650 mg PO Q4H PRN PRN Reason: Pain, Moderate(Pain Scale 4-6) Last Admin: 07/16/23 20:37 Dose: 650 mg Documented By: EMERALD Acetaminophen (Acetaminophen Supp 325 Mg Supp.Rect) 325 mg [place] Q4H PRN PRN Reason: Fever Last Admin: 07/17/23 15:46 Dose: 325 mg Documented By: SULEMA Bisacodyl (Bisacodyl 5 Mg Tablet.Dr) 5 mg PO DAILY [facility] Last Admin: 07/18/23 07:38 Dose: Not Given Documented By: RONALD Non-Admin Reason: NPO Enoxaparin Sodium (Enoxaparin Sodium 40 Mg/0.4 Ml Syringe) 40 mg SUBCUT Q24H [facility] Last Admin: 07/17/23 15:22 Dose: 40 mg Documented By: SULEMA Hydroxyzine HCl (Hydroxyzine Hcl 25 Mg Tablet) 25 mg PO Q6H PRN PRN Reason: Anxiety Last Admin: 07/16/23 07:44 Dose: 25 mg Documented By: ZAKIA Valproic Acid 250 mg/ Dextrose 52.5 mls @ 52.5 mls/hr IV Q8H [facility] Last Infusion: 07/18/23 06:11 Dose: Infused Documented By: EMERALD Cefepime HCl 1 gm/ Sodium (Chloride) 50 mls @ 100 mls/hr IV Q8H [facility] Last Infusion: 07/18/23 01:12 Dose: Infused Documented By: EMERALD Sodium Chloride (Ns) 1,000 mls @ 80 mls/hr IVCONT .[id number] [facility] Last Admin: 07/18/23 04:23 Dose: 80 mls/hr Documented By: DORIS Vancomycin HCl 1,500 mg/ (Sodium Chloride) 500 mls @ 333.333 mls/hr IV Q12H [facility] Last Infusion: 07/18/23 06:11 Dose: Infused Documented By: EMERALD Lidocaine (Lidocaine 4 % Patch Adh..Patch) 1 patch TRANSDERMA DAILY [facility]; Protocol Last Admin: 07/17/23 08:56 Dose: 1 patch Documented By: SULEMA Lorazepam (Lorazepam 2 Mg/Ml Vial) 1 mg IVPUSH Q4H PRN PRN Reason: Agitation Last Admin: 07/17/23 00:25 Dose: 1 mg Documented By: EMERALD Lorazepam (Lorazepam 2 Mg/Ml Vial) 1 mg IVPUSH Q4H [facility] Last Admin: 07/18/23 03:39 Dose: 1 mg Documented By: EMERALD Pantoprazole Sodium (Pantoprazole Sodium 40 Mg/10 Ml Vial) 40 mg IVPUSH DAILY@0630 [facility] Last Admin: 07/18/23 06:33 Dose: 40 mg Documented By: EMERALD Pharmacy Consult (Consult Rx Vancomycin Dosing) 1 each MISCELLANE DAILY PRN PRN Reason: Consult order Polyethylene Glycol (Polyethylene Glycol 3350 17 Gm Powd.Pack) 17 gm PO DAILY [facility] Last Admin: 07/18/23 07:38 Dose: Not Given Documented By: RONALD Non-Admin Reason: NPO Labs 07/18/23 05:58 07/18/23 05:58 Labs: Laboratory Results - last 24 hr 07/17/23 07/18/23 07/18/23 08:49 05:57 05:58 MCV Cancelled 89.8 MCH Cancelled 30.1 MCHC Cancelled 33.5 RDW Cancelled 12.4 Plt Count Cancelled 346 MPV Cancelled 9.9 Immature Gran % (Auto) 0.4 Neut % (Auto) 80.8 H Lymph % (Auto) 13.1 L [place] % (Auto) 5.4 Eos % (Auto) 0.0 Baso % (Auto) 0.3 Lymph # (Auto) 1.5 [place] # (Auto) 0.6 Eos # (Auto) 0.0 Baso # (Auto) 0.0 Abs Immat Gran (auto) 0.05 H Absolute Neuts (auto) 9.4 H Absolute Nucleated RBC Cancelled 0.000 Nucleated RBC % (auto) Cancelled 0.0 Anion Gap 16 Estim Creat Clear Calc 138.3 Estimated GFR > 60 POC Glucose 139 H Random Glucose 108 Fasting Glucose 108 H Calcium 9.6 Total Bilirubin 0.7 Direct Bilirubin 0.3 AST 22 ALT 28 Alkaline Phosphatase 87 Total Creatine Kinase 335 H Total Protein 7.1 Albumin 4.2 Microbiology Microbiology Results: Microbiology 07/16/23 23:03 Blood Culture - Preliminary Blood - Venous No growth after 24 hours. 07/16/23 23:03 Blood Culture - Preliminary Blood - Venous No growth after 24 hours. Assessment and Plan (1) Rhabdomyolysis: Status: Acute Plan 37M PMH schizoaffective presented with acute psychosis and combative behaviour, admitted to ICU for precedex, complicated by ofe and rhabdo schizoaffective with acute psychosis complicated by ofe due to rhabdomyolosis ofe/rhabdo resolved now with fevers, tachycardia (not due to sepsis), acute toxic metabolic encephalopathy doubt infection, but empirically covering with vanc and cefepime, follow up cultures follow up psych dc antipsychotics for now continue ativan prn consitpation had successful bm dvt prophylaxis - lovenox full code reason for continued hospitalization:ams, fevers Quality Stroke Does the patient have a stroke diagnosis?: No VTE Prior VTE?: No VTE Risk Level:: Medical - moderate - high VTE Device Contraindication: N/A - Device Ordered VTE Drug Contraindication: N/A - Med Ordered
--- NOTE | 2023-07-18 13:05 | P.CNNE_ITS ---
History of Present Illness Data of Consult Service Date: 07/18/23 Primary Care Provider: Monse Maxwell MD HPI Reason for consult: Agitation and psychosis This is a 37 year-old male with hx of schizophrenia who was fairly stable on clozaril which he apparently stopped a few years ago, was brought via EMS due to increase combative agitation, sexualized behaviors and paranoid delusions. Last M5 admission 2018. There's been some resistance from pt and family in terms of continuing psychotropic medications. Dr. Post reports clozaril has been decreased but used to be around 300mg po daily. He also is on low dose of haldol. He was very agitated, trying to elope. He talks about Trump and that Trump wants to have sexual intercourse with him. He is also asking staff to touch his testicles. He received total of haldol 10mg IM, versed 2mg IM, Ketamine 180mg IV, geodone 20mg IM and ativan 2mg IM. He continues to present agitated trying to elope. He has delayed response rate, thought blocking. He then asks this conventional underwriter: Am I still alive? He then appear increasingly more agitated, trying to get out of restraints and asking to leave. Ct head normal. He was talking and better on 07/16 and since 07/17 he does not speak or open his eyes and resists exam Review of Systems 2 Review of Systems: Yes Unobtainable due to mental condition and Unobtainable due to mental status PMFSH Social History Social History Household Members: Family Housing: House Do you presently have visiting nurse or other home services: No Unable to assess alcohol history related to: Unknown Comment: 1:1 Patient Tobacco Use Status: Never used Tobacco service: No Meds Allergies Allergy/AdvReac Type Severity Reaction Status Date / Time No Known Allergies Allergy Mild NOT Unverified 04/10/20 16:57 APPLICABLE Active Medications: Current Medications Acetaminophen (Acetaminophen 325 Mg Tablet) 650 mg PO Q4H PRN PRN Reason: Pain, Moderate(Pain Scale 4-6) Last Admin: 07/16/23 20:37 Dose: 650 mg Acetaminophen (Acetaminophen Supp 325 Mg Supp.Rect) 325 mg [place] Q4H PRN PRN Reason: Fever Last Admin: 07/17/23 15:46 Dose: 325 mg Bisacodyl (Bisacodyl 5 Mg Tablet.Dr) 5 mg PO DAILY [facility] Last Admin: 07/18/23 07:38 Dose: Not Given Enoxaparin Sodium (Enoxaparin Sodium 40 Mg/0.4 Ml Syringe) 40 mg SUBCUT Q24H [facility] Last Admin: 07/17/23 15:22 Dose: 40 mg Hydroxyzine HCl (Hydroxyzine Hcl 25 Mg Tablet) 25 mg PO Q6H PRN PRN Reason: Anxiety Last Admin: 07/16/23 07:44 Dose: 25 mg Cefepime HCl 1 gm/ Sodium (Chloride) 50 mls @ 100 mls/hr IV Q8H [facility] Last Infusion: 07/18/23 09:45 Dose: Infused Sodium Chloride (Ns) 1,000 mls @ 80 mls/hr IVCONT .[id number] [facility] Last Admin: 07/18/23 04:23 Dose: 80 mls/hr Vancomycin HCl 1,500 mg/ (Sodium Chloride) 500 mls @ 333.333 mls/hr IV Q12H [facility] Last Infusion: 07/18/23 06:11 Dose: Infused Lidocaine (Lidocaine 4 % Patch Adh..Patch) 1 patch TRANSDERMA DAILY [facility]; Protocol Last Admin: 07/18/23 09:06 Dose: Not Given Lorazepam (Lorazepam 2 Mg/Ml Vial) 1 mg IVPUSH Q4H PRN PRN Reason: Agitation Last Admin: 07/17/23 00:25 Dose: 1 mg Lorazepam (Lorazepam 2 Mg/Ml Vial) 1 mg IVPUSH Q4H [facility] Last Admin: 07/18/23 09:01 Dose: 1 mg Pharmacy Consult (Consult Rx Vancomycin Dosing) 1 each MISCELLANE DAILY PRN PRN Reason: Consult order Polyethylene Glycol (Polyethylene Glycol 3350 17 Gm Powd.Pack) 17 gm PO DAILY [facility] Last Admin: 07/18/23 07:38 Dose: Not Given Home Medications Medication Instructions Recorded Confirmed Last Taken Type clozapine 25 mg tablet 50 mg PO QPM 07/12/23 07/12/23 07/11/23 History haloperidol 5 mg tablet 5 mg PO BEDTIME 07/12/23 07/12/23 07/11/23 History Physical Exam 2 Vital Signs: Vital Signs: Last Vital Signs Temp 98.7 F 07/18/23 11:53 Pulse 115 H 07/18/23 11:53 Resp 17 07/18/23 11:53 BP 135/88 07/18/23 11:53 Pulse Ox 97 07/18/23 11:53 O2 Del Method Room Air 07/18/23 11:53 O2 Flow Rate 2 07/12/23 11:28 BMI result Body Mass Index 26.6 Const: Other: currently cooperative, though intermittently agitated General: cooperative, healthy appearing, comfortable, no acute distress, well developed, alert, awake and Physically active HEENT: Head: Yes normal to inspection, Yes normocephalic and Yes atraumatic Eyes: General: appearance normal, both eyes and all related structures Neck: Neck: Yes normal visual inspection, Yes full ROM and Yes supple Chest: Chest palpation & inspection: normal inspection of the chest Resp: Other: no appreciable rales, rhonchi, wheezing Effort & Inspection: normal respiratory effort Cardio: Rate: regular rate Rhythm: regular rhythm GI: Inspection: Yes normal to inspection, No Abdominal wall edema and No distended Palpation (GI): Soft to palpation, not firm, nontender, no guarding and not rigid : Male General Exam: Yes normal external exam Skin: General skin exam: no rashes or lesions noted Neuro: Other: He keeps his eyes closed and dooes not obey commands except we'll open the mouth does not protrude his tongue does not move his limbs when attempting to open his eyes. He resists it. He also resists movement of the limbs to some degree. Reflexes are 2+. Plantar response are flexor. Neck is supple. He appears somewhat catatonic. He is nonverbal Extrem: General: Yes normal to inspection, Yes capillary refill normal and Yes no clubbing, cyanosis or edema Psych: Other: as described above, intermittently agitated, perseveration on phrases at times, answers most questions appropriately Results Labs 07/18/23 05:58 07/18/23 05:58 Labs: Short CBC 07/18/23 07/18/23 Range/Units 05:57 05:58 WBC Cancelled 11.6 H Hgb Cancelled 14.2 Hct Cancelled 42.4 Plt Count Cancelled 346 BMP 07/18/23 05:58 Sodium 143 Potassium 4.2 Chloride 109 H Carbon Dioxide 22 BUN 12 Creatinine 0.81 Calcium 9.6 Cardiac Enzymes 07/18/23 Range/Units 05:58 Total Creatine Kinase 335 H (38-174) U/L Liver Function 07/18/23 Range/Units 05:58 Total Bilirubin 0.7 (0.0-1.0) mg/dL Direct Bilirubin 0.3 (0.0-0.5) mg/dL AST 22 (5-37) U/L ALT 28 (0-40) U/L Alkaline Phosphatase 87 (39-117) U/L Albumin 4.2 (3.5-5.0) g/dL Microbiology Microbiology Results: Microbiology 07/16/23 23:03 Blood - Venous Blood Culture - Preliminary No growth after 24 hours. 07/16/23 23:03 Blood - Venous Blood Culture - Preliminary No growth after 24 hours. Assessment and Plan (1) Schizophrenia: Qualifiers: Schizophrenia type: disorganized schizophrenia Qualified Code(s): F20.1 - Disorganized schizophrenia Status: Acute His altered mental status appears to be related to psychiatric causes with some catatonic features. He does not appear to have an encephalopathy or infectious process. Recommend: Followup CT scan of the head on Tuesday and an EEG (2) Rhabdomyolysis: Qualifiers: Rhabdomyolysis type: non-traumatic Qualified Code(s): M62.82 - Rhabdomyolysis Status: Acute He had a transientt mild elevation of his CPK which has come down significantly. He did not even gget 2 of thousand. I don't believe that he had rhabdomyolysis. Plan 37M PMH schizoaffective presented with acute psychosis and combative behaviour, admitted to ICU for precedex, complicated by ofe and rhabdo schizoaffective with acute psychosis complicated by ofe due to rhabdomyolosis ofe/rhabdo resolved now with fevers, tachycardia (not due to sepsis), acute toxic metabolic encephalopathy doubt infection, but empirically covering with vanc and cefepime, follow up cultures follow up psych dc antipsychotics for now continue ativan prn consitpation had successful bm dvt prophylaxis - lovenox full code reason for continued hospitalization:ams, fevers Procedures Date of Service Date of Service: 07/18/23
[2023-07-18] MEDS: Acetaminophen Supp 325 MG SUPP.RECT PR (13:35)
--- NOTE | 2023-07-18 15:24 | HE.PHANOTE ---
re: vanco patients trough came back this afternoon at 10. will continue with current dose as patient has only gotten a 2 gram load and 1 dose of the maintenance dose of 1500 mg. will get a level at 07/20 @1400. predicted auc 473. patient is being treated with vanco as precaution to continued fevers per hospitalist note. microbiology has come back negative.
[2023-07-18] MEDS: Enoxaparin Sodium 40 MG/0.4 ML SYRINGE SUBCUT (15:59)
--- NOTE | 2023-07-18 18:12 | PC.NURSE ---
Pt remains non-verbal and minimally responsive during shift. Assessment difficult due to patient status. Attempts to assess pupils unsuccessful d/t pt squeezing eyes shut. LEWIS spontaneously not command although when attempting to move extremities initially rigid but then relaxed with verbal commands by RN. LSCTA tachypneic 30-40's this am although sats remains stable in mid to high 90's on room air. Dr Camacho notified IV ativan given with some effect. BS+X4 abdomen soft non-tender. [place] cath in place with clear yellow urine. Remains NPO while in this state. IV fluids infusing per order as well as antibiotics. Repos as tolerated by patient. Mom at bedside during shift. Seen by Neurology in afternoon with mom at bedside. Bed in lowest locked position alarm for safety. Camera in place. Will continue to monitor and report changes
[2023-07-19] VITALS: BP 132/86; PULSE 106; RESP 18; TEMP 36.8; O2SAT 97
[2023-07-19] MEDS: cefEPime HCl 1 GM in 0.9 % Sodium Chloride 50 ML IV (00:08)
[2023-07-19] MEDS: LORazepam 2 MG/ML VIAL 1 MG IVPUSH ×6 (00:11→21:51)
[2023-07-19 04:00] VITALS: BP 162/85; PULSE 108; RESP 18; TEMP 36.8; O2SAT 98
[2023-07-19] MEDS: vancomycin HCL 1,500 MG in 0.9 % Sodium Chloride 500 ML 333.33 MG IV (04:28)
[2023-07-19] MEDS: 0.9 % Sodium Chloride 1,000 ML 80 ML IVCONT ×2 (04:29→21:52)
[2023-07-19 06:18] LABS: Clozapine (Clozaril) 49 mcg/L; Norclozapine 22 mcg/L (25-400)
[2023-07-19 07:47] VITALS: BP 136/84; PULSE 86; RESP 20; TEMP 36.6; O2SAT 96
[2023-07-19] MEDS: bisacodyL 5 MG TABLET.DR PO (08:39)
[2023-07-19] MEDS: polyethylene glycoL 3350 17 GM POWD.PACK PO (08:47)
--- NOTE | 2023-07-19 08:53 | HO.PM.IMPN ---
Subjective Subjective Date of Service: 07/19/23 Interval History: much improved today, starting to talk, has no complaints, poor insight Physical Exam Vital Signs: Vital Signs: Last Vital Signs Temp 97.8 F 07/19/23 07:47 Pulse 86 07/19/23 07:47 Resp 20 07/19/23 07:47 BP 136/84 07/19/23 07:47 Pulse Ox 96 07/19/23 07:47 O2 Del Method Room Air 07/19/23 07:47 O2 Flow Rate 2 07/12/23 11:28 BMI result Body Mass Index 26.6 overall lethargic but much more alert than previous, more calm, answering simple questions, poor insight Objective Data Active Medications Acetaminophen (Acetaminophen 325 Mg Tablet) 650 mg PO Q4H PRN PRN Reason: Pain, Moderate(Pain Scale 4-6) Last Admin: 07/16/23 20:37 Dose: 650 mg Documented By: EMERALD Acetaminophen (Acetaminophen Supp 325 Mg Supp.Rect) 325 mg [place] Q4H PRN PRN Reason: Fever Last Admin: 07/18/23 13:35 Dose: 325 mg Documented By: RONALD Bisacodyl (Bisacodyl 5 Mg Tablet.Dr) 5 mg PO DAILY [facility] Last Admin: 07/19/23 08:39 Dose: 5 mg Documented By: RALF Enoxaparin Sodium (Enoxaparin Sodium 40 Mg/0.4 Ml Syringe) 40 mg SUBCUT Q24H [facility] Last Admin: 07/18/23 15:59 Dose: 40 mg Documented By: RONALD Hydroxyzine HCl (Hydroxyzine Hcl 25 Mg Tablet) 25 mg PO Q6H PRN PRN Reason: Anxiety Last Admin: 07/16/23 07:44 Dose: 25 mg Documented By: CE-RIVLA Sodium Chloride (Ns) 1,000 mls @ 80 mls/hr IVCONT .[id number] [facility] Last Admin: 07/19/23 04:29 Dose: 80 mls/hr Documented By: MARY Lidocaine (Lidocaine 4 % Patch Adh..Patch) 1 patch TRANSDERMA DAILY [facility]; Protocol Last Admin: 07/19/23 08:48 Dose: Not Given Documented By: RALF Non-Admin Reason: Patient Refused Lorazepam (Lorazepam 2 Mg/Ml Vial) 1 mg IVPUSH Q4H PRN PRN Reason: Agitation Last Admin: 07/17/23 00:25 Dose: 1 mg Documented By: EMERALD Lorazepam (Lorazepam 2 Mg/Ml Vial) 1 mg IVPUSH Q4H [facility] Last Admin: 07/19/23 08:38 Dose: 1 mg Documented By: RALF Polyethylene Glycol (Polyethylene Glycol 3350 17 Gm Powd.Pack) 17 gm PO DAILY [facility] Last Admin: 07/19/23 08:47 Dose: 17 gm Documented By: RALF Labs 07/18/23 05:58 07/18/23 05:58 Labs: Laboratory Results - last 24 hr 07/13/23 07/18/23 18:00 14:37 Random Vancomycin 10.0 L Clozapine 49 Norclozapine 22 L Microbiology Microbiology Results: Microbiology 07/16/23 23:03 Blood Culture - Preliminary Blood - Venous No growth after 48 hours. 07/16/23 23:03 Blood Culture - Preliminary Blood - Venous No growth after 48 hours. Assessment and Plan (1) Rhabdomyolysis: Status: Acute Plan 37M PMH schizoaffective presented with acute psychosis and combative behaviour, admitted to ICU for precedex, complicated by ofe and rhabdo schizoaffective with acute psychosis complicated by ofe due to rhabdomyolosis ofe/rhabdo resolved complicated by SIRS - fevers, tachycardia (not due to sepsis), acute toxic metabolic encephalopathy cultures negative - will dc antibiotics fevers starting to subside, mental status improving follow up psych holding antipsychotics for now continue ativan prn consitpation had successful bm dvt prophylaxis - lovenox full code reason for continued hospitalization:monitoring closely for AMS, fevers, agitation Quality Stroke Does the patient have a stroke diagnosis?: No VTE Prior VTE?: No VTE Risk Level:: Medical - moderate - high VTE Device Contraindication: N/A - Device Ordered VTE Drug Contraindication: N/A - Med Ordered
--- NOTE | 2023-07-19 09:27 | P.CDIM_ITS ---
PROVIDER RESPONSE TEXT: To clarify, the appropriate diagnosis supported by the clinical indicators: Other (explain): correction: no evidence of HAILEY QUERY TEXT: PHYSICIAN'S DOCUMENTATION REQUEST Date of Query: 07/19/2023 09:18 AM EST Patient Name: Kain Sweeney Admit Date: 07/13/2023 Dear Sam Camacho, A review of the medical record indicates additional documentation may be needed. Please review below and update the documentation accordingly. Clinical Indicators: ICU progress note dated 07/13 - Work up revealing of rhabdomyolysis w/o evidence of renal insufficien cy, improving ICU progress note dated 07/15 - Rhabdomyolysis w/o evidence of renal insufficiency, resolved. Progress note: Schizoaffective with acute psychosis complicated by hailey and rhabdomyolysis. CR: 0.90 GFR: >60 Consistency and clarity of a diagnosis documented within the medical record: Acute renal failure present on arrival, treating, not treating, possible, suspected, probable etc. Acute kidney insufficiency Other Other (explain) Clinically unable to determine (explain) Thank you, Noy Pringle, CCS, CDIS Use of terms such as suspected, likely, concern for, or probable (associated with a specific diagnosi s that is being evaluated, monitored, or treated as if it exists) are acceptable and can be coded in the inpatient se tting, when documented at the time of discharge. Please use your independent medical judgment in providing your response. THIS QUERY IS PART OF THE PERMANENT MEDICAL RECORD
[2023-07-19 12:00] VITALS: BP 131/90; PULSE 97; RESP 20; TEMP 36.9; O2SAT 97
--- NOTE | 2023-07-19 13:00 | MHC.CM.PN ---
EMR reviewed and per MD rounds, pt is not medically cleared for D/C due to requiring monitoring for AMS, agitation, and fevers. CM will continue to follow.
[2023-07-19 15:28] VITALS: BP 137/90; PULSE 97; RESP 20; TEMP 37.2; O2SAT 97
[2023-07-19] MEDS: Enoxaparin Sodium 40 MG/0.4 ML SYRINGE SUBCUT (15:48)
[2023-07-19 19:51] VITALS: BP 123/78; PULSE 94; RESP 20; TEMP 37.1; O2SAT 97
[2023-07-20] VITALS: BP 124/73; PULSE 88; RESP 17; TEMP 37.2; O2SAT 97
--- NOTE | 2023-07-20 | EEG_ITS ---
FINDINGS: Waking background activity consists of 9 hertz [id number] voltage posterior alpha frequencies and intermixed anteriorly with low-voltage fast frequencies. Drowsiness was characterized by diffuse theta slowing. Light sleep stages with diffuse theta and delta noted. Photic stimulation is without activation. Hyperventilation is omitted. No focal lateralizing or paroxysmal discharges were seen. IMPRESSION: This predominantly drowsy and briefly awake EEG is considered within normal limits. MD JOAQUIN Ge/NATI / [phone]
[2023-07-20] MEDS: LORazepam 2 MG/ML VIAL 1 MG IVPUSH ×3 (02:38→18:24)
[2023-07-20 02:56] VITALS: BP 121/78; PULSE 80; RESP 20; TEMP 36.3; O2SAT 96
[2023-07-20 07:29] VITALS: BP 130/83; PULSE 84; RESP 16; TEMP 36.9; O2SAT 97
[2023-07-20] MEDS: Lidocaine 4 % Patch ADH..PATCH 1 PATCH TRANSDERMA (09:42)
[2023-07-20] MEDS: polyethylene glycoL 3350 17 GM POWD.PACK PO (09:42)
[2023-07-20] MEDS: 0.9 % Sodium Chloride 1,000 ML 80 ML IVCONT ×2 (09:43→18:25)
--- NOTE | 2023-07-20 10:22 | P.PNIM_ITS ---
Subjective Subjective Date of Service: 07/20/23 Interval History: Seen and evaluated Mother at bedside, improving daily started to talk, has no complaints, poor insight Review of Systems Review of Systems: Yes Unobtainable due to mental condition Physical Exam 2 Vital Signs: Vital Signs: Last Vital Signs Temp 98.4 F 07/20/23 07:29 Pulse 84 07/20/23 07:29 Resp 16 07/20/23 07:29 BP 130/83 07/20/23 07:29 Pulse Ox 97 07/20/23 07:29 O2 Del Method Room Air 07/20/23 07:29 O2 Flow Rate 2 07/12/23 11:28 BMI result Body Mass Index 26.6 Const: Other: Constitutional : Awake, interactive, not in distress Neck : Normal inspection, Supple Cardiovascular : RRR, no JVP, no lower extremity edema Respiratory : good bilateral air entry, no crackles, wheezes or rhonchi Gastrointestinal: soft, lax, Normal bowel sounds, Non tender Skin : Warm, Dry Neurological : Alert & oriented to self, No focal deficit Psych: Poor insight, barely answering questions with 1-2 words and falls in silence afterwards Objective Data Active Medications Acetaminophen (Acetaminophen 325 Mg Tablet) 650 mg PO Q4H PRN PRN Reason: Pain, Moderate(Pain Scale 4-6) Last Admin: 07/16/23 20:37 Dose: 650 mg Documented By: EMERALD Acetaminophen (Acetaminophen Supp 325 Mg Supp.Rect) 325 mg [place] Q4H PRN PRN Reason: Fever Last Admin: 07/18/23 13:35 Dose: 325 mg Documented By: RONALD Bisacodyl (Bisacodyl 5 Mg Tablet.) 5 mg PO DAILY [facility] Last Admin: 07/20/23 09:42 Dose: Not Given Documented By: RALF Non-Admin Reason: Patient Refused Enoxaparin Sodium (Enoxaparin Sodium 40 Mg/0.4 Ml Syringe) 40 mg SUBCUT Q24H [facility] Last Admin: 07/19/23 15:48 Dose: 40 mg Documented By: MARY Hydroxyzine HCl (Hydroxyzine Hcl 25 Mg Tablet) 25 mg PO Q6H PRN PRN Reason: Anxiety Last Admin: 07/16/23 07:44 Dose: 25 mg Documented By: CE-BREE Sodium Chloride (Ns) 1,000 mls @ 80 mls/hr IVCONT .[id number] [facility] Last Admin: 07/20/23 09:43 Dose: 80 mls/hr Documented By: RALF Lidocaine (Lidocaine 4 % Patch Adh..Patch) 1 patch TRANSDERMA DAILY [facility]; Protocol Last Admin: 07/20/23 09:42 Dose: 1 patch Documented By: RALF Lorazepam (Lorazepam 2 Mg/Ml Vial) 1 mg IVPUSH Q4H [facility] Last Admin: 07/20/23 10:13 Dose: Not Given Documented By: RALF Non-Admin Reason: Physician Held Med Polyethylene Glycol (Polyethylene Glycol 3350 17 Gm Powd.Pack) 17 gm PO DAILY [facility] Last Admin: 07/20/23 09:42 Dose: 17 gm Documented By: RALF Labs 07/18/23 05:58 07/18/23 05:58 Assessment and Plan (1) Rhabdomyolysis: Status: Acute (2) Schizophrenia: Status: Acute (3) SIRS (systemic inflammatory response syndrome): Status: Acute (4) Acute kidney injury: Status: Acute Plan 37M PMH schizoaffective presented with acute psychosis and combative behaviour, admitted to ICU for precedex, complicated by ofe and rhabdo schizoaffective with acute psychosis complicated by SIRS & ofe due to rhabdomyolosis ofe/rhabdo resolved SIRS resolved cultures negative - dc antibiotics mental status improving follow up psych holding antipsychotics for now continue ativan prn recurrent reorientation Neurology input appreciated, pending EEG consitpation had successful bm Laxatives dvt prophylaxis - lovenox full code reason for continued hospitalization:monitoring closely for AMS, agitation pending psychiatry team follow up Quality Stroke Does the patient have a stroke diagnosis?: No VTE Prior VTE?: No VTE Risk Level:: Medical - moderate - high VTE Device Contraindication: N/A - Device Ordered VTE Drug Contraindication: N/A - Med Ordered
[2023-07-20 10:49] LABS: Hematocrit 36.1 % (42.0-52.0); Hemoglobin 12.3 g/dl (14.0-18.0); Mean Corpuscular HGB Conc 34.1 g/dl (31.0-36.0); Mean Corpuscular Hemoglobin 29.5 pg (27.0-33.0); Mean Corpuscular Volume 86.6 fL (80.0-98.0); Mean Platelet Volume 9.4 fL (9.4-12.4); Platelet Count 308 X10*3/uL (160-400); Red Blood Count 4.17 X10*6/uL (4.60-5.80); Red Cell Distribution Width 11.9 % (11.0-16.0); White Blood Count 6.3 X10*3/uL (4.8-10.8)
[2023-07-20 11:02] LABS: Anion Gap 11 (12-20); Blood Urea Nitrogen 8 mg/dL (9-16); Calcium 9.3 mg/dL (8.4-10.2); Carbon Dioxide 27 mmol/L (22-29); Chloride 106 mmol/L (96-108); Creatinine Clr Calc Pharmacy 177.9; Estimated Glomerular Filt Rate > 60; Glucose Fasting 116 mg/dL (60-99); Potassium 3.8 mmol/L (3.3-5.1); Sodium 140 mmol/L (135-145)
[2023-07-20 11:29] VITALS: BP 117/79; PULSE 79; RESP 20; TEMP 36.3; O2SAT 96
--- NOTE | 2023-07-20 13:32 | P.PNPSI_ITS ---
Subjective Subjective Reason For Visit: Rhabdomyolysis Diagnostics Vital Signs (24Hr): Vital Signs - 24 hr 07/19/23 15:28 07/19/23 19:51 07/20/23 00:00 Temperature 98.9 F 98.7 F 98.9 F Pulse Rate 97 94 88 Respiratory Rate 20 20 17 Blood Pressure 137/90 H 123/78 124/73 Pulse Oximetry 97 97 97 Oxygen Delivery Method Room Air Room Air Room Air 07/20/23 02:56 07/20/23 07:29 07/20/23 11:29 Temperature 97.4 F 98.4 F 97.4 F Pulse Rate 80 84 79 Respiratory Rate 20 16 20 Blood Pressure 121/78 130/83 117/79 Pulse Oximetry 96 97 96 Oxygen Delivery Method Room Air Room Air Room Air BMI result Body Mass Index 26.6 Labs 07/20/23 10:41 07/20/23 10:41 Labs: Laboratory Results - last 48 hr 07/13/23 07/18/23 07/20/23 18:00 14:37 10:41 WBC 6.3 RBC 4.17 L Hgb 12.3 L Hct 36.1 L MCV 86.6 MCH 29.5 MCHC 34.1 RDW 11.9 Plt Count 308 MPV 9.4 Absolute Nucleated RBC 0.000 Nucleated RBC % (auto) 0.0 Sodium 140 Potassium 3.8 Chloride 106 Carbon Dioxide 27 Anion Gap 11 L BUN 8 L Creatinine 0.63 Estim Creat Clear Calc 177.9 Estimated GFR > 60 Fasting Glucose 116 H Calcium 9.3 Random Vancomycin 10.0 L Clozapine 49 Norclozapine 22 L Imaging Radiology Impressions: ITS Impressions Head CT 07/12/23 18:25 IMPRESSION: No acute intracranial pathology. Abdomen Ultrasound 07/13/23 11:58 IMPRESSION: Normal gallbladder ultrasound. KUB X-Ray 07/15/23 11:25 IMPRESSION: Nonspecific bowel gas pattern. Retained stool. Chest X-Ray 07/17/23 02:10 IMPRESSION: No acute pneumonic process. KUB X-Ray 07/17/23 09:50 IMPRESSION: Unremarkable examination. Head CT 07/19/23 11:16 IMPRESSION: No acute intracranial abnormality. Medications Medications Current Medications Acetaminophen (Acetaminophen 325 Mg Tablet) 650 mg PO Q4H PRN PRN Reason: Pain, Moderate(Pain Scale 4-6) Last Admin: 07/16/23 20:37 Dose: 650 mg Acetaminophen (Acetaminophen Supp 325 Mg Supp.Rect) 325 mg [place] Q4H PRN PRN Reason: Fever Last Admin: 07/18/23 13:35 Dose: 325 mg Bisacodyl (Bisacodyl 5 Mg Tablet.Dr) 5 mg PO DAILY [facility] Last Admin: 07/20/23 09:42 Dose: Not Given Clozapine (Clozapine 25 Mg Tablet) 25 mg PO BEDTIME [facility] Enoxaparin Sodium (Enoxaparin Sodium 40 Mg/0.4 Ml Syringe) 40 mg SUBCUT Q24H [facility] Last Admin: 07/19/23 15:48 Dose: 40 mg Hydroxyzine HCl (Hydroxyzine Hcl 25 Mg Tablet) 25 mg PO Q6H PRN PRN Reason: Anxiety Last Admin: 07/16/23 07:44 Dose: 25 mg Sodium Chloride (Ns) 1,000 mls @ 80 mls/hr IVCONT .[id number] [facility] Last Admin: 07/20/23 09:43 Dose: 80 mls/hr Lidocaine (Lidocaine 4 % Patch Adh..Patch) 1 patch TRANSDERMA DAILY [facility]; Protocol Last Admin: 07/20/23 09:42 Dose: 1 patch Lorazepam (Lorazepam 2 Mg/Ml Vial) 1 mg IVPUSH Q8H [facility] Last Admin: 07/20/23 11:05 Dose: 1 mg Lorazepam (Lorazepam 2 Mg/Ml Vial) 1 mg IVPUSH Q4H PRN PRN Reason: anxiety/restlessness Polyethylene Glycol (Polyethylene Glycol 3350 17 Gm Powd.Pack) 17 gm PO DAILY [facility] Last Admin: 07/20/23 09:42 Dose: 17 gm Allergies Allergies Allergy/AdvReac Type Severity Reaction Status Date / Time No Known Allergies Allergy Mild NOT Unverified 04/10/20 16:57 APPLICABLE Assessment & Plan Assessment & Plan (1) Chronic schizophrenia with acute exacerbation: Status: Acute Code(s): F20.9 - Schizophrenia, unspecified (2) Rhabdomyolysis: Qualifiers: Rhabdomyolysis type: non-traumatic Qualified Code(s): M62.82 - Rhabdomyolysis Status: Acute Code(s): M62.82 - Rhabdomyolysis (3) Encephalopathy: Status: Acute Code(s): G93.40 - Encephalopathy, unspecified (4) Schizophrenia: Qualifiers: Schizophrenia type: disorganized schizophrenia Qualified Code(s): F20.1 - Disorganized schizophrenia Status: Acute Code(s): F20.9 - Schizophrenia, unspecified (5) SIRS (systemic inflammatory response syndrome): Status: Acute Code(s): R65.10 - Systemic inflammatory response syndrome (SIRS) of non-infectious origin without acute organ dysfunction (6) Acute kidney injury: Status: Acute Code(s): N17.9 - Acute kidney failure, unspecified Plan Case reviewed with dr figueroa but he did not feel patient had NMS unclear reason for ongoing low-grade fever he would be unusual to get any masses or fever with clozapine but not impossible hold Haldol continue lorazepam unclear etiology to question encephalopathy question need for LP Case discussed with Dr. Figueroa question form of catatonia patient had been treated with Precedex in the ICU also had been on valproic acid Time Spent With Patient Time: Total time managing care of this patient today ____ minutes.
--- NOTE | 2023-07-20 13:36 | P.CNPS_ITS ---
History of Present Illness Date of Service: 07/20/23 Chief Complaint: Rhabdomyolysis /psychosis Requesting physician: Jose Richards Discussed with referring provider: Yes HPI Narrative: The patient was seen by Neurology and taken off of antipsychotics and he has been on benzodiazepines for question of catatonia. He had had sirs his CPKs decrease in the 300s presumably there was some question whether the patient had elevated blood pressure without rigidity and mute and staring related to antipsychotic use. He had been given ketamine large dose of antipsychotic Son the emergency room and then was treated with Precedex. This time the patient is somewhat more verbal minimally engaged with one-word answers but is poorly informational. He is not combative or agitated at this time when seen and chronic staff Past Psychiatric History: OP: Dr. Jeremias Post Diagnostics Vital Signs (24Hr): Vital Signs - 24 hr 07/19/23 15:28 07/19/23 19:51 07/20/23 00:00 Temperature 98.9 F 98.7 F 98.9 F Pulse Rate 97 94 88 Respiratory Rate 20 20 17 Blood Pressure 137/90 H 123/78 124/73 Pulse Oximetry 97 97 97 Oxygen Delivery Method Room Air Room Air Room Air 07/20/23 02:56 07/20/23 07:29 07/20/23 11:29 Temperature 97.4 F 98.4 F 97.4 F Pulse Rate 80 84 79 Respiratory Rate 20 16 20 Blood Pressure 121/78 130/83 117/79 Pulse Oximetry 96 97 96 Oxygen Delivery Method Room Air Room Air Room Air BMI result Body Mass Index 26.6 Labs 07/20/23 10:41 07/20/23 10:41 Labs: Laboratory Results - last 48 hr 07/13/23 07/18/23 07/20/23 18:00 14:37 10:41 WBC 6.3 RBC 4.17 L Hgb 12.3 L Hct 36.1 L MCV 86.6 MCH 29.5 MCHC 34.1 RDW 11.9 Plt Count 308 MPV 9.4 Absolute Nucleated RBC 0.000 Nucleated RBC % (auto) 0.0 Sodium 140 Potassium 3.8 Chloride 106 Carbon Dioxide 27 Anion Gap 11 L BUN 8 L Creatinine 0.63 Estim Creat Clear Calc 177.9 Estimated GFR > 60 Fasting Glucose 116 H Calcium 9.3 Random Vancomycin 10.0 L Clozapine 49 Norclozapine 22 L Imaging Radiology Impressions: ITS Impressions Head CT 07/12/23 18:25 IMPRESSION: No acute intracranial pathology. Abdomen Ultrasound 07/13/23 11:58 IMPRESSION: Normal gallbladder ultrasound. KUB X-Ray 07/15/23 11:25 IMPRESSION: Nonspecific bowel gas pattern. Retained stool. Chest X-Ray 07/17/23 02:10 IMPRESSION: No acute pneumonic process. KUB X-Ray 07/17/23 09:50 IMPRESSION: Unremarkable examination. Head CT 07/19/23 11:16 IMPRESSION: No acute intracranial abnormality. Mental Status Exam Mental Status Exam Narrative: Patient is seen in his room he is not combative her agitated he is sitting quietly his eyes to track when I come in the room. He would not answer questions related to hallucinations delusional material do not express thoughts of harm to himself for others. His mood was somewhat flat he did intermittently have an odd smile. He did respond to his name did know he was in the hospital refused to answer further questions Medications Medications Current Medications Acetaminophen (Acetaminophen 325 Mg Tablet) 650 mg PO Q4H PRN PRN Reason: Pain, Moderate(Pain Scale 4-6) Last Admin: 07/16/23 20:37 Dose: 650 mg Acetaminophen (Acetaminophen Supp 325 Mg Supp.Rect) 325 mg [place] Q4H PRN PRN Reason: Fever Last Admin: 07/18/23 13:35 Dose: 325 mg Bisacodyl (Bisacodyl 5 Mg Tablet.Dr) 5 mg PO DAILY [facility] Last Admin: 07/20/23 09:42 Dose: Not Given Clozapine (Clozapine 25 Mg Tablet) 25 mg PO BEDTIME [facility] Enoxaparin Sodium (Enoxaparin Sodium 40 Mg/0.4 Ml Syringe) 40 mg SUBCUT Q24H [facility] Last Admin: 07/19/23 15:48 Dose: 40 mg Hydroxyzine HCl (Hydroxyzine Hcl 25 Mg Tablet) 25 mg PO Q6H PRN PRN Reason: Anxiety Last Admin: 07/16/23 07:44 Dose: 25 mg Sodium Chloride (Ns) 1,000 mls @ 80 mls/hr IVCONT .[id number] [facility] Last Admin: 07/20/23 09:43 Dose: 80 mls/hr Lidocaine (Lidocaine 4 % Patch Adh..Patch) 1 patch TRANSDERMA DAILY [facility]; Protocol Last Admin: 07/20/23 09:42 Dose: 1 patch Lorazepam (Lorazepam 2 Mg/Ml Vial) 1 mg IVPUSH Q8H [facility] Last Admin: 07/20/23 11:05 Dose: 1 mg Lorazepam (Lorazepam 2 Mg/Ml Vial) 1 mg IVPUSH Q4H PRN PRN Reason: anxiety/restlessness Polyethylene Glycol (Polyethylene Glycol 3350 17 Gm Powd.Pack) 17 gm PO DAILY [facility] Last Admin: 07/20/23 09:42 Dose: 17 gm Allergies Allergies Allergy/AdvReac Type Severity Reaction Status Date / Time No Known Allergies Allergy Mild NOT Unverified 04/10/20 16:57 APPLICABLE Assessment & Plan Assessment & Plan (1) Encephalopathy: Status: Acute Code(s): G93.40 - Encephalopathy, unspecified (2) Chronic schizophrenia with acute exacerbation: Status: Acute Code(s): F20.9 - Schizophrenia, unspecified (3) SIRS (systemic inflammatory response syndrome): Status: Acute Code(s): R65.10 - Systemic inflammatory response syndrome (SIRS) of non-infectious origin without acute organ dysfunction Plan Patient had been febrile and mute not responding for period of time unclear etiology. Question catatonia question metabolic condition no obvious infectious condition question medication reaction Patient has history of psychosis and aggression would continue lorazepam at present time intravenous he seems to be having good response clozapine restarted at 25 mg would go up by 25 mg daily in the bedtime as tolerated would recommend psychiatric follow-up while inpatient Total time managing care of this patient today 35____ minutes. Informed Consent: does not understand
[2023-07-20] MEDS: Enoxaparin Sodium 40 MG/0.4 ML SYRINGE SUBCUT (15:25)
[2023-07-20 15:39] VITALS: BP 122/77; PULSE 72; RESP 18; TEMP 36.6; O2SAT 95
[2023-07-20 20:00] VITALS: BP 124/81; PULSE 84; RESP 18; TEMP 36.8; O2SAT 96
[2023-07-20] MEDS: cloZAPine 25 MG TABLET PO (20:15)
[2023-07-21] MEDS: LORazepam 2 MG/ML VIAL 1 MG IVPUSH ×3 (02:48→19:30)
--- NOTE | 2023-07-21 06:14 | PC.NURSE ---
assumed care of pt at 0245. Mother at bedside, refusing care at this time for pt. Will not allow staff to wake patient for vitals or assessment. pt respirations even and unlabored, safety precautions in place, call dozier within reach.
[2023-07-21 08:30] VITALS: BP 122/73; PULSE 79; RESP 18; TEMP 36.7; O2SAT 95
[2023-07-21] MEDS: 0.9 % Sodium Chloride 1,000 ML 80 ML IVCONT ×2 (08:35→20:55)
[2023-07-21] MEDS: polyethylene glycoL 3350 17 GM POWD.PACK PO (08:35)
--- NOTE | 2023-07-21 11:17 | HO.PM.IMPN ---
Subjective Subjective Date of Service: 07/21/23 Interval History: Seen and evaluated Mother at bedside, improving daily More alert and interactive, no aggression or agitation asking when can he go home has no complaints Review of Systems Review of Systems: Yes all other systems are reviewed and are negative Physical Exam Vital Signs: Vital Signs: Last Vital Signs Temp 98.0 F 07/21/23 08:30 Pulse 79 07/21/23 08:30 Resp 18 07/21/23 08:30 BP 122/73 07/21/23 08:30 Pulse Ox 95 07/21/23 08:30 O2 Del Method Room Air 07/21/23 08:30 O2 Flow Rate 2 07/12/23 11:28 BMI result Body Mass Index 26.6 Const: Other: Constitutional : Awake, interactive, not in distress Neck : Normal inspection, Supple Cardiovascular : RRR, no JVP, no lower extremity edema Respiratory : good bilateral air entry, no crackles, wheezes or rhonchi Gastrointestinal: soft, lax, Normal bowel sounds, Non tender Skin : Warm, Dry Neurological : Alert & oriented to self, No focal deficit Psych: Poor insight, answering questions with full sentences today Objective Data Active Medications Acetaminophen (Acetaminophen 325 Mg Tablet) 650 mg PO Q4H PRN PRN Reason: Pain, Moderate(Pain Scale 4-6) Last Admin: 07/16/23 20:37 Dose: 650 mg Documented By: EMERALD Acetaminophen (Acetaminophen Supp 325 Mg Supp.Rect) 325 mg [place] Q4H PRN PRN Reason: Fever Last Admin: 07/18/23 13:35 Dose: 325 mg Documented By: RONALD Bisacodyl (Bisacodyl 5 Mg Tablet.) 5 mg PO DAILY [facility] Last Admin: 07/21/23 08:35 Dose: Not Given Documented By: BARB Non-Admin Reason: Patient Refused Clozapine (Clozapine 25 Mg Tablet) 25 mg PO BEDTIME [facility] Last Admin: 07/20/23 20:15 Dose: 25 mg Documented By: JITENDRA Enoxaparin Sodium (Enoxaparin Sodium 40 Mg/0.4 Ml Syringe) 40 mg SUBCUT Q24H [facility] Last Admin: 07/20/23 15:25 Dose: 40 mg Documented By: RALF Hydroxyzine HCl (Hydroxyzine Hcl 25 Mg Tablet) 25 mg PO Q6H PRN PRN Reason: Anxiety Last Admin: 07/16/23 07:44 Dose: 25 mg Documented By: ZAKIA Sodium Chloride (Ns) 1,000 mls @ 80 mls/hr IVCONT .[id number] [facility] Last Admin: 07/21/23 08:35 Dose: 80 mls/hr Documented By: BARB Lidocaine (Lidocaine 4 % Patch Adh..Patch) 1 patch TRANSDERMA DAILY [facility]; Protocol Last Admin: 07/21/23 08:43 Dose: Not Given Documented By: BARB Non-Admin Reason: Patient Refused Lorazepam (Lorazepam 2 Mg/Ml Vial) 1 mg IVPUSH Q8H [facility] Last Admin: 07/21/23 10:26 Dose: 1 mg Documented By: BARB Lorazepam (Lorazepam 2 Mg/Ml Vial) 1 mg IVPUSH Q4H PRN PRN Reason: anxiety/restlessness Polyethylene Glycol (Polyethylene Glycol 3350 17 Gm Powd.Pack) 17 gm PO DAILY [facility] Last Admin: 07/21/23 08:35 Dose: 17 gm Documented By: BARB Labs 07/20/23 10:41 07/20/23 10:41 Assessment and Plan (1) Encephalopathy: Status: Acute (2) Chronic schizophrenia with acute exacerbation: Status: Acute (3) Acute kidney injury: Status: Acute (4) Rhabdomyolysis: Status: Acute Plan 37M PMH schizoaffective presented with acute psychosis and combative behaviour, admitted to ICU for precedex, complicated by ofe and rhabdo schizoaffective with acute psychosis complicated by SIRS & agitation, ofe due to rhabdomyolosis ofe/rhabdo resolved SIRS resolved cultures negative - dc antibiotics mental status improving continue ativan prn recurrent reorientation Neurology input appreciated, normal EEG Psych restarted Clozapine 25 mg , to follow for home plan consitpation had successful bm Laxatives dvt prophylaxis - lovenox full code reason for continued hospitalization:monitoring closely for agitation pending psychiatry team follow up and safe discharge plan Quality Stroke Does the patient have a stroke diagnosis?: No VTE Prior VTE?: No VTE Risk Level:: Medical - moderate - high VTE Device Contraindication: N/A - Device Ordered VTE Drug Contraindication: N/A - Med Ordered
[2023-07-21 11:43] VITALS: BP 116/72; PULSE 85; RESP 18; TEMP 37.1; O2SAT 98
[2023-07-21 15:38] VITALS: BP 129/77; PULSE 82; RESP 14; TEMP 36.8; O2SAT 96
--- NOTE | 2023-07-21 16:54 | P.CNPS_ITS ---
History of Present Illness Date of Service: 07/21/2023 Chief Complaint: Rhabdomyolysis /psychosis Reason for Consult: psychosis Requesting physician: Jose Richards Discussed with referring provider: Yes Sources of Information: patient interviewed, chart reviewed and crisis/core team assessment reviewed HPI Narrative: Interim Hx: pt presents as calm, more talkative. He reports he remembers a male shaking hands at [employer] prior to coming here. He states after that everything happened. Pt reports seeing airplane in his room. He also seem preoccupied with idea that [employer] in [place] was burnt down and he was asking this customs entry writer if I knew about it. Pt continues to have paranoid delusions, not fully forthcoming, although much calmer. Past Psychiatric History: OP: Dr. Jeremias Post Inpt: M5 2010 Medical Evaluation Reviewed: Yes Diagnostics Vital Signs (24Hr): Vital Signs - 24 hr 07/20/23 20:00 07/21/23 08:30 07/21/23 11:43 Temperature 98.3 F 98.0 F 98.7 F Pulse Rate 84 79 85 Respiratory Rate 18 18 18 Blood Pressure 124/81 122/73 116/72 Pulse Oximetry 96 95 98 Oxygen Delivery Method Room Air Room Air Room Air 07/21/23 15:38 Temperature 98.3 F Pulse Rate 82 Respiratory Rate 14 Blood Pressure 129/77 Pulse Oximetry 96 Oxygen Delivery Method Room Air BMI result Body Mass Index 26.6 Labs 07/20/23 10:41 07/20/23 10:41 Labs: Laboratory Results - last 48 hr 07/20/23 10:41 WBC 6.3 RBC 4.17 L Hgb 12.3 L Hct 36.1 L MCV 86.6 MCH 29.5 MCHC 34.1 RDW 11.9 Plt Count 308 MPV 9.4 Absolute Nucleated RBC 0.000 Nucleated RBC % (auto) 0.0 Sodium 140 Potassium 3.8 Chloride 106 Carbon Dioxide 27 Anion Gap 11 L BUN 8 L Creatinine 0.63 Estim Creat Clear Calc 177.9 Estimated GFR > 60 Fasting Glucose 116 H Calcium 9.3 Imaging Radiology Impressions: ITS Impressions Head CT 07/12/23 18:25 IMPRESSION: No acute intracranial pathology. Abdomen Ultrasound 07/13/23 11:58 IMPRESSION: Normal gallbladder ultrasound. KUB X-Ray 07/15/23 11:25 IMPRESSION: Nonspecific bowel gas pattern. Retained stool. Chest X-Ray 07/17/23 02:10 IMPRESSION: No acute pneumonic process. KUB X-Ray 07/17/23 09:50 IMPRESSION: Unremarkable examination. Head CT 07/19/23 11:16 IMPRESSION: No acute intracranial abnormality. Mental Status Exam Mental Status Exam Narrative: Appearance: wearing hospital gown, fair hygiene, in NAD. Behavior: calmer Speech: clear, less delayed in response,more spontaneous TP: some thought blocking TC: wanting to go home, feeling better VH/AH: internally preoccupied- reports seeing airplane as we were talking Delusions: paranoid delusions, not fully forthcoming with extend of delusion Insight/judgment: improving x 2. Memory/cog: alert, oriented to place, somewhat confused about situation Medications Medications Current Medications Acetaminophen (Acetaminophen 325 Mg Tablet) 650 mg PO Q4H PRN PRN Reason: Pain, Moderate(Pain Scale 4-6) Last Admin: 07/16/23 20:37 Dose: 650 mg Acetaminophen (Acetaminophen Supp 325 Mg Supp.Rect) 325 mg [place] Q4H PRN PRN Reason: Fever Last Admin: 07/18/23 13:35 Dose: 325 mg Bisacodyl (Bisacodyl 5 Mg Tablet.Dr) 5 mg PO DAILY [facility] Last Admin: 07/21/23 08:35 Dose: Not Given Clozapine (Clozapine 25 Mg Tablet) 25 mg PO BEDTIME [facility] Last Admin: 07/20/23 20:15 Dose: 25 mg Enoxaparin Sodium (Enoxaparin Sodium 40 Mg/0.4 Ml Syringe) 40 mg SUBCUT Q24H [facility] Last Admin: 07/20/23 15:25 Dose: 40 mg Hydroxyzine HCl (Hydroxyzine Hcl 25 Mg Tablet) 25 mg PO Q6H PRN PRN Reason: Anxiety Last Admin: 07/16/23 07:44 Dose: 25 mg Sodium Chloride (Ns) 1,000 mls @ 80 mls/hr IVCONT .[id number] [facility] Last Admin: 07/21/23 08:35 Dose: 80 mls/hr Lidocaine (Lidocaine 4 % Patch Adh..Patch) 1 patch TRANSDERMA DAILY [facility]; Protocol Last Admin: 07/21/23 08:43 Dose: Not Given Lorazepam (Lorazepam 2 Mg/Ml Vial) 1 mg IVPUSH Q8H [facility] Last Admin: 07/21/23 10:26 Dose: 1 mg Lorazepam (Lorazepam 2 Mg/Ml Vial) 1 mg IVPUSH Q4H PRN PRN Reason: anxiety/restlessness Polyethylene Glycol (Polyethylene Glycol 3350 17 Gm Powd.Pack) 17 gm PO DAILY [facility] Last Admin: 07/21/23 08:35 Dose: 17 gm Allergies Allergies Allergy/AdvReac Type Severity Reaction Status Date / Time No Known Allergies Allergy Mild NOT Unverified 04/10/20 16:57 APPLICABLE Assessment & Plan Assessment & Plan (1) Chronic schizophrenia with acute exacerbation: Status: Acute Code(s): F20.9 - Schizophrenia, unspecified Plan Mr. Sweeney is a 37 year-old male with hx of schizophrenia stable for several years, brought to [facility] [place] ED due to increase agitation due to exacerbation of paranoid delusions. Had been presenting as mute, more talkative today, still underlying paranoid and psychosis, but he is much calmer and in behavioral control. Ativan has been decreased to 1mg IV Q8h. He was started on clozaril 25mg po qhs. PLAN 1. Inpatient psychiatric admission further stabilization, medication management and safety. 2. Increase clozaril to 50mg po qhs Total time managing care of this patient today ____ minutes.
[2023-07-21] MEDS: Enoxaparin Sodium 40 MG/0.4 ML SYRINGE SUBCUT (17:22)
[2023-07-21 20:00] VITALS: BP 116/65; PULSE 78; RESP 18; TEMP 37.1; O2SAT 98
[2023-07-21] MEDS: cloZAPine 25 MG TABLET PO (20:55)
[2023-07-22] VITALS (7 sets, daily range): BP systolic 102–124; BP diastolic 60–77; PULSE 70–97; RESP 16–20; TEMP 36.1–36.8; O2SAT 95–97
[2023-07-22] MEDS: LORazepam 2 MG/ML VIAL 1 MG IVPUSH ×3 (02:33→18:34)
[2023-07-22] MEDS: polyethylene glycoL 3350 17 GM POWD.PACK PO (09:47)
--- NOTE | 2023-07-22 11:41 | PM.DS ---
DS: Providers Provider Date of Service: 07/26/23 Date of admission: 07/13/23 08:32 Primary care physician: Monse Maxwell MD Consults: 07/12/23 19:32 Consult to Care Team Stat Comment: Reason for consultation: psychotic 07/13/23 08:42 Consult to Psychiatry Routine Consulting Provider: Psych [facility]ing Reason for consultation: Acute Psychosis Has provider been notified: No 07/17/23 00:46 Consult to Psychiatry Stat Consulting Provider: Psych Covering Reason for consultation: ?NMS 07/18/23 11:07 Consult to Neurology Routine Consulting Provider: [facility] Reason for consultation: ams 07/21/23 17:10 Consult to Care Team Routine Comment: Reason for consultation: medically cleared DS: Diagnosis Discharge Diagnosis (1) Chronic schizophrenia with acute exacerbation: Status: Acute (2) Encephalopathy: Status: Acute (3) Acute kidney injury: Status: Acute (4) SIRS (systemic inflammatory response syndrome): Status: Acute (5) Rhabdomyolysis: Status: Acute DS: Summary Hospital Course Hospital Course: The patient had prolonged hospital stay. for full details please return to EMR. Admission note HPI by ICU provider dr Muller Patient is a 37 Y M, with schizophrenia, bipolar disease, p/w few-day history of psychosis, combative; in ED received midazolam, haloperidol, diphenhydramine, ketamine, and ziprasidone, without improvement of agitation, started on dexmedetomidine gtt; work-up revealing of rhabdomyolysis w/o evidence of renal insufficiency. Hospital course The patient was admitted for presumed schizoaffective with acute psychosis complicated by SIRS & agitation, ofe due to rhabdomyolosis. Kidney function resolved with IV fluids as rhabdomyolysis resolved. Evaluated for SIRS on presentation. blood and urine cultures remaned negative as he was kept on empirical antibiotics which were later discontinued with no recurrence of fever. In ICU he was agitated and placed on Precedix drip with fair response. his psychiatric medications were held and he was started on IV Ativan for possible catatonia per neurologist. His mental status improved back close to baseline but the patient continued to report some visual hallucinations\delerium. seen by psychiatry team who restarted Clozapine 25 mg and increased it to 50mg bedtime with good tolerance. Ativan changed to PO and weaned down to 1mg BID. Treatment will be continued at the psych [facility]. Time Attestation Discharge coordination time: Greater than 30 minutes Quality: Safe Use of Opioids Does Pt have an Active Cancer Diagnosis on the Problem List?: No Quality: Stroke Does the patient have a stroke diagnosis?: No Physical Exam Vital Signs: Vital Signs: Last Vital Signs Temp 98.3 F 07/22/23 08:00 Pulse 78 07/22/23 08:00 Resp 18 07/22/23 08:00 BP 122/77 07/22/23 08:00 Pulse Ox 96 07/22/23 08:00 O2 Del Method Room Air 07/22/23 08:00 O2 Flow Rate 2 07/12/23 11:28 BMI result Body Mass Index 26.6 Const: Other: Constitutional : Awake, interactive, not in distress Neck : Normal inspection, Supple Cardiovascular : RRR, no JVP, no lower extremity edema Respiratory : good bilateral air entry, no crackles, wheezes or rhonchi Gastrointestinal: soft, lax, Normal bowel sounds, Non tender Skin : Warm, Dry Neurological : Alert & oriented to self, No focal deficit Psych: Poor insight, answering questions with full sentences DS: Data Imaging Chest x-ray: Radiologist's impression: ITS Impressions Head CT 07/12/23 18:25 IMPRESSION: No acute intracranial pathology. Abdomen Ultrasound 07/13/23 11:58 IMPRESSION: Normal gallbladder ultrasound. KUB X-Ray 07/15/23 11:25 IMPRESSION: Nonspecific bowel gas pattern. Retained stool. Chest X-Ray 07/17/23 02:10 IMPRESSION: No acute pneumonic process. KUB X-Ray 07/17/23 09:50 IMPRESSION: Unremarkable examination. Head CT 07/19/23 11:16 IMPRESSION: No acute intracranial abnormality. Discharge Plan Discharge Patient Disposition: er Psychiatric Hosp Referrals: Monse Maxwell MD [Primary Care Provider] - 1 Week Discharge Medications: Continued clozapine 25 mg Tablet 50 mg PO QPM Discontinued haloperidol 5 mg tablet 5 mg PO BEDTIME Discharge Orders: Discharge Order (Routine); Ordered 07/26/23 Ordered By: Jose Richards Activity on Discharge: As tolerated Stand Alone Forms: Patient Portal Discharge page
--- NOTE | 2023-07-22 15:00 | MHC.CM.PN ---
EMR reviewed and per MD rounds, pt will be transferring to inpatient psych unit today.
--- NOTE | 2023-07-22 15:40 | PM.PSYCN ---
History of Present Illness Date of Service: 07/22/2023 Chief Complaint: Rhabdomyolysis /psychosis Requesting physician: Jose Richards Discussed with referring provider: Yes Sources of Information: patient interviewed, chart reviewed and crisis/core team assessment reviewed HPI Narrative: Interim Hx: pt is more talkative, still some degree of though blocking, still reporting concern about [place] churches being burnt, although declines to elaborate and then states, is probably just a dream. No SI/HI. No agitation nor combative behaviors. His mother by his side and would like pt to go home but explained that underlying psychosis still present and he is on very low dose of antipsychotic and risk of rapid decompensation is high. Past Psychiatric History: OP: Dr. Jeremias Post Inpt: M5 2010 Diagnostics Vital Signs (24Hr): Vital Signs - 24 hr 07/21/23 20:00 07/22/23 00:00 07/22/23 02:59 Temperature 98.7 F 97.3 F 96.9 F Pulse Rate 78 97 70 Respiratory Rate 18 20 20 Blood Pressure 116/65 124/71 102/60 Pulse Oximetry 98 97 96 Oxygen Delivery Method Room Air Room Air Room Air 07/22/23 08:00 07/22/23 11:53 Temperature 98.3 F 98.1 F Pulse Rate 78 76 Respiratory Rate 18 18 Blood Pressure 122/77 118/72 Pulse Oximetry 96 95 Oxygen Delivery Method Room Air Room Air BMI result Body Mass Index 26.6 Labs 07/20/23 10:41 07/20/23 10:41 Imaging Radiology Impressions: ITS Impressions Head CT 07/12/23 18:25 IMPRESSION: No acute intracranial pathology. Abdomen Ultrasound 07/13/23 11:58 IMPRESSION: Normal gallbladder ultrasound. KUB X-Ray 07/15/23 11:25 IMPRESSION: Nonspecific bowel gas pattern. Retained stool. Chest X-Ray 07/17/23 02:10 IMPRESSION: No acute pneumonic process. KUB X-Ray 07/17/23 09:50 IMPRESSION: Unremarkable examination. Head CT 07/19/23 11:16 IMPRESSION: No acute intracranial abnormality. Mental Status Exam Mental Status Exam Narrative: Appearance: wearing hospital gown, fair hygiene, in NAD. Behavior: calmer Speech: clear, less delayed in response,more spontaneous TP: some thought blocking TC: wanting to go home, feeling better VH/AH: internally preoccupied- reports seeing airplane as we were talking Delusions: paranoid delusions, not fully forthcoming with extend of delusion Insight/judgment: improving x 2. Memory/cog: alert, oriented to place, somewhat confused about situation Medications Medications Current Medications Acetaminophen (Acetaminophen 325 Mg Tablet) 650 mg PO Q4H PRN PRN Reason: Pain, Moderate(Pain Scale 4-6) Last Admin: 07/16/23 20:37 Dose: 650 mg Acetaminophen (Acetaminophen Supp 325 Mg Supp.Rect) 325 mg [place] Q4H PRN PRN Reason: Fever Last Admin: 07/18/23 13:35 Dose: 325 mg Bisacodyl (Bisacodyl 5 Mg Tablet.Dr) 5 mg PO DAILY [facility] Last Admin: 07/22/23 09:43 Dose: Not Given Clozapine (Clozapine 25 Mg Tablet) 50 mg PO BEDTIME [facility] Enoxaparin Sodium (Enoxaparin Sodium 40 Mg/0.4 Ml Syringe) 40 mg SUBCUT Q24H [facility] Last Admin: 07/21/23 17:22 Dose: 40 mg Hydroxyzine HCl (Hydroxyzine Hcl 25 Mg Tablet) 25 mg PO Q6H PRN PRN Reason: Anxiety Last Admin: 07/16/23 07:44 Dose: 25 mg Lidocaine (Lidocaine 4 % Patch Adh..Patch) 1 patch TRANSDERMA DAILY [facility]; Protocol Last Admin: 07/22/23 09:43 Dose: Not Given Lorazepam (Lorazepam 2 Mg/Ml Vial) 1 mg IVPUSH Q8H [facility] Last Admin: 07/22/23 10:23 Dose: 1 mg Polyethylene Glycol (Polyethylene Glycol 3350 17 Gm Powd.Pack) 17 gm PO DAILY [facility] Last Admin: 07/22/23 09:47 Dose: 17 gm Allergies Allergies Allergy/AdvReac Type Severity Reaction Status Date / Time No Known Allergies Allergy Mild NOT Unverified 04/10/20 16:57 APPLICABLE Assessment & Plan Assessment & Plan (1) SIRS (systemic inflammatory response syndrome): Status: Acute Code(s): R65.10 - Systemic inflammatory response syndrome (SIRS) of non-infectious origin without acute organ dysfunction (2) Chronic schizophrenia with acute exacerbation: Status: Acute Code(s): F20.9 - Schizophrenia, unspecified Plan Mr. Sweeney is a 37 year-old male with hx of schizophrenia stable for several years, brought to [facility] ED due to increase agitation due to exacerbation of paranoid delusions. Had been presenting as mute, more talkative today, still underlying paranoid and psychosis, but he is much calmer and in behavioral control. Ativan has been decreased to 1mg IV Q8h. He was started on clozaril 25mg po qhs. PLAN 1. Inpatient psychiatric admission further stabilization, medication management and safety. 2. Increase clozaril to 50mg po qhs Total time managing care of this patient today ____ minutes.
[2023-07-22] MEDS: Enoxaparin Sodium 40 MG/0.4 ML SYRINGE SUBCUT (16:04)
[2023-07-22] MEDS: cloZAPine 25 MG TABLET 50 MG PO (22:06)
[2023-07-23] MEDS: LORazepam 2 MG/ML VIAL 1 MG IVPUSH ×3 (02:38→18:18)
[2023-07-23 03:32] VITALS: BP 104/65; PULSE 75; RESP 20; TEMP 36.4; O2SAT 98
[2023-07-23 08:00] VITALS: BP 121/69; PULSE 81; RESP 20; TEMP 36.9; O2SAT 96
[2023-07-23] MEDS: polyethylene glycoL 3350 17 GM POWD.PACK PO (09:09)
--- NOTE | 2023-07-23 11:07 | HO.PM.IMPN ---
Subjective Subjective Date of Service: 07/23/23 Interval History: Seen and evaluated More alert and interactive, no aggression or agitation pending placement at psychiatry unit has no complaints Review of Systems Review of Systems: Yes all other systems are reviewed and are negative Physical Exam Vital Signs: Vital Signs: Last Vital Signs Temp 98.4 F 07/23/23 08:00 Pulse 81 07/23/23 08:00 Resp 20 07/23/23 08:00 BP 121/69 07/23/23 08:00 Pulse Ox 96 07/23/23 08:00 O2 Del Method Room Air 07/23/23 08:00 O2 Flow Rate 2 07/12/23 11:28 BMI result Body Mass Index 26.6 Const: Other: Constitutional : Awake, interactive, not in distress Neck : Normal inspection, Supple Cardiovascular : RRR, no JVP, no lower extremity edema Respiratory : good bilateral air entry, no crackles, wheezes or rhonchi Gastrointestinal: soft, lax, Normal bowel sounds, Non tender Skin : Warm, Dry Neurological : Alert & oriented to self, No focal deficit Psych: Poor insight, answering questions with full sentences Objective Data Active Medications Acetaminophen (Acetaminophen 325 Mg Tablet) 650 mg PO Q4H PRN PRN Reason: Pain, Moderate(Pain Scale 4-6) Last Admin: 07/16/23 20:37 Dose: 650 mg Documented By: EMERALD Acetaminophen (Acetaminophen Supp 325 Mg Supp.Rect) 325 mg [place] Q4H PRN PRN Reason: Fever Last Admin: 07/18/23 13:35 Dose: 325 mg Documented By: RONALD Bisacodyl (Bisacodyl 5 Mg Tablet.Dr) 5 mg PO DAILY [facility] Last Admin: 07/23/23 09:11 Dose: Not Given Documented By: BARB Non-Admin Reason: Patient Refused Clozapine (Clozapine 25 Mg Tablet) 50 mg PO BEDTIME [facility] Last Admin: 07/22/23 22:06 Dose: 50 mg Documented By: MARY Enoxaparin Sodium (Enoxaparin Sodium 40 Mg/0.4 Ml Syringe) 40 mg SUBCUT Q24H [facility] Last Admin: 07/22/23 16:04 Dose: 40 mg Documented By: BARB Hydroxyzine HCl (Hydroxyzine Hcl 25 Mg Tablet) 25 mg PO Q6H PRN PRN Reason: Anxiety Last Admin: 07/16/23 07:44 Dose: 25 mg Documented By: ZAKIA Lidocaine (Lidocaine 4 % Patch Adh..Patch) 1 patch TRANSDERMA DAILY [facility]; Protocol Last Admin: 07/23/23 09:11 Dose: Not Given Documented By: BARB Non-Admin Reason: Patient Refused Lorazepam (Lorazepam 2 Mg/Ml Vial) 1 mg IVPUSH Q8H [facility] Last Admin: 07/23/23 10:59 Dose: 1 mg Documented By: BARB Polyethylene Glycol (Polyethylene Glycol 3350 17 Gm Powd.Pack) 17 gm PO DAILY [facility] Last Admin: 07/23/23 09:09 Dose: 17 gm Documented By: BARB Labs 07/20/23 10:41 07/20/23 10:41 Assessment and Plan (1) Chronic schizophrenia with acute exacerbation: Status: Acute Plan 37M PMH schizoaffective presented with acute psychosis and combative behaviour, admitted to ICU for precedex, complicated by ofe and rhabdo schizoaffective with acute psychosis complicated by SIRS & agitation, ofe due to rhabdomyolosis ofe/rhabdo resolved SIRS resolved cultures negative - dc antibiotics mental status improving continue ativan prn recurrent reorientation Neurology input appreciated, normal EEG Psych increased Clozapine to 50 mg waiting a bed in psych unit consitpation had successful bm Laxatives dvt prophylaxis - lovenox full code reason for continued hospitalization:monitoring closely for agitation pending safe discharge plan to psychiatry unit Quality Stroke Does the patient have a stroke diagnosis?: No VTE Prior VTE?: No VTE Risk Level:: Medical - moderate - high VTE Device Contraindication: N/A - Device Ordered VTE Drug Contraindication: N/A - Med Ordered
[2023-07-23 12:00] VITALS: BP 117/77; PULSE 94; RESP 20; TEMP 37.1; O2SAT 96
[2023-07-23] MEDS: Enoxaparin Sodium 40 MG/0.4 ML SYRINGE SUBCUT (15:32)
[2023-07-23 16:00] VITALS: BP 113/80; PULSE 77; RESP 20; TEMP 37.1; O2SAT 96
--- NOTE | 2023-07-23 16:24 | MHC.CARE ---
Patient seen daily by the CARE Team and psychiatry; determined to need inpatient psychiatric admission and is receiving treatment in place. No beds available at this time. provider aware.
[2023-07-23 19:20] VITALS: BP 119/75; PULSE 80; RESP 18; TEMP 36.6; O2SAT 97
[2023-07-23] MEDS: cloZAPine 25 MG TABLET 50 MG PO (20:37)
[2023-07-24] VITALS: BP 120/68; PULSE 68; RESP 18; TEMP 36.5; O2SAT 98
[2023-07-24 03:26] VITALS: BP 118/78; PULSE 75; RESP 18; TEMP 36.9; O2SAT 96
[2023-07-24] MEDS: LORazepam 2 MG/ML VIAL 1 MG IVPUSH (03:26)
[2023-07-24 08:00] VITALS: BP 118/71; PULSE 82; RESP 20; TEMP 36.9; O2SAT 95
[2023-07-24] MEDS: polyethylene glycoL 3350 17 GM POWD.PACK PO (09:11)
[2023-07-24] MEDS: LORazepam 1 MG TABLET PO ×2 (10:37→17:33)
--- NOTE | 2023-07-24 11:11 | P.PNIM_ITS ---
Subjective Subjective Date of Service: 07/24/23 Interval History: Seen and evaluated More alert and interactive, no aggression or agitation pending placement at psychiatry unit has no complaints Review of Systems Review of Systems: Yes all other systems are reviewed and are negative Physical Exam 2 Vital Signs: Vital Signs: Last Vital Signs Temp 98.4 F 07/24/23 08:00 Pulse 82 07/24/23 08:00 Resp 20 07/24/23 08:00 BP 118/71 07/24/23 08:00 Pulse Ox 95 07/24/23 08:00 O2 Del Method Room Air 07/24/23 08:00 O2 Flow Rate 2 07/12/23 11:28 BMI result Body Mass Index 26.6 Const: Other: Constitutional : Awake, interactive, not in distress Neck : Normal inspection, Supple Cardiovascular : RRR, no JVP, no lower extremity edema Respiratory : good bilateral air entry, no crackles, wheezes or rhonchi Gastrointestinal: soft, lax, Normal bowel sounds, Non tender Skin : Warm, Dry Neurological : Alert & oriented to self, No focal deficit Psych: Poor insight, answering questions with full sentences Objective Data Active Medications Acetaminophen (Acetaminophen 325 Mg Tablet) 650 mg PO Q4H PRN PRN Reason: Pain, Moderate(Pain Scale 4-6) Last Admin: 07/16/23 20:37 Dose: 650 mg Documented By: EMERALD Acetaminophen (Acetaminophen Supp 325 Mg Supp.Rect) 325 mg [place] Q4H PRN PRN Reason: Fever Last Admin: 07/18/23 13:35 Dose: 325 mg Documented By: RONALD Bisacodyl (Bisacodyl 5 Mg Tablet.Dr) 5 mg PO DAILY [facility] Last Admin: 07/24/23 09:02 Dose: Not Given Documented By: BARB Non-Admin Reason: Patient Refused Clozapine (Clozapine 25 Mg Tablet) 50 mg PO BEDTIME [facility] Last Admin: 07/23/23 20:37 Dose: 50 mg Documented By: MARY Enoxaparin Sodium (Enoxaparin Sodium 40 Mg/0.4 Ml Syringe) 40 mg SUBCUT Q24H [facility] Last Admin: 07/23/23 15:32 Dose: 40 mg Documented By: BARB Hydroxyzine HCl (Hydroxyzine Hcl 25 Mg Tablet) 25 mg PO Q6H PRN PRN Reason: Anxiety Last Admin: 07/16/23 07:44 Dose: 25 mg Documented By: ZAKIA Lidocaine (Lidocaine 4 % Patch Adh..Patch) 1 patch TRANSDERMA DAILY [facility]; Protocol Last Admin: 07/24/23 09:02 Dose: Not Given Documented By: BARB Non-Admin Reason: Patient Refused Lorazepam (Lorazepam 1 Mg Tablet) 1 mg PO Q8H [facility] Last Admin: 07/24/23 10:37 Dose: 1 mg Documented By: BARB Polyethylene Glycol (Polyethylene Glycol 3350 17 Gm Powd.Pack) 17 gm PO DAILY [facility] Last Admin: 07/24/23 09:11 Dose: 17 gm Documented By: BARB Labs 07/20/23 10:41 07/20/23 10:41 Assessment and Plan (1) Chronic schizophrenia with acute exacerbation: Status: Acute Plan 37M PMH schizoaffective presented with acute psychosis and combative behaviour, admitted to ICU for precedex, complicated by ofe and rhabdo schizoaffective with acute psychosis complicated by SIRS & agitation, ofe due to rhabdomyolosis ofe/rhabdo resolved SIRS resolved, cultures negative - dc antibiotics mental status improved Change Ativan to 1mg PO TID Neurology input appreciated, normal EEG Psych increased Clozapine to 50 mg waiting a bed in psych unit recurrent reorientation consitpation had successful bm Laxatives dvt prophylaxis - lovenox full code reason for continued hospitalization:monitoring closely for agitation pending safe discharge plan to psychiatry unit Quality Stroke Does the patient have a stroke diagnosis?: No VTE Prior VTE?: No VTE Risk Level:: Medical - moderate - high VTE Device Contraindication: N/A - Device Ordered VTE Drug Contraindication: N/A - Med Ordered
[2023-07-24 12:00] VITALS: BP 114/74; PULSE 87; RESP 20; TEMP 37.1; O2SAT 97
[2023-07-24] MEDS: Enoxaparin Sodium 40 MG/0.4 ML SYRINGE SUBCUT (15:38)
[2023-07-24 16:00] VITALS: BP 109/76; PULSE 98; RESP 14; TEMP 36.8; O2SAT 98
[2023-07-24 19:55] VITALS: BP 124/72; PULSE 75; RESP 14; TEMP 37.2; O2SAT 98
[2023-07-24] MEDS: cloZAPine 25 MG TABLET 50 MG PO (20:29)
[2023-07-25] VITALS: BP 121/68; PULSE 81; RESP 18; TEMP 37.1; O2SAT 98
[2023-07-25] MEDS: LORazepam 1 MG TABLET PO ×3 (02:06→17:52)
[2023-07-25 07:23] LABS: Neut%MD 54.7 %; Neutrophils Absolute Auto 3.8 x10*3/uL (2.0-8.3); WBCANC 6.9 X10*3/uL
[2023-07-25 07:48] VITALS: BP 116/75; PULSE 80; RESP 18; TEMP 36.9; O2SAT 98
[2023-07-25] MEDS: polyethylene glycoL 3350 17 GM POWD.PACK PO (08:47)
--- NOTE | 2023-07-25 10:40 | P.PNIM_ITS ---
Subjective Subjective Date of Service: 07/25/23 Interval History: Seen and evaluated More alert and interactive, no aggression or agitation pending placement at psychiatry unit has no complaints Review of Systems Review of Systems: Yes all other systems are reviewed and are negative Physical Exam 2 Vital Signs: Vital Signs: Last Vital Signs Temp 98.5 F 07/25/23 07:48 Pulse 80 07/25/23 07:48 Resp 18 07/25/23 07:48 BP 116/75 07/25/23 07:48 Pulse Ox 98 07/25/23 07:48 O2 Del Method Room Air 07/25/23 07:48 O2 Flow Rate 2 07/12/23 11:28 BMI result Body Mass Index 26.6 Const: Other: Constitutional : Awake, interactive, not in distress Neck : Normal inspection, Supple Cardiovascular : RRR, no JVP, no lower extremity edema Respiratory : good bilateral air entry, no crackles, wheezes or rhonchi Gastrointestinal: soft, lax, Normal bowel sounds, Non tender Skin : Warm, Dry Neurological : Alert & oriented to self, No focal deficit Psych: Poor insight, answering questions with full sentences Objective Data Active Medications Acetaminophen (Acetaminophen 325 Mg Tablet) 650 mg PO Q4H PRN PRN Reason: Pain, Moderate(Pain Scale 4-6) Last Admin: 07/16/23 20:37 Dose: 650 mg Documented By: EMERALD Acetaminophen (Acetaminophen Supp 325 Mg Supp.Rect) 325 mg [place] Q4H PRN PRN Reason: Fever Last Admin: 07/18/23 13:35 Dose: 325 mg Documented By: RONALD Bisacodyl (Bisacodyl 5 Mg Tablet.) 5 mg PO DAILY [facility] Last Admin: 07/25/23 08:47 Dose: Not Given Documented By: BARB Non-Admin Reason: Patient Refused Clozapine (Clozapine 25 Mg Tablet) 50 mg PO BEDTIME [facility] Last Admin: 07/24/23 20:29 Dose: 50 mg Documented By: MARY Enoxaparin Sodium (Enoxaparin Sodium 40 Mg/0.4 Ml Syringe) 40 mg SUBCUT Q24H [facility] Last Admin: 07/24/23 15:38 Dose: 40 mg Documented By: BARB Hydroxyzine HCl (Hydroxyzine Hcl 25 Mg Tablet) 25 mg PO Q6H PRN PRN Reason: Anxiety Last Admin: 07/16/23 07:44 Dose: 25 mg Documented By: ZAKIA Lidocaine (Lidocaine 4 % Patch Adh..Patch) 1 patch TRANSDERMA DAILY [facility]; Protocol Last Admin: 07/25/23 08:47 Dose: Not Given Documented By: BARB Non-Admin Reason: Patient Refused Lorazepam (Lorazepam 1 Mg Tablet) 1 mg PO Q8H [facility] Last Admin: 07/25/23 08:47 Dose: 1 mg Documented By: BARB Polyethylene Glycol (Polyethylene Glycol 3350 17 Gm Powd.Pack) 17 gm PO DAILY [facility] Last Admin: 07/25/23 08:47 Dose: 17 gm Documented By: BARB Labs 07/20/23 10:41 07/20/23 10:41 Labs: Laboratory Results - last 24 hr 07/25/23 07:12 Absolute Neuts (auto) 3.8 Assessment and Plan (1) Chronic schizophrenia with acute exacerbation: Status: Acute Plan 37M PMH schizoaffective presented with acute psychosis and combative behaviour, admitted to ICU for precedex, complicated by ofe and rhabdo schizoaffective with acute psychosis complicated by SIRS & agitation, ofe due to rhabdomyolosis ofe/rhabdo and SIRS resolved, cultures negative - dcd antibiotics mental status improved Change Ativan to 1mg PO TID, tolerated well Neurology input appreciated, normal EEG Psych increased Clozapine to 50 mg Patient now waiting for a bed in psych unit to finish his treatment recurrent reorientation consitpation had successful bm Laxatives dvt prophylaxis - lovenox full code reason for continued hospitalization:monitoring closely for agitation pending safe discharge plan to psychiatry unit Quality Stroke Does the patient have a stroke diagnosis?: No VTE Prior VTE?: No VTE Risk Level:: Medical - moderate - high VTE Device Contraindication: N/A - Device Ordered VTE Drug Contraindication: N/A - Med Ordered
--- NOTE | 2023-07-25 11:17 | MHC.CARE ---
RAD team conducted a statewide bedsearch, unfortunately no beds are available statewide. RAD Team will continue bedsearch tomorrow (07/26) if deemed necessary
[2023-07-25 11:43] VITALS: BP 117/72; PULSE 78; RESP 18; TEMP 36.8; O2SAT 98
[2023-07-25] MEDS: Enoxaparin Sodium 40 MG/0.4 ML SYRINGE SUBCUT (15:08)
[2023-07-25 15:22] VITALS: BP 116/72; PULSE 82; RESP 18; TEMP 36.9; O2SAT 98
[2023-07-25 20:00] VITALS: BP 119/78; PULSE 74; RESP 20; TEMP 36.8; O2SAT 97
[2023-07-25] MEDS: cloZAPine 25 MG TABLET 50 MG PO (20:22)
[2023-07-26] MEDS: LORazepam 1 MG TABLET PO ×2 (02:05→09:40)
[2023-07-26 02:08] VITALS: BP 102/78; PULSE 81; RESP 20; TEMP 36.6; O2SAT 97
[2023-07-26 07:31] VITALS: BP 110/70; PULSE 87; RESP 18; TEMP 36.3; O2SAT 96
--- NOTE | 2023-07-26 09:20 | HO.PM.IMPN ---
Subjective Subjective Date of Service: 07/26/23 Interval History: Seen and evaluated More alert and interactive, no aggression or agitation pending placement at psychiatry unit has no complaints Review of Systems Review of Systems: Yes all other systems are reviewed and are negative Physical Exam Vital Signs: Vital Signs: Last Vital Signs Temp 97.4 F 07/26/23 07:31 Pulse 87 07/26/23 07:31 Resp 18 07/26/23 07:31 BP 110/70 07/26/23 07:31 Pulse Ox 96 07/26/23 07:31 O2 Del Method Room Air 07/26/23 07:31 O2 Flow Rate 2 07/12/23 11:28 BMI result Body Mass Index 26.6 Const: Other: Constitutional : Awake, interactive, not in distress Neck : Normal inspection, Supple Cardiovascular : RRR, no JVP, no lower extremity edema Respiratory : good bilateral air entry, no crackles, wheezes or rhonchi Gastrointestinal: soft, lax, Normal bowel sounds, Non tender Skin : Warm, Dry Neurological : Alert & oriented to self, No focal deficit Psych: Poor insight, answering questions with full sentences Objective Data Active Medications Acetaminophen (Acetaminophen 325 Mg Tablet) 650 mg PO Q4H PRN PRN Reason: Pain, Moderate(Pain Scale 4-6) Last Admin: 07/16/23 20:37 Dose: 650 mg Documented By: EMERALD Acetaminophen (Acetaminophen Supp 325 Mg Supp.Rect) 325 mg [place] Q4H PRN PRN Reason: Fever Last Admin: 07/18/23 13:35 Dose: 325 mg Documented By: RONALD Bisacodyl (Bisacodyl 5 Mg Tablet.Dr) 5 mg PO DAILY [facility] Last Admin: 07/26/23 09:11 Dose: Not Given Documented By: BARB Non-Admin Reason: Patient Refused Clozapine (Clozapine 25 Mg Tablet) 50 mg PO BEDTIME [facility] Last Admin: 07/25/23 20:22 Dose: 50 mg Documented By: CLIFFORD Enoxaparin Sodium (Enoxaparin Sodium 40 Mg/0.4 Ml Syringe) 40 mg SUBCUT Q24H [facility] Last Admin: 07/25/23 15:08 Dose: 40 mg Documented By: BARB Hydroxyzine HCl (Hydroxyzine Hcl 25 Mg Tablet) 25 mg PO Q6H PRN PRN Reason: Anxiety Last Admin: 07/16/23 07:44 Dose: 25 mg Documented By: ZAKIA Lidocaine (Lidocaine 4 % Patch Adh..Patch) 1 patch TRANSDERMA DAILY [facility]; Protocol Last Admin: 07/26/23 09:11 Dose: Not Given Documented By: BARB Non-Admin Reason: Patient Refused Lorazepam (Lorazepam 1 Mg Tablet) 1 mg PO Q8H [facility] Last Admin: 07/26/23 02:05 Dose: 1 mg Documented By: CLIFFORD Polyethylene Glycol (Polyethylene Glycol 3350 17 Gm Powd.Pack) 17 gm PO DAILY [facility] Last Admin: 07/25/23 08:47 Dose: 17 gm Documented By: BARB Labs 07/20/23 10:41 07/20/23 10:41 Assessment and Plan (1) Encephalopathy: Status: Acute (2) Chronic schizophrenia with acute exacerbation: Status: Acute Plan 37M PMH schizoaffective presented with acute psychosis and combative behaviour, admitted to ICU for precedex, complicated by ofe and rhabdo schizoaffective with acute psychosis complicated by SIRS & agitation, ofe due to rhabdomyolosis ofe/rhabdo and SIRS resolved, cultures negative - dcd antibiotics mental status improved Change Ativan to 1mg PO TID, tolerated well, to wean down to bid Neurology input appreciated, normal EEG Psych increased Clozapine to 50 mg Patient now waiting for a bed in psych unit to finish his treatment recurrent reorientation consitpation had successful bm Laxatives dvt prophylaxis - lovenox full code reason for continued hospitalization:monitoring closely for agitation pending safe discharge plan to psychiatry unit Quality Stroke Does the patient have a stroke diagnosis?: No VTE Prior VTE?: No VTE Risk Level:: Medical - moderate - high VTE Device Contraindication: N/A - Device Ordered VTE Drug Contraindication: N/A - Med Ordered
[2023-07-26] MEDS: polyethylene glycoL 3350 17 GM POWD.PACK PO (09:39)
[2023-07-26 10:07] LABS: COVID-19 Test Negative (Negative); IDNOW Serial# BCCEAD1C
[2023-07-26 11:02] VITALS: BP 119/75; PULSE 97; RESP 18; TEMP 36.1; O2SAT 98
--- NOTE | 2023-07-26 11:21 | MHC.CM.PN ---
EMR reviewed and per MD rounds, pt is transferring to the inpatient psych unit today.
== END 2023-07-26 14:25 | DRG 557 ==
LOC: HO.ED 07-13 08:43 → HO.EDOVER 07-13 08:52 → HO.ICU 07-13 10:08 → HO.IMC 07-15 19:45
PROVIDERS: Internal Medicine; Physician Assistant; Social Worker; Student in an Organized Health Care Education/Training Program; Admitting Provider Internal Medicine Critical Care Medicine; Emergency Provider Emergency Medicine Emergency Medical Services; PCP Student in an Organized Health Care Education/Training Program; Visit Provider Student in an Organized Health Care Education/Training Program
DX: M62.82 Rhabdomyolysis (principal); G92.9 Unspecified toxic encephalopathy; R65.10 Systemic inflammatory response syndrome (SIRS) of non-infectious origin without acute organ dysfunction; F20.9 Schizophrenia, unspecified; I10 Essential (primary) hypertension; K59.00 Constipation, unspecified; Z20.822 Contact with and (suspected) exposure to COVID-19; Z78.1 Physical restraint status; Z91.148 Patient's other noncompliance with medication regimen for other reason; Z79.899 Other long term (current) drug therapy
CPT/HCPCS: 36415; 36600; 70450; 71045; 74018; 76705; 80048; 80053; 80076; 80143; 80159; 80179; 80202; 80307; 81001; 81003; 82550; 82803; 82947; 83605; 83690; 83735; 85025; 85027; 85048; 85610; 85730; 87040; 87635; 92950; 93005; 95816; 99285; C9113; J0131; J0515; J0692; J1200; J1630; J1650; J2060; J2250; J2359; J3230; J3370; J3371; J3486; J7120; S9485

== ENCOUNTER → 2023-07-12 09:47 | Outpatient (BNV) | payer OTHER, SELFPAY | PROVIDERS: Emergency Provider Emergency Medicine; Visit Provider Social Worker | DX: F20.9 Schizophrenia, unspecified (principal) | CPT/HCPCS: 99231; 99232; 99233; 99285 ==

== ENCOUNTER 2023-07-13 08:32 | Outpatient (BNV) | payer OTHER, SELFPAY | END 2023-07-14 08:00 | PROVIDERS: Admitting Provider Internal Medicine Critical Care Medicine; Emergency Provider Emergency Medicine Emergency Medical Services; Visit Provider Internal Medicine Cardiovascular Disease | DX: R00.0 Tachycardia, unspecified (principal) | CPT/HCPCS: 93010 ==

== ENCOUNTER 2023-07-13 08:32 | Outpatient (BNV) | payer OTHER, SELFPAY | END 2023-07-16 08:00 | PROVIDERS: Admitting Provider Internal Medicine Critical Care Medicine; Emergency Provider Emergency Medicine Emergency Medical Services; PCP Student in an Organized Health Care Education/Training Program; Visit Provider Internal Medicine Cardiovascular Disease | DX: R00.0 Tachycardia, unspecified (principal) | CPT/HCPCS: 93010 ==

== ENCOUNTER 2023-07-13 08:32 | Outpatient (BNV) | payer OTHER, SELFPAY | END 2023-07-13 09:20 | PROVIDERS: Admitting Provider Internal Medicine Critical Care Medicine; Emergency Provider Emergency Medicine Emergency Medical Services; Visit Provider Internal Medicine Cardiovascular Disease | DX: R00.0 Tachycardia, unspecified (principal) | CPT/HCPCS: 93010 ==

== ENCOUNTER → 2023-07-13 08:32 | Outpatient (BNV) | payer OTHER, SELFPAY | PROVIDERS: Admitting Provider Internal Medicine Critical Care Medicine; Emergency Provider Emergency Medicine Emergency Medical Services; Visit Provider Internal Medicine Critical Care Medicine | DX: M62.82 Rhabdomyolysis (principal); F20.1 Disorganized schizophrenia | CPT/HCPCS: 99291 ==

== ENCOUNTER → 2023-07-13 08:32 | Outpatient (BNV) | payer OTHER, SELFPAY | PROVIDERS: Admitting Provider Internal Medicine Critical Care Medicine; Emergency Provider Emergency Medicine Emergency Medical Services; PCP Student in an Organized Health Care Education/Training Program; Visit Provider Internal Medicine | DX: F20.9 Schizophrenia, unspecified (principal); G93.40 Encephalopathy, unspecified; N17.9 Acute kidney failure, unspecified; R65.10 Systemic inflammatory response syndrome (SIRS) of non-infectious origin without acute organ dysfunction; M62.82 Rhabdomyolysis | CPT/HCPCS: 99231; 99232; 99233; 99239 ==

== ENCOUNTER → 2023-07-13 08:32 | Outpatient (BNV) | payer OTHER, SELFPAY | PROVIDERS: Admitting Provider Internal Medicine Critical Care Medicine; Emergency Provider Emergency Medicine Emergency Medical Services; PCP Student in an Organized Health Care Education/Training Program; Visit Provider Psychiatry & Neurology Psychiatry | DX: F20.0 Paranoid schizophrenia (principal); M62.82 Rhabdomyolysis; G93.40 Encephalopathy, unspecified | CPT/HCPCS: 99232; 99233 ==

== ENCOUNTER 2023-07-26 09:50 | Inpatient (IN) | payer OTHER, SELFPAY ==
[2023-07-26 14:35] VITALS: BP 119/78; PULSE 88; RESP 16; TEMP 36.5; O2SAT 98
[2023-07-26 15:07] VITALS: BMI 24.1
[2023-07-26] MEDS: LORazepam 1 MG TABLET PO ×2 (16:33→21:03)
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
[2023-07-26] MEDS: cloZAPine 25 MG TABLET 75 MG PO (21:03)
[2023-07-26] MEDS: HaloperidoL 5 MG TABLET PO (21:03)
[2023-07-27 07:35] VITALS: BP 111/73; PULSE 86; RESP 16; TEMP 36.4; O2SAT 98
[2023-07-27] MEDS: polyethylene glycoL 3350 17 GM POWD.PACK PO (08:36)
[2023-07-27] MEDS: LORazepam 1 MG TABLET PO (08:37)
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
[2023-07-27 17:00] VITALS: BP 127/80; PULSE 91; RESP 20; TEMP 36; O2SAT 97
[2023-07-27] MEDS: Acetaminophen 325 MG TABLET 650 MG PO (17:04)
--- NOTE | 2023-07-27 17:59 | PC.NURSE ---
Devyn approached nurses desk and reported a sore throat at 1700. VSS, 96.8, 127/80, 91, 20, 97%. Pt has difficulty with assessment, only saying, it just started and walking away. TABLE GAMES SHIFT MANAGER notified and COVID test completed, results pending. Pt eating supper w/o difficulty. Will continue to monitor.
[2023-07-27 18:00] VITALS: BP 112/67; PULSE 85; TEMP 36.2; O2SAT 97
[2023-07-27] MEDS: HaloperidoL 5 MG TABLET PO (21:15)
[2023-07-28 08:06] VITALS: BP 117/74; PULSE 96; RESP 18; TEMP 36.2; O2SAT 98
[2023-07-28] MEDS: polyethylene glycoL 3350 17 GM POWD.PACK PO (08:18)
[2023-07-28 10:02] VITALS: BMI 23.8
--- NOTE | 2023-07-28 16:15 | HO.PSYCHPN ---
Subjective Subjective Date of Service: 07/28/23 Reason For Visit: psychosis Interim History: attempted to interview with SW. pt stated he did not wish to speak with us because his mother was supposed to bring hungarian food for him. he denied any problems and had no questions for MD. per staff, denying Sx. Mental Status Exam Mental Status Exam Narrative: Appearance: wearing street clothes, fair hygiene, in NAD. Behavior: calm, not cooperative Speech: clear, spontaneous. increased latency. TP: disorganized, tangential TC: declining interview affect: constricted, normo-intense, non-labile SI/SIBI: none expressed VH/AH: not expressed Insight/judgment: impaired Diagnostics Vital Signs (24Hr): Vital Signs - 24 hr 07/27/23 17:00 07/27/23 18:00 07/28/23 08:06 Temperature 96.8 F 97.2 F 97.2 F Pulse Rate 91 85 96 Respiratory Rate 20 18 Blood Pressure 127/80 112/67 117/74 Pulse Oximetry 97 97 98 Oxygen Delivery Method Room Air Room Air BMI result Body Mass Index 23.8 Labs Labs: Laboratory Results - last 48 hr 07/27/23 17:50 COVID-19 (JASON) Negative COVID-19 Clin Com See Note Medications Medications Current Medications Acetaminophen (Acetaminophen 325 Mg Tablet) 650 mg PO Q6H PRN PRN Reason: Headache/Pain Mild Scale (1-3) Last Admin: 07/27/23 17:04 Dose: 650 mg Al Hydroxide/Mg Hydroxide (Magnesium Hydrox/Alum Hydrox 30 Ml Oral.Susp) 30 ml PO Q6H PRN PRN Reason: Heartburn/Nausea Clozapine (Clozapine 100 Mg Tablet) 100 mg PO BEDTIME OPAL Last Admin: 07/27/23 21:15 Dose: 100 mg Haloperidol (Haloperidol 5 Mg Tablet) 5 mg PO BEDTIME OPAL Last Admin: 07/27/23 21:15 Dose: 5 mg Hydroxyzine HCl (Hydroxyzine Hcl 25 Mg Tablet) 25 mg PO Q6H PRN PRN Reason: Anxiety Lorazepam (Lorazepam 1 Mg Tablet) 1 mg PO TID [facility] Last Admin: 07/28/23 15:37 Dose: 1 mg Magnesium Hydroxide (Milk Of Magnesia 30 Ml Oral.Susp) 30 ml PO DAILY PRN PRN Reason: Constipation Nicotine Polacrilex (Nicotine Polacrilex 2 Mg Gum) 4 mg BUCCAL Q2H PRN PRN Reason: Nicotine Cravings Polyethylene Glycol (Polyethylene Glycol 3350 17 Gm Powd.Pack) 17 gm PO DAILY OPAL Last Admin: 07/28/23 08:18 Dose: 17 gm Trazodone HCl (Trazodone Hcl 50 Mg Tablet) 50 mg PO BEDTIME MRX1 PRN PRN Reason: Insomnia Allergies Allergies Allergy/AdvReac Type Severity Reaction Status Date / Time No Known Allergies Allergy Mild NOT Unverified 04/10/20 16:57 APPLICABLE Assessment & Plan Assessment & Plan (1) Chronic schizophrenia with acute exacerbation: Status: Acute Code(s): F20.9 - Schizophrenia, unspecified Plan 07/27: titrate clozapine. continue haldol 5 mg QHS. increase ativan from 1 BID to 1 TID for now. collateral from mihaela. 07/28: LM for mihaela at [facility] and also [phone]. increase clozapine to 125 tonight. refusing interview, remains disorganized and bizarre. Reason for continued inpatient stay Substantial Risk for: harm to others, inability to function and rapid decompensation Time Spent With Patient Time: Total time managing care of this patient today _25___ minutes.
[2023-07-28 20:15] VITALS: BP 118/77; PULSE 94; RESP 18; TEMP 36.9; O2SAT 96
[2023-07-29 08:48] VITALS: BP 103/72; PULSE 98; RESP 16; TEMP 36.9; O2SAT 100
[2023-07-29] MEDS: Acetaminophen 325 MG TABLET 650 MG PO (11:16)
--- NOTE | 2023-07-29 16:09 | HO.PSYCHPN ---
Subjective Subjective Date of Service: 07/29/23 Reason For Visit: psychosis Interim History: delcining to speak with MD saying he spoke with someone already. case discussed with loy chairez's outpt . per staff, denies Sx. isolated, guarded. taking meds. Mental Status Exam Mental Status Exam Narrative: Appearance: wearing street clothes, fair hygiene, in NAD. Behavior: calm, not cooperative Speech: clear, spontaneous. increased latency. TP: disorganized, tangential TC: declining interview affect: constricted, normo-intense, non-labile SI/SIBI: none expressed VH/AH: not expressed Insight/judgment: impaired Diagnostics Vital Signs (24Hr): Vital Signs - 24 hr 07/28/23 20:15 07/29/23 08:48 Temperature 98.5 F 98.4 F Pulse Rate 94 98 Respiratory Rate 18 16 Blood Pressure 118/77 103/72 Pulse Oximetry 96 100 Oxygen Delivery Method Room Air Room Air BMI result Body Mass Index 23.8 Labs Labs: Laboratory Results - last 48 hr 07/27/23 17:50 COVID-19 (JASON) Negative COVID-19 Clin Com See Note Medications Medications Current Medications Acetaminophen (Acetaminophen 325 Mg Tablet) 650 mg PO Q6H PRN PRN Reason: Headache/Pain Mild Scale (1-3) Last Admin: 07/29/23 11:16 Dose: 650 mg Al Hydroxide/Mg Hydroxide (Magnesium Hydrox/Alum Hydrox 30 Ml Oral.Susp) 30 ml PO Q6H PRN PRN Reason: Heartburn/Nausea Clozapine (Clozapine 100 Mg Tablet) 150 mg PO BEDTIME OPAL Haloperidol (Haloperidol 5 Mg Tablet) 5 mg PO BEDTIME [facility] Last Admin: 07/28/23 20:52 Dose: 5 mg Hydroxyzine HCl (Hydroxyzine Hcl 25 Mg Tablet) 25 mg PO Q6H PRN PRN Reason: Anxiety Lorazepam (Lorazepam 1 Mg Tablet) 1 mg PO TID [facility] Last Admin: 07/29/23 14:39 Dose: 1 mg Magnesium Hydroxide (Milk Of Magnesia 30 Ml Oral.Susp) 30 ml PO DAILY PRN PRN Reason: Constipation Nicotine Polacrilex (Nicotine Polacrilex 2 Mg Gum) 4 mg BUCCAL Q2H PRN PRN Reason: Nicotine Cravings Polyethylene Glycol (Polyethylene Glycol 3350 17 Gm Powd.Pack) 17 gm PO DAILY [facility] Last Admin: 07/29/23 08:23 Dose: 17 gm Trazodone HCl (Trazodone Hcl 50 Mg Tablet) 50 mg PO BEDTIME MRX1 PRN PRN Reason: Insomnia Allergies Allergies Allergy/AdvReac Type Severity Reaction Status Date / Time No Known Allergies Allergy Mild NOT Unverified 04/10/20 16:57 APPLICABLE Assessment & Plan Assessment & Plan (1) Chronic schizophrenia with acute exacerbation: Status: Acute Code(s): F20.9 - Schizophrenia, unspecified Plan 07/27: titrate clozapine. continue haldol 5 mg QHS. increase ativan from 1 BID to 1 TID for now. collateral from mihaela. 07/28: LM for mihaela at [facility] and also [phone]. increase clozapine to 125 tonight. refusing interview, remains disorganized and bizarre. 07/29: declined interview. increase clozapine by 25 mg, to 150 mg QHS. continue to titrate by 25 mg daily. case d/w mihaela, pt's outpt prescriber. per mihaela, pt was last hospitalized in 2017 and required clozapine 300 and haldol 5 to stabilize. at baseline he is calm and pleasant and well-related. will plan to continue haldol 5 and titrate clozapine to 300 mg QHS. Reason for continued inpatient stay Substantial Risk for: harm to others, inability to function and rapid decompensation Time Spent With Patient Time: Total time managing care of this patient today _35___ minutes.
[2023-07-29 20:05] VITALS: BP 121/79; PULSE 96; RESP 18; O2SAT 97
[2023-07-29] MEDS: traZODone HCL 50 MG TABLET PO (22:36)
[2023-07-30 07:35] VITALS: BP 112/75; PULSE 93; RESP 18; TEMP 36.8; O2SAT 99
[2023-07-30 08:53] VITALS: BP 112/75; PULSE 93; TEMP 36.8; O2SAT 99
--- NOTE | 2023-07-30 12:31 | HO.PSYCHPN ---
Subjective Subjective Date of Service: 07/30/23 Reason For Visit: psychosis Medical Problems Affecting Mental Status: No Interim History: Met with patient. Discussed with Nursing. Chart reviewed. Noted behavior, ICU and medical floor admission prior to psychiatry inpatient. Patient reports feeling better. Unable to explain what that means. Reports missing mandaeism and being home and that he feels good. Reported feeling safe. Is isolative. Denied having any concerns around his well-being, staff, other patients or medications. Sleep okay. Denied SI. Medication Compliance: Yes Side effects from medications: No Attending Groups: No Review of Systems Acute medical concerns: No Review of Systems Review of Systems Unremarkable Mental Status Exam Mental Status Exam Narrative: Appearance: wearing street clothes, fair hygiene, in NAD. Behavior: calm, not cooperative Speech: clear, spontaneous. increased latency. TP: less disorganized TC: denies any concerns affect: constricted, normo-intense, non-labile SI/SIBI: none expressed VH/AH: not expressed Insight/judgment: limited Diagnostics Vital Signs (24Hr): Vital Signs - 24 hr 07/29/23 20:05 07/30/23 07:35 07/30/23 08:53 Temperature 98.2 F 98.2 F Pulse Rate 96 93 93 Respiratory Rate 18 18 Blood Pressure 121/79 112/75 112/75 Pulse Oximetry 97 99 99 Oxygen Delivery Method Room Air Room Air Room Air BMI result Body Mass Index 23.8 Medications Medications Current Medications Acetaminophen (Acetaminophen 325 Mg Tablet) 650 mg PO Q6H PRN PRN Reason: Headache/Pain Mild Scale (1-3) Last Admin: 07/29/23 11:16 Dose: 650 mg Al Hydroxide/Mg Hydroxide (Magnesium Hydrox/Alum Hydrox 30 Ml Oral.Susp) 30 ml PO Q6H PRN PRN Reason: Heartburn/Nausea Clozapine (Clozapine 100 Mg Tablet) 150 mg PO BEDTIME [facility] Last Admin: 07/29/23 22:35 Dose: 150 mg Haloperidol (Haloperidol 5 Mg Tablet) 5 mg PO BEDTIME [facility] Last Admin: 07/29/23 22:38 Dose: 5 mg Hydroxyzine HCl (Hydroxyzine Hcl 25 Mg Tablet) 25 mg PO Q6H PRN PRN Reason: Anxiety Lorazepam (Lorazepam 1 Mg Tablet) 1 mg PO TID [facility] Last Admin: 07/30/23 08:43 Dose: 1 mg Magnesium Hydroxide (Milk Of Magnesia 30 Ml Oral.Susp) 30 ml PO DAILY PRN PRN Reason: Constipation Nicotine Polacrilex (Nicotine Polacrilex 2 Mg Gum) 4 mg BUCCAL Q2H PRN PRN Reason: Nicotine Cravings Polyethylene Glycol (Polyethylene Glycol 3350 17 Gm Powd.Pack) 17 gm PO DAILY OPAL Last Admin: 07/30/23 08:43 Dose: 17 gm Trazodone HCl (Trazodone Hcl 50 Mg Tablet) 50 mg PO BEDTIME MRX1 PRN PRN Reason: Insomnia Last Admin: 07/29/23 22:36 Dose: 50 mg Allergies Allergies Allergy/AdvReac Type Severity Reaction Status Date / Time No Known Allergies Allergy Mild NOT Unverified 04/10/20 16:57 APPLICABLE Assessment & Plan Assessment & Plan (1) Chronic schizophrenia with acute exacerbation: Status: Acute Code(s): F20.9 - Schizophrenia, unspecified Plan 07/27: titrate clozapine. continue haldol 5 mg QHS. increase ativan from 1 BID to 1 TID for now. collateral from mihaela. 07/28: LM for mihaela at [facility] and also [phone]. increase clozapine to 125 tonight. refusing interview, remains disorganized and bizarre. 07/29: declined interview. increase clozapine by 25 mg, to 150 mg QHS. continue to titrate by 25 mg daily. case d/w mihaela, pt's outpt prescriber. per mihaela, pt was last hospitalized in 2017 and required clozapine 300 and haldol 5 to stabilize. at baseline he is calm and pleasant and well-related. will plan to continue haldol 5 and titrate clozapine to 300 mg QHS. 07/30/2023: No changes to primary team treatment plan. Reason for continued inpatient stay Substantial Risk for: harm to others Time Spent With Patient Time: Total time managing care of this patient today ____ minutes.
[2023-07-30 20:30] VITALS: BP 122/79; PULSE 110; RESP 18; TEMP 36.6; O2SAT 98
[2023-07-31 06:00] VITALS: BP 125/84; PULSE 101; RESP 18; TEMP 36.9; O2SAT 100
--- NOTE | 2023-07-31 08:57 | PC.NURSE ---
Kain is pleasant but suspicious. he refused his 0900 Miralax. the man yesterday he gave me some liquid and now I don't have any pulse in this arm (right arm) I have pulse over here (left arm) but on on this arm (right arm). Radial pulse palpated in bilateral arms.
--- NOTE | 2023-07-31 11:31 | HO.PSYCHPN ---
Subjective Subjective Date of Service: 07/31/23 Reason For Visit: psychosis Medical Problems Affecting Mental Status: No Interim History: Met with patient. Discussed with Nursing. Patient reports feeling better and still unable to explain what that means. Reported feeling safe. Is isolative. Denied having any concerns around his well-being, staff, other patients or medications. Sleep okay. Denied SI. Medication Compliance: Yes Side effects from medications: No Attending Groups: No Review of Systems Acute medical concerns: No Review of Systems Review of Systems Unremarkable Mental Status Exam Mental Status Exam Narrative: Appearance: wearing street clothes, fair hygiene, in NAD. Behavior: calm, not cooperative Speech: clear, spontaneous. increased latency. TP: more organized TC: denies any concerns affect: constricted, normo-intense, non-labile SI/SIBI: none expressed VH/AH: not expressed Insight/judgment: limited Diagnostics Vital Signs (24Hr): Vital Signs - 24 hr 07/30/23 20:30 07/31/23 06:00 Temperature 97.8 F 98.4 F Pulse Rate 110 H 101 H Respiratory Rate 18 18 Blood Pressure 122/79 125/84 Pulse Oximetry 98 100 Oxygen Delivery Method Room Air Room Air BMI result Body Mass Index 23.8 Medications Medications Current Medications Acetaminophen (Acetaminophen 325 Mg Tablet) 650 mg PO Q6H PRN PRN Reason: Headache/Pain Mild Scale (1-3) Last Admin: 07/29/23 11:16 Dose: 650 mg Al Hydroxide/Mg Hydroxide (Magnesium Hydrox/Alum Hydrox 30 Ml Oral.Susp) 30 ml PO Q6H PRN PRN Reason: Heartburn/Nausea Clozapine (Clozapine 100 Mg Tablet) 150 mg PO BEDTIME [facility] Last Admin: 07/30/23 20:37 Dose: 150 mg Haloperidol (Haloperidol 5 Mg Tablet) 5 mg PO BEDTIME [facility] Last Admin: 07/30/23 20:37 Dose: 5 mg Hydroxyzine HCl (Hydroxyzine Hcl 25 Mg Tablet) 25 mg PO Q6H PRN PRN Reason: Anxiety Lorazepam (Lorazepam 1 Mg Tablet) 1 mg PO TID [facility] Last Admin: 07/31/23 08:54 Dose: 1 mg Magnesium Hydroxide (Milk Of Magnesia 30 Ml Oral.Susp) 30 ml PO DAILY PRN PRN Reason: Constipation Nicotine Polacrilex (Nicotine Polacrilex 2 Mg Gum) 4 mg BUCCAL Q2H PRN PRN Reason: Nicotine Cravings Polyethylene Glycol (Polyethylene Glycol 3350 17 Gm Powd.Pack) 17 gm PO DAILY OPAL Last Admin: 07/31/23 08:55 Dose: Not Given Trazodone HCl (Trazodone Hcl 50 Mg Tablet) 50 mg PO BEDTIME MRX1 PRN PRN Reason: Insomnia Last Admin: 07/29/23 22:36 Dose: 50 mg Allergies Allergies Allergy/AdvReac Type Severity Reaction Status Date / Time No Known Allergies Allergy Mild NOT Unverified 04/10/20 16:57 APPLICABLE Assessment & Plan Assessment & Plan (1) Chronic schizophrenia with acute exacerbation: Status: Acute Code(s): F20.9 - Schizophrenia, unspecified Plan 07/27: titrate clozapine. continue haldol 5 mg QHS. increase ativan from 1 BID to 1 TID for now. collateral from mihaela. 07/28: LM for mihaela at [facility] and also [phone]. increase clozapine to 125 tonight. refusing interview, remains disorganized and bizarre. 07/29: declined interview. increase clozapine by 25 mg, to 150 mg QHS. continue to titrate by 25 mg daily. case d/w mihaela, pt's outpt prescriber. per mihaela, pt was last hospitalized in 2018 and required clozapine 300 and haldol 5 to stabilize. at baseline he is calm and pleasant and well-related. will plan to continue haldol 5 and titrate clozapine to 300 mg QHS. 07/30/2023: No changes to primary team treatment plan. 07/31/2023: No changes Reason for continued inpatient stay Substantial Risk for: rapid decompensation Time Spent With Patient Time: Total time managing care of this patient today ____ minutes.
[2023-07-31 21:14] VITALS: BP 123/76; PULSE 90; RESP 16; TEMP 36.7; O2SAT 98
[2023-08-01 08:25] LABS: Neut%MD 57.8 %; Neutrophils Absolute Auto 3.3 x10*3/uL (2.0-8.3); WBCANC 5.7 X10*3/uL
[2023-08-01 08:34] VITALS: BP 118/81; PULSE 91; RESP 18; TEMP 36.1; O2SAT 100
--- NOTE | 2023-08-01 15:40 | HO.PSYCHPN ---
Subjective Subjective Date of Service: 08/01/23 Reason For Visit: psychosis Interim History: seen with his mother. discuss psychopharm Tx plan. mother concerned about pt being Rxed too high a dose of clozaril, states that when he was on 300 mg daily he was slowed and unmotivated. reviews conversation with Dr. Post with mother and pt. asking when pt may discharge. today pt is much more fluid and spontaneous than last week. also discuss ativan and plan to taper prior to discharge. per staff, slept 8 hours last night. more spontaneous and relaxed. some bizarre statements. ADLs OK. Mental Status Exam Mental Status Exam Narrative: Appearance: wearing street clothes, fair hygiene, in NAD. Behavior: calm, cooperative Speech: clear, spontaneous. TP: organized, linear TC: no delusions or paranoia expressed affect: constricted, normo-intense, non-labile SI/SIBI: none expressed VH/AH: not expressed Insight/judgment: impaired Diagnostics Vital Signs (24Hr): Vital Signs - 24 hr 07/31/23 21:14 08/01/23 08:34 Temperature 98.1 F 97.0 F Pulse Rate 90 91 Respiratory Rate 16 18 Blood Pressure 123/76 118/81 Pulse Oximetry 98 100 Oxygen Delivery Method Room Air Room Air BMI result Body Mass Index 23.8 Labs Labs: Laboratory Results - last 48 hr 08/01/23 08:17 Absolute Neuts (auto) 3.3 Medications Medications Current Medications Acetaminophen (Acetaminophen 325 Mg Tablet) 650 mg PO Q6H PRN PRN Reason: Headache/Pain Mild Scale (1-3) Last Admin: 07/29/23 11:16 Dose: 650 mg Al Hydroxide/Mg Hydroxide (Magnesium Hydrox/Alum Hydrox 30 Ml Oral.Susp) 30 ml PO Q6H PRN PRN Reason: Heartburn/Nausea Clozapine 100 mg/ Clozapine 75 (mg) 175 mg PO BEDTIME OPAL Haloperidol (Haloperidol 5 Mg Tablet) 5 mg PO BEDTIME OPAL Last Admin: 07/31/23 21:12 Dose: 5 mg Hydroxyzine HCl (Hydroxyzine Hcl 25 Mg Tablet) 25 mg PO Q6H PRN PRN Reason: Anxiety Lorazepam (Lorazepam 1 Mg Tablet) 1 mg PO TID OPAL Last Admin: 08/01/23 14:42 Dose: 1 mg Magnesium Hydroxide (Milk Of Magnesia 30 Ml Oral.Susp) 30 ml PO DAILY PRN PRN Reason: Constipation Polyethylene Glycol (Polyethylene Glycol 3350 17 Gm Powd.Pack) 17 gm PO DAILY OPAL Last Admin: 08/01/23 08:36 Dose: Not Given Trazodone HCl (Trazodone Hcl 50 Mg Tablet) 50 mg PO BEDTIME MRX1 PRN PRN Reason: Insomnia Last Admin: 07/29/23 22:36 Dose: 50 mg Allergies Allergies Allergy/AdvReac Type Severity Reaction Status Date / Time No Known Allergies Allergy Mild NOT Unverified 04/10/20 16:57 APPLICABLE Assessment & Plan Assessment & Plan (1) Chronic schizophrenia with acute exacerbation: Status: Acute Code(s): F20.9 - Schizophrenia, unspecified Plan 07/27: titrate clozapine. continue haldol 5 mg QHS. increase ativan from 1 BID to 1 TID for now. collateral from mihaela. 07/28: LM for mihaela at [facility] and also [phone]. increase clozapine to 125 tonight. refusing interview, remains disorganized and bizarre. 07/29: declined interview. increase clozapine by 25 mg, to 150 mg QHS. continue to titrate by 25 mg daily. case d/w mihaela, pt's outpt prescriber. per mihaela, pt was last hospitalized in 2017 and required clozapine 300 and haldol 5 to stabilize. at baseline he is calm and pleasant and well-related. will plan to continue haldol 5 and titrate clozapine to 300 mg QHS. 07/30/2023: No changes to primary team treatment plan. 07/31/2023: No changes 08/01: much improved presentation from last week. more open, relaxed, fluid, spontaneous than previous. continue clozapine dose titration to 175 as of tonight. begin ativan taper, to 1 mg BID as of tomorrow. Reason for continued inpatient stay Substantial Risk for: harm to self, inability to function and rapid decompensation Time Spent With Patient Time: Total time managing care of this patient today _35___ minutes.
[2023-08-01] MEDS: HaloperidoL 5 MG TABLET PO (20:34)
[2023-08-01] MEDS: LORazepam 1 MG TABLET PO (20:34)
[2023-08-01] MEDS: cloZAPine 100 MG, cloZAPine 75 MG 175 MG PO (20:34)
[2023-08-01 20:38] VITALS: BP 127/78; PULSE 108; RESP 16; TEMP 36.3; O2SAT 98
[2023-08-01] MEDS: hydrOXYzine HCL 25 MG TABLET PO (22:12)
[2023-08-02 07:30] VITALS: BP 135/83; PULSE 100; RESP 18; TEMP 36.3; O2SAT 100
[2023-08-02] MEDS: LORazepam 1 MG TABLET PO ×2 (08:33→21:43)
--- NOTE | 2023-08-02 15:08 | P.PNPSI_ITS ---
Subjective Subjective Date of Service: 08/02/23 Reason For Visit: psychosis Interim History: calm, cooperative. informed of clozapine dose increase tonight and ativan dose decrease. no questions or complaints. per staff, denies dep/anx. subdued. taking meds. not attending groups. told staff a story about superman having saved him. slept about 8 hours overnight. Mental Status Exam Mental Status Exam Narrative: Appearance: wearing street clothes, fair hygiene, in NAD. Behavior: calm, cooperative Speech: clear, spontaneous. TP: organized, linear TC: no delusions or paranoia expressed affect: constricted, normo-intense, non-labile SI/SIBI: none expressed VH/AH: not expressed Insight/judgment: impaired Diagnostics Vital Signs (24Hr): Vital Signs - 24 hr 08/01/23 20:38 08/02/23 07:30 Temperature 97.4 F 97.4 F Pulse Rate 108 H 100 Respiratory Rate 16 18 Blood Pressure 127/78 135/83 Pulse Oximetry 98 100 Oxygen Delivery Method Room Air Room Air BMI result Body Mass Index 23.8 Labs Labs: Laboratory Results - last 48 hr 08/01/23 08:17 Absolute Neuts (auto) 3.3 Medications Medications Current Medications Acetaminophen (Acetaminophen 325 Mg Tablet) 650 mg PO Q6H PRN PRN Reason: Headache/Pain Mild Scale (1-3) Last Admin: 07/29/23 11:16 Dose: 650 mg Al Hydroxide/Mg Hydroxide (Magnesium Hydrox/Alum Hydrox 30 Ml Oral.Susp) 30 ml PO Q6H PRN PRN Reason: Heartburn/Nausea Clozapine (Clozapine 100 Mg Tablet) 200 mg PO BEDTIME OPAL Haloperidol (Haloperidol 5 Mg Tablet) 5 mg PO BEDTIME OPAL Last Admin: 08/01/23 20:34 Dose: 5 mg Hydroxyzine HCl (Hydroxyzine Hcl 25 Mg Tablet) 25 mg PO Q6H PRN PRN Reason: Anxiety Last Admin: 08/01/23 22:12 Dose: 25 mg Lorazepam (Lorazepam 1 Mg Tablet) 1 mg PO BEDTIME OPAL Magnesium Hydroxide (Milk Of Magnesia 30 Ml Oral.Susp) 30 ml PO DAILY PRN PRN Reason: Constipation Polyethylene Glycol (Polyethylene Glycol 3350 17 Gm Powd.Pack) 17 gm PO DAILY OPAL Last Admin: 08/02/23 08:33 Dose: Not Given Trazodone HCl (Trazodone Hcl 50 Mg Tablet) 50 mg PO BEDTIME MRX1 PRN PRN Reason: Insomnia Last Admin: 07/29/23 22:36 Dose: 50 mg Allergies Allergies Allergy/AdvReac Type Severity Reaction Status Date / Time No Known Allergies Allergy Mild NOT Unverified 04/10/20 16:57 APPLICABLE Assessment & Plan Assessment & Plan (1) Chronic schizophrenia with acute exacerbation: Status: Acute Code(s): F20.9 - Schizophrenia, unspecified Plan 07/27: titrate clozapine. continue haldol 5 mg QHS. increase ativan from 1 BID to 1 TID for now. collateral from mihaela. 07/28: LM for mihaela at [facility] and also [phone]. increase clozapine to 125 tonight. refusing interview, remains disorganized and bizarre. 07/29: declined interview. increase clozapine by 25 mg, to 150 mg QHS. continue to titrate by 25 mg daily. case d/w mihaela, pt's outpt prescriber. per mihaela, pt was last hospitalized in 2017 and required clozapine 300 and haldol 5 to stabilize. at baseline he is calm and pleasant and well-related. will plan to continue haldol 5 and titrate clozapine to 300 mg QHS. 07/30/2023: No changes to primary team treatment plan. 07/31/2023: No changes 08/01: much improved presentation from last week. more open, relaxed, fluid, spontaneous than previous. continue clozapine dose titration to 175 as of tonight. begin ativan taper, to 1 mg BID as of tomorrow. 08/02: continue clozapine titration to 200 mg tonight. continue ativan taper to 1 mg QHS tomorrow. gains held. Reason for continued inpatient stay Substantial Risk for: inability to function and rapid decompensation Time Spent With Patient Time: Total time managing care of this patient today __25__ minutes.
[2023-08-02 19:55] VITALS: BP 121/79; PULSE 97; RESP 16; TEMP 36.6; O2SAT 99
[2023-08-02] MEDS: cloZAPine 100 MG TABLET 200 MG PO (21:43)
[2023-08-02] MEDS: HaloperidoL 5 MG TABLET PO (21:44)
[2023-08-03 06:00] VITALS: BP 121/76; PULSE 98; RESP 14; TEMP 37; O2SAT 99
[2023-08-03] MEDS: polyethylene glycoL 3350 17 GM POWD.PACK PO (08:02)
--- NOTE | 2023-08-03 13:52 | P.PNPSI_ITS ---
Subjective Subjective Date of Service: 08/03/23 Reason For Visit: psychosis Interim History: calm, cooperative. terse, superficial. OK mood. reports eating, sleeping, toileting, getting along with others well. denies side effects of medications. per staff, not attending groups. slept about 8 hours. taking meds. Mental Status Exam Mental Status Exam Narrative: Appearance: wearing street clothes, fair hygiene, in NAD. Behavior: calm, cooperative Speech: clear, spontaneous. TP: organized, linear TC: no delusions or paranoia expressed affect: constricted, normo-intense, non-labile SI/SIBI: none expressed VH/AH: not expressed Insight/judgment: impaired Diagnostics Vital Signs (24Hr): Vital Signs - 24 hr 08/02/23 19:55 08/03/23 06:00 Temperature 97.9 F 98.6 F Pulse Rate 97 98 Respiratory Rate 16 14 Blood Pressure 121/79 121/76 Pulse Oximetry 99 99 Oxygen Delivery Method Room Air Room Air BMI result Body Mass Index 23.8 Medications Medications Current Medications Acetaminophen (Acetaminophen 325 Mg Tablet) 650 mg PO Q6H PRN PRN Reason: Headache/Pain Mild Scale (1-3) Last Admin: 07/29/23 11:16 Dose: 650 mg Al Hydroxide/Mg Hydroxide (Magnesium Hydrox/Alum Hydrox 30 Ml Oral.Susp) 30 ml PO Q6H PRN PRN Reason: Heartburn/Nausea Clozapine (Clozapine 100 Mg Tablet) 200 mg PO BEDTIME OPAL Last Admin: 08/02/23 21:43 Dose: 200 mg Haloperidol (Haloperidol 5 Mg Tablet) 5 mg PO BEDTIME OPAL Last Admin: 08/02/23 21:44 Dose: 5 mg Hydroxyzine HCl (Hydroxyzine Hcl 25 Mg Tablet) 25 mg PO Q6H PRN PRN Reason: Anxiety Last Admin: 08/01/23 22:12 Dose: 25 mg Lorazepam (Lorazepam 1 Mg Tablet) 1 mg PO BEDTIME OPAL Last Admin: 08/02/23 21:43 Dose: 1 mg Magnesium Hydroxide (Milk Of Magnesia 30 Ml Oral.Susp) 30 ml PO DAILY PRN PRN Reason: Constipation Polyethylene Glycol (Polyethylene Glycol 3350 17 Gm Powd.Pack) 17 gm PO DAILY OPAL Last Admin: 08/03/23 08:02 Dose: 17 gm Trazodone HCl (Trazodone Hcl 50 Mg Tablet) 50 mg PO BEDTIME MRX1 PRN PRN Reason: Insomnia Last Admin: 07/29/23 22:36 Dose: 50 mg Allergies Allergies Allergy/AdvReac Type Severity Reaction Status Date / Time No Known Allergies Allergy Mild NOT Unverified 04/10/20 16:57 APPLICABLE Assessment & Plan Assessment & Plan (1) Chronic schizophrenia with acute exacerbation: Status: Inactive Code(s): F20.9 - Schizophrenia, unspecified Plan 07/27: titrate clozapine. continue haldol 5 mg QHS. increase ativan from 1 BID to 1 TID for now. collateral from mihaela. 07/28: LM for mihaela at [facility] and also [phone]. increase clozapine to 125 tonight. refusing interview, remains disorganized and bizarre. 07/29: declined interview. increase clozapine by 25 mg, to 150 mg QHS. continue to titrate by 25 mg daily. case d/w mihaela, pt's outpt prescriber. per mihaela, pt was last hospitalized in 2017 and required clozapine 300 and haldol 5 to stabilize. at baseline he is calm and pleasant and well-related. will plan to continue haldol 5 and titrate clozapine to 300 mg QHS. 07/30/2023: No changes to primary team treatment plan. 07/31/2023: No changes 08/01: much improved presentation from last week. more open, relaxed, fluid, spontaneous than previous. continue clozapine dose titration to 175 as of tonight. begin ativan taper, to 1 mg BID as of tomorrow. 08/02: continue clozapine titration to 200 mg tonight. continue ativan taper to 1 mg QHS tomorrow. gains held. 08/03: continues improved. increase clozapine to 225 tonight. taper ativan. Reason for continued inpatient stay Substantial Risk for: inability to function and rapid decompensation Time Spent With Patient Time: Total time managing care of this patient today _20___ minutes.
[2023-08-03 20:25] VITALS: BP 126/79; PULSE 98; RESP 16; TEMP 36.6; O2SAT 97
[2023-08-03] MEDS: cloZAPine 200 MG, cloZAPine 25 MG 225 MG PO (22:03)
[2023-08-03] MEDS: LORazepam 0.5 MG TABLET PO (22:04)
[2023-08-03] MEDS: HaloperidoL 5 MG TABLET PO (22:04)
[2023-08-04 06:00] VITALS: BP 119/80; PULSE 105; RESP 19; TEMP 36.6; O2SAT 98
[2023-08-04 07:00] VITALS: BMI 23.5
[2023-08-04] MEDS: polyethylene glycoL 3350 17 GM POWD.PACK PO (08:19)
--- NOTE | 2023-08-04 14:54 | HO.PSYCHPN ---
Subjective Subjective Date of Service: 08/04/23 Reason For Visit: psychosis Interim History: no change in presentation. no complaints, denies side effects. per staff, isolative. no issues. taking meds. Mental Status Exam Mental Status Exam Narrative: Appearance: wearing street clothes, fair hygiene, in NAD. Behavior: calm, cooperative Speech: clear, spontaneous. TP: organized, linear TC: no delusions or paranoia expressed affect: constricted, normo-intense, non-labile SI/SIBI: none expressed VH/AH: not expressed Insight/judgment: impaired Diagnostics Vital Signs (24Hr): Vital Signs - 24 hr 08/03/23 20:25 08/04/23 06:00 Temperature 97.9 F 97.8 F Pulse Rate 98 105 H Respiratory Rate 16 19 Blood Pressure 126/79 119/80 Pulse Oximetry 97 98 Oxygen Delivery Method Room Air Room Air BMI result Body Mass Index 23.5 Medications Medications Current Medications Acetaminophen (Acetaminophen 325 Mg Tablet) 650 mg PO Q6H PRN PRN Reason: Headache/Pain Mild Scale (1-3) Last Admin: 07/29/23 11:16 Dose: 650 mg Al Hydroxide/Mg Hydroxide (Magnesium Hydrox/Alum Hydrox 30 Ml Oral.Susp) 30 ml PO Q6H PRN PRN Reason: Heartburn/Nausea Clozapine 200 mg/ Clozapine 25 (mg) 225 mg PO BEDTIME OPAL Last Admin: 08/03/23 22:03 Dose: 225 mg Haloperidol (Haloperidol 5 Mg Tablet) 5 mg PO BEDTIME OPAL Last Admin: 08/03/23 22:04 Dose: 5 mg Hydroxyzine HCl (Hydroxyzine Hcl 25 Mg Tablet) 25 mg PO Q6H PRN PRN Reason: Anxiety Last Admin: 08/01/23 22:12 Dose: 25 mg Lorazepam (Lorazepam 0.5 Mg Tablet) 0.5 mg PO BEDTIME OPAL Last Admin: 08/03/23 22:04 Dose: 0.5 mg Magnesium Hydroxide (Milk Of Magnesia 30 Ml Oral.Susp) 30 ml PO DAILY PRN PRN Reason: Constipation Polyethylene Glycol (Polyethylene Glycol 3350 17 Gm Powd.Pack) 17 gm PO DAILY OPAL Last Admin: 08/04/23 08:19 Dose: 17 gm Trazodone HCl (Trazodone Hcl 50 Mg Tablet) 50 mg PO BEDTIME MRX1 PRN PRN Reason: Insomnia Last Admin: 07/29/23 22:36 Dose: 50 mg Allergies Allergies Allergy/AdvReac Type Severity Reaction Status Date / Time No Known Allergies Allergy Mild NOT Unverified 04/10/20 16:57 APPLICABLE Assessment & Plan Assessment & Plan (1) Chronic schizophrenia with acute exacerbation: Status: Inactive Code(s): F20.9 - Schizophrenia, unspecified Plan 07/27: titrate clozapine. continue haldol 5 mg QHS. increase ativan from 1 BID to 1 TID for now. collateral from mihaela. 07/28: LM for mihaela at [facility] and also [phone]. increase clozapine to 125 tonight. refusing interview, remains disorganized and bizarre. 07/29: declined interview. increase clozapine by 25 mg, to 150 mg QHS. continue to titrate by 25 mg daily. case d/w mihaela, pt's outpt prescriber. per mihaela, pt was last hospitalized in 2017 and required clozapine 300 and haldol 5 to stabilize. at baseline he is calm and pleasant and well-related. will plan to continue haldol 5 and titrate clozapine to 300 mg QHS. 07/30/2023: No changes to primary team treatment plan. 07/31/2023: No changes 08/01: much improved presentation from last week. more open, relaxed, fluid, spontaneous than previous. continue clozapine dose titration to 175 as of tonight. begin ativan taper, to 1 mg BID as of tomorrow. 08/02: continue clozapine titration to 200 mg tonight. continue ativan taper to 1 mg QHS tomorrow. gains held. 08/03: continues improved. increase clozapine to 225 tonight. taper ativan. 08/04: increase clozapine to 250 mg tonight, DC ativan. gains continue. Reason for continued inpatient stay Substantial Risk for: harm to others, inability to function and rapid decompensation Time Spent With Patient Time: Total time managing care of this patient today ____ minutes.
[2023-08-04 20:00] VITALS: BP 132/82; PULSE 98; RESP 16; TEMP 36.7; O2SAT 99
[2023-08-04] MEDS: cloZAPine 100 MG TABLET 250 MG PO (23:24)
[2023-08-04] MEDS: HaloperidoL 5 MG TABLET PO (23:24)
[2023-08-05 08:35] VITALS: BP 121/83; PULSE 110; RESP 16; TEMP 36.3; O2SAT 100
[2023-08-05] MEDS: polyethylene glycoL 3350 17 GM POWD.PACK PO (09:04)
--- NOTE | 2023-08-05 15:59 | HO.PSYCHPN ---
Subjective Subjective Date of Service: 08/05/23 Reason For Visit: psychosis Interim History: calm, cooperative. no questions or complaints. plan to titrate to 300 mg daily of clozapine, hold for several days, then discharge reviewed with patient. per staff, taking meds and attending group. no issues. slept 6+ hours. Mental Status Exam Mental Status Exam Narrative: Appearance: wearing street clothes, fair hygiene, in NAD. Behavior: calm, cooperative Speech: clear, spontaneous. TP: organized, linear TC: no delusions or paranoia expressed affect: constricted, normo-intense, non-labile SI/SIBI: none expressed VH/AH: not expressed Insight/judgment: impaired Diagnostics Vital Signs (24Hr): Vital Signs - 24 hr 08/04/23 20:00 08/05/23 08:35 Temperature 98.0 F 97.3 F Pulse Rate 98 110 H Respiratory Rate 16 16 Blood Pressure 132/82 121/83 Pulse Oximetry 99 100 Oxygen Delivery Method Room Air Room Air BMI result Body Mass Index 23.5 Medications Medications Current Medications Acetaminophen (Acetaminophen 325 Mg Tablet) 650 mg PO Q6H PRN PRN Reason: Headache/Pain Mild Scale (1-3) Last Admin: 07/29/23 11:16 Dose: 650 mg Al Hydroxide/Mg Hydroxide (Magnesium Hydrox/Alum Hydrox 30 Ml Oral.Susp) 30 ml PO Q6H PRN PRN Reason: Heartburn/Nausea Clozapine (Clozapine 25 Mg Tablet) 275 mg PO BEDTIME OPAL Stop: 08/05/23 21:01 Clozapine (Clozapine 100 Mg Tablet) 300 mg PO BEDTIME OPAL Haloperidol (Haloperidol 5 Mg Tablet) 5 mg PO BEDTIME OPAL Last Admin: 08/04/23 23:24 Dose: 5 mg Hydroxyzine HCl (Hydroxyzine Hcl 25 Mg Tablet) 25 mg PO Q6H PRN PRN Reason: Anxiety Last Admin: 08/01/23 22:12 Dose: 25 mg Magnesium Hydroxide (Milk Of Magnesia 30 Ml Oral.Susp) 30 ml PO DAILY PRN PRN Reason: Constipation Polyethylene Glycol (Polyethylene Glycol 3350 17 Gm Powd.Pack) 17 gm PO DAILY OPAL Last Admin: 08/05/23 09:04 Dose: 17 gm Trazodone HCl (Trazodone Hcl 50 Mg Tablet) 50 mg PO BEDTIME MRX1 PRN PRN Reason: Insomnia Last Admin: 07/29/23 22:36 Dose: 50 mg Allergies Allergies Allergy/AdvReac Type Severity Reaction Status Date / Time No Known Allergies Allergy Mild NOT Unverified 04/10/20 16:57 APPLICABLE Assessment & Plan Assessment & Plan (1) Chronic schizophrenia with acute exacerbation: Status: Inactive Code(s): F20.9 - Schizophrenia, unspecified Plan 07/27: titrate clozapine. continue haldol 5 mg QHS. increase ativan from 1 BID to 1 TID for now. collateral from mihaela. 07/28: LM for mihaela at [facility] and also [phone]. increase clozapine to 125 tonight. refusing interview, remains disorganized and bizarre. 07/29: declined interview. increase clozapine by 25 mg, to 150 mg QHS. continue to titrate by 25 mg daily. case d/w mihaela, pt's outpt prescriber. per mihaela, pt was last hospitalized in 2017 and required clozapine 300 and haldol 5 to stabilize. at baseline he is calm and pleasant and well-related. will plan to continue haldol 5 and titrate clozapine to 300 mg QHS. 07/30/2023: No changes to primary team treatment plan. 07/31/2023: No changes 08/01: much improved presentation from last week. more open, relaxed, fluid, spontaneous than previous. continue clozapine dose titration to 175 as of tonight. begin ativan taper, to 1 mg BID as of tomorrow. 08/02: continue clozapine titration to 200 mg tonight. continue ativan taper to 1 mg QHS tomorrow. gains held. 08/03: continues improved. increase clozapine to 225 tonight. taper ativan. 08/04: increase clozapine to 250 mg tonight, DC ativan. gains continue. 08/05: increase clozapine to 275 mg tonight, 300 mg tomorrow night. plan to remain at 300 mg nightly and discharge mid next week. appears to be stable and not suffering side effects from medication. Reason for continued inpatient stay Substantial Risk for: harm to others, inability to function and rapid decompensation Time Spent With Patient Time: Total time managing care of this patient today ____ minutes.
[2023-08-05 20:00] VITALS: BP 125/80; PULSE 94; RESP 16; TEMP 36.2; O2SAT 96
[2023-08-05] MEDS: HaloperidoL 5 MG TABLET PO (20:24)
[2023-08-06 07:15] VITALS: BP 121/80; PULSE 112; RESP 12; TEMP 37; O2SAT 99
[2023-08-06] MEDS: polyethylene glycoL 3350 17 GM POWD.PACK PO (09:20)
--- NOTE | 2023-08-06 13:23 | P.PNPSI_ITS ---
Subjective Subjective Date of Service: 08/06/23 Reason For Visit: psychosis Subjective Notes: Conditional Voluntary Interim History: Patient was seen and discussed in rounds today. Records and plans were reviewed. He has been doing fairly well and continues to have some anxiety but no depression. Clozaril was increased. No aggressive behaviors. No complaints or side effects. He talked about his mother visiting later today. No changes were made Review of Systems Review of Systems Yes all other systems are reviewed and are negative Mental Status Exam Mental Status Exam Narrative: In today's visit he is alert, oriented and pleasant. Normal speech. Good eye contact. Appropriate affect. No signs of psychosis. No SI. Cognitively intact. Judgment is intact Diagnostics Vital Signs (24Hr): Vital Signs - 24 hr 08/05/23 20:00 08/06/23 07:15 Temperature 97.2 F 98.6 F Pulse Rate 94 112 H Respiratory Rate 16 12 Blood Pressure 125/80 121/80 Pulse Oximetry 96 99 Oxygen Delivery Method Room Air Room Air BMI result Body Mass Index 23.5 Medications Medications Current Medications Acetaminophen (Acetaminophen 325 Mg Tablet) 650 mg PO Q6H PRN PRN Reason: Headache/Pain Mild Scale (1-3) Last Admin: 07/29/23 11:16 Dose: 650 mg Al Hydroxide/Mg Hydroxide (Magnesium Hydrox/Alum Hydrox 30 Ml Oral.Susp) 30 ml PO Q6H PRN PRN Reason: Heartburn/Nausea Clozapine (Clozapine 100 Mg Tablet) 300 mg PO BEDTIME OPAL Haloperidol (Haloperidol 5 Mg Tablet) 5 mg PO BEDTIME OPAL Last Admin: 08/05/23 20:24 Dose: 5 mg Hydroxyzine HCl (Hydroxyzine Hcl 25 Mg Tablet) 25 mg PO Q6H PRN PRN Reason: Anxiety Last Admin: 08/01/23 22:12 Dose: 25 mg Magnesium Hydroxide (Milk Of Magnesia 30 Ml Oral.Susp) 30 ml PO DAILY PRN PRN Reason: Constipation Polyethylene Glycol (Polyethylene Glycol 3350 17 Gm Powd.Pack) 17 gm PO DAILY OPAL Last Admin: 08/06/23 09:20 Dose: 17 gm Trazodone HCl (Trazodone Hcl 50 Mg Tablet) 50 mg PO BEDTIME MRX1 PRN PRN Reason: Insomnia Last Admin: 07/29/23 22:36 Dose: 50 mg Allergies Allergies Allergy/AdvReac Type Severity Reaction Status Date / Time No Known Allergies Allergy Mild NOT Unverified 04/10/20 16:57 APPLICABLE Assessment & Plan Assessment & Plan (1) Chronic schizophrenia with acute exacerbation: Status: Inactive Code(s): F20.9 - Schizophrenia, unspecified Plan 07/27: titrate clozapine. continue haldol 5 mg QHS. increase ativan from 1 BID to 1 TID for now. collateral from mihaela. 07/28: LM for mihaela at [facility] and also [phone]. increase clozapine to 125 tonight. refusing interview, remains disorganized and bizarre. 07/29: declined interview. increase clozapine by 25 mg, to 150 mg QHS. continue to titrate by 25 mg daily. case d/w mihaela, pt's outpt prescriber. per mihaela, pt was last hospitalized in 2017 and required clozapine 300 and haldol 5 to stabilize. at baseline he is calm and pleasant and well-related. will plan to continue haldol 5 and titrate clozapine to 300 mg QHS. 07/30/2023: No changes to primary team treatment plan. 07/31/2023: No changes 08/01: much improved presentation from last week. more open, relaxed, fluid, spontaneous than previous. continue clozapine dose titration to 175 as of tonight. begin ativan taper, to 1 mg BID as of tomorrow. 08/02: continue clozapine titration to 200 mg tonight. continue ativan taper to 1 mg QHS tomorrow. gains held. 08/03: continues improved. increase clozapine to 225 tonight. taper ativan. 08/04: increase clozapine to 250 mg tonight, DC ativan. gains continue. 08/05: increase clozapine to 275 mg tonight, 300 mg tomorrow night. plan to remain at 300 mg nightly and discharge mid next week. appears to be stable and not suffering side effects from medication. 08/06/23: Continue current regimen and plans Reason for continued inpatient stay Substantial Risk for: med/psych decompensation Time Spent With Patient Time: Total time managing care of this patient today ____ minutes.
[2023-08-06 20:17] VITALS: BP 136/74; PULSE 116; RESP 16; TEMP 36.4; O2SAT 98
[2023-08-06] MEDS: cloZAPine 100 MG TABLET 300 MG PO (20:25)
[2023-08-06] MEDS: HaloperidoL 5 MG TABLET PO (20:25)
[2023-08-07 08:05] VITALS: BP 142/88; PULSE 109; RESP 14; TEMP 36.6; O2SAT 100
[2023-08-07] MEDS: polyethylene glycoL 3350 17 GM POWD.PACK PO (08:12)
--- NOTE | 2023-08-07 11:25 | P.PNPSI_ITS ---
Subjective Subjective Date of Service: 08/07/23 Reason For Visit: psychosis Subjective Notes: Conditional Voluntary Interim History: Patient was seen and discussed in rounds today. Records and plans were reviewed. He is fairly stable and is doing well. He is mostly in his room, isolative. He had a good visit with his mom yesterday. Medication meals compliant. Eating and sleeping well. No changes were made Review of Systems Review of Systems Yes all other systems are reviewed and are negative Mental Status Exam Mental Status Exam Narrative: In today's visit he is alert, oriented and pleasant. Normal speech. Good eye contact. Appropriate affect. No signs of psychosis. No SI. Cognitively intact. Judgment is intact Diagnostics Vital Signs (24Hr): Vital Signs - 24 hr 08/06/23 20:17 08/07/23 08:05 Temperature 97.6 F 97.9 F Pulse Rate 116 H 109 H Respiratory Rate 16 14 Blood Pressure 136/74 142/88 H Pulse Oximetry 98 100 Oxygen Delivery Method Room Air Room Air BMI result Body Mass Index 23.5 Medications Medications Current Medications Acetaminophen (Acetaminophen 325 Mg Tablet) 650 mg PO Q6H PRN PRN Reason: Headache/Pain Mild Scale (1-3) Last Admin: 07/29/23 11:16 Dose: 650 mg Al Hydroxide/Mg Hydroxide (Magnesium Hydrox/Alum Hydrox 30 Ml Oral.Susp) 30 ml PO Q6H PRN PRN Reason: Heartburn/Nausea Clozapine (Clozapine 100 Mg Tablet) 300 mg PO BEDTIME OPAL Last Admin: 08/06/23 20:25 Dose: 300 mg Haloperidol (Haloperidol 5 Mg Tablet) 5 mg PO BEDTIME OPAL Last Admin: 08/06/23 20:25 Dose: 5 mg Hydroxyzine HCl (Hydroxyzine Hcl 25 Mg Tablet) 25 mg PO Q6H PRN PRN Reason: Anxiety Last Admin: 08/01/23 22:12 Dose: 25 mg Magnesium Hydroxide (Milk Of Magnesia 30 Ml Oral.Susp) 30 ml PO DAILY PRN PRN Reason: Constipation Polyethylene Glycol (Polyethylene Glycol 3350 17 Gm Powd.Pack) 17 gm PO DAILY OPAL Last Admin: 08/07/23 08:12 Dose: 17 gm Trazodone HCl (Trazodone Hcl 50 Mg Tablet) 50 mg PO BEDTIME MRX1 PRN PRN Reason: Insomnia Last Admin: 07/29/23 22:36 Dose: 50 mg Allergies Allergies Allergy/AdvReac Type Severity Reaction Status Date / Time No Known Allergies Allergy Mild NOT Unverified 04/10/20 16:57 APPLICABLE Assessment & Plan Assessment & Plan (1) Chronic schizophrenia with acute exacerbation: Status: Inactive Code(s): F20.9 - Schizophrenia, unspecified Plan 07/27: titrate clozapine. continue haldol 5 mg QHS. increase ativan from 1 BID to 1 TID for now. collateral from mihaela. 07/28: LM for mihaela at [facility] and also [phone]. increase clozapine to 125 tonight. refusing interview, remains disorganized and bizarre. 07/29: declined interview. increase clozapine by 25 mg, to 150 mg QHS. continue to titrate by 25 mg daily. case d/w mihaela, pt's outpt prescriber. per mihaela, pt was last hospitalized in 2017 and required clozapine 300 and haldol 5 to stabilize. at baseline he is calm and pleasant and well-related. will plan to continue haldol 5 and titrate clozapine to 300 mg QHS. 07/30/2023: No changes to primary team treatment plan. 07/31/2023: No changes 08/01: much improved presentation from last week. more open, relaxed, fluid, spontaneous than previous. continue clozapine dose titration to 175 as of tonight. begin ativan taper, to 1 mg BID as of tomorrow. 08/02: continue clozapine titration to 200 mg tonight. continue ativan taper to 1 mg QHS tomorrow. gains held. 08/03: continues improved. increase clozapine to 225 tonight. taper ativan. 08/04: increase clozapine to 250 mg tonight, DC ativan. gains continue. 08/05: increase clozapine to 275 mg tonight, 300 mg tomorrow night. plan to remain at 300 mg nightly and discharge mid next week. appears to be stable and not suffering side effects from medication. 08/06/23: Continue current regimen and plans Reason for continued inpatient stay Substantial Risk for: med/psych decompensation Time Spent With Patient Time: Total time managing care of this patient today ____ minutes.
[2023-08-07 19:50] VITALS: BP 112/81; PULSE 113; RESP 16; TEMP 36.3; O2SAT 99
[2023-08-07] MEDS: HaloperidoL 5 MG TABLET PO (20:16)
[2023-08-07] MEDS: cloZAPine 100 MG TABLET 300 MG PO (20:16)
[2023-08-08 07:30] VITALS: BP 128/81; PULSE 105; RESP 14; TEMP 36.4; O2SAT 100
[2023-08-08] MEDS: polyethylene glycoL 3350 17 GM POWD.PACK PO (08:43)
[2023-08-08 18:00] VITALS: BP 132/72; PULSE 100; RESP 16; O2SAT 98
[2023-08-08] MEDS: HaloperidoL 5 MG TABLET PO (20:50)
[2023-08-08] MEDS: cloZAPine 100 MG TABLET 300 MG PO (20:50)
--- NOTE | 2023-08-08 22:55 | P.PNPSI_ITS ---
Subjective Subjective Date of Service: 08/08/23 Reason For Visit: psychosis Subjective Notes: Conditional Voluntary Interim History: Patient was seen and discussed in rounds today. Records and plans were reviewed. Patient somewhat dysphoric and isolative. Has been taking medication as prescribed Medication Compliance: Yes Mental Status Exam Mental Status Exam Narrative: Appearance: wearing street clothes, sad looking Behavior: calm, cooperative Speech: clear, spontaneous. TP: organized, linear TC: no delusions or paranoia expressed affect: constricted, normo-intense, non-labile somewhat dysphoric SI/SIBI: none expressed VH/AH: not expressed Insight/judgment: impaired Diagnostics Vital Signs (24Hr): Vital Signs - 24 hr 08/08/23 07:30 08/08/23 18:00 Temperature 97.5 F Pulse Rate 105 H 100 Respiratory Rate 14 16 Blood Pressure 128/81 132/72 Pulse Oximetry 100 98 Oxygen Delivery Method Room Air Room Air BMI result Body Mass Index 23.5 Medications Medications Current Medications Acetaminophen (Acetaminophen 325 Mg Tablet) 650 mg PO Q6H PRN PRN Reason: Headache/Pain Mild Scale (1-3) Last Admin: 07/29/23 11:16 Dose: 650 mg Al Hydroxide/Mg Hydroxide (Magnesium Hydrox/Alum Hydrox 30 Ml Oral.Susp) 30 ml PO Q6H PRN PRN Reason: Heartburn/Nausea Clozapine (Clozapine 100 Mg Tablet) 300 mg PO BEDTIME OPAL Last Admin: 08/08/23 20:50 Dose: 300 mg Haloperidol (Haloperidol 5 Mg Tablet) 5 mg PO BEDTIME OPAL Last Admin: 08/08/23 20:50 Dose: 5 mg Hydroxyzine HCl (Hydroxyzine Hcl 25 Mg Tablet) 25 mg PO Q6H PRN PRN Reason: Anxiety Last Admin: 08/01/23 22:12 Dose: 25 mg Magnesium Hydroxide (Milk Of Magnesia 30 Ml Oral.Susp) 30 ml PO DAILY PRN PRN Reason: Constipation Polyethylene Glycol (Polyethylene Glycol 3350 17 Gm Powd.Pack) 17 gm PO DAILY OPAL Last Admin: 08/08/23 08:43 Dose: 17 gm Trazodone HCl (Trazodone Hcl 50 Mg Tablet) 50 mg PO BEDTIME MRX1 PRN PRN Reason: Insomnia Last Admin: 07/29/23 22:36 Dose: 50 mg Allergies Allergies Allergy/AdvReac Type Severity Reaction Status Date / Time No Known Allergies Allergy Mild NOT Unverified 04/10/20 16:57 APPLICABLE Assessment & Plan Assessment & Plan (1) Chronic schizophrenia with acute exacerbation: Status: Inactive Code(s): F20.9 - Schizophrenia, unspecified Plan 07/27: titrate clozapine. continue haldol 5 mg QHS. increase ativan from 1 BID to 1 TID for now. collateral from mihaela. 07/28: LM for mihaela at [facility] and also [phone]. increase clozapine to 125 tonight. refusing interview, remains disorganized and bizarre. 07/29: declined interview. increase clozapine by 25 mg, to 150 mg QHS. continue to titrate by 25 mg daily. case d/w mihaela, pt's outpt prescriber. per mihaela, pt was last hospitalized in 2017 and required clozapine 300 and haldol 5 to stabilize. at baseline he is calm and pleasant and well-related. will plan to continue haldol 5 and titrate clozapine to 300 mg QHS. 07/30/2023: No changes to primary team treatment plan. 07/31/2023: No changes 08/01: much improved presentation from last week. more open, relaxed, fluid, spontaneous than previous. continue clozapine dose titration to 175 as of tonight. begin ativan taper, to 1 mg BID as of tomorrow. 08/02: continue clozapine titration to 200 mg tonight. continue ativan taper to 1 mg QHS tomorrow. gains held. 08/03: continues improved. increase clozapine to 225 tonight. taper ativan. 08/04: increase clozapine to 250 mg tonight, DC ativan. gains continue. 08/05: increase clozapine to 275 mg tonight, 300 mg tomorrow night. plan to remain at 300 mg nightly and discharge mid next week. appears to be stable and not suffering side effects from medication. 08/06/23: Continue current regimen and plans 08/08/2023 Patient seems to be stabilizing on clozapine tolerating 300 mg bedtime Haldol 5 mg discharge planning tolerating treatment somewhat isolative and constricted Patient educated on: medication risk/benefits Informed Consent: further education needed Reason for continued inpatient stay Substantial Risk for: inability to function Time Spent With Patient Time: Total time managing care of this patient today _20___ minutes.
[2023-08-09 07:40] VITALS: BP 125/82; PULSE 116; RESP 16; TEMP 36.5; O2SAT 99
[2023-08-09] MEDS: polyethylene glycoL 3350 17 GM POWD.PACK PO (08:42)
[2023-08-09 15:15] LABS: Neut%MD 50.1 %; Neutrophils Absolute Auto 2.7 x10*3/uL (2.0-8.3); WBCANC 5.3 X10*3/uL
--- NOTE | 2023-08-09 21:10 | P.PNPSI_ITS ---
Subjective Subjective Date of Service: 08/09/23 Reason For Visit: psychosis Subjective Notes: Conditional Voluntary Interim History: Patient was seen and discussed in rounds today. Records and plans were reviewed. Patient became disorganized guarded somewhat suspicious with being asked to have his white blood cell count drawn for clozapine. Had difficult time articulating need for outpatient blood work. Social work did speak with his mother who states this is a chronic issue and she monitors his meds and takes him for his blood work which has always been somewhat difficult for him Medication Compliance: Yes Mental Status Exam Mental Status Exam Narrative: Appearance: wearing street clothes, sad looking Behavior: calm, cooperative Speech: clear, spontaneous. TP: Obsessional TC: Suspicious regarding blood work what his blood might be use for affect: constricted, anxious dysphoric SI/SIBI: none expressed VH/AH: not expressed Insight/judgment: impaired Diagnostics Vital Signs (24Hr): Vital Signs - 24 hr 08/09/23 07:40 Temperature 97.7 F Pulse Rate 116 H Respiratory Rate 16 Blood Pressure 125/82 Pulse Oximetry 99 Oxygen Delivery Method Room Air BMI result Body Mass Index 23.5 Labs Labs: Laboratory Results - last 48 hr 08/09/23 15:00 Absolute Neuts (auto) 2.7 Medications Medications Current Medications Acetaminophen (Acetaminophen 325 Mg Tablet) 650 mg PO Q6H PRN PRN Reason: Headache/Pain Mild Scale (1-3) Last Admin: 07/29/23 11:16 Dose: 650 mg Al Hydroxide/Mg Hydroxide (Magnesium Hydrox/Alum Hydrox 30 Ml Oral.Susp) 30 ml PO Q6H PRN PRN Reason: Heartburn/Nausea Clozapine (Clozapine 100 Mg Tablet) 300 mg PO BEDTIME OPAL Last Admin: 08/08/23 20:50 Dose: 300 mg Haloperidol (Haloperidol 5 Mg Tablet) 5 mg PO BEDTIME OPAL Last Admin: 08/08/23 20:50 Dose: 5 mg Hydroxyzine HCl (Hydroxyzine Hcl 25 Mg Tablet) 25 mg PO Q6H PRN PRN Reason: Anxiety Last Admin: 08/01/23 22:12 Dose: 25 mg Magnesium Hydroxide (Milk Of Magnesia 30 Ml Oral.Susp) 30 ml PO DAILY PRN PRN Reason: Constipation Polyethylene Glycol (Polyethylene Glycol 3350 17 Gm Powd.Pack) 17 gm PO DAILY OPAL Last Admin: 08/09/23 08:42 Dose: 17 gm Trazodone HCl (Trazodone Hcl 50 Mg Tablet) 50 mg PO BEDTIME MRX1 PRN PRN Reason: Insomnia Last Admin: 07/29/23 22:36 Dose: 50 mg Allergies Allergies Allergy/AdvReac Type Severity Reaction Status Date / Time No Known Allergies Allergy Mild NOT Unverified 04/10/20 16:57 APPLICABLE Assessment & Plan Assessment & Plan (1) Chronic schizophrenia with acute exacerbation: Status: Inactive Code(s): F20.9 - Schizophrenia, unspecified Plan 07/27: titrate clozapine. continue haldol 5 mg QHS. increase ativan from 1 BID to 1 TID for now. collateral from mihaela. 07/28: LM for mihaela at [facility] and also [phone]. increase clozapine to 125 tonight. refusing interview, remains disorganized and bizarre. 07/29: declined interview. increase clozapine by 25 mg, to 150 mg QHS. continue to titrate by 25 mg daily. case d/w mihaela, pt's outpt prescriber. per mihaela, pt was last hospitalized in 2017 and required clozapine 300 and haldol 5 to stabilize. at baseline he is calm and pleasant and well-related. will plan to continue haldol 5 and titrate clozapine to 300 mg QHS. 07/30/2023: No changes to primary team treatment plan. 07/31/2023: No changes 08/01: much improved presentation from last week. more open, relaxed, fluid, spontaneous than previous. continue clozapine dose titration to 175 as of tonight. begin ativan taper, to 1 mg BID as of tomorrow. 08/02: continue clozapine titration to 200 mg tonight. continue ativan taper to 1 mg QHS tomorrow. gains held. 08/03: continues improved. increase clozapine to 225 tonight. taper ativan. 08/04: increase clozapine to 250 mg tonight, DC ativan. gains continue. 08/05: increase clozapine to 275 mg tonight, 300 mg tomorrow night. plan to remain at 300 mg nightly and discharge mid next week. appears to be stable and not suffering side effects from medication. 08/06/23: Continue current regimen and plans 08/08/2023 Patient seems to be stabilizing on clozapine tolerating 300 mg bedtime Haldol 5 mg discharge planning tolerating treatment somewhat isolative and constricted 08/09/2023 Patient needed much encouragement to get blood work. His mother feels that she can manage him getting his blood work on a regular basis an outpatient and that this was always an issue patient was anxious and disorganized around issues related to blood work remains probable discharge for tomorrow Patient educated on: medication risk/benefits Informed Consent: further education needed Reason for continued inpatient stay Substantial Risk for: inability to function and rapid decompensation Time Spent With Patient Time: Total time managing care of this patient today _25___ minutes.
[2023-08-09 21:30] VITALS: BP 134/77; PULSE 64; RESP 16; TEMP 36; O2SAT 98
[2023-08-09] MEDS: cloZAPine 100 MG TABLET 300 MG PO (21:54)
[2023-08-09] MEDS: HaloperidoL 5 MG TABLET PO (21:54)
--- NOTE | 2023-08-10 07:04 | PC.NURSE ---
showered on rising
[2023-08-10 07:40] VITALS: BP 117/81; PULSE 109; TEMP 36.6; O2SAT 100
[2023-08-10] MEDS: polyethylene glycoL 3350 17 GM POWD.PACK PO (08:13)
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
== END 2023-08-10 11:30 | disposition home or self-care (01) | DRG 885 ==
PROVIDERS: Admitting Provider Psychiatry & Neurology Psychiatry; Visit Provider Psychiatry & Neurology Psychiatry
DX: F20.9 Schizophrenia, unspecified (principal); Z20.822 Contact with and (suspected) exposure to COVID-19; Z91.148 Patient's other noncompliance with medication regimen for other reason; Z87.891 Personal history of nicotine dependence; Z79.899 Other long term (current) drug therapy
CPT/HCPCS: 36415; 85048; 87635

== ENCOUNTER → 2023-07-26 09:50 | Outpatient (BNV) | payer OTHER, SELFPAY | PROVIDERS: Admitting Provider Psychiatry & Neurology Psychiatry; Visit Provider Psychiatry & Neurology Psychiatry | DX: F20.1 Disorganized schizophrenia (principal) | CPT/HCPCS: 99231 ==

== ENCOUNTER → 2023-07-26 09:50 | Outpatient (BNV) | payer OTHER, SELFPAY | PROVIDERS: Admitting Provider Psychiatry & Neurology Psychiatry; Visit Provider Psychiatry & Neurology Psychiatry | DX: F20.1 Disorganized schizophrenia (principal) | CPT/HCPCS: 99203; 99231; 99232; 99239 ==

== ENCOUNTER 2023-09-12 08:41 | Outpatient (REF) | payer OTHER, SELFPAY ==
[2023-09-12 08:55] LABS: MANUAL DIFF FLAG NO
[2023-09-12 09:26] LABS: Basophils Percent Auto 0.5 % (0-2); Hematocrit 43.3 % (42.0-52.0); Hemoglobin 14.1 g/dl (14.0-18.0); Imm Gran Abs Auto 0.02 X10*3/uL (0.00-0.03); Imm Gran Pct Auto 0.3 % (0.0-0.4); Lymphocytes Absolute Auto 2.2 X10*3/uL (1.2-4.9); Lymphocytes Percent Auto 36.1 % (20-40); Mean Corpuscular HGB Conc 32.6 g/dl (31.0-36.0); Mean Corpuscular Hemoglobin 28.9 pg (27.0-33.0); Mean Corpuscular Volume 88.7 fL (80.0-98.0); Mean Platelet Volume 9.7 fL (9.4-12.4); Monocytes Absolute Auto 0.5 X10*3/uL (0.1-1.2); Monocytes Percent Auto 8.6 % (2-11); Neutrophils Absolute Auto 3.3 x10*3/uL (2.0-8.3); Neutrophils Percent Auto 54.5 % (45-73); Platelet Count 264 X10*3/uL (160-400); Red Blood Count 4.88 X10*6/uL (4.60-5.80); Red Cell Distribution Width 12.9 % (11.0-16.0); White Blood Count 6.1 X10*3/uL (4.8-10.8)
== END 2023-09-12 08:42 | disposition home or self-care (01) ==
LOC: HO.LABR 08:41
PROVIDERS: PCP Student in an Organized Health Care Education/Training Program; Visit Provider Psychiatry & Neurology Psychiatry
DX: Z79.899 Other long term (current) drug therapy (principal)
CPT/HCPCS: 36415; 85025

== ENCOUNTER 2023-10-12 10:32 | Outpatient (REF) | payer OTHER, SELFPAY ==
[2023-10-12 12:55] LABS: MANUAL DIFF FLAG NO
[2023-10-12 13:09] LABS: Basophils Percent Auto 0.6 % (0-2); Hemoglobin 14.4 g/dl (14.0-18.0); Imm Gran Abs Auto 0.02 X10*3/uL (0.00-0.03); Imm Gran Pct Auto 0.4 % (0.0-0.4); Lymphocytes Percent Auto 38.5 % (20-40); Mean Corpuscular HGB Conc 33.5 g/dl (31.0-36.0); Mean Corpuscular Hemoglobin 29.1 pg (27.0-33.0); Mean Platelet Volume 10.2 fL (9.4-12.4); Monocytes Absolute Auto 0.5 X10*3/uL (0.1-1.2); Monocytes Percent Auto 8.6 % (2-11); Neutrophils Absolute Auto 2.7 x10*3/uL (2.0-8.3); Neutrophils Percent Auto 51.9 % (45-73); Platelet Count 256 X10*3/uL (160-400); Red Blood Count 4.94 X10*6/uL (4.60-5.80); Red Cell Distribution Width 12.8 % (11.0-16.0); White Blood Count 5.2 X10*3/uL (4.8-10.8)
== END 2023-10-12 10:33 | disposition home or self-care (01) ==
LOC: HO.CHCLDS 10:32
PROVIDERS: Visit Provider Psychiatry & Neurology Psychiatry
DX: Z79.899 Other long term (current) drug therapy (principal)
CPT/HCPCS: 36415; 85025

== ENCOUNTER 2023-11-04 15:36 | Outpatient (REF) | payer OTHER, SELFPAY ==
[2023-11-04 17:35] LABS: MANUAL DIFF FLAG NO
[2023-11-04 17:38] LABS: Basophils Percent Auto 0.2 % (0-2); Hematocrit 41.2 % (42.0-52.0); Imm Gran Abs Auto 0.03 X10*3/uL (0.00-0.03); Imm Gran Pct Auto 0.4 % (0.0-0.4); Lymphocytes Absolute Auto 2.2 X10*3/uL (1.2-4.9); Lymphocytes Percent Auto 27.6 % (20-40); Mean Corpuscular Hemoglobin 29.2 pg (27.0-33.0); Mean Corpuscular Volume 85.8 fL (80.0-98.0); Mean Platelet Volume 10.1 fL (9.4-12.4); Monocytes Absolute Auto 0.5 X10*3/uL (0.1-1.2); Monocytes Percent Auto 5.9 % (2-11); Neut%MD 65.9 %; Neutrophils Absolute Auto 5.3 x10*3/uL (2.0-8.3); Neutrophils Percent Auto 65.9 % (45-73); Platelet Count 257 X10*3/uL (160-400); Red Cell Distribution Width 12.9 % (11.0-16.0); WBCANC 8.1 X10*3/uL; White Blood Count 8.1 X10*3/uL (4.8-10.8)
== END 2023-11-04 15:37 | disposition home or self-care (01) ==
LOC: HO.CHCLDS 15:36
PROVIDERS: Psychiatry & Neurology Psychiatry; Visit Provider Psychiatry & Neurology Psychiatry
DX: F20.9 Schizophrenia, unspecified (principal); F31.9 Bipolar disorder, unspecified; Z79.899 Other long term (current) drug therapy
CPT/HCPCS: 36415; 85025

== ENCOUNTER 2023-12-16 11:36 | Outpatient (REF) | payer OTHER, SELFPAY ==
[2023-12-16 14:11] LABS: MANUAL DIFF FLAG NO
[2023-12-16 14:31] LABS: Basophils Percent Auto 0.3 % (0-2); Hematocrit 41.8 % (42.0-52.0); Hemoglobin 14.2 g/dl (14.0-18.0); Imm Gran Abs Auto 0.01 X10*3/uL (0.00-0.03); Imm Gran Pct Auto 0.2 % (0.0-0.4); Lymphocytes Absolute Auto 2.1 X10*3/uL (1.2-4.9); Lymphocytes Percent Auto 35.5 % (20-40); Mean Corpuscular Hemoglobin 29.3 pg (27.0-33.0); Mean Corpuscular Volume 86.2 fL (80.0-98.0); Mean Platelet Volume 9.9 fL (9.4-12.4); Monocytes Absolute Auto 0.5 X10*3/uL (0.1-1.2); Monocytes Percent Auto 8.9 % (2-11); Neut%MD 55.1 %; Neutrophils Absolute Auto 3.2 x10*3/uL (2.0-8.3); Neutrophils Percent Auto 55.1 % (45-73); Platelet Count 266 X10*3/uL (160-400); Red Blood Count 4.85 X10*6/uL (4.60-5.80); Red Cell Distribution Width 12.8 % (11.0-16.0); WBCANC 5.8 X10*3/uL; White Blood Count 5.8 X10*3/uL (4.8-10.8)
== END 2023-12-16 11:37 | disposition home or self-care (01) ==
LOC: HO.CHCLR 11:36
PROVIDERS: Visit Provider Psychiatry & Neurology Psychiatry
DX: Z79.899 Other long term (current) drug therapy (principal)
CPT/HCPCS: 36415; 85025

== ENCOUNTER 2024-01-17 10:26 | Outpatient (REF) | payer OTHER, SELFPAY ==
[2024-01-17 11:23] LABS: MANUAL DIFF FLAG NO
[2024-01-17 11:59] LABS: Basophils Percent Auto 0.4 % (0-2); Hematocrit 42.6 % (42.0-52.0); Hemoglobin 14.7 g/dl (14.0-18.0); Imm Gran Abs Auto 0.01 X10*3/uL (0.00-0.03); Imm Gran Pct Auto 0.2 % (0.0-0.4); Lymphocytes Percent Auto 35.7 % (20-40); Mean Corpuscular HGB Conc 34.5 g/dl (31.0-36.0); Mean Corpuscular Hemoglobin 29.6 pg (27.0-33.0); Mean Corpuscular Volume 85.9 fL (80.0-98.0); Mean Platelet Volume 10.1 fL (9.4-12.4); Monocytes Absolute Auto 0.4 X10*3/uL (0.1-1.2); Monocytes Percent Auto 7.7 % (2-11); Neutrophils Absolute Auto 3.1 x10*3/uL (2.0-8.3); Platelet Count 265 X10*3/uL (160-400); Red Blood Count 4.96 X10*6/uL (4.60-5.80); Red Cell Distribution Width 12.7 % (11.0-16.0); WBCANC 5.5 X10*3/uL; White Blood Count 5.5 X10*3/uL (4.8-10.8)
[2024-01-17 12:33] LABS: Alanine Aminotransferase 15 U/L (0-40); Albumin Level 4.6 g/dL (3.5-5.0); Alkaline Phosphatase 100 U/L (39-117); Anion Gap 12 (12-20); Aspartate Amino Transferase 17 U/L (5-37); Bilirubin Direct 0.1 mg/dL (0.0-0.5); Bilirubin Total 0.5 mg/dL (0.0-1.0); Blood Urea Nitrogen 12 mg/dL (9-16); Calcium 9.6 mg/dL (8.4-10.2); Carbon Dioxide 24 mmol/L (22-29); Chloride 108 mmol/L (96-108); Cholesterol 212 mg/dL (<200); Estimated Glomerular Filt Rate > 60; Glucose Random 95 mg/dL (60-115); HDL Cholesterol 46 mg/dL (>40); LDL Cholesterol Calculated 137 mg/dL (<100); Potassium 3.9 mmol/L (3.3-5.1); Sodium 140 mmol/L (135-145); Total Protein 7.4 g/dL (6.5-8.0); Triglycerides 145 mg/dL (<150)
== END 2024-01-17 10:27 | disposition home or self-care (01) ==
LOC: HO.CHCLDS 10:26
PROVIDERS: Referring Provider Psychiatry & Neurology Psychiatry; Visit Provider Student in an Organized Health Care Education/Training Program
DX: Z79.899 Other long term (current) drug therapy (principal); Z71.3 Dietary counseling and surveillance
CPT/HCPCS: 36415; 80048; 80061; 80076; 85025

== ENCOUNTER 2024-02-07 09:39 | Outpatient (REF) | payer OTHER, SELFPAY | END 2024-02-07 09:40 | disposition home or self-care (01) | LOC: HO.CHCLDS 09:39 | PROVIDERS: Visit Provider Student in an Organized Health Care Education/Training Program | DX: Z13.89 Encounter for screening for other disorder (principal) ==

== ENCOUNTER 2024-02-07 14:02 | Outpatient (REF) | payer OTHER, SELFPAY ==
[2024-02-07 14:05] LABS: MANUAL DIFF FLAG NO
[2024-02-07 14:13] LABS: Basophils Percent Auto 0.5 % (0-2); Hemoglobin 14.2 g/dl (14.0-18.0); Imm Gran Abs Auto 0.01 X10*3/uL (0.00-0.03); Imm Gran Pct Auto 0.2 % (0.0-0.4); Lymphocytes Percent Auto 32.9 % (20-40); Mean Corpuscular HGB Conc 34.6 g/dl (31.0-36.0); Mean Corpuscular Hemoglobin 29.8 pg (27.0-33.0); Mean Corpuscular Volume 86.1 fL (80.0-98.0); Mean Platelet Volume 10.5 fL (9.4-12.4); Monocytes Absolute Auto 0.5 X10*3/uL (0.1-1.2); Monocytes Percent Auto 8.7 % (2-11); Neutrophils Absolute Auto 3.4 x10*3/uL (2.0-8.3); Neutrophils Percent Auto 57.7 % (45-73); Platelet Count 239 X10*3/uL (160-400); Red Blood Count 4.76 X10*6/uL (4.60-5.80); Red Cell Distribution Width 12.5 % (11.0-16.0)
== END 2024-02-07 14:03 | disposition home or self-care (01) ==
LOC: HO.LNP 14:02
PROVIDERS: Visit Provider Psychiatry & Neurology Psychiatry
DX: Z79.899 Other long term (current) drug therapy (principal)
CPT/HCPCS: 85025

== ENCOUNTER 2024-03-12 10:11 | Outpatient (REF) | payer OTHER, SELFPAY ==
[2024-03-12 14:21] LABS: MANUAL DIFF FLAG NO
[2024-03-12 14:29] LABS: Basophils Percent Auto 0.6 % (0-2); Hematocrit 41.6 % (42.0-52.0); Hemoglobin 14.1 g/dl (14.0-18.0); Imm Gran Abs Auto 0.02 X10*3/uL (0.00-0.03); Imm Gran Pct Auto 0.3 % (0.0-0.4); Lymphocytes Absolute Auto 2.2 X10*3/uL (1.2-4.9); Lymphocytes Percent Auto 32.8 % (20-40); Mean Corpuscular HGB Conc 33.9 g/dl (31.0-36.0); Mean Corpuscular Hemoglobin 29.4 pg (27.0-33.0); Mean Corpuscular Volume 86.8 fL (80.0-98.0); Mean Platelet Volume 10.7 fL (9.4-12.4); Monocytes Absolute Auto 0.6 X10*3/uL (0.1-1.2); Monocytes Percent Auto 8.9 % (2-11); Neut%MD 57.4 %; Neutrophils Absolute Auto 3.8 x10*3/uL (2.0-8.3); Neutrophils Percent Auto 57.4 % (45-73); Platelet Count 253 X10*3/uL (160-400); Red Blood Count 4.79 X10*6/uL (4.60-5.80); Red Cell Distribution Width 12.7 % (11.0-16.0); WBCANC 6.6 X10*3/uL; White Blood Count 6.6 X10*3/uL (4.8-10.8)
== END 2024-03-12 10:12 | disposition home or self-care (01) ==
LOC: HO.CHCLDS 10:11
PROVIDERS: PCP Student in an Organized Health Care Education/Training Program; Visit Provider Psychiatry & Neurology Psychiatry
DX: Z79.899 Other long term (current) drug therapy (principal)
CPT/HCPCS: 36415; 85025

== ENCOUNTER 2024-04-16 09:36 | Outpatient (REF) | payer OTHER, SELFPAY ==
[2024-04-16 15:21] LABS: MANUAL DIFF FLAG NO
[2024-04-16 15:29] LABS: Basophils Percent Auto 0.4 % (0-2); Hematocrit 42.3 % (42.0-52.0); Hemoglobin 14.3 g/dl (14.0-18.0); Imm Gran Abs Auto 0.01 X10*3/uL (0.00-0.03); Imm Gran Pct Auto 0.2 % (0.0-0.4); Lymphocytes Absolute Auto 1.9 X10*3/uL (1.2-4.9); Lymphocytes Percent Auto 33.8 % (20-40); Mean Corpuscular HGB Conc 33.8 g/dl (31.0-36.0); Mean Corpuscular Hemoglobin 29.6 pg (27.0-33.0); Mean Corpuscular Volume 87.6 fL (80.0-98.0); Mean Platelet Volume 10.5 fL (9.4-12.4); Monocytes Absolute Auto 0.5 X10*3/uL (0.1-1.2); Monocytes Percent Auto 9.5 % (2-11); Neut%MD 56.1 %; Neutrophils Absolute Auto 3.1 x10*3/uL (2.0-8.3); Neutrophils Percent Auto 56.1 % (45-73); Platelet Count 248 X10*3/uL (160-400); Red Blood Count 4.83 X10*6/uL (4.60-5.80); Red Cell Distribution Width 12.6 % (11.0-16.0); WBCANC 5.5 X10*3/uL; White Blood Count 5.5 X10*3/uL (4.8-10.8)
== END 2024-04-16 09:37 | disposition home or self-care (01) ==
LOC: HO.CHCLDS 09:36
PROVIDERS: Visit Provider Psychiatry & Neurology Psychiatry
DX: Z79.899 Other long term (current) drug therapy (principal)
CPT/HCPCS: 36415; 85025

== ENCOUNTER 2024-05-18 13:03 | Outpatient (REF) | payer OTHER, SELFPAY ==
[2024-05-18 14:23] LABS: MANUAL DIFF FLAG NO
[2024-05-18 14:33] LABS: Basophils Percent Auto 0.3 % (0-2); Eosinophils Percent Auto 0.1 % (0-4); Hematocrit 38.7 % (42.0-52.0); Hemoglobin 13.4 g/dl (14.0-18.0); Imm Gran Abs Auto 0.02 X10*3/uL (0.00-0.03); Imm Gran Pct Auto 0.3 % (0.0-0.4); Lymphocytes Absolute Auto 2.4 X10*3/uL (1.2-4.9); Lymphocytes Percent Auto 32.1 % (20-40); Mean Corpuscular HGB Conc 34.6 g/dl (31.0-36.0); Mean Corpuscular Hemoglobin 29.7 pg (27.0-33.0); Mean Corpuscular Volume 85.8 fL (80.0-98.0); Monocytes Absolute Auto 0.7 X10*3/uL (0.1-1.2); Monocytes Percent Auto 9.1 % (2-11); Neutrophils Absolute Auto 4.4 x10*3/uL (2.0-8.3); Neutrophils Percent Auto 58.1 % (45-73); Platelet Count 245 X10*3/uL (160-400); Red Blood Count 4.51 X10*6/uL (4.60-5.80); Red Cell Distribution Width 12.4 % (11.0-16.0); White Blood Count 7.6 X10*3/uL (4.8-10.8)
== END 2024-05-18 13:04 | disposition home or self-care (01) ==
LOC: HO.CHCLR 13:03
PROVIDERS: Visit Provider Psychiatry & Neurology Psychiatry
DX: Z79.899 Other long term (current) drug therapy (principal)
CPT/HCPCS: 36415; 85025

== ENCOUNTER 2024-06-18 13:41 | Outpatient (REF) | payer OTHER, SELFPAY ==
[2024-06-18 14:29] LABS: Basophils Percent Auto 0.5 % (0-2); Eosinophils Percent Auto 0.1 % (0-4); Hematocrit 39.9 % (42.0-52.0); Hemoglobin 13.8 g/dl (14.0-18.0); Imm Gran Abs Auto 0.02 X10*3/uL (0.00-0.03); Imm Gran Pct Auto 0.3 % (0.0-0.4); Lymphocytes Absolute Auto 2.6 X10*3/uL (1.2-4.9); Lymphocytes Percent Auto 35.8 % (20-40); MANUAL DIFF FLAG NO; Mean Corpuscular HGB Conc 34.6 g/dl (31.0-36.0); Mean Corpuscular Hemoglobin 29.7 pg (27.0-33.0); Mean Platelet Volume 10.2 fL (9.4-12.4); Monocytes Absolute Auto 0.7 X10*3/uL (0.1-1.2); Monocytes Percent Auto 9.6 % (2-11); Neut%MD 53.7 %; Neutrophils Absolute Auto 3.9 x10*3/uL (2.0-8.3); Neutrophils Percent Auto 53.7 % (45-73); Platelet Count 268 X10*3/uL (160-400); Red Blood Count 4.64 X10*6/uL (4.60-5.80); Red Cell Distribution Width 12.5 % (11.0-16.0); WBCANC 7.3 X10*3/uL; White Blood Count 7.3 X10*3/uL (4.8-10.8)
== END 2024-06-18 13:42 | disposition home or self-care (01) ==
LOC: HO.CHCLR 13:41
PROVIDERS: Visit Provider Psychiatry & Neurology Psychiatry
DX: Z79.899 Other long term (current) drug therapy (principal)
CPT/HCPCS: 36415; 85025

== ENCOUNTER 2024-07-17 11:18 | Outpatient (AMB) | payer OTHER, SELFPAY ==
--- NOTE | 2024-07-17 11:19 | MHC.OFFVIS ---
Vital Signs 07/17/24 11:26 Height 6 ft 2 in Weight 205 lb 8 oz BMI 26.4 Intake Visit Reasons: appendicitis Intake Note: This patient presents for appendicitis assessment. Pt c/o; reports he went to [place] [address] and he was advised something is abnormal with his appendix but he has not had any surgery, reports pain with certain foods and sauces like Barbecue and honey mustard otherwise reports good appetite. Rotary Pump Operator Required: No Accompanied by: Mother Allergies No Known Allergies Allergy (Mild, Unverified 07/17/24 11:28) NOT APPLICABLE HPI Comments Details: Patient presents with his mother. He apparently was seen in [facility] within last couple of weeks time and was being worked up for acute appendicitis. Patient was not the best historian but apparently he was being considered for surgery and then the patient left AMA. He would not presents here for follow-up. At present, he is tolerating a diet. Having regular bowel habits. He is no abdominal symptoms or complaints aside from longstanding history of gastroesophageal reflux symptoms which have not been relieved with [id number] medications. Chart was reviewed and patient evaluated. Patient has history of schizophrenia [facility] Medical History snf current use of clozapine Chronic schizophrenia with acute exacerbation Schizophrenia Social History Household Members: Family Household Members Other:: mother Housing: Apartment Do you presently have visiting nurse or other home services: No Unable to assess alcohol history related to: Unknown Comment: OOB ad jakob, steady on feet Patient Tobacco Use Status: Former Tobacco user Tobacco use type: Cigarette Second Hand Smoke Exposure: No service: No Sexual orientation: Straight/Heterosexual Physical Exam Vital Signs: BMI result Body Mass Index 26.4 GI Other: Patient was examined both supine and standing with Valsalva. Abdomen is soft, scaphoid, benign. No evidence of guarding, rebound, or rigidity Assessment & Plan Assessment & Plan (1) Abdominal pain: Code(s): R10.9 - Unspecified abdominal pain Category: Surgical (2) Gastroesophageal reflux disease: Code(s): K21.9 - Gastro-esophageal reflux disease without esophagitis Category: Surgical Plan At present, patient was doing well and has not had a recurrence of his abdominal symptoms. We will attempt to obtain his records from [facility] and direct further therapy based on these but as noted, no acute surgical intervention required at this time. In the meantime, patient will be given a GI consultation regarding his reflux symptoms. Patient otherwise follow-up with me p.r.n.. All questions answered. This was also reviewed with his mother was present. Coding Level of Care Code New Pt Level 4 (19091) Diagnoses Abdominal pain R10.9 Gastroesophageal reflux disease K21.9
[2024-07-17 11:26] VITALS: BMI 26.4
== END 2024-07-17 11:34 | disposition home or self-care (01) ==
PROVIDERS: PCP Student in an Organized Health Care Education/Training Program; Visit Provider Surgery
DX: R10.9 Unspecified abdominal pain (principal); K21.9 Gastro-esophageal reflux disease without esophagitis
CPT/HCPCS: 99204

== ENCOUNTER → 2024-07-17 11:18 | Outpatient (BNVA) | payer OTHER, SELFPAY | PROVIDERS: PCP Student in an Organized Health Care Education/Training Program; Visit Provider Surgery | DX: K21.9 Gastro-esophageal reflux disease without esophagitis (principal); R10.9 Unspecified abdominal pain | CPT/HCPCS: 99202 ==

== ENCOUNTER 2024-07-17 12:11 | Outpatient (REF) | payer OTHER, SELFPAY ==
[2024-07-17 14:42] LABS: MANUAL DIFF FLAG NO
[2024-07-17 14:47] LABS: Basophils Percent Auto 0.2 % (0-2); Hematocrit 40.3 % (42.0-52.0); Hemoglobin 13.6 g/dl (14.0-18.0); Imm Gran Abs Auto 0.03 X10*3/uL (0.00-0.03); Imm Gran Pct Auto 0.4 % (0.0-0.4); Lymphocytes Absolute Auto 1.7 X10*3/uL (1.2-4.9); Lymphocytes Percent Auto 20.4 % (20-40); Mean Corpuscular HGB Conc 33.7 g/dl (31.0-36.0); Mean Corpuscular Hemoglobin 29.3 pg (27.0-33.0); Mean Corpuscular Volume 86.9 fL (80.0-98.0); Mean Platelet Volume 10.2 fL (9.4-12.4); Monocytes Absolute Auto 0.6 X10*3/uL (0.1-1.2); Monocytes Percent Auto 7.2 % (2-11); Neut%MD 71.8 %; Neutrophils Percent Auto 71.8 % (45-73); Platelet Count 263 X10*3/uL (160-400); Red Blood Count 4.64 X10*6/uL (4.60-5.80); Red Cell Distribution Width 12.7 % (11.0-16.0); WBCANC 8.3 X10*3/uL; White Blood Count 8.3 X10*3/uL (4.8-10.8)
== END 2024-07-17 12:12 | disposition home or self-care (01) ==
LOC: HO.CHCLDS 12:11
PROVIDERS: Visit Provider Psychiatry & Neurology Psychiatry
DX: Z79.899 Other long term (current) drug therapy (principal)
CPT/HCPCS: 36415; 85025

== ENCOUNTER 2024-08-17 09:31 | Outpatient (REF) | payer OTHER, SELFPAY ==
[2024-08-17 14:37] LABS: MANUAL DIFF FLAG NO
[2024-08-17 14:41] LABS: Basophils Percent Auto 0.5 % (0-2); Hematocrit 40.7 % (42.0-52.0); Hemoglobin 13.9 g/dl (14.0-18.0); Imm Gran Abs Auto 0.01 X10*3/uL (0.00-0.03); Imm Gran Pct Auto 0.2 % (0.0-0.4); Lymphocytes Absolute Auto 2.1 X10*3/uL (1.2-4.9); Lymphocytes Percent Auto 34.5 % (20-40); Mean Corpuscular HGB Conc 34.2 g/dl (31.0-36.0); Mean Corpuscular Hemoglobin 29.8 pg (27.0-33.0); Mean Corpuscular Volume 87.3 fL (80.0-98.0); Mean Platelet Volume 10.4 fL (9.4-12.4); Monocytes Absolute Auto 0.6 X10*3/uL (0.1-1.2); Monocytes Percent Auto 9.9 % (2-11); Neut%MD 54.9 %; Neutrophils Absolute Auto 3.3 x10*3/uL (2.0-8.3); Neutrophils Percent Auto 54.9 % (45-73); Platelet Count 288 X10*3/uL (160-400); Red Blood Count 4.66 X10*6/uL (4.60-5.80); Red Cell Distribution Width 12.7 % (11.0-16.0); WBCANC 6.1 X10*3/uL; White Blood Count 6.1 X10*3/uL (4.8-10.8)
== END 2024-08-17 09:32 | disposition home or self-care (01) ==
LOC: HO.CHCLR 09:31
PROVIDERS: Visit Provider Psychiatry & Neurology Psychiatry
DX: Z79.899 Other long term (current) drug therapy (principal)
CPT/HCPCS: 36415; 85025

== ENCOUNTER 2024-09-17 11:10 | Outpatient (REF) | payer OTHER, SELFPAY ==
--- OUTSIDE RECORDS SUMMARY | 2024-09-17 12:50 | XMS_ITS | Encounter Summary ---
Author Organization [employer] Address [address] [place] [address] Care Team Providers Care Senior Patrol Agent Name Role Phone Monse Maxwell MD Primary Care Provider [phone] Reason for Visit * Reason Comments Med Refill Encounter Details Date Type Department Care Team ([facility] st Contact Info) Description 02/28/2023 Refill [facility] [address] [place] [address] Monse Maxwell MD [address] [place] [address] Social History Tobacco Use Types Packs/Day Years Used Date Smoking Tobacco: Never Assessed Sex and Gender Information Value Date Recorded Sex Assigned at Male 05/24/2022 10:20 AM EDT Legal Sex Male 10:20 AM EDT Gender Identity Male 05/24/2022 10:20 AM EDT Sexual Orientation Choose not to disclose 2021 10:20 AM EDT documented as of this encounter Plan of Treatment Not on file documented as of this encounter Visit Diagnoses Not on filedocumented in this encounter Care Teams Senior Patrol Agent Relationship Specialty Start Date End Date Monse Maxwell MD [address] [place] [phone] PCP - General Family Medicine 05/18/12 documented as of this encounter
--- OUTSIDE RECORDS SUMMARY | 2024-09-17 12:50 | XMS_ITS | Encounter Summary ---
Author Organization [employer] Address [address] [place] [address] Care Team Providers Care Public Works Laborer Name Role Phone Monse Maxwell MD Primary Care Provider [phone] Encounter Details Date Type Department Care Team (Late st Contact Info) Description 01/28/2023 Orders Only [facility] [address] [place] [address] Winifred Aguila LPN Social History Tobacco Use Types Packs/Day Years [...] on filedocumented in this encounter Care Teams Public Works Laborer Relationship Specialty Start Date End Date Monse Maxwell MD [address] [place] [id number] PCP - General Family Medicine 05/18/12 documented as of this encounter
--- OUTSIDE RECORDS SUMMARY | 2024-09-17 12:50 | XMS_ITS | Clinical Summary ---
Author Organization [facility] [employer] Address [address] [place] [address] [address] [place] [address] Care Team Providers Care Sports Management Professor Name Role Phone Monse Maxwell MD Primary Care Provider [phone] Allergies No known active allergies Medications cloZAPine (Clozaril) 100 MG tablet Take 300 mg by mouth 1 (one) time each day. 03/31/2023 Active haloperidol (Haldol) 5 MG tablet Take 5 mg by mouth at bedtime. 03/22/2023 Active LORazepam (Ativan) 0.5 MG tablet Take 0.5 mg by mouth if needed each day for anxiety. 08/10/2023 Active Active Problems Problem Noted Date Diagnosed Date Schizophrenia 12/23/2017 Overview (08/25/2023): ?? Cont following with psychiatrist - Dr. Post ?? Continues with the following med regimen through psych: ?? Clozapine 300mg nightly ?? Haloperidol 5mg nightly ?? Lorazepam 0.5mg daily PRN Assessment & Plan (08/25/2023 11:48 AM EST): -Labs for ANC monitoring with clozapine ordered through psych -Denies mental health crisis or safety concern since hospitalization -Will request assistance with iADL/ADLs Bipolar disorder 01/19/2012 Encounters Date Type Department Care Team Description 07/23/2024 Telephone [facility] [address] [place] [address] Monse Maxwell MD 07/10/2024 Telephone [facility] [address] [place] [address] Monse Maxwell MD 07/09/2024 8:30 AM EST Office Visit [facility] [address] [place] [address] Monse Maxwell MD Gastroesophageal reflux disease without esophagitis (Primary Dx); Appendicitis, unspecified appendicitis type 07/09/2024 Telephone [place] [facility] [address] [facility] [place], [place] [phone] Monse Maxwell MD 07/09/2024 Travel 07/06/2024 Telephone [facility] [address] [place] [address] Monse Maxwell MD 07/02/2024 Patient Outreach [facility] [address] [place] [address] Monse Maxwell MD Pre-visit Planning ([facility] unable to reach [facility]) 06/27/2024 Travel from Last 3 Months Social History Tobacco Use Types Packs/Day Years Used Date Smoking Tobacco: Former Cigarettes Passive Smoke Exposure: Past Smokeless Tobacco: Never Tobacco Cessation:Counseling Given: Not Answered Alcohol Use Standard Drinks/Week Comments Defer 0 (1 standard drink = 0.6 oz pur e alcohol) Depression Answer Date Recorded Patient Health Questionnaire-9 Score 2 04/06/2023 Housing Stability Answer Date Recorded What is your housing situation today? Not on ana e 07/09/[address] you li ve. Do you have problems with any of the following? None of the above 07/09/2024 Food Insecurity Answer Date Recorded Within the past 12 months, y ou worried that your food would run out before you got money to buy more: Never True 07/09/2024 Within the past 12 months,th e food you bought just didn't last and you didn't have enough money to get more: Never True Transportation Answer Date Recorded In the past 12 months, has l ack of transportation kept you from medical appts, meetings, work or from getting things needed for daily living? No 07/09/2024 Utilities Answer Date Recorded In the past 12 months, has t he electric, gas, oil or water company threatened to shut off services in your home? No 07/09/2024 Depression Answer Date Recorded Patient Health Questionnaire-2 Score 0 04/06/2023 Internet Access Answer Date Recorded Internet Access Q1 Yes 07/09/2024 Internet Access Q2 Not on file 07/09/2024 Sex and Gender Information Value Date Recorded Sex Assigned at Male 05/24/2022 10:20 AM EDT Legal Sex Male 10:20 AM EDT Gender Identity Male 05/24/2022 10:20 AM EDT Sexual Orientation Choose not to disclose 2021 10:20 AM EDT Last Filed Vital Signs Vital Sign Reading Time Taken Comments Blood Pressure 128/89 07/09/2024 8:36 AM EST Pulse 96 07/09/2024 8:36 AM EST Temperature 36.4 ??C (97.5 ??F) 07/09/2024 8:36 AM ES T Respiratory Rate 12 07/09/2024 8:36 AM EST Oxygen Saturation 100% 07/09/2024 8:36 AM EST Inhaled Oxygen Concentration - - Weight 91.9 kg (202 lb 9.6 oz) 07/09/2024 8:36 A M EST Height 185.4 cm (6' 1 ) 07/09/2024 8:36 AM EST Body Mass Index 26.73 07/09/2024 8:36 AM EST Plan of Treatment Health Maintenance Due Date Last Done Comments HIV Screening 1986 Alcohol/Substance Use Screening 1998 Family Planning (PISQ) 2001 Hepatitis B Vaccines (1 of 3 - 19+ 3-dose series) 2005 SDOH Screening 03/25/2024 03/25/2023 Depression Screening 04/06/2024 04/06/2023, 04/06/2023 DTaP/Tdap/Td Vaccines (1 - Tdap) 01/03/2025 Postponed from 09/28 (Patient Refused) Tobacco Screening 01/03/2025 01/04/2024 Influenza Vaccine (#1) 2025 Postp oned from 03/25/2024 (Patient Refused) COVID-19 Vaccine (1 - 2023-2 5 season) 2025 Postponed from 03/25 (Patient Refused) Lipid Panel 01/16/2029 01/17/2024, 04/06/2023 Zoster Vaccines (1 of 2) 2036 RSV Patients and Patients Aged 60 years or older (1 - 1-dose 75+ series) 2061 Hepatitis C Screening Completed 04/06/2023 HIB Vaccines Aged Out No longer eligi ble based on patient's age to complete this topic HPV Vaccines Aged Out No longer eligi ble based on patient's age to complete this topic Hepatitis A Vaccines Aged Out No long er eligible based on patient's age to complete this topic IPV Vaccines Aged Out No longer eligi ble based on patient's age to complete this topic Meningococcal Vaccine Aged Out No hannah shayan eligible based on patient's age to complete this topic Pneumococcal Vaccine: Pediatrics (0 to 5 Years) and At-Risk Patients (6 to 49) Years) Aged Out No longer eligible b ased on patient's age to complete this topic RSV under 20 months Aged Out No longe r eligible based on patient's age to complete this topic Rotavirus Vaccines Aged Out No longer eligible based on patient's age to complete this topic Procedures Procedure Name Priority Date/Time Associated Diagnosis Comments LIPID PANEL, STANDARD Routine 01/17/2024 10:29 AM EDT Dietary counseling HEPATITIS C AB W/REFL TO HCV RNA, QN, PCR Routine 04/06/2023 10:23 AM EDT PE (physical exam), annual from Last 3 Months or Most Recently Relevant to Health Maintenance Results * (ABNORMAL) Lipid Panel, Standard (01/17/2024 10:29 AM EDT) Triglycerides 145 <150 mg/dL [facility] Comment:Desirable Triglyceri de: less than 150 mg/dLBorderline High Triglyceride 150-199 mg/dLHigh Triglyceride: 200-499 mg/dLVery High Triglyceride: greater than or equal to 5OO mg/dL Cholesterol 212(H) <200 mg/dL [facility] Comment:Desirable Cholestero l: less than 200 mg/dLBorderline High Cholesterol: 200-239 mg/dLHigh Cholesterol: greater than 239 mg/dL LDL Cholesterol Calculated 137(H) <100 mg/dL [facility] Comment:Desirable LDL: less than 100 mg/dLNear Optimal/Above Optimal LDL: 110- 129 mg/dLBorderline High LDL: 130-159 mg/dLHigh LDL: 160-189 mg/dLVery High LDL: greater than or equal to 190 mg/dL HDL Cholesterol 46 >40 mg/dL [facility] Comment:Desirable HDL: great er than 40 mg/dL Note: This HDL assay may give artificially low results in patients with liver disease. Blood Venous blood specimen / Unknown 01/17/2024 10:29 AM EDT 01/17/2024 11:20 AM EDT Monse Maxwell MD LAB BLOOD ORDERABLES Final Resul t Performing Organization Address City/[facility] Co de Phone Number [facility] [address] [place] [address] [phone] * Hepatitis C Antibody with Reflex to HCV, RNA, Quantitative, Real-Time PCR (04/06/2023 10:23 AM EDT) Hepatitis C Antibody Nonreactive Nonreactive [facility] Comment:Antibodies to HCV no t detected; does not exclude early acuteHCV infection. Blood Venous blood specimen / Unknown 04/06/2023 10:23 AM EDT 04/06/2023 2:05 PM EDT Monse Maxwell MD LAB BLOOD ORDERABLES Final Resul t Performing Organization Address [facility] Co de Phone Number [facility] [address] [place] [phone] from Last 3 Months or Most Recently Relevant to Health Maintenance Insurance [facility] Care Teams Sports Management Professor Relationship Specialty Start Date End Date Monse Maxwell MD [address] [place] [phone] PCP - General Family Medicine 05/18/12
[2024-09-17 14:46] LABS: MANUAL DIFF FLAG NO
[2024-09-17 14:48] LABS: Basophils Percent Auto 0.2 % (0-2); Hematocrit 39.3 % (42.0-52.0); Hemoglobin 13.5 g/dl (14.0-18.0); Imm Gran Abs Auto 0.01 X10*3/uL (0.00-0.03); Imm Gran Pct Auto 0.2 % (0.0-0.4); Lymphocytes Percent Auto 40.6 % (20-40); Mean Corpuscular HGB Conc 34.4 g/dl (31.0-36.0); Mean Corpuscular Hemoglobin 29.4 pg (27.0-33.0); Mean Corpuscular Volume 85.6 fL (80.0-98.0); Mean Platelet Volume 10.4 fL (9.4-12.4); Monocytes Absolute Auto 0.5 X10*3/uL (0.1-1.2); Monocytes Percent Auto 10.6 % (2-11); Neut%MD 48.4 %; Neutrophils Absolute Auto 2.4 x10*3/uL (2.0-8.3); Neutrophils Percent Auto 48.4 % (45-73); Platelet Count 295 X10*3/uL (160-400); Red Blood Count 4.59 X10*6/uL (4.60-5.80); Red Cell Distribution Width 12.5 % (11.0-16.0); WBCANC 4.9 X10*3/uL; White Blood Count 4.9 X10*3/uL (4.8-10.8)
== END 2024-09-17 11:11 | disposition home or self-care (01) ==
LOC: HO.CHCLR 11:10
PROVIDERS: Visit Provider Psychiatry & Neurology Psychiatry
DX: Z79.899 Other long term (current) drug therapy (principal)
CPT/HCPCS: 36415; 85025

== ENCOUNTER 2024-10-19 11:46 | Outpatient (REF) | payer OTHER, SELFPAY ==
[2024-10-20 11:47] LABS: H Pylori Breath Test Negative (Negative)
== END 2024-10-19 11:47 | disposition home or self-care (01) ==
LOC: HO.LNP 11:46
PROVIDERS: PCP Student in an Organized Health Care Education/Training Program; Visit Provider Nurse Practitioner
DX: K21.9 Gastro-esophageal reflux disease without esophagitis (principal); R10.9 Unspecified abdominal pain
CPT/HCPCS: 83013; 99202

== ENCOUNTER 2024-10-19 11:46 | Outpatient (AMB) | payer OTHER, SELFPAY ==
--- NOTE | 2024-10-19 11:52 | A.OFFVIS_ITS ---
Vital Signs 10/19/24 12:24 Height 6 ft 2 in Weight 195 lb 5.273 oz BMI 25.1 BP 110/78 Blood Pressure Location Rt brachial Position Sitting Pulse 99 Pulse Source Pulse Oximeter Pulse Oximetry (%) 98 Oxygen Delivery Method Room Air Intake Visit Reasons: Gastroesophageal reflux disease (GERD) Intake Note: NEW PATIENT for GERD initial consult. Prior hx of colo/egd? N Chief Complaint; C/O GERD w/o active tx. Gas, bloating, RUQ and epigastric pain. Pt reports antacids OTC have been ineffective in treating sx. 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 He is referred by [facility]. PMX Schizophrenia-on clozapine Constipation GERD ? HISTORY OF APPENDICITIS * SURGICAL HISTORY Pt denies * ALLERGIES: NKDA * [employer] LABS: Laboratory Tests 01/17/24 09/17/24 10:29 11:11 WBC 4.9 Hgb 13.5 L Hct 39.3 L MCV 85.6 MCH 29.4 Plt Count 295 Estimated GFR > 60 Total Bilirubin 0.5 Direct Bilirubin 0.1 AST 17 ALT 15 Alkaline Phosphatase 100 Ultrasound of the abdomen 06/2023 GALLBLADDER: Normal. The gallbladder is physiologically distended without evidence of stones, sludge, polyps, wall thickening or pericholecystic fluid. TODAY'S VISIT He is here today with his mother who is supportive with the history, This has been many years of GERD and epi burnign and CIC. He has utilized MiraLax and milk of magnesia and when he moves his bowels the burning tends to be greatly relieved. He was on omeprazole for awhile but since it was not helping they did not see any reason to continue it. There is no family history of any stomach throat or bowel cancer. There is no known family history of similar symptoms. Likely confounding factors are the use of Haldol and clozapine. He was seen at [facility] and they did a CAT scan with question of appendic itis but they declined surgical referral. I would like to get a CAT scan and see the results. Feels better with MOM, take daily (likes yun). Get CT ? appendix [facility] last year ER. Small bowel follow through, basic labs, HP, TSH. ROV next available. [facility] Medical History half-way current use of clozapine Chronic schizophrenia with acute exacerbation Schizophrenia Social History Household Members: Family Household Members Other:: mother Housing: Apartment Do you presently have visiting nurse or other home services: No Unable to assess alcohol history related to: Unknown Comment: OOB ad jakob, steady on feet Patient Tobacco Use Status: Former Tobacco user Tobacco use type: Cigarette Second Hand Smoke Exposure: No service: No Sexual orientation: Straight/Heterosexual Review of Systems Const Denies fatigue, Denies fever(s), Denies night sweats, Denies poor appetite and Denies weight loss ENT Reports Normal hearing present, Denies dental pain, Denies dysphagia, Denies hearing loss, Denies mouth pain, Denies odynophagia, Denies throat swelling, Denies tongue swelling and Reports other (Dentition adequate) Card Reports no additional complaints Resp Reports no additional complaints GI Details: Denies abdominal pain, Denies melena, Denies bloating, Denies hematochezia, Reports constipation, Denies GI cramping, Denies dysphagia, Denies excessive flatus, Denies early satiety, Reports heartburn, Denies diarrhea, Denies nausea, Denies odynophagia, Denies vomiting and Denies hematemesis Skin/Breast Denies pruritus, Denies lesions, Denies rash and Denies jaundice Neuro Reports Normal hearing present and Denies Abnormal speech present Endo Denies fatigue Aller/Immun Denies throat swelling and Denies tongue swelling Physical Exam Vital Signs: Last Vital Signs Pulse 99 10/19/24 12:24 BP 110/78 10/19/24 12:24 Pulse Ox 98 10/19/24 12:24 Oxygen Delivery Method Room Air 10/19/24 12:24 BMI result Body Mass Index 25.1 Const General: cooperative, no acute distress, well developed and well groomed Nutritional Appearance: average body habitus and well nourished Orientation/consciousness: oriented to person, oriented to place and oriented to time Limitations: behavioral limitations, No language barrier and other limitations HEENT Head: Yes normocephalic and Yes atraumatic Eyes General: appearance normal, both eyes and all related structures Pupils: Equal, round and reactive pupils present Neck Neck: Yes normal visual inspection and Yes no lymphadenopathy Thyroid: Thyroid normal Resp Effort & Inspection: normal respiratory effort and able to speak in complete sentences Auscultation: clear to auscultation bilaterally Cardio Rate: regular rate Rhythm: regular rhythm Heart sounds: Normal, physiologic split S2 sound present Peripheral pulses: radial pulses present and posterior tibial pulses present GI Inspection: No distended and No Abdominal panniculus present Palpation (GI): Soft to palpation, nontender, no guarding, not rigid and No hepatosplenomegaly present Percussion: Yes normal to percussion Auscultation: normal bowel sounds Rectal Exam - Male: Yes deferred Skin General skin exam: no rashes or lesions noted, turgor normal, skin not dry, no jaundice, No spider nevi and no striae Rashes: no rashes Nails: normal Neuro General: oriented to person, oriented to place and oriented to time Cranial nerves: Yes Equal, round and reactive pupils present and Yes Normal hearing present Speech: No Abnormal speech present Extrem General: Yes normal to inspection, No clubbing, No cyanosis and No edema Psych Appearance: grossly normal and well kempt Mental Status: mental status grossly normal Speech and movement: Normal speech and movement present Affect: normal affect Attitude: cooperative Thought process: Normal thought process present and not confabulating Thought content: Normal thought content present Insight: Poor insight present (Psych) Judgement: Poor judgement present (Psych) Assessment & Plan Assessment & Plan (1) Gastroesophageal reflux disease: Code(s): K21.9 - Gastro-esophageal reflux disease without esophagitis Category: Surgical (2) Abdominal pain: Code(s): R10.9 - Unspecified abdominal pain Category: Surgical Plan He is here today with his mother who is supportive with the history, This has been many years of GERD and epi burnign and CIC. He has utilized MiraLax and milk of magnesia and when he moves his bowels the burning tends to be greatly relieved. He was on omeprazole for awhile but since it was not helping they did not see any reason to continue it. There is no family history of any stomach throat or bowel cancer. There is no known family history of similar symptoms. Likely confounding factors are the use of Haldol and clozapine. He was seen at [facility] and they did a CAT scan with question of appendicitis but they declined surgical referral. I would like to get a CAT scan and see the results. Feels better with MOM, take daily (likes yun). Get CT ? appendix [facility] last year ER. Small bowel follow through, basic labs, HP, TSH. ROV next available. overall it certainly seems that they solve the problem they just confused the possible long-term detrimental effects of stimulant laxatives with that of more acceptable options like MiraLax and milk of magnesia. I let them know that is perfectly fine to take milk of magnesia every day if needed. I do not think there is any further need to do any workup on the GERD since he admits that when the constipation is controlled the heartburn in the throat burning resolves. If we find that this is not the case we can always change and I and do additional workup going forward. Orders: Orders H Pylori Breath Test 10/19/24 K21.9 - Gastro-esophageal reflux disease without esophagitis, R10.9 - Unspecified abdominal pain TSH reflex Free T4 10/19/24 K21.9 - Gastro-esophageal reflux disease without esophagitis, R10.9 - Unspecified abdominal pain FL upper GI small bowel 10/19/24 K21.9 - Gastro-esophageal reflux disease without esophagitis, R10.9 - Unspecified abdominal pain Comprehensive Met. Panel 10/19/24 K21.9 - Gastro-esophageal reflux disease without esophagitis, R10.9 - Unspecified abdominal pain Complete Blood Count Auto Diff 10/19/24 K21.9 - Gastro-esophageal reflux disease without esophagitis, R10.9 - Unspecified abdominal pain Coding Level of Care Code New Pt Level 3 (00454) Diagnoses Gastroesophageal reflux disease K21.9 Abdominal pain R10.9
[2024-10-19 12:24] VITALS: BP 110/78; PULSE 99; O2SAT 98; BMI 25.1
== END 2024-10-19 13:47 | disposition home or self-care (01) ==
LOC: HO.HGI 11:47
PROVIDERS: PCP Student in an Organized Health Care Education/Training Program; Visit Provider Nurse Practitioner
DX: K21.9 Gastro-esophageal reflux disease without esophagitis (principal); R10.9 Unspecified abdominal pain
CPT/HCPCS: 99203

== ENCOUNTER 2024-12-04 08:27 | Outpatient (REF) | payer OTHER, SELFPAY ==
--- NOTE | ~2024-12-04 | CT_ITS ---
EXAMINATION: CT ABDOMEN AND PELVIS WITH CONTRAST CLINICAL INFORMATION: Other specified diseases of appendix. Patient has an outside CT scan mass General which questioned appendicitis, however the patient left AMA after the examination. This is a follow-up examination to assess the appendix. COMPARISON: No prior available. TECHNIQUE: Multidetector volumetric images were obtained from the superior aspect of the liver through the pubic symphysis following administration 85 mL of Omnipaque 350 intravenous contrast. Sagittal and coronal reformatted images were obtained on the technologist's workstation. Oral contrast: Yes This CT examination was performed using dose optimization techniques as appropriate, variously including the following: *Automated exposure control *Adjustment of mA and/or kV according to patient size (this includes techniques or standardized protocols for targeted exams where dose is matched to indication/reason for exam; i.e. extremities or head) *Use of iterative reconstruction technique FINDINGS: LUNG BASES: The visualized lung bases are unremarkable. LIVER, GALLBLADDER, AND BILIARY TREE: The liver is normal in size, shape, and attenuation. No focal hepatic lesion or biliary ductal dilatation is present. The gallbladder is unremarkable with no evidence of radiopaque gallstones, gallbladder wall thickening, or obvious pericholecystic inflammatory changes. PANCREAS: Unremarkable. SPLEEN: Unremarkable. ADRENAL GLANDS: Unremarkable. KIDNEYS AND URETERS: The kidneys are normal in size, shape, and attenuation. No hydronephrosis, hydroureter, or calculi seen. No perinephric stranding. BLADDER: Unremarkable. GASTROINTESTINAL TRACT: The small and large bowel are normal in appearance. The stomach, GE junction, and duodenum appear normal. The appendix is normal proximally although distally measures up to 14 mm. There is no wall thickening, mucosal enhancement, periappendiceal inflammation, mucocele or mass, or other appendiceal abnormality aside from dilatation. The dilated aspect appears filled with fecal material. Findings do not support acute nor chronic appendicitis. ABDOMINAL WALL: No significant hernia is appreciated. LYMPH NODES: No abnormal lymphadenopathy is detected. VASCULAR: Minimal atheromatous calcification of the iliac arteries. No aneurysm. PELVIC VISCERA: The prostate and seminal vesicles are unremarkable. OSSEOUS STRUCTURES: No suspicious lytic or blastic bone lesions. CT/CT abdomen pelvis w IV con IMPRESSION: 1. The appendix measures up to 14 mm in its distal aspect, however there is no wall thickening, periappendiceal inflammation, mucosal enhancement, or evidence of mucocele or mass. Rather, it appears mildly distally distended with fecal material. The prior examination is not available for direct comparison. Findings do not support a diagnosis of acute nor chronic appendicitis. 2. The remainder of the examination is normal. Electronically signed by: Jeremias Iglesias MD 12/04/2024 11:13 AM EDT
[2024-12-04] MEDS: iohexoL 350 MG/ML 100 ML INFUS..BTL IV (10:53)
[2024-12-04] MEDS: Barium Sulfate Oral (Vanilla) 450 ML ORAL.SUSP PO ×2 (10:54)
== END 2024-12-04 08:28 | disposition home or self-care (01) ==
LOC: HO.CT 08:27
PROVIDERS: PCP Student in an Organized Health Care Education/Training Program; Visit Provider Surgery
DX: K38.8 Other specified diseases of appendix (principal)
CPT/HCPCS: 74177; Q9967

== ENCOUNTER → 2024-12-04 08:29 | Outpatient (BNV) | payer OTHER, SELFPAY | PROVIDERS: PCP Student in an Organized Health Care Education/Training Program; Visit Provider Radiology Diagnostic Radiology | DX: K38.8 Other specified diseases of appendix (principal) | CPT/HCPCS: 74177 ==

== ENCOUNTER 2024-12-05 07:44 | Outpatient (REF) | payer OTHER, SELFPAY ==
--- NOTE | ~2024-12-05 | FL_ITS ---
EXAMINATION: XR UPPER GI SERIES WITH SMALL BOWEL CLINICAL INFORMATION: Gastroesophageal reflux disease COMPARISON: CT abdomen pelvis 12/04/2024. TECHNIQUE: Routine upper GI air contrast study and small bowel follow-through was performed. FINDINGS: A single pre k special education teacher view of the abdomen reveals moderate oral contrast in colon from recently performed CT abdomen and pelvis exam. Following oral administration of thick barium and effervescent granules there is normal propagation of bolus from the oral cavity through the pharynx, esophagus into stomach without any evidence of obstruction, narrowing or stricture. On placing patient in supine and prone lying the stomach is distended with gas. There is mild gastroesophageal reflux without hiatal hernia. Rest of the course of the stomach, duodenal bulb and sweep is normal. FLUOROSCOPY TIME: 2 minutes 24 seconds DOSE AREA PRODUCT: 2495 uGy-m2 (microgray-meter squared) FL/FL upper GI w air w SBFT IMPRESSION: Moderate gastroesophageal reflux without hiatal hernia. Rest of the upper GI air contrast study is unremarkable. Electronically signed by: Carlos Dowell MD 12/05/2024 10:21 AM EDT
--- OUTSIDE RECORDS SUMMARY | 2024-12-05 07:46 | XMS_ITS | Encounter Summary ---
Author Organization [employer] Address [address] [facility] 7t [place] [address] Care Team Providers Care Body Shop Worker Name Role Phone Monse Maxwell MD Primary Care Provider [phone] Encounter Details Date Type Department Care Team ([facility] Contact Info) Description 12/04/2024 Orders Only [facility] External Provider, [facility] Social History Tobacco Use Types Packs/Day Years Used Date Smoking Tobacco: Former Cigarettes Passive Smoke Exposure: Past Smokeless Tobacco: Never Alcohol Use Standard Drinks/Week Comments Defer 0 [...] as of this encounter Plan of Treatment Upcoming Encounters Date Type Department Care Team (Late st Contact Info) Description 12/20/2024 8:45 AM EDT Office Visit [facility] CHC MED & PEDS [address] [place] [address] Monse Maxwell MD [address] [place] [address] documented as of this encounter Procedures Procedure Name Priority Date/Time Associated Diagnosis Comments CT ABDOMEN PELVIS W CONTRAST Routine 12/04/2024 10:31 AM EDT documented in this encounter Results * CT Abdomen Pelvis w/ Contrast (12/04/2024 10:31 AM EDT) Anatomical Region Laterality Modality Body, Pelvis, Abdomen Computed T omography 12/04/2024 10:3 1 AM EDT Narrative 12/04/2024 11:16 AM EDT ? [facility] ?[address] ?[place] [address] ? CT Scan Report ? Signed ? Patient: LiadudleyKain ?MR#: [id number] ? : 1985 ?Acct:[id number] ? Age/Sex: 39 / M ?ADM Date: 05/13/25 ? Loc: HO.CT ? Attending Dr: Ronald Szymanski MD ? Ordering Physician: Ronald Szymanski MD ?? Date of Service: 12/04/24 ?? Procedure(s): CT abdomen pelvis w IV con ?? Accession Number(s): [id number] ? cc: Monse Maxwell MD; Ronald Szymanski MD ? Report Number: ?? [id number]: Total DLP = ??466.00 mGy-cm ?? EXAMINATION: ?? CT ABDOMEN AND PELVIS WITH CONTRAST ? CLINICAL INFORMATION: ?? Other specified diseases of appendix. ?? Patient has an outside CT scan mass General which questioned ?? appendicitis, however the patient left AMA after the examination. This ?? is a follow-up examination to assess the appendix. ? COMPARISON: ?? No prior available. ? TECHNIQUE: ?? Multidetector volumetric images were obtained from the superior aspect ?? of the liver through the pubic symphysis following administration 85 mL ?? of Omnipaque 350 intravenous contrast. Sagittal and coronal reformatted ?? images were obtained on the technologist's workstation. ? Oral contrast: Yes ? This CT examination was performed using dose optimization techniques as ?? appropriate, variously including the following: ?? *Automated exposure control ?? *Adjustment of mA and/or kV according to patient size (this includes ?? techniques or standardized protocols for targeted exams where dose is ?? matched to indication/reason for exam; i.e. extremities or head) ?? *Use of iterative reconstruction technique ? FINDINGS: ?? LUNG BASES: The visualized lung bases are unremarkable. ? LIVER, GALLBLADDER, AND BILIARY TREE: The liver is normal in size, ?? shape, and attenuation. No focal hepatic lesion or biliary ductal ?? dilatation is present. The gallbladder is unremarkable with no evidence ?? of radiopaque gallstones, gallbladder wall thickening, or obvious ?? pericholecystic inflammatory changes. ? PANCREAS: Unremarkable. ? SPLEEN: Unremarkable. ? ADRENAL GLANDS: Unremarkable. ? KIDNEYS AND URETERS: The kidneys are normal in size, shape, and ?? attenuation. No hydronephrosis, hydroureter, or calculi seen. No ?? perinephric stranding. ? BLADDER: Unremarkable. ? GASTROINTESTINAL TRACT: ?? The small and large bowel are normal in appearance. The stomach, GE ?? junction, and duodenum appear normal. ?? The appendix is normal proximally although distally measures up to 14 ?? mm. There is no wall thickening, mucosal enhancement, periappendiceal ?? inflammation, mucocele or mass, or other appendiceal abnormality aside ?? from dilatation. The dilated aspect appears filled with fecal material. ?? Findings do not support acute nor chronic appendicitis. ? ABDOMINAL WALL: No significant hernia is appreciated. ? LYMPH NODES: No abnormal lymphadenopathy is detected. ? VASCULAR: Minimal atheromatous calcification of the iliac arteries. No ?? aneurysm. ? PELVIC VISCERA: The prostate and seminal vesicles are unremarkable. ? OSSEOUS STRUCTURES: No suspicious lytic or blastic bone lesions. ? CT/CT abdomen pelvis w IV con ?? IMPRESSION: ?? 1. The appendix measures up to 14 mm in its distal aspect, however ?? there is no wall thickening, periappendiceal inflammation, mucosal ?? enhancement, or evidence of mucocele or mass. Rather, it appears mildly ?? distally distended with fecal material. The prior examination is not ?? available for direct comparison. Findings do not support a diagnosis of ?? acute nor chronic appendicitis. ?? 2. The remainder of the examination is normal. ? Electronically signed by: ??Jeremias Iglesias MD ??12/04/2024 11:13 AM EDT RP ? Dictated By: ?Jeremias Iglesias MD ? Signed By: ?<Electronically signed by Jeremias Iglesias MD in OV> ?12/04/24 1113 ? DD/ 1031 ? TD/TT: 12/04/24 1052 ? Notching Press Operator: ? Procedure Note Jonny Garrett - 12/04/[address] [place] [address] [address] Scan Report Signed Patient: Kain SweeneyMR#: [id number] : 1985Acct:[id number] Age/Sex: 39 / MADM Date: 12/04/24 Loc: HO.CT Attending Dr: Ronald Szymanski MD Ordering Physician: Ronald Szymanski MD Date of Service: 12/04/24 Procedure(s): CT abdomen pelvis w IV con Accession Number(s): [id number] cc: Monse Maxwell MD; Ronald Szymanski MD Report Number: [id number]: Total DLP = 466.00 mGy-cm EXAMINATION: CT ABDOMEN AND PELVIS WITH CONTRAST CLINICAL INFORMATION: Other specified diseases of appendix. Patient has an outside CT scan mass General which questioned appendicitis, however the patient left AMA after the examination. This is a follow-up examination to assess the appendix. COMPARISON: No prior available. TECHNIQUE: Multidetector volumetric images were obtained from the superior aspect of the liver through the pubic symphysis following administration 85 mL of Omnipaque 350 intravenous contrast. Sagittal and coronal reformatted images were obtained on the technologist's workstation. Oral contrast: Yes This CT examination was performed using dose optimization techniques as appropriate, variously including the following: *Automated exposure control *Adjustment of mA and/or kV according to patient size (this includes techniques or standardized protocols for targeted exams where dose is matched to indication/reason for exam; i.e. extremities or head) *Use of iterative reconstruction technique FINDINGS: LUNG BASES: The visualized lung bases are unremarkable. LIVER, GALLBLADDER, AND BILIARY TREE: The liver is normal in size, shape, and attenuation. No focal hepatic lesion or biliary ductal dilatation is present. The gallbladder is unremarkable with no evidence of radiopaque gallstones, gallbladder wall thickening, or obvious pericholecystic inflammatory changes. PANCREAS: Unremarkable. SPLEEN: Unremarkable. ADRENAL GLANDS: Unremarkable. KIDNEYS AND URETERS: The kidneys are normal in size, shape, and attenuation. No hydronephrosis, hydroureter, or calculi seen. No perinephric stranding. BLADDER: Unremarkable. GASTROINTESTINAL TRACT: The small and large bowel are normal in appearance. The stomach, GE junction, and duodenum appear normal. The appendix is normal proximally although distally measures up to 14 mm. There is no wall thickening, mucosal enhancement, periappendiceal inflammation, mucocele or mass, or other appendiceal abnormality aside from dilatation. The dilated aspect appears filled with fecal material. Findings do not support acute nor chronic appendicitis. ABDOMINAL WALL: No significant hernia is appreciated. LYMPH NODES: No abnormal lymphadenopathy is detected. VASCULAR: Minimal atheromatous calcification of the iliac arteries. No aneurysm. PELVIC VISCERA: The prostate and seminal vesicles are unremarkable. OSSEOUS STRUCTURES: No suspicious lytic or blastic bone lesions. CT/CT abdomen pelvis w IV con IMPRESSION: 1. The appendix measures up to 14 mm in its distal aspect, however there is no wall thickening, periappendiceal inflammation, mucosal enhancement, or evidence of mucocele or mass. Rather, it appears mildly distally distended with fecal material. The prior examination is not available for direct comparison. Findings do not support a diagnosis of acute nor chronic appendicitis. 2. The remainder of the examination is normal. Electronically signed by: Jeremias Iglesias MD 12/04/2024 11:13 AM EDT Dictated By: Jeremias Iglesias MD Signed By: <Electronically signed by Jeremias Iglesias MD in OV> 12/04/24 1113 DD/ 1031 TD/TT: 12/04/24 1052 Notching Press Operator: [facility] External Provider IMG CT PROCEDURES Final Result documented in this encounter Visit Diagnoses Not on filedocumented in this encounter Additional Health Concerns Assessment Noted Time PHQ-9 Depression Total Score: 2 04/06/20 23 9:46 AM EDT documented as of this encounter Care Teams Body Shop Worker Relationship Specialty Start Date End Date Monse Maxwell MD [address] [place] [phone] PCP - General Family Medicine 05/18/12 documented as of this encounter
--- OUTSIDE RECORDS SUMMARY | 2024-12-05 07:46 | XMS_ITS | Encounter Summary ---
Author Organization [email or web address] Address [address] [place] [address] [address] [place] [address] Care Team Providers Care Legal Research Analyst Name Role Phone Monse Maxwell MD Primary Care Provider [phone] Reason for Visit * Reason Comments Med Refill Encounter Details Date Type Department Care Team ([facility] Contact Info) Description 02/28/2023 Refill [facility] MED & PEDS [address] [place], [place] [phone] Monse Maxwell MD [address] [place] [address] Social History Tobacco Use Types Packs/Day Years [...] Encounters Date Type Department Care Team (Late Contact Info) Description 12/20/2024 8:45 AM EDT Office Visit [facility] CHC MED & PEDS [address] [place] [address] Monse Maxwell MD [address] [place] [address] documented as of this encounter Visit Diagnoses Not on filedocumented in this encounter Care Teams Legal Research Analyst Relationship Specialty Start Date End Date Monse Maxwell MD [address] [place] [phone] PCP - General Family Medicine 05/18/12 documented as of this encounter
--- OUTSIDE RECORDS SUMMARY | 2024-12-05 07:46 | XMS_ITS | Encounter Summary ---
Author Organization [employer] Address [address] [facility] 7t [place] [address] Care Team Providers Care Cloth Shader Name Role Phone Monse Maxwell MD Primary Care Provider [phone] Encounter Details Date Type Department Care Team (Late st Contact Info) Description 01/28/2023 Orders Only [facility] MED & PEDS [address] [place] [address] Winifred Aguila LPN Social History Tobacco Use [...] Description 12/20/2024 8:45 AM EDT Office Visit [facility] MED & PEDS [address] [place] [address] Monse Maxwell MD [address] [place] [address] documented as of this encounter Visit Diagnoses Not on filedocumented in this encounter Care Teams Cloth Shader Relationship Specialty Start Date End Date Monse Maxwell MD [address] [place] [phone] PCP - General Family Medicine 05/18/12 documented as of this encounter
--- OUTSIDE RECORDS SUMMARY | 2024-12-05 07:46 | XMS_ITS | Clinical Summary ---
Author Organization [employer] Address [address] [facility] 7t [place] [address] Care Team Providers Care Smocker Name Role Phone Monse Maxwell MD Primary Care Provider [phone] Allergies No known active allergies Medications cloZAPine [...] Encounters Date Type Department Care Team Description 12/04/2024 Orders Only [facility] External Provider, [facility] 10/19/2024 Orders Only [facility] EXTERNAL DATA DEPARTMENT Provider, Generic External Data from Last 3 Months Social History Tobacco [...] 07/09/2024 8:36 AM EST Plan of Treatment Upcoming Encounters Date Type Department Care Team (Late st Contact Info) Description 12/20/2024 8:45 AM EDT Office Visit [facility] CHC MED & PEDS [address] [place] [address] Monse Maxwell MD [address] [place] [address] Health Maintenance Due Date Last Done Comments [...] patient's age to complete this topic Meningococcal B Vaccine Aged Out No l onger eligible based on patient's age to complete [...] W CONTRAST Routine 12/04/2024 10:31 AM EDT HELICOBACTER PYLORI, UREA BREATH TEST Routine 10/19/2024 1:34 PM EDT LIPID PANEL, STANDARD Routine 01/17/2024 10:29 AM EDT Dietary counseling HEPATITIS C AB W/REFL TO HCV RNA, QN, PCR Routine 04/06/2023 10:23 AM EDT PE (physical exam), annual from Last 3 Months or Most Recently Relevant to Health Maintenance Results * CT Abdomen Pelvis w/ Contrast (12/04/2024 10:31 AM EDT) Anatomical Region Laterality Modality Body, Pelvis, Abdomen Computed T omography 12/04/2024 10:3 1 AM EDT Narrative 12/04/2024 11:16 AM EDT ? [facility] ?[address] ?[place] [address] ? CT Scan Report ? Signed ? Patient: Blairealize,Kain ?MR#: [id number] ? : 1985 ?Acct:[id number] ? Age/Sex: 39 / M ?ADM Date: 05/13/25 ? Loc: HO.CT ? Attending Dr: Ronald Szymanski MD ? Ordering Physician: Ronald Szymanski MD ?? Date of Service: 12/04/24 ?? Procedure(s): CT abdomen pelvis w IV con ?? Accession Number(s): [id number] ? cc: Monse Maxwell MD; Ronald Szymanski MD ? Report Number: ?? [id number]: Total DLP = ??466.00 mGy-cm ?? EXAMINATION: [...] DD/ 1031 ? TD/TT: 12/04/24 1052 ? Switchman: ? Procedure Note Gerry, Image - 12/04/[address] [place] [address] [address] Scan Report Signed Patient: Kain SweeneyMR#: [id number] : 1985Acct:[id number] Age/Sex: 39 / MADM Date: 12/04/24 Loc: HO.CT Attending Dr: Ronald Szymanski MD Ordering Physician: Ronald Szymanski MD Date of Service: 12/04/24 Procedure(s): CT abdomen pelvis w IV con Accession Number(s): [id number] cc: Monse Maxwell MD; Ronald Szymanski MD Report Number: [id number]: Total DLP = 466.00 mGy-cm EXAMINATION: CT [...] Jeremias Iglesias MD 12/04/2024 11:13 AM EDT RP Dictated By: Jreemias Iglesias MD Signed By: <Electronically signed by Jeremias Iglesias MD in OV> 12/04/24 1113 DD/ 1031 TD/TT: 12/04/24 1052 Switchman: [facility] External Provider IMG CT PROCEDURES Final Result * Helicobacter pylori, Urea Breath Test (10/19/2024 1:34 PM EDT) H. pylori Breath Test Negative Negative [facility] Comment:Antimicrobials, prot on pump inhibitors and bismuthpreparations are known to suppress H. pylori. Ingestingthese medications within two weeks prior to performing thebreath test may produce negative test results. A positiveresult is still clinically valid. 10/19/2024 1:34 PM EDT 10/19/2024 2:17 PM EDT Generic External Data Provider LAB BLOOD ORDERAB LES Final Result [facility] [address] [place] [address] [phone] * (ABNORMAL) Lipid Panel, Standard (01/17/2024 10:29 AM EDT) Triglycerides 145 <150 mg/dL [facility] Comment:Desirable Triglyceri de: less than 150 mg/dLBorderline High Triglyceride 150-199 mg/dLHigh Triglyceride: 200-499 mg/dLVery High Triglyceride: greater than or equal to 5OO mg/dL Cholesterol 212(H) <200 mg/dL [facility] Comment:Desirable Cholestero l: less than 200 mg/dLBorderline High Cholesterol: 200-239 mg/dLHigh Cholesterol: greater than 239 mg/dL LDL Cholesterol Calculated 137(H) <100 mg/dL [facility] Comment:Desirable LDL: less than 100 mg/dLNear Optimal/Above Optimal LDL: 110- 129 mg/dLBorderline High LDL: 130-159 mg/dLHigh LDL: 160-189 mg/dLVery High LDL: greater than or equal to 190 mg/dL HDL Cholesterol 46 >40 mg/dL [facility] Comment:Desirable HDL: great er than 40 mg/dL Note: This HDL assay may give artificially low results in patients with liver disease. Blood Venous blood specimen / Unknown 01/17/2024 10:29 AM EDT 01/17/2024 11:20 AM EDT Monse Maxwell MD LAB BLOOD ORDERABLES Final Resul t Performing Organization Address [facility] Co de Phone Number [facility] [address] [place] [phone] * Hepatitis C Antibody with Reflex to HCV, RNA, Quantitative, Real-Time PCR (04/06/2023 10:23 AM EDT) Hepatitis C Antibody Nonreactive Nonreactive [facility] Comment:Antibodies to HCV no t detected; does not exclude early acuteHCV infection. Blood Venous blood specimen / Unknown 04/06/2023 10:23 AM EDT 04/06/2023 2:05 PM EDT Monse Maxwell MD LAB BLOOD ORDERABLES Final Resul t Performing Organization Address City/[facility] Co de Phone Number [facility] [address] [place] [address] [phone] from Last 3 Months or Most Recently Relevant to Health Maintenance Insurance [employer] < [address] [place] [id number] Care Teams Smocker Relationship Specialty Start Date End Date Monse Maxwell MD [address] [place] [phone] PCP - General Family Medicine 05/18/12
== END 2024-12-05 07:45 | disposition home or self-care (01) ==
LOC: HO.XRAY 07:44
PROVIDERS: PCP Student in an Organized Health Care Education/Training Program; Visit Provider Nurse Practitioner
DX: K21.9 Gastro-esophageal reflux disease without esophagitis (principal); R10.9 Unspecified abdominal pain
CPT/HCPCS: 74246; 74248

== ENCOUNTER → 2024-12-05 07:46 | Outpatient (BNV) | payer OTHER, SELFPAY | PROVIDERS: PCP Student in an Organized Health Care Education/Training Program; Visit Provider Radiology Diagnostic Radiology | DX: K21.9 Gastro-esophageal reflux disease without esophagitis (principal) | CPT/HCPCS: 74246; 74248 ==

== ENCOUNTER 2024-12-13 10:19 | Outpatient (AMB) | payer OTHER, SELFPAY ==
--- NOTE | 2024-12-13 09:07 | A.OFFVIS_ITS ---
Vital Signs 12/13/24 09:08 Height 6 ft 2 in Weight 195 lb BMI 25.0 Intake Visit Reasons: results from CT abdomen pelvis 12/04/24 Intake Note: Patient being seen today as a telehealth appointment to discuss results of Abdomen CT dated 12-04-2024. Patient c/o: Rt side abdominal pain. Constipation but Miralax helps. Information Management Officer Required: No Accompanied by: mother Jackie Allergies No Known Allergies Allergy (Mild, Unverified 12/13/24 09:11) NOT APPLICABLE Medication List - Last Reconciled 12/13/24 by Cristian Baez MD clozapine 300 mg (3 x 100 mg) PO BEDTIME 7 days haloperidol 5 mg PO BEDTIME 30 days polyethylene glycol 3350 (Miralax) 17 grams PO DAILY PRN HPI HPI results from CT abdomen pelvis 12/04/24: Details: He was seen by Dr. Szymanski and had been ordered for a CAT scan because of a question of appendicitis while he was in [facility]. This is a telephone visit to discuss the report. He otherwise denies any significant abdominal complaints currently. 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 Chronic schizophrenia with acute exacerbation Schizophrenia Social History Household Members: Family Household Members Other:: mother Housing: Apartment Do you presently have visiting nurse or other home services: No Unable to assess alcohol history related to: Unknown Comment: OOB ad jakob, steady on feet Patient Tobacco Use Status: Former Tobacco user Tobacco use type: Cigarette Second Hand Smoke Exposure: No service: No Sexual orientation: Straight/Heterosexual Review of Systems Const Denies chills and Denies fever(s) Resp Denies cough GI Denies abdominal pain Physical Exam Vital Signs: BMI result Body Mass Index 25.0 Assessment & Plan Assessment & Plan (1) Mass of appendix: Code(s): K38.8 - Other specified diseases of appendix Category: Medical Plan: A follow up CAT scan ordered by Dr. Szymanski does not show any suggestion of appendicitis. There is no evidence of any mucosal or mass. The appendix on the appears mildly distended with fecal material I explained this to the patient and his family over the phone. I told him that at this time, there is no surgical intervention necessary. He also says that he has a follow up with his project construction assistant manager for his liver issues and reflux. Coding Level of Care Code Tele Est Pt Level 2 (68437) Diagnoses Mass of appendix K38.8
[2024-12-13 09:08] VITALS: BMI 25.0
--- OUTSIDE RECORDS SUMMARY | 2024-12-13 10:48 | XMS_ITS | Encounter Summary ---
Author Organization [employer] Address [address] [place] [address] [address]t [place] [address] Care Team Providers Care Meter Setter Name Role Phone Monse Maxwell MD Primary Care Provider Reason for Visit * Reason Comments Med Refill Encounter Details Date Type Department Care Team (Late Contact Info) Description 02/28/2023 Refill [facility] MED & PEDS [address] [place] [address] Monse Maxwell MD [address] [place] [address] Social History Tobacco Use Types Packs/Day Years [...] Description 12/20/2024 8:45 AM EDT Office Visit [facility] CHC MED & PEDS [address] [place] [address] Monse Maxwell MD [address] [place] [address] documented as of this encounter Visit Diagnoses Not on filedocumented in this encounter Care Teams Meter Setter Relationship Specialty Start Date End Date Monse Maxwell MD [address] [place] [phone] PCP - General Family Medicine 05/18/12 documented as of this encounter
--- OUTSIDE RECORDS SUMMARY | 2024-12-13 10:48 | XMS_ITS | Encounter Summary ---
Author Organization [employer] Address [address] [facility] [address]t [place] [address] Care Team Providers Care Caul Dresser Name Role Phone Monse Maxwell MD Primary Care Provider [phone] Encounter Details Date Type Department Care Team (Late st Contact Info) Description 01/28/2023 Orders Only [facility] MED & PEDS [address] [place] [address] Winifred Aguila LPN Social History Tobacco Use [...] Description 12/20/2024 8:45 AM EDT Office Visit [facility] MED & PEDS [address] [place] [address] Monse Maxwell MD [address] [place] [address] documented as of this encounter Visit Diagnoses Not on filedocumented in this encounter Care Teams Caul Dresser Relationship Specialty Start Date End Date Monse Maxwell MD [address] [place] [phone] PCP - General Family Medicine 05/18/12 documented as of this encounter
--- OUTSIDE RECORDS SUMMARY | 2024-12-13 10:48 | XMS_ITS | Clinical Summary ---
Author Organization [employer] Address [address] [facility] [address] [place] [address] Care Team Providers Care Hogshead Salvage Name Role Phone Monse Maxwell MD Primary Care Provider [phone] Allergies No known active allergies Medications cloZAPine [...] Encounters Date Type Department Care Team Description 12/10/2024 Patient Outreach [facility] [address] [place] [address] Monse Maxwell MD Pre-visit Planning ([facility] screening unable to be completed. ) 12/04/2024 Orders Only [facility] External Provider, [facility] 10/19/2024 Orders Only GENERIC EXTERNAL DATA DEPARTMENT [...] Description 12/20/2024 8:45 AM EDT Office Visit [facility] MED & PEDS [address] [place] [address] Monse Maxwell MD [address] [place] [address] Health Maintenance Due Date Last Done Comments HIV Screening 1986 Disability Screening 1986 Alcohol/Substance Use Screening 1998 Family [...] Procedure Name Priority Date/Time Associated Diagnosis Comments FL UPPER GI AIR CONTRAST W SMALL BOWEL SERIES Routine 12/05/2024 8:[address] ABDOMEN PELVIS W CONTRAST Routine 12/04/2024 10:31 AM EDT HELICOBACTER PYLORI, UREA BREATH TEST Routine 10/19/2024 1:34 PM EDT LIPID PANEL, STANDARD Routine 01/17/2024 10:29 AM EDT Dietary counseling HEPATITIS C AB W/REFL TO HCV RNA, QN, PCR Routine 04/06/2023 10:23 AM EDT PE (physical exam), annual from Last 3 Months or Most Recently Relevant to Health Maintenance Results * FL UPPER GI AIR CONTRAST W SMALL BOWEL SERIES (12/05/2024 8:00 AM EDT) Anatomical Region Laterality Modality Radiographic Ann ging 12/05/2024 8:00 AM EDT Narrative 12/05/2024 10:23 AM EDT ? [facility] ?[address]. ?[place] [address] ? Fluoroscopy Report ? Signed ? Patient: Anipko,Kain ?MR#: [id number] ? : 1985 ?Acct:[id number] ? Age/Sex: 39 / M ?ADM Date: 05/14/25 ? Loc: HO.XRAY ? Attending Dr: Christelle CABALLERO ? Ordering Physician: Christelle Kelly ?? Date of Service: 12/05/24 ?? Procedure(s): FL upper GI w air w SBFT ?? Accession Number(s): [id number] ? cc: Christelle Kelly; Monse Maxwell MD ? EXAMINATION: ?? XR UPPER GI SERIES WITH SMALL BOWEL ? CLINICAL INFORMATION: ?? Gastroesophageal reflux disease ? COMPARISON: ?? CT abdomen pelvis 12/04/2024. ? TECHNIQUE: ?? Routine upper GI air contrast study and small bowel follow-through ??was ?? performed. ? FINDINGS: ?? A single can line examiner view of the abdomen reveals moderate oral contrast in ?? colon from recently performed CT abdomen and pelvis exam. ? Following oral administration of thick barium and effervescent granules ?? there is normal propagation of bolus from the oral cavity through the ?? pharynx, esophagus into stomach without any evidence of obstruction, ?? narrowing or stricture. ? On placing patient in supine and prone lying the stomach is distended ?? with gas. There is mild gastroesophageal reflux without hiatal hernia. ?? Rest of the course of the stomach, duodenal bulb and sweep is normal. ? FLUOROSCOPY TIME: ?? 2 minutes 24 seconds ? DOSE AREA PRODUCT: ?? 2495 uGy-m2 (microgray-meter squared) ? FL/FL upper GI w air w SBFT ?? IMPRESSION: ?? Moderate gastroesophageal reflux without hiatal hernia. ? Rest of the upper GI air contrast study is unremarkable. ? Electronically signed by: ??Carlos Dowell MD ??12/05/2024 10:21 AM EDT RP ? Dictated By: ?Magalys,Carlos S MD ? Signed By: ?<Electronically signed by Carlos S MD Magalys in OV> ?12/05/24 1021 ? DD/ 0800 ? TD/TT: 12/05/24 1000 ? Fire Support Man: MSM ? Procedure Note Jonny Garrett - 12/10/[address] [address] Fluoroscopy Report Signed Patient: Kain SweeneyMR#: [id number] : 1985Acct:[id number] Age/Sex: 39 / MADM Date: 12/05/24 Loc: HO.XRAY Attending Dr: Christelle CABALLERO Ordering Physician: Christelle Kelly Date of Service: 12/05/24 Procedure(s): FL upper GI w air w SBFT Accession Number(s): [id number] cc: Christelle Kelly; Monse Maxwell MD EXAMINATION: XR UPPER GI SERIES WITH SMALL BOWEL CLINICAL INFORMATION: Gastroesophageal reflux disease COMPARISON: CT abdomen pelvis 12/04/2024. TECHNIQUE: Routine upper GI air contrast study and small bowel follow-through was performed. FINDINGS: A single can line examiner view of the abdomen reveals moderate oral contrast in colon from recently performed CT abdomen and pelvis exam. Following oral administration of thick barium and effervescent granules there is normal propagation of bolus from the oral cavity through the pharynx, esophagus into stomach without any evidence of obstruction, narrowing or stricture. On placing patient in supine and prone lying the stomach is distended with gas. There is mild gastroesophageal reflux without hiatal hernia. Rest of the course of the stomach, duodenal bulb and sweep is normal. FLUOROSCOPY TIME: 2 minutes 24 seconds DOSE AREA PRODUCT: 2495 uGy-m2 (microgray-meter squared) FL/FL upper GI w air w SBFT IMPRESSION: Moderate gastroesophageal reflux without hiatal hernia. Rest of the upper GI air contrast study is unremarkable. Electronically signed by: Carlos Dowell MD 12/05/2024 10:21 AM EDT Dictated By: Carlos Dowell MD Signed By: <Electronically signed by Carlos Dowell MD in OV> 12/05/24 1021 DD/ 0800 TD/TT: 12/05/24 1000 Fire Support Man: MANDY [facility] Exter nal Provider IMG FLUOROSCOPY PROCEDURES Edited Result - Final * CT Abdomen Pelvis w/ Contrast (12/04/2024 10:31 AM EDT) Anatomical Region Laterality Modality Body, Pelvis, Abdomen Computed T omography 12/04/2024 10:3 1 AM EDT Narrative 12/04/2024 11:16 AM EDT ? [facility] ?[address] ?[place] [address] ? CT Scan Report ? Signed ? Patient: Anipko,Kain ?MR#: [id number] ? : 1985 ?Acct:[id number] ? Age/Sex: 39 / M ?ADM Date: 12/04/24 ? Loc: HO.CT ? Attending Dr: Ronald Szymanski MD ? Ordering Physician: Ronald Szymanski MD ?? Date of Service: 12/04/24 ?? Procedure(s): CT abdomen pelvis w IV con ?? Accession Number(s): [id number] ? cc: Monse Maxwell MD; Ronald Szymanski MD ? Report Number: ?? [id number]: Total DLP = ??466.00 mGy-cm ?? EXAMINATION: [...] DD/ 1031 ? TD/TT: 12/04/24 1052 ? Fire Support Man: ? Procedure Note Donotuseinterpreter, Image - 12/04/[address] [address] [address] Scan Report Signed Patient: Mena Sweeney#: [id number] : 1985Acct:[id number] Age/Sex: 39 / MADM Date: 12/04/24 Loc: HO.CT Attending Dr: Ronald Szymanski MD Ordering Physician: Ronald Szymanski MD Date of Service: 12/04/24 Procedure(s): CT abdomen pelvis w IV con Accession Number(s): [id number] cc: Monse Maxwell MD; Ronald Szymanski MD Report Number: [id number]: Total DLP = 466.00 mGy-cm EXAMINATION: CT [...] 12/04/24 1113 DD/ 1031 TD/TT: 12/04/24 1052 Fire Support Man: [facility] External Provider IMG CT PROCEDURES Final Result * Helicobacter pylori, Urea Breath Test (10/19/2024 1:34 PM EDT) H. pylori Breath Test Negative Negative [facility] Comment:Antimicrobials, prot on pump inhibitors and bismuthpreparations are known to suppress H. pylori. Ingestingthese medications within two weeks prior to performing thebreath test may produce negative test results. A positiveresult is still clinically valid. 10/19/2024 1:34 PM EDT 10/19/2024 2:17 PM EDT Generic External Data Provider LAB BLOOD ORDERAB LES Final Result Performing Organization Address [facility]/ZIP Co de Phone Number [facility] [address] [place] [address] [phone] * (ABNORMAL) Lipid Panel, Standard (01/17/2024 10:29 AM EDT) Triglycerides 145 <150 mg/dL [facility] Comment:Desirable Triglyceri de: less than 150 mg/dLBorderline High Triglyceride 150-199 mg/dLHigh Triglyceride: 200-499 mg/dLVery High Triglyceride: greater than or equal to 5OO mg/dL Cholesterol 212(H) <200 mg/dL [facility] Comment:Desirable Cholestero l: less than 200 mg/dLBorderline High Cholesterol: 200-239 mg/dLHigh Cholesterol: greater than 239 mg/dL LDL Cholesterol Calculated 137(H) <100 mg/dL [facility] Comment:Desirable LDL: less than 100 mg/dLNear Optimal/Above Optimal LDL: 110- 129 mg/dLBorderline High LDL: 130-159 mg/dLHigh LDL: 160-189 mg/dLVery High LDL: greater than or equal to 190 mg/dL HDL Cholesterol 46 >40 mg/dL [facility] Comment:Desirable HDL: great er than 40 mg/dL Note: This HDL assay may give artificially low results in patients with liver disease. Blood Venous blood specimen / Unknown 01/17/2024 10:29 AM EDT 01/17/2024 11:20 AM EDT us Monse Maxwell MD LAB BLOOD ORDERABLES Final Resul t Performing Organization Address City/[facility]/ZIP Co de Phone Number [facility] [address] [place] [address] [phone] * Hepatitis C Antibody with Reflex to HCV, RNA, Quantitative, Real-Time PCR (04/06/2023 10:23 AM EDT) Hepatitis C Antibody Nonreactive Nonreactive [facility] Comment:Antibodies to HCV no t detected; does not exclude early acuteHCV infection. Blood Venous blood specimen / Unknown 04/06/2023 10:23 AM EDT 04/06/2023 2:05 PM EDT Monse Maxwell MD LAB BLOOD ORDERABLES Final Resul t [facility] [address] [place] [address] [phone] from Last 3 Months or Most Recently Relevant to Health Maintenance Insurance [facility] < [address] [id number] Care Teams Hogshead Salvage Relationship Specialty Start Date End Date Monse Maxwell MD [address] [place] [phone] PCP - General Family Medicine 05/18/12
--- OUTSIDE RECORDS SUMMARY | 2024-12-13 10:49 | XMS_ITS | Encounter Summary ---
Author Organization [employer] Address [address] [facility] [address] [place] [address] Care Team Providers Care Textile Science Technician Name Role Phone Monse Maxwell MD Primary Care Provider [phone] Reason for Visit * Reason Comments Pre-visit Planning SDOH screening unabl e to be completed. Encounter Details Date Type Department [facility] Description 12/10/2024 Patient Outreach [facility] [address] [place] [address] Monse Maxwell MD [address] [place], [place] [phone] Pre-visit Planning (SDOH screening unable to be completed. ) Social History Tobacco Use Types Packs/Day Years [...] AM EDT documented as of this encounter Progress Notes * Jan Wade - 12/10/2024 9:37 AM EDT CC Jan Reese placed successful outbound call to patient for pre-visit planning. Patient name and confirmed by mother. Patient's mother confirms appt date and time, and has transportation arrangements. Mother's biggest concern for appointment at this time is no concerns. Appropriate screenings completed in anticipation of appointment. SDOH to be completed in office. documented in this encounter Plan of Treatment Upcoming Encounters Date Type Department Care Team ([facility] st Contact Info) Description 12/20/2024 8:45 AM EDT Office Visit [facility] MED & PEDS [address] [place] [address] Monse Maxwell MD [address] [place] [address] documented as of this encounter Visit Diagnoses Not on filedocumented in this encounter Additional Health Concerns Assessment Noted Time PHQ-9 Depression Total Score: 2 04/06/20 23 9:46 AM EDT documented as of this encounter Care Teams Textile Science Technician Relationship Specialty Start Date End Date Monse Maxwell MD [address] [place] [phone] PCP - General Family Medicine 10/25/12 documented as of this encounter
== END 2024-12-13 10:33 | disposition home or self-care (01) ==
LOC: HO.HGS 10:19
PROVIDERS: PCP Student in an Organized Health Care Education/Training Program; Visit Provider Surgery
DX: K38.8 Other specified diseases of appendix (principal)
CPT/HCPCS: 99212

== ENCOUNTER → 2024-12-13 10:19 | Outpatient (BNVA) | payer OTHER, SELFPAY | PROVIDERS: PCP Student in an Organized Health Care Education/Training Program; Visit Provider Surgery ==

== ENCOUNTER 2024-12-19 10:33 | Outpatient (AMB) | payer OTHER, SELFPAY ==
--- NOTE | 2024-12-19 10:51 | MHC.OFFVIS ---
Vital Signs 12/19/24 10:55 Height 6 ft 2 in Weight 195 lb BMI 25.0 BP 124/77 Blood Pressure Location Lt brachial Position Sitting Pulse 108 H Pulse Oximetry (%) 99 Oxygen Delivery Method Room Air Intake Visit Reasons: Follow up Intake Note: Patient follow up for H pylori results. Patient cc: constipation with hard stool on and off, denies any other GI isues for today. Vehicle Safety Inspector Required: No Accompanied by: Mother Allergies No Known Allergies Allergy (Mild, Verified 12/19/24 10:51) NOT APPLICABLE HPI HPI Follow up : Details: Assessment & Plan (1) Gastroesophageal reflux disease: Code(s): K21.9 - Gastro-esophageal reflux disease without esophagitis Category: Surgical (2) Abdominal pain: Code(s): R10.9 - Unspecified abdominal pain Category: Surgical Plan He is here today with his mother who is supportive with the history, This has been many years of GERD and epi burnign and CIC. He has utilized MiraLax and milk of magnesia and when he moves his bowels the burning tends to be greatly relieved. He was on omeprazole for awhile but since it was not helping they did not see any reason to continue it. There is no family history of any stomach throat or bowel cancer. There is no known family history of similar symptoms. Likely confounding factors are the use of Haldol and clozapine. He was seen at [facility] and they did a CAT scan with question of appendicitis but they declined surgical referral. I would like to get a CAT scan and see the results. Feels better with MOM, take daily (likes yun). Get CT ? appendix [facility] last year ER. Small bowel follow through, basic labs, HP, TSH. ROV next available. overall it certainly seems that they solve the problem they just confused the possible long-term detrimental effects of stimulant laxatives with that of more acceptable options like MiraLax and milk of magnesia. I let them know that is perfectly fine to take milk of magnesia every day if needed. I do not think there is any further need to do any workup on the GERD since he admits that when the constipation is controlled the heartburn in the throat burning resolves. If we find that this is not the case we can always change and I and do additional workup going forward. Orders: Orders H Pylori Breath Test 10/19/24 K21.9 - Gastro-esophageal reflux disease without esophagitis, R10.9 - Unspecified abdominal pain TSH reflex Free T4 10/19/24 K21.9 - Gastro-esophageal reflux disease without esophagitis, R10.9 - Unspecified abdominal pain FL upper GI small bowel 10/19/24 K21.9 - Gastro-esophageal reflux disease without esophagitis, R10.9 - Unspecified abdominal pain Comprehensive Met. Panel 10/19/24 K21.9 - Gastro-esophageal reflux disease without esophagitis, R10.9 - Unspecified abdominal pain Complete Blood Count Auto Diff 10/19/24 K21.9 - Gastro-esophageal reflux disease without esophagitis, R10.9 - Unspecified abdominal pain LABS: Laboratory Tests 01/17/24 09/17/24 10/19/24 10:29 11:11 13:34 WBC 4.9 Hgb 13.5 L Hct 39.3 L MCV 85.6 MCH 29.4 Plt Count 295 Estimated GFR > 60 Total Bilirubin 0.5 Direct Bilirubin 0.1 AST 17 ALT 15 Alkaline Phosphatase 100 H. pylori Breath Test Negative UPPER GI WITH SMALL-BOWEL FOLLOW-THROUGH 12/05/24 FINDINGS: A single clerk telegraph service view of the abdomen reveals moderate oral contrast in colon from recently performed CT abdomen and pelvis exam. Following oral administration of thick barium and effervescent granules there is normal propagation of bolus from the oral cavity through the pharynx, esophagus into stomach without any evidence of obstruction, narrowing or stricture. On placing patient in supine and prone lying the stomach is distended with gas. There is mild gastroesophageal reflux without hiatal hernia. Rest of the course of the stomach, duodenal bulb and sweep is normal. FLUOROSCOPY TIME: 2 minutes 24 seconds DOSE AREA PRODUCT: 2495 uGy-m2 (microgray-meter squared) FL/FL upper GI w air w SBFT IMPRESSION: Moderate gastroesophageal reflux without hiatal hernia. Rest of the upper GI air contrast study is unremarkable. TODAY'S VISIT He is here today with his mother who is supportive. Labs show GERD but no severe pathology. Upper GI with small-bowel follow-through showed GERD which is likely genetic in this young man who is not obese but no blockage or movement pathology of the intestines. Since most of the problems have been solved with controlling the bowels, they did not need GI follow up but are welcome to return if needed. [facility] Medical History (Updated 12/19/24 @ 13:32 by FEDERICO Werner) [facility] current use of clozapine Chronic schizophrenia with acute exacerbation Schizophrenia Surgical History (Updated 12/19/24 @ 13:32 by FEDERICO Werner) Abdominal pain Social History Household Members: Family Household Members Other:: mother Housing: Apartment Do you presently have visiting nurse or other home services: No Unable to assess alcohol history related to: Unknown Comment: OOB ad jakob, steady on feet Patient Tobacco Use Status: Former Tobacco user Tobacco use type: Cigarette Second Hand Smoke Exposure: No service: No Sexual orientation: Straight/Heterosexual Review of Systems Const Denies fatigue, Denies fever(s), Denies night sweats, Denies poor appetite and Denies weight loss ENT Reports Normal hearing present, Denies dental pain, Denies dysphagia, Denies hearing loss, Denies mouth pain, Denies odynophagia, Denies throat swelling, Denies tongue swelling and Reports other (Dentition adequate) Card Reports no additional complaints Resp Reports no additional complaints GI Details: Denies abdominal pain, Denies melena, Denies bloating, Denies hematochezia, Reports constipation, Denies GI cramping, Denies dysphagia, Denies excessive flatus, Denies early satiety, Reports heartburn, Denies diarrhea, Denies nausea, Denies odynophagia, Denies vomiting and Denies hematemesis Skin/Breast Denies pruritus, Denies lesions, Denies rash and Denies jaundice Neuro Reports Normal hearing present and Denies Abnormal speech present Endo Denies fatigue Aller/Immun Denies throat swelling and Denies tongue swelling Physical Exam Vital Signs: Last Vital Signs Pulse 108 H 12/19/24 10:55 BP 124/77 12/19/24 10:55 Pulse Ox 99 12/19/24 10:55 Oxygen Delivery Method Room Air 12/19/24 10:55 BMI result Body Mass Index 25.0 Const General: cooperative, no acute distress, well developed and well groomed Nutritional Appearance: average body habitus and well nourished Orientation/consciousness: oriented to person, oriented to place and oriented to time Limitations: behavioral limitations and language barrier HEENT Head: Yes normocephalic and Yes atraumatic Eyes General: appearance normal, both eyes and all related structures Pupils: Equal, round and reactive pupils present Neck Neck: Yes normal visual inspection and Yes no lymphadenopathy Thyroid: Thyroid normal Resp Effort & Inspection: normal respiratory effort and able to speak in complete sentences Auscultation: clear to auscultation bilaterally Cardio Rate: regular rate Rhythm: regular rhythm Heart sounds: Normal, physiologic split S2 sound present Peripheral pulses: radial pulses present and posterior tibial pulses present GI Inspection: No distended and No Abdominal panniculus present Palpation (GI): Soft to palpation, nontender, no guarding, not rigid and No hepatosplenomegaly present Percussion: Yes normal to percussion Auscultation: normal bowel sounds Rectal Exam - Male: Yes deferred Skin General skin exam: no rashes or lesions noted, turgor normal, skin not dry, no jaundice, No spider nevi and no striae Rashes: no rashes Nails: normal Neuro General: oriented to person, oriented to place and oriented to time Cranial nerves: Yes Equal, round and reactive pupils present and Yes Normal hearing present Speech: No Abnormal speech present Extrem General: Yes normal to inspection, No clubbing, No cyanosis and No edema Psych Appearance: grossly normal and well kempt Mental Status: mental status grossly normal Speech and movement: Normal speech and movement present Affect: normal affect Attitude: cooperative Thought process: not confabulating and Impoverished thought process present Thought content: Normal thought content present Insight: Limited insight present (Psych) Judgement: Limited judgement present (Psych) Assessment & Plan Assessment & Plan (1) Gastroesophageal reflux disease: Code(s): K21.9 - Gastro-esophageal reflux disease without esophagitis Category: Surgical (2) Constipation: Code(s): K59.00 - Constipation, unspecified Category: Medical Plan He is here today with his mother who is supportive. Labs show GERD but no severe pathology. Upper GI with small-bowel follow-through showed GERD which is likely genetic in this young man who is not obese but no blockage or movement pathology of the intestines. Since most of the problems have been solved with controlling the bowels, they did not need GI follow up but are welcome to return if needed. Coding Level of Care Code Est Pt Level 3 (73671) Diagnoses Gastroesophageal reflux disease K21.9 Constipation K59.00
[2024-12-19 10:55] VITALS: BP 124/77; PULSE 108; O2SAT 99; BMI 25.0
--- OUTSIDE RECORDS SUMMARY | 2024-12-19 11:35 | XMS_ITS | Encounter Summary ---
Author Organization [employer] Address [address] [place] [address] [address] [place] [address] Care Team Providers Care Manager Program Management Name Role Phone Monse Maxwell MD Primary Care Provider [phone] Reason for Visit * Reason Comments Med Refill Encounter Details Date Type Department Care Team (Late Contact Info) Description 02/28/2023 Refill [facility] & PEDS [address] [place] [address] Monse Maxwell MD [address] [place] [address] Social History Tobacco Use Types Packs/Day Years [...] Description 12/20/2024 8:45 AM EDT Office Visit [facility] PEDS [address] [place] [address] Monse Maxwell MD [address] [place] [address] documented as of this encounter Visit Diagnoses Not on filedocumented in this encounter Care Teams Manager Program Management Relationship Specialty Start Date End Date Monse Maxwell MD [address] [place] [phone] PCP - General Family Medicine 05/18/12 documented as of this encounter
== END 2024-12-19 11:25 | disposition home or self-care (01) ==
LOC: HO.HGI 10:34
PROVIDERS: PCP Student in an Organized Health Care Education/Training Program; Visit Provider Nurse Practitioner
DX: K21.9 Gastro-esophageal reflux disease without esophagitis (principal); K59.00 Constipation, unspecified
CPT/HCPCS: 99213

== ENCOUNTER → 2024-12-19 10:33 | Outpatient (BNVA) | payer OTHER, SELFPAY | PROVIDERS: PCP Student in an Organized Health Care Education/Training Program; Visit Provider Nurse Practitioner | DX: K21.9 Gastro-esophageal reflux disease without esophagitis (principal); K59.00 Constipation, unspecified | CPT/HCPCS: 99212 ==

== ENCOUNTER 2024-12-25 08:42 | Outpatient (REF) | payer OTHER, SELFPAY ==
--- OUTSIDE RECORDS SUMMARY | 2024-12-25 09:08 | XMS_ITS | Encounter Summary ---
Author Organization [employer] Address [address] [facility] 7[address] [place] [address] Care Team Providers Care County Assessor Name Role Phone Monse Maxwell MD Primary Care Provider [phone] Reason for Visit * Reason Comments Med Refill Encounter Details Date Type Department Care Team ([facility] st Contact Info) Description 02/28/[address] [facility] MED & PEDS [address] [place] [address] Monse Maxwell MD [address] [place] [address] Social History Tobacco Use Types Packs/Day Years [...] on filedocumented in this encounter Care Teams County Assessor Relationship Specialty Start Date End Date Monse Maxwell MD [address] [place] [address] PCP - General Family Medicine 05/18/12 documented as of this encounter
[2024-12-25 15:52] LABS: TSH reflex Free T4 0.77 uIU/mL (0.32-4.0)
== END 2024-12-25 08:43 | disposition home or self-care (01) ==
LOC: HO.CHCLDS 08:42
PROVIDERS: Visit Provider Student in an Organized Health Care Education/Training Program
DX: E78.5 Hyperlipidemia, unspecified (principal)
CPT/HCPCS: 36415; 84443

== ENCOUNTER 2025-01-01 07:51 | Outpatient (REF) | payer OTHER, SELFPAY ==
--- NOTE | ~2025-01-01 | FL_ITS ---
EXAMINATION: FL SMALL BOWEL SERIES CLINICAL INFORMATION: ABD PAIN, GASTROESOPHAGEAL REFLUX DISEASE COMPARISON: None available. TECHNIQUE: Following a acetylene operator image of the abdomen, contrast was administered orally, and interval abdominal radiographs were performed to assess for contrast progression through the small bowel. Following contrast transit through the small bowel and into the colon, the patient was placed on the fluoroscopy table, and multiple spot images were obtained of the ileum or any abnormal appearing bowel. FINDINGS: Boiler Inspector image of the abdomen demonstrates a normal bowel gas pattern. There is moderate retained stool seen throughout the colon. No organomegaly or abnormal soft tissue calcifications. Osseous structures appear normal. There is normal transit time of contrast material through the small bowel, with contrast present in the colon by 2 hours, 15 minutes. Small bowel loops are of normal caliber throughout the abdomen and pelvis. The jejunal and ileal mucosal fold patterns are normal, without evidence of abnormal thickening. No dilution of contrast is evident. No fixed regions of luminal narrowing are seen to suggest stricturing. The terminal ileum demonstrates a normal appearance. FLUOROSCOPY TIME: 20 seconds. DOSE AREA PRODUCT: 0.1220 uGy-m2 (microgray-meter squared) FL/FL small bowel follow through IMPRESSION: Normal small bowel series. Electronically signed by: Jeremias Iglesias MD 01/01/2025 01:09 PM EDT
--- OUTSIDE RECORDS SUMMARY | 2025-01-01 07:53 | XMS_ITS | Encounter Summary ---
Author Organization [employer] Address [address] [facility] 7t [place] [address] Care Team Providers Care Civil Cad Tech Name Role Phone Monse Maxwell MD Primary Care Provider [phone] Reason for Visit * Reason Comments Med Refill Encounter Details Date Type Department Care Team ([facility] st Contact Info) Description 02/28/2023 Refill [facility] MED [facility] PEDS [address] [place] [address] Monse Maxwell MD [address] [place] [address] Social History Tobacco Use Types Packs/Day Years [...] on filedocumented in this encounter Care Teams Civil Cad Tech Relationship Specialty Start Date End Date Monse Maxwell MD [address] [place] [address] PCP - General Family Medicine 05/18/12 documented as of this encounter
== END 2025-01-01 07:52 | disposition home or self-care (01) ==
LOC: HO.XRAY 07:51
PROVIDERS: PCP Student in an Organized Health Care Education/Training Program; Visit Provider Nurse Practitioner
DX: K21.9 Gastro-esophageal reflux disease without esophagitis (principal); R10.9 Unspecified abdominal pain
CPT/HCPCS: 74250

== ENCOUNTER → 2025-01-01 07:53 | Outpatient (BNV) | payer OTHER, SELFPAY | PROVIDERS: PCP Student in an Organized Health Care Education/Training Program; Visit Provider Radiology Diagnostic Radiology | DX: R10.9 Unspecified abdominal pain (principal) | CPT/HCPCS: 74250 ==